=== PATIENT | male | born 1945 | race Caucasian/White ===

== ENCOUNTER → 2017-01-12 | Day surgery (SDC) | payer OTHER ==
[~2017-01-12] VITALS: Ht 182.9 cm; Wt 125.0 kg
[~2017-01-12] MED LIST: ACETAMINOPHEN 325 MG TAB PO PRN; ASPI81CH2 PO; ATOR-24 PO; ATROPINE SULFATE 0.1 MG/ML 5ML SYR IV PRN; B-CO-25 PO; CETI10TA84 PO; FENTANYL CITRATE INJ 50 MCG/1 ML 2 ML VIAL ONE; GLUC1CAP28 PO; LISI1TAB3 PO; MIDAZOLAM HCL 1 MG/ML 2ML VIAL ONE; MISC8TAB PO; OMEG10007 PO; ONDANSETRON INJ 2 MG/ML 2 ML VIAL IV PRN; PATIENT'S ALLERGY INFO NEEDS ENTERED SCH; PRLSR20 PO; SODIUM CHLORIDE 0.9% 1000ML 250 ML IV PRN
[2017-01-12 07:36] VITALS: BP 144/103; PULSE 60; TEMP 36.7; O2SAT 94; Ht 182.9 cm; Wt 125.0 kg
--- NOTE | 2017-01-12 09:50 | Procedure Note ---
Pre-Mod Sedation Assessment General Date of Moderate Sedation: January 12, 2017. Vital Signs: Vital Signs Past 12 Hours Date Time Temp Pulse Resp B/P Pulse Ox O2 Delivery O2 Flow Rate FiO2 01/12/17 07:36 36.7 60 16 144/103 94 Room Air Review Cardiovascular: regular rate, rhythm, no edema, + systolic murmur Abdomen: normal bowel sounds, non tender Pre-Sedation Airway Assessment Oral Cavity: Dentures Short Thick Neck: No Hx of Sleep Apnea: No Mallampati Classification: Class III ASA Classification: Class III Procedure Planning Contraindications-for Mod Sed: None Yes Notes The planned sedation has been discussed with the patient and consent obtained. I have identified the patient, determined the appropriateness of sedation and have assessed the patient immediately prior to the procedure. All medicine(s) and interventions are by my order.
--- NOTE | 2017-01-12 09:50 | History & Physical Bridge Note ---
H&P Re-Evaluation Bridge Note: I have examined the patient, reviewed the History & Physical and in the interval since the performance of the History & Physical I have noted the following changes of clinical significance: No changes noted
--- NOTE | 2017-01-12 11:02 | Cardiac Catheterization ---
Procedure Note Procedure Date January 12, 2017. Pre-Procedure Diagnosis Valvular Disease AUC Score 7 Post-Procedure Diagnosis Mild CAD Procedure(s) Performed Coronary Angiography (Moderate sedation, start time 1009, stop [id number]) [employer] Dr. Renteria Cafeteria Director(s) Jose ROACH, sedation ROCK Jules Estimated Blood Loss 5cc Medication(s) Fentanyl (25mcg), Versed (2mg), Lidocaine 1% Summary of Findings mild nonobstructive CAD Hemodynamics Rest Ao: 97/54/71 Final Ao: 106/60/79 LV: N/A Recommendations valve replacement Specimens None Radiation Exposure (mGy) 1195 Contrast (mls) 80 Procedural Complication(s) None Disposition Motion Picture Narrator Holding/Recovery ACC Data Cardiac Status Clinical evaluation leading to the procedure: Severe aortic stenosis per resting 2D echo. CAD Presntation: Stable angina Anginal Classification: CCS II Heart Failure: No Coronary Anatomy Dominant: Right Left Main (% Stenosis): Ostial (0%), Proximal (0%), Mid (0%), Distal (10%), Normal LAD (% Stenosis): Ostial (0%), Proximal (10%), Mid (10%), Distal (10%) D1 (% Stenosis): Normal Circumflex (% Stenosis): Ostial (0%), Proximal (0%), Mid (10%), Distal (10%) OM1 (% Stenosis): Ostial (0%), Proximal (0%), Mid (10%), Distal (10%) RCA (% Stenosis): Ostial (20% taper), Proximal (diffuse 10-20%), Mid (30%), Distal (10%) R PDA (% Stenosis): Ostial (20% taper), Proximal (0%), Mid (10%), Distal (10%) R PL1 (% Stenosis): Normal R PL2 (% Stenosis): Normal AM (% Stenosis): Ostial (not well visualized), Proximal (10%), Mid (10%), Distal (0%) Diagnostic Status: Elective Closure Device Percutaneous Entry Location: Femoral Closure Device: Mynx Recommendations: valve replacement Intraprocedure Events Significant Dissection: No Perforation: No
--- NOTE | 2017-01-12 11:06 | Discharge Instructions ---
Discharge Instructions Procedure Procedure Date: January 12, 2017. Reason for Visit: Pre-Op Aortic Valve Stenosis Kopinski To Do. Discharge Discharge Date: January 12, 2017. Discharge Diagnosis: Status post cardiac catheterization. Nonobstructive CAD Severe aortic stenosis Last Recorded Wt (Kilograms): 125 Anesthesia Post Anesthesia Instructions: If you have had General Anesthesia or IV Sedation: * Do not drive today. * Resume driving when surgeon permits. * Do not make important decisions or sign legal documents today. * Call surgeon for: 1. Temperature elevations greater than 101 degrees F. 2. Uncontrollable pain. 3. Excessive bleeding. 4. Persistent nausea and vomiting. 5. Medication intolerance (nausea, vomiting or rash). * For nausea and vomiting use only clear liquids such as: tea, soda, bouillon until nausea subsides, then gradually increase diet as tolerated. * If you have any concerns or questions, call your surgeon's office. If physician is unavailable and it is an emergency, call 911 or go to the nearest emergency room. Instructions Activity Recommendations: limitations as noted below Return to School/Work: with the following limitations Recommended Home Diet: resume previous diet Provider Instructions ACTIVITY RECOMMENDATIONS: It is common to feel weak and fatigue for a few days. * Do not drive or operate any motorized equipment for the next three days. * Limit stair usage (2 or 3 trips a day only) for the next three days. * Do not lift anything heavier than 10 pounds for the next three days. * Do not engage in vigorous exercise or any sports for the next five days. * You may shower the day after your procedure, but do not immerse the area for three days. Cleanse the site gently with soap and water. SPECIAL CARE INSTRUCTIONS: * You may replace the pressure dressing or band-aid the morning after the procedure. * After your procedure, it is normal to have a small bruise or small lump at the site. Examine your site daily for any change in the bruise or lump, redness, swelling, drainage or numbness. Notify your doctor if any change. BLEEDING: * If there is a small amount of bleeding at the site, lie down and apply firm pressure with a clean cloth for ten minutes. When the bleeding stops, lie quietly keeping the procedure limb straight for six hours. Notify your doctor as soon as possible. * If the bleeding does not stop after ten minutes or if there is a large amount of bleeding or spurting, call 911 immediately. Continue to lie down and hold firm pressure until help arrives. SKIN IRRITATION: * You may experience some redness and/or swelling in the area where radiation was administered. If any skin irritation occurs, please contact your family physician. FOLLOW UP VISIT: Keep any scheduled doctor appointments. Follow Up Follow-up with: [facility] CT surgeon as scheduled. Jared Valerio Recommendations: Call your doctor if: * Temperature above 101 degrees * Pain not relieved by pain medicine ordered * There is increased drainage or redness from any incision * You have any unanswered questions or concerns. Your Doctors Instructions noted above were prepared by provider Benigno Renteria. Patient Signature Section: Patient Instructions Signature Page Nicholas Contreras Patient (or Guardian) Signature/Date: I have read and understand the instructions given to me by my caregivers. Caregiver/RN/Doctor Signature/Date: The above-named patient and/or guardian has received patient instructions on this date. + Original Patient Signature Page (only) stays with chart. Please make copy for patient.
[2017-01-12 15:30] VITALS: BP 129/61; PULSE 62; O2SAT 95
== END | disposition home or self-care (01) ==
LOC: C.CATH 06:48
PROVIDERS: ATTEND Internal Medicine Cardiovascular Disease
DX: I35.0 Nonrheumatic aortic (valve) stenosis (principal); I25.10 Atherosclerotic heart disease of native coronary artery without angina pectoris; I10 Essential (primary) hypertension; E78.5 Hyperlipidemia, unspecified; Z87.891 Personal history of nicotine dependence

== ENCOUNTER 2021-02-11 13:32 | Inpatient (IN) ==
[2021-02-11] MEDS ORDERED: cefTRIAXone SODIUM 2,000 MG/70 ML BAG IV STA (14:08)
[2021-02-11] MEDS ORDERED: SODIUM CHLORIDE 0.9% 1000ML 2,000 ML IV ONE (14:08)
[2021-02-11] MEDS ORDERED: ACETAMINOPHEN 325 MG TAB PO STA (14:11)
[2021-02-11] MEDS ORDERED: KETOROLAC TROMETHAMINE 15 MG/ML VIAL IV ONE (14:11)
--- NOTE | 2021-02-11 14:11 | Emergency Department Note ---
Impression & Plan Sepsis, Acute knee pain, Cough, Effusion of knee ED Provider Note NAME: CHLOE VICK AGE: 75 SEX: M : 1945 ARRIVES VIA: Ambulance INFORMANT: Patient ED PROVIDER(S): Elio Boateng DO CHIEF COMPLAINT: Knee pain, cough HPI: Patient is a 75-year-old male who presents to the ER for right knee pain which has been present for the past 2 weeks. He has been unable to walk on it for the past week. He has followed up with PCP and had x-rays. He is scheduled to see [facility] orthopedics coming up but has not seen them yet. He notes he has had swelling which has been unchanged. He denies any headache or neck pain. He admits to a cough which is nonproductive and is been present for the past 2 weeks. He denies any shortness of breath. He admits to feeling hot but does not remember any fevers but he has not been checking. Denies any belly pain dysuria urgency or frequency. No other exacerbating or remitting factors. Pain is significant worse with movement and improves with rest. ROS: See above HPI for pertinent positives & negatives. A total of 10 systems reviewed and were otherwise negative. PAST MEDICAL HISTORY:See Below PAST SURGICAL HISTORY:See Below FAMILY HISTORY:See Below SOCIAL HISTORY:See Below HOME MEDICATIONS:See Below ALLERGIES:See Below VITALS:See Below PHYSICAL EXAMINATION: GENERAL: Sitting up in bed, alert, disheveled, slightly ill-appearing EYE EXAM: normal conjunctiva. PERRL and EOM's grossly intact. OROPHARYNX: no exudate, no erythema, lips, buccal mucosa, and tongue normal and mucous membranes are moist NECK: supple, no nuchal rigidity, no adenopathy, non-tender LUNGS: Clear to auscultation. Normal chest wall mechanics HEART: Tachycardic, S1 normal and S2 normal ABDOMEN: abdomen soft, non-tender, normo-active bowel sounds, no masses, no rebound or guarding. BACK: Back is symmetrical on inspection and there is no deformity, no midline tenderness, no CVA tenderness. SKIN: no rashes and no bruising UPPER EXTREMITIES: upper extremities are grossly normal. LOWER EXTREMITIES: Prepatellar swelling of the right knee held in partial flexion significant pain with extension and axial loading of the joint. No tenderness in the ankle or hip. NEURO EXAM: Normal sensorium, cranial nerves II-XII grossly intact, normal speech, no gross weakness of arms, no gross weakness of legs. MEDICAL DECISION MAKING: Patient is a 75-year-old male who presents ER for fevers and found to be hypoxic brought in by EMS. He does have a little bit of a cough. IV was established blood work was obtained. He has been unable to walk on his right knee for the past 5 to 6 days. IV was established blood work is obtained. Labs showed a leukocytosis of 13,000. No significant anemia. D-dimer was elevated and was obtained secondary to the hypoxia. BMP with creatinine 1.7. LFTs troponin was unremarkable. Pro-Adrian was slightly elevated 0.65. UA was contaminated. I did tap the knee at bedside and awaiting results. Patient was given 2 g of Rocephin initially upon presentation and eventually given IV vancomycin. Lyme was negative. X-rays and knee showed a large effusion. CT angio of the chest was negative. He denied any belly pain. He was updated and discussed with hospitalist for further evaluation. Triage Nursing notes reviewed. Limited review of prior medical records performed Vital Signs: reviewed and remarkable for febrile Differential diagnosis: Differential diagnosis includes etiologies such as sepsis, UTI, pneumonia, metabolic, electrolyte abnormalities, cardiac sources, intracerebral event, toxicologic, neurological, as well as others were entertained. ER treatment provided: See below Diagnostics interpreted by me: Cardiac Monitoring: An order was placed for continuous cardiac monitoring. The monitor shows a rate of 72 with sinus rhythm. Laboratory studies: As stated above and show below. Imaging studies: CT angio of the chest was negative X-ray of the right knee shows a large effusion Consultation(s): Discussed with the hospitalist for further evaluation Procedures: Arthrocentesis Indication: Sepsis with a right knee effusion Location: Right lateral knee Verbal consent was obtained after the risks and benefits were explained, including but not limited to vessel injury, bleeding, scarring, infection, pain, and bone/joint/nerve damage. At this time, the risks of the procedure are less than the risks of NOT performing the procedure. A time out was taken and the correct patient and site identified. The patient was placed in the prone position and the skin was prepped in the standard fashion with chlorhexidine and full sterile drapes applied. The proper landmarks were identified, anesthetized with 1% lidocaine without epinephrine, and the needle was inserted through the skin in the standard fashion. The needle was carefully advanced into right knee joint. Yellow straw-colored fluid was removed for a total of 30 cc. The patient tolerated the procedure well and there were no complications. Critical Care: None Past Med/Surg History Social History Smoking Status: Unknown if ever smoked Feels Safe at Home: Yes Allergies Allergies Allergy/AdvReac Type Severity Reaction Status Date / Time No Known Allergies Allergy Unverified 01/12/17 11:47 Home Meds Home Medications Medication Instructions Recorded Confirmed amiodarone 200 mg PO QAM 02/11/21 02/11/21 aspirin [Aspirin Low Dose] 81 mg PO DAILY 02/11/21 02/11/21 atorvastatin 40 mg PO QPM 02/11/21 02/11/21 diclofenac sodium 50 mg PO TID PRN 02/11/21 02/11/21 hydrocodone-acetaminophen 1 tab PO Q6 PRN 02/11/21 02/11/21 losartan 25 mg PO QAM 02/11/21 02/11/21 tamsulosin 0.4 mg PO DAILY 02/11/21 02/11/21 Results & Data (ED) Vital Signs Vital Signs - 24 hr 02/11/21 13:41 02/11/21 13:46 02/11/21 13:53 Temperature 39.2 C H Temperature Source Oral Pulse Rate 90 88 88 Pulse Rate from SpO2 Sensor 90 88 Pulse Rhythm Regular Pulse Strength Normal Respiratory Rate 19 18 18 Respiratory Effort / Characteristics Respiratory Depth Normal Blood Pressure 150/112 H 155/104 H Blood Pressure [Left Arm] Blood Pressure Mean 124 121 Blood Pressure Mean [Left Arm] Blood Pressure Position [Left Arm] Pulse Oximetry 95 95 95 Oxygen Delivery Method Nasal Cannula Oxygen Flow Rate 3 Sepsis Recent Fever Within 48 Hours Yes Sepsis New/Unexplained Change in Mental Status No Sepsis Action Taken by Nursing No Action Required 02/11/21 14:00 02/11/21 14:08 02/11/21 14:30 Temperature Temperature Source Pulse Rate 89 80 90 Pulse Rate from SpO2 Sensor 89 90 Pulse Rhythm Regular Pulse Strength Respiratory Rate 25 H 12 28 H Respiratory Effort / Characteristics Non-Labored Respiratory Depth Blood Pressure 113/84 Blood Pressure [Left Arm] 150/99 H Blood Pressure Mean 93 Blood Pressure Mean [Left Arm] 116 Blood Pressure Position [Left Arm] Standing Pulse Oximetry 94 95 92 Oxygen Delivery Method Nasal Cannula Oxygen Flow Rate Sepsis Recent Fever Within 48 Hours Sepsis New/Unexplained Change in Mental Status Sepsis Action Taken by Nursing 02/11/21 14:31 02/11/21 15:00 02/11/21 15:30 Temperature Temperature Source Pulse Rate 88 84 79 Pulse Rate from SpO2 Sensor 89 Pulse Rhythm Pulse Strength Respiratory Rate 24 20 20 Respiratory Effort / Characteristics Respiratory Depth Blood Pressure 124/80 115/63 Blood Pressure [Left Arm] Blood Pressure Mean 94 80 Blood Pressure Mean [Left Arm] Blood Pressure Position [Left Arm] Pulse Oximetry 93 96 Oxygen Delivery Method Oxygen Flow Rate Sepsis Recent Fever Within 48 Hours Sepsis New/Unexplained Change in Mental Status Sepsis Action Taken by Nursing 02/11/21 16:00 02/11/21 16:30 02/11/21 17:00 Temperature Temperature Source Pulse Rate 77 77 74 Pulse Rate from SpO2 Sensor Pulse Rhythm Pulse Strength Respiratory Rate 19 20 16 Respiratory Effort / Characteristics Respiratory Depth Blood Pressure 106/66 112/64 102/60 Blood Pressure [Left Arm] Blood Pressure Mean 79 80 74 Blood Pressure Mean [Left Arm] Blood Pressure Position [Left Arm] Pulse Oximetry 97 99 99 Oxygen Delivery Method Oxygen Flow Rate Sepsis Recent Fever Within 48 Hours Sepsis New/Unexplained Change in Mental Status Sepsis Action Taken by Nursing Laboratory Data Result diagrams: 02/11/21 15:56 02/11/21 14:40 Lab Results 02/11/21 02/11/21 02/11/21 Range/Units 11:52 11:52 14:40 WBC (4.8-10.8) K/uL RBC (4.7-6.1) M/uL Hgb (14.0-18.0) g/dL Hct (42-52) % MCV (80-100) fL MCH (25-34) pg MCHC (32-36) g/dL RDW Std Deviation (36.4-46.3) fL RDW Coeff of Pilar (11.5-14.5) % Plt Count (130-400) K/uL MPV (7.4-10.4) fL Immature Gran % (Auto) % Neut % (Auto) % Lymph % (Auto) % Catron % (Auto) % Eos % (Auto) % Baso % (Auto) % Neut # (Auto) (1.4-6.5) K/uL Lymph # (Auto) (1.2-3.4) K/uL Catron # (Auto) (0.11-0.59) K/uL Eos # (Auto) (0-0.5) K/uL Baso # (Auto) (0-0.2) K/uL Immature Gran # (Auto) (0.00-0.02) K/uL PT 10.4 (9.0-12.0) Seconds INR 1.0 (0.9-1.1) APTT 37.6 H (21.0-31.0) Seconds PTT Ratio 1.4 D-Dimer 1650 H* (0-500) ug/L FEU Sodium (136-145) mmol/L Potassium (3.5-5.1) mmol/L Chloride (98-107) mmol/L Carbon Dioxide (21-32) mmol/L Anion Gap (3-11) BUN (7-18) mg/dl Creatinine (0.6-1.4) mg/dl Est Cr Clr Drug Dosing ml/min Est GFR ( Amer) ml/min Est GFR (Non-Af Amer) ml/min BUN/Creatinine Ratio (10-20) Glucose (70-99) mg/dl Lactate (0.4-2.0) mmol/L Calcium (8.5-10.1) mg/dl Magnesium (1.8-2.4) mg/dl Total Bilirubin (0.2-1) mg/dl AST (15-37) U/L ALT (12-78) U/L Alkaline Phosphatase (45-117) U/L Troponin I (0-0.045) ng/ml Total Protein (6.4-8.2) gm/dl Albumin (3.4-5.0) gm/dl Globulin (2.5-4.0) gm/dl Albumin/Globulin Ratio (0.9-2) Procalcitonin (0-0.5) ng/ml Urine Color Urine Appearance (Clear) Urine pH (4.5-7.5) Ur Specific Morrill (1.000-1.030) Urine Protein (Negative) Urine Glucose (UA) (Negative) Urine Ketones (Negative) Urine Blood (Negative) Urine Nitrite (Negative) Urine Bilirubin (Negative) Urine Urobilinogen (Negative) Ur Leukocyte Esterase (Negative) Urine WBC (Auto) (0-5) /hpf Urine RBC (Auto) (0-4) /hpf U Hyaline Cast (Auto) (0-5) /lpf U Epithel Cells (Auto) (0-5) /lpf Urine Bacteria (Auto) (Negative) Granular Casts (0) /lpf Fluid Comment Synovial Source Synovial Color Synovial Appearance Synovial WBC (0-200) /ul Synovial RBC /uL Synovial Polynuclear % % Synovial Mononuclear % % Lyme Disease IgG Ab (Negative) Lyme Disease IgM Ab (Negative) COVID-19 Eval Order Covid19 at [facility] SARS-CoV-2 (PCR) NEGATIVE (Negative) 02/11/21 02/11/21 02/11/21 Range/Units 14:40 14:40 14:40 WBC (4.8-10.8) K/uL RBC (4.7-6.1) M/uL Hgb (14.0-18.0) g/dL Hct (42-52) % MCV (80-100) fL MCH (25-34) pg MCHC (32-36) g/dL RDW Std Deviation (36.4-46.3) fL RDW Coeff of Pilar (11.5-14.5) % Plt Count (130-400) K/uL MPV (7.4-10.4) fL Immature Gran % (Auto) % Neut % (Auto) % Lymph % (Auto) % Catron % (Auto) % Eos % (Auto) % Baso % (Auto) % Neut # (Auto) (1.4-6.5) K/uL Lymph # (Auto) (1.2-3.4) K/uL Catron # (Auto) (0.11-0.59) K/uL Eos # (Auto) (0-0.5) K/uL Baso # (Auto) (0-0.2) K/uL Immature Gran # (Auto) (0.00-0.02) K/uL PT (9.0-12.0) Seconds INR (0.9-1.1) APTT (21.0-31.0) Seconds PTT Ratio D-Dimer (0-500) ug/L FEU Sodium 133 L (136-145) mmol/L Potassium 4.5 (3.5-5.1) mmol/L Chloride 102 (98-107) mmol/L Carbon Dioxide 22 (21-32) mmol/L Anion Gap 9.0 (3-11) BUN 26 H (7-18) mg/dl Creatinine 1.70 H (0.6-1.4) mg/dl Est Cr Clr Drug Dosing 50.5 ml/min Est GFR ( Amer) 44.4 ml/min Est GFR (Non-Af Amer) 38.3 ml/min BUN/Creatinine Ratio 15.0 (10-20) Glucose 119 H (70-99) mg/dl Lactate 1.6 (0.4-2.0) mmol/L Calcium 9.3 (8.5-10.1) mg/dl Magnesium 2.5 H (1.8-2.4) mg/dl Total Bilirubin 1.1 H (0.2-1) mg/dl AST 17 (15-37) U/L ALT 27 (12-78) U/L Alkaline Phosphatase 102 (45-117) U/L Troponin I < 0.015 (0-0.045) ng/ml Total Protein 7.9 (6.4-8.2) gm/dl Albumin 2.6 L (3.4-5.0) gm/dl Globulin 5.3 H (2.5-4.0) gm/dl Albumin/Globulin Ratio 0.5 L (0.9-2) Procalcitonin 0.65 H (0-0.5) ng/ml Urine Color Urine Appearance (Clear) Urine pH (4.5-7.5) Ur Specific Morrill (1.000-1.030) Urine Protein (Negative) Urine Glucose (UA) (Negative) Urine Ketones (Negative) Urine Blood (Negative) Urine Nitrite (Negative) Urine Bilirubin (Negative) Urine Urobilinogen (Negative) Ur Leukocyte Esterase (Negative) Urine WBC (Auto) (0-5) /hpf Urine RBC (Auto) (0-4) /hpf U Hyaline Cast (Auto) (0-5) /lpf U Epithel Cells (Auto) (0-5) /lpf Urine Bacteria (Auto) (Negative) Granular Casts (0) /lpf Fluid Comment Synovial Source Synovial Color Synovial Appearance Synovial WBC (0-200) /ul Synovial RBC /uL Synovial Polynuclear % % Synovial Mononuclear % % Lyme Disease IgG Ab (Negative) Lyme Disease IgM Ab (Negative) COVID-19 Eval Order SARS-CoV-2 (PCR) (Negative) 02/11/21 02/11/21 02/11/21 Range/Units 15:56 15:56 18:35 WBC 13.32 H (4.8-10.8) K/uL RBC 4.74 (4.7-6.1) M/uL Hgb 13.7 L (14.0-18.0) g/dL Hct 40.8 L (42-52) % MCV 86.1 (80-100) fL MCH 28.9 (25-34) pg MCHC 33.6 (32-36) g/dL RDW Std Deviation 44.8 (36.4-46.3) fL RDW Coeff of Pilar 14.1 (11.5-14.5) % Plt Count 157 (130-400) K/uL MPV 10.9 H (7.4-10.4) fL Immature Gran % (Auto) 0.2 % Neut % (Auto) 79.7 % Lymph % (Auto) 5.9 % Catron % (Auto) 13.9 % Eos % (Auto) 0.2 % Baso % (Auto) 0.1 % Neut # (Auto) 10.62 H (1.4-6.5) K/uL Lymph # (Auto) 0.79 L (1.2-3.4) K/uL Catron # (Auto) 1.85 H (0.11-0.59) K/uL Eos # (Auto) 0.02 (0-0.5) K/uL Baso # (Auto) 0.01 (0-0.2) K/uL Immature Gran # (Auto) 0.03 H (0.00-0.02) K/uL PT (9.0-12.0) Seconds INR (0.9-1.1) APTT (21.0-31.0) Seconds PTT Ratio D-Dimer (0-500) ug/L FEU Sodium (136-145) mmol/L Potassium (3.5-5.1) mmol/L Chloride (98-107) mmol/L Carbon Dioxide (21-32) mmol/L Anion Gap (3-11) BUN (7-18) mg/dl Creatinine (0.6-1.4) mg/dl Est Cr Clr Drug Dosing ml/min Est GFR ( Amer) ml/min Est GFR (Non-Af Amer) ml/min BUN/Creatinine Ratio (10-20) Glucose (70-99) mg/dl Lactate (0.4-2.0) mmol/L Calcium (8.5-10.1) mg/dl Magnesium (1.8-2.4) mg/dl Total Bilirubin (0.2-1) mg/dl AST (15-37) U/L ALT (12-78) U/L Alkaline Phosphatase (45-117) U/L Troponin I (0-0.045) ng/ml Total Protein (6.4-8.2) gm/dl Albumin (3.4-5.0) gm/dl Globulin (2.5-4.0) gm/dl Albumin/Globulin Ratio (0.9-2) Procalcitonin (0-0.5) ng/ml Urine Color [place] Urine Appearance Clear (Clear) Urine pH 6.0 (4.5-7.5) Ur Specific Morrill 1.032 H (1.000-1.030) Urine Protein 2+ H (Negative) Urine Glucose (UA) Negative (Negative) Urine Ketones Trace H (Negative) Urine Blood 2+ H (Negative) Urine Nitrite Positive A (Negative) Urine Bilirubin Negative (Negative) Urine Urobilinogen Negative (Negative) Ur Leukocyte Esterase Trace H (Negative) Urine WBC (Auto) 1-5 (0-5) /hpf Urine RBC (Auto) >30 H (0-4) /hpf U Hyaline Cast (Auto) 10-30 H (0-5) /lpf U Epithel Cells (Auto) 20-30 H (0-5) /lpf Urine Bacteria (Auto) Negative (Negative) Granular Casts 5-10 H (0) /lpf Fluid Comment Synovial Source Synovial Color Synovial Appearance Synovial WBC (0-200) /ul Synovial RBC /uL Synovial Polynuclear % % Synovial Mononuclear % % Lyme Disease IgG Ab Negative (Negative) Lyme Disease IgM Ab Negative (Negative) COVID-19 Eval Order SARS-CoV-2 (PCR) (Negative) 02/11/21 Range/Units 18:50 WBC (4.8-10.8) K/uL RBC (4.7-6.1) M/uL Hgb (14.0-18.0) g/dL Hct (42-52) % MCV (80-100) fL MCH (25-34) pg MCHC (32-36) g/dL RDW Std Deviation (36.4-46.3) fL RDW Coeff of Pilar (11.5-14.5) % Plt Count (130-400) K/uL MPV (7.4-10.4) fL Immature Gran % (Auto) % Neut % (Auto) % Lymph % (Auto) % Catron % (Auto) % Eos % (Auto) % Baso % (Auto) % Neut # (Auto) (1.4-6.5) K/uL Lymph # (Auto) (1.2-3.4) K/uL Catron # (Auto) (0.11-0.59) K/uL Eos # (Auto) (0-0.5) K/uL Baso # (Auto) (0-0.2) K/uL Immature Gran # (Auto) (0.00-0.02) K/uL PT (9.0-12.0) Seconds INR (0.9-1.1) APTT (21.0-31.0) Seconds PTT Ratio D-Dimer (0-500) ug/L FEU Sodium (136-145) mmol/L Potassium (3.5-5.1) mmol/L Chloride (98-107) mmol/L Carbon Dioxide (21-32) mmol/L Anion Gap (3-11) BUN (7-18) mg/dl Creatinine (0.6-1.4) mg/dl Est Cr Clr Drug Dosing ml/min Est GFR ( Amer) ml/min Est GFR (Non-Af Amer) ml/min BUN/Creatinine Ratio (10-20) Glucose (70-99) mg/dl Lactate (0.4-2.0) mmol/L Calcium (8.5-10.1) mg/dl Magnesium (1.8-2.4) mg/dl Total Bilirubin (0.2-1) mg/dl AST (15-37) U/L ALT (12-78) U/L Alkaline Phosphatase (45-117) U/L Troponin I (0-0.045) ng/ml Total Protein (6.4-8.2) gm/dl Albumin (3.4-5.0) gm/dl Globulin (2.5-4.0) gm/dl Albumin/Globulin Ratio (0.9-2) Procalcitonin (0-0.5) ng/ml Urine Color Urine Appearance (Clear) Urine pH (4.5-7.5) Ur Specific Morrill (1.000-1.030) Urine Protein (Negative) Urine Glucose (UA) (Negative) Urine Ketones (Negative) Urine Blood (Negative) Urine Nitrite (Negative) Urine Bilirubin (Negative) Urine Urobilinogen (Negative) Ur Leukocyte Esterase (Negative) Urine WBC (Auto) (0-5) /hpf Urine RBC (Auto) (0-4) /hpf U Hyaline Cast (Auto) (0-5) /lpf U Epithel Cells (Auto) (0-5) /lpf Urine Bacteria (Auto) (Negative) Granular Casts (0) /lpf Fluid Comment Synovial Source KNEE Synovial Color YELLOW Synovial Appearance CLOUDY Synovial WBC 69324 H (0-200) /ul Synovial RBC 60511 /uL Synovial Polynuclear % 89.1 % Synovial Mononuclear % 10.9 % Lyme Disease IgG Ab (Negative) Lyme Disease IgM Ab (Negative) COVID-19 Eval Order SARS-CoV-2 (PCR) (Negative) Administered Medications Vancomycin HCl 2,750 mg/ (Sodium Chloride) 555 mls @ 200 mls/hr IV NOW ONE Stop: 02/11/21 21:39 Last Admin: 02/11/21 19:51 Dose: 200 mls/hr Documented by: [id number] Discontinued Medications Acetaminophen (Acetaminophen 325 Mg Tab) 650 mg PO NOW STA Stop: 02/11/21 14:12 Last Admin: 02/11/21 14:55 Dose: 650 mg Documented by: [id number] Ceftriaxone Sodium (Rocephin) 2,000 mg in 70 mls @ 140 mls/hr IV NOW STA Stop: 02/11/21 14:37 Last Infusion: 02/11/21 15:21 Dose: 0 mls/hr Documented by: [id number] Admin: 02/11/21 14:55 Dose: 140 mls/hr Documented by: [id number] Sodium Chloride (Nss 1000ml) 2,000 mls @ 999 mls/hr IV .Q2H1M ONE Stop: 02/11/21 16:08 Last Infusion: 06/02/21 16:22 Dose: 0 mls/hr Documented by: [id number] Admin: 02/11/21 14:55 Dose: 999 mls/hr Documented by: [id number] Ioversol (Optiray 320 150ml) 95 ml IV ONCE ONE Stop: 02/11/21 17:22 Last Admin: 02/11/21 17:50 Dose: Not Given Documented by: [id number] Ioversol (Optiray 350 500ml) 95 ml IV ONCE ONE Stop: 02/11/21 17:25 Last Admin: 02/11/21 17:24 Dose: 95 ml Documented by: [id number] Ketorolac Tromethamine (Ketorolac Tromethamine 15 Mg/Ml Vial) 10 mg IV NOW ONE Stop: 02/11/21 14:12 Last Admin: 02/11/21 14:55 Dose: 10 mg Documented by: [id number] Lidocaine HCl (Lidocaine Hcl 2% (Local) Inj 50 Ml Vial) Confirm Administered Dose 50 ml .ROUTE .STK-MED ONE Stop: 02/11/21 18:28 Last Admin: 02/11/21 19:48 Dose: 50 ml Documented by: [id number] Morphine Sulfate (Morphine Sulfate 4 Mg/Ml 1 Ml Carp\Vial) 4 mg IV NOW STA Stop: 02/11/21 18:51 Last Admin: 02/11/21 19:48 Dose: 4 mg Documented by: [id number] Ondansetron HCl (Ondansetron Inj 2 Mg/Ml 2 Ml Vial) 4 mg IV NOW STA Stop: 02/11/21 18:51 Last Admin: 02/11/21 19:48 Dose: 4 mg Documented by: [id number] Imaging Data Radiologist's Impression: Chest X-Ray 02/11/21 14:08 XR chest 1V portable CLINICAL HISTORY: SEPSIS COMPARISON STUDY: No previous studies for comparison. FINDINGS: The heart is enlarged. There are postsurgical changes of a midline sternotomy. There is mild elevation of interstitium, likely secondary to pulmonary vascular congestion. A interstitial infectious/inflammatory process could appear similar. There are no significant pleural effusions. The patient appears hyperinflated.[ IMPRESSION: Cardiomegaly and elevation of the interstitium, a nonspecific finding likely secondary to mild pulmonary vascular congestion/fluid overload. ACT 112: Negative or not required by law. Electronically signed by: Rick Rico M.D. 02/11/2021 2:55 PM Knee X-Ray 02/11/21 14:08 XR knee RT 3V HISTORY: 75 years-old Male r knee pain acute right knee pain without reported trauma COMPARISON: None TECHNIQUE: 3 views of the right knee FINDINGS: Large joint effusion. There is severe tricompartmental osteoarthritis with corticated ossifications projected posteriorly to the knee. No acute fracture, dislocation or suspicious bone lesion. Mild circumferential soft tissue prominence. IMPRESSION: 1. Large joint effusion without acute fracture or dislocation identified. 2. Severe tricompartmental osteoarthritis. ACT 112: Negative or not required by law. The above report was generated using voice recognition software. It may contain grammatical, syntax or spelling errors. Electronically signed by: Guillermo Rivera M.D. 02/11/2021 2:55 PM Chest CTA 02/11/21 16:04 CT ANGIOGRAM OF THE CHEST CLINICAL HISTORY: Sepsis. Dyspnea. COMPARISON STUDY: Chest x-ray dated 02/11/2021. TECHNIQUE: Following the IV administration of 95 cc of Optiray 350, CT angiogram of the chest was performed from the upper abdomen to the thoracic inlet utilizing the pulmonary embolus protocol. Images are reviewed in the axial, sagittal, and coronal planes. 3-D MIPS images are created and assessed. IV contrast was administered without complication. A dose lowering technique was utilized adhering to the principles of ALARA. The Examination is compromised by motion artifact. CT DOSE: 591.10 mGycm FINDINGS: Thyroid: The thyroid is enlarged and heterogeneous. Thoracic aorta: There is atherosclerotic calcification of the thoracic aorta, which is normal in caliber and demonstrates standard 3-vessel arch anatomy. No dissection is seen. Pulmonary vasculature: The pulmonary trunk is dilated, measuring 4.3 cm in diameter. This suggests pulmonary artery hypertension. There are no filling defects identified in main, lobar, or proximal segmental pulmonary branches to suggest pulmonary embolus. Evaluation of the peripheral branches is degraded by motion artifact. Heart: The patient is status post midline sternotomy. The heart is enlarged and without pericardial effusion. The coronary arteries are densely calcified. Lungs and pleural spaces: Evaluation of the lung parenchyma is significantly compromised by motion artifact. Emphysematous change is noted. Intralobular septal thickening suggests congestive failure. No lobar consolidation or pleural effusion is identified. Foci of parenchymal scarring are seen throughout both lungs. Atelectasis is noted at the lung bases. A 5 mm left upper lobe pulmonary nodule is seen on image #[id number]. Mediastinum: Scattered subcentimeter mediastinal lymph nodes are not pathologically enlarged by size criteria. [place]: Clear. Axillae: There is no axillary lymphadenopathy. Upper abdomen: Partially visualized upper abdominal viscera is within normal limits. Skeletal structures: The skeletal structures are osteopenic. Degenerative change is noted in the shoulders and thoracic spine. No lytic or blastic bony lesions are seen. IMPRESSION: 1. Motion compromised examination. 2. There is no evidence of central pulmonary embolus in the main, lobar, or proximal segmental pulmonary arteries. 3. Cardiomegaly and emphysema with evidence of pulmonary artery hypertension. 4. Intralobular septal thickening suggests congestive failure. Clinical correlation will be required. 5. There is no airspace consolidation typical for pneumonia or pleural effusion. 6. A 5 mm left upper lobe pulmonary nodule is pathologically indeterminant. Follow-up is recommended as per the Fleischner criteria. See below. Please refer to below summary of Fleischner criteria recommendations for follow- up of incidental CT nodules (Miguel Eagle, Guidelines for management of small pulmonary nodules detected on CT scans: A statement from the Fleischner Society, Radiology 237: [phone].) SOLID NODULES Solitary nodule size: <6 mm * low risk patients: no follow-up needed * high risk patients: optional CT at 12 months Solitary nodule size: 6-8 mm * low risk patients: follow-up at 6-12 months, then consider further follow-up at 18-24 months * high risk patients: initial follow-up CT at 6-12 months and then at 18-24 months if no change Solitary nodule size: >8 mm * either low or high risk patients - consider follow-up CT at 3 months, and/or CT-PET, and/or biopsy Multiple nodules size: <6 mm * low risk patients: no routine follow-up * high risk patients: optional CT at 12 months Multiple nodules size: 6-8 mm * low risk patients: follow-up at 3-6 months, then consider further follow-up at 18-24 months * high risk patients: follow-up at 3-6 months, then at 18-24 months if no change Multiple nodules size: >8 mm * low risk patients: follow-up at 3-6 months, then consider further follow-up at 18-24 months * high risk patients: follow-up at 3-6 months, then at 18-24 months if no change Note: newly detected indeterminate nodule in persons 35 years of age or older. * low risk patients: minimal or absent history of smoking and/or other known risk factors * high risk patients: history of smoking or of other known risk factors (e.g. first degree relative with lung cancer, or exposure to asbestos, radon, uranium) * if a nodule up to 8 mm is partly solid or is ground glass further follow-up is required after 24 months to exclude possible slow growing adenocarcinoma (CHAIM) SUBSOLID NODULES Solitary pure ground-glass nodule * nodule size <6 mm - no CT follow-up required * nodule size >=6 mm - follow-up CT at 6-12 months, then every 2 years until 5 years Solitary part-solid nodule * nodule size <6 mm - no CT follow-up required * nodule size >=6 mm - follow-up CT at 3-6 months. If unchanged, and solid component remains <6 mm, then annual follow-up for 5 years Multiple subsolid nodules * nodule size <6 mm - follow-up CT at 3-6 months, consider further follow-up at 2 and 4 years if stable * nodule size >=6 mm - follow-up CT at 3-6 months, subsequent management based on the most suspicious nodule(s) ACT 112: Positive. There are findings on this exam that require communication between the performing entity and the patient following Patient Test Result Information Act ([place] Act 112) guidelines. Electronically signed by: Jared Wharton M.D. 02/11/2021 5:55 PM Discharge Plan Visit Data Chief Complaint: Knee Injury/Pain Stated Complaint: R Knee Pain ED Provider: Elio Boateng Discharge Problem: Sepsis, Acute knee pain, Cough, Effusion of knee Forms Stand Alone Forms: [employer] Prescriptions Prescriptions: No Action atorvastatin 40 mg tablet 40 mg PO QPM RF: 0 hydrocodone-acetaminophen 5-325 mg tablet 1 tab PO Q6 PRN (Reason: Pain, Severe) RF: 0 losartan 25 mg tablet 25 mg PO QAM RF: 0 amiodarone 200 mg tablet 200 mg PO QAM RF: 0 aspirin [Aspirin Low Dose] 81 mg Tablet,Delayed Release (Dr/Ec) 81 mg PO DAILY RF: 0 tamsulosin 0.4 mg capsule 0.4 mg PO DAILY RF: 0 diclofenac sodium 50 mg tablet,delayed release (DR/EC) 50 mg PO TID PRN (Reason: osteoarthritis right knee) RF: 0 Discharge Problem: Sepsis Qualifiers: Sepsis type: sepsis due to unspecified organism Sepsis acute organ dysfunction status: unspecified Qualified Code(s): A41.9 - Sepsis, unspecified organism Acute knee pain Qualifiers: Laterality: right Qualified Code(s): M25.561 - Pain in right knee Effusion of knee Qualifiers: Laterality: right Qualified Code(s): M25.461 - Effusion, right knee
--- NOTE | 2021-02-11 14:56 | XRay Report ---
XR knee RT 3V HISTORY: 75 years-old Male r knee pain acute right knee pain without reported trauma COMPARISON: None TECHNIQUE: 3 views of the right knee FINDINGS: Large joint effusion. There is severe tricompartmental osteoarthritis with corticated ossifications p rojected posteriorly to the knee. No acute fracture, dislocation or suspicious bone lesion. Mild circ umferential soft tissue prominence. IMPRESSION: 1. Large joint effusion without acute fracture or dislocation identified. 2. Severe tricompartmental osteoarthritis. ACT 112: Negative or not required by law. The above report was generated using voice recognition software. It may contain grammatical, syntax o r spelling errors. Electronically signed by: Guillermo Rivera M.D. 02/11/2021 2:55 PM
--- NOTE | 2021-02-11 14:56 | XRay Report ---
XR chest 1V portable CLINICAL HISTORY: SEPSIS COMPARISON STUDY: No previous studies for comparison. FINDINGS: The heart is enlarged. There are postsurgical changes of a midline sternotomy. There is mil d elevation of interstitium, likely secondary to pulmonary vascular congestion. A interstitial infect ious/inflammatory process could appear similar. There are no significant pleural effusions. The patie nt appears hyperinflated.[ IMPRESSION: Cardiomegaly and elevation of the interstitium, a nonspecific finding likely secondary to mild pulmonary vascular congestion/fluid overload. ACT 112: Negative or not required by law. Electronically signed by: Rick Rico M.D. 02/11/2021 2:55 PM
[2021-02-11 15:20] LABS: Alanine Aminotransferase 27 U/L (12-78); Albumin Level 2.6 gm/dl (3.4-5.0); Aspartate Aminotransferase 17 U/L (15-37); Blood Urea Nitrogen 26 mg/dl (7-18); Calcium 9.3 mg/dl (8.5-10.1); Carbon Dioxide 22 mmol/L (21-32); Chloride 102 mmol/L (98-107); Creatinine Clr Calc Pharmacy 50.5 ml/min; Est GFR (African American) 44.4 ml/min; Est GFR (Non-African American) 38.3 ml/min; Glucose 119 mg/dl (70-99); Magnesium 2.5 mg/dl (1.8-2.4); Potassium 4.5 mmol/L (3.5-5.1); Sodium 133 mmol/L (136-145)
[2021-02-11 15:24] LABS: Albumin Globulin Ratio 0.5 (0.9-2); Alkaline Phosphatase 102 U/L (45-117); Bilirubin,Total 1.1 mg/dl (0.2-1); Globulin 5.3 gm/dl (2.5-4.0); Total Protein 7.9 gm/dl (6.4-8.2); Troponin I < 0.015 ng/ml (0-0.045)
[2021-02-11 15:25] LABS: Partial Thromboplastin Ratio 1.4; Partial Thromboplastin Time 37.6 Seconds (21.0-31.0); Prothrombin Time 10.4 Seconds (9.0-12.0)
[2021-02-11 15:51] LABS: D Dimer 1650 ug/L FEU (0-500)
[2021-02-11 16:04] LABS: Hematocrit (blood only) 40.8 % (42-52); Hemoglobin 13.7 g/dL (14.0-18.0); Mean Corpuscular Hemoglobin 28.9 pg (25-34); Mean Corpuscular Hgb Conc 33.6 g/dL (32-36); Mean Corpuscular Volume 86.1 fL (80-100); Mean Platelet Volume 10.9 fL (7.4-10.4); Platelet Count 157 K/uL (130-400); RDW Coefficient of Variation 14.1 % (11.5-14.5); RDW Standard Deviation 44.8 fL (36.4-46.3); Red Blood Count 4.74 M/uL (4.7-6.1); White Blood Count 13.32 K/uL (4.8-10.8)
[2021-02-11 16:22] LABS: Basophils # (auto) 0.01 K/uL (0-0.2); Basophils % (auto) 0.1 %; Eosinophils # (auto) 0.02 K/uL (0-0.5); Eosinophils % (auto) 0.2 %; Immature Granulocytes # (auto) 0.03 K/uL (0.00-0.02); Immature Granulocytes % (auto) 0.2 %; Lymphocytes # (auto) 0.79 K/uL (1.2-3.4); Lymphocytes % (auto) 5.9 %; Monocytes # (auto) 1.85 K/uL (0.11-0.59); Monocytes % (auto) 13.9 %; Neutrophils # (auto) 10.62 K/uL (1.4-6.5); Neutrophils % (auto) 79.7 %
[2021-02-11] MEDS ORDERED: OPTIRAY 320 150ml IV ONE (17:21)
[2021-02-11] MEDS ORDERED: OPTIRAY 350 500ml IV ONE (17:24)
--- NOTE | 2021-02-11 17:56 | CT Scan Report ---
CT ANGIOGRAM OF THE CHEST CLINICAL HISTORY: Sepsis. Dyspnea. COMPARISON STUDY: Chest x-ray dated 02/11/2021. TECHNIQUE: Following the IV administration of 95 cc of Optiray 350, CT angiogram of the chest was per formed from the upper abdomen to the thoracic inlet utilizing the pulmonary embolus protocol. Images are reviewed in the axial, sagittal, and coronal planes. 3-D MIPS images are created and assessed. IV contrast was administered without complication. A dose lowering technique was utilized adhering to the principles of ALARA. The Examination is compromised by motion artifact. CT DOSE: 591.10 mGycm FINDINGS: Thyroid: The thyroid is enlarged and heterogeneous. Thoracic aorta: There is atherosclerotic calcification of the thoracic aorta, which is normal in breanne javad and demonstrates standard 3-vessel arch anatomy. No dissection is seen. Pulmonary vasculature: The pulmonary trunk is dilated, measuring 4.3 cm in diameter. This suggests pu lmonary artery hypertension. There are no filling defects identified in main, lobar, or proximal segm ental pulmonary branches to suggest pulmonary embolus. Evaluation of the peripheral branches is degra ded by motion artifact. Heart: The patient is status post midline sternotomy. The heart is enlarged and without pericardial e ffusion. The coronary arteries are densely calcified. Lungs and pleural spaces: Evaluation of the lung parenchyma is significantly compromised by motion ar tifact. Emphysematous change is noted. Intralobular septal thickening suggests congestive failure. No lobar consolidation or pleural effusion is identified. Foci of parenchymal scarring are seen through out both lungs. Atelectasis is noted at the lung bases. A 5 mm left upper lobe pulmonary nodule is se en on image #[id number]. Mediastinum: Scattered subcentimeter mediastinal lymph nodes are not pathologically enlarged by size criteria. [place]: Clear. Axillae: There is no axillary lymphadenopathy. Upper abdomen: Partially visualized upper abdominal viscera is within normal limits. Skeletal structures: The skeletal structures are osteopenic. Degenerative change is noted in the shou lders and thoracic spine. No lytic or blastic bony lesions are seen. IMPRESSION: 1. Motion compromised examination. 2. There is no evidence of central pulmonary embolus in the main, lobar, or proximal segmental pulmon rashid arteries. 3. Cardiomegaly and emphysema with evidence of pulmonary artery hypertension. 4. Intralobular septal thickening suggests congestive failure. Clinical correlation will be required. 5. There is no airspace consolidation typical for pneumonia or pleural effusion. 6. A 5 mm left upper lobe pulmonary nodule is pathologically indeterminant. Follow-up is recommended as per the Fleischner criteria. See below. Please refer to below summary of Fleischner criteria recommendations for follow-up of incidental CT n odules (Miguel Eagle, Guidelines for management of small pulmonary nodules detected on CT scans: A carlos tement from the Fleischner Society, Radiology 237: [phone].) SOLID NODULES Solitary nodule size: <6 mm * low risk patients: no follow-up needed * high risk patients: optional CT at 12 months Solitary nodule size: 6-8 mm * low risk patients: follow-up at 6-12 months, then consider further follow-up at 18-24 months * high risk patients: initial follow-up CT at 6-12 months and then at 18-24 months if no change Solitary nodule size: >8 mm * either low or high risk patients - consider follow-up CT at 3 months, and/or CT-PET, and/or biopsy Multiple nodules size: <6 mm * low risk patients: no routine follow-up * high risk patients: optional CT at 12 months Multiple nodules size: 6-8 mm * low risk patients: follow-up at 3-6 months, then consider further follow-up at 18-24 months * high risk patients: follow-up at 3-6 months, then at 18-24 months if no change Multiple nodules size: >8 mm * low risk patients: follow-up at 3-6 months, then consider further follow-up at 18-24 months * high risk patients: follow-up at 3-6 months, then at 18-24 months if no change Note: newly detected indeterminate nodule in persons 35 years of age or older. * low risk patients: minimal or absent history of smoking and/or other known risk factors * high risk patients: history of smoking or of other known risk factors (e.g. first degree relative with lung cancer, or exposure to asbestos, radon, uranium) * if a nodule up to 8 mm is partly solid or is ground glass further follow-up is required after 24 m onths to exclude possible slow growing adenocarcinoma (CHAIM) SUBSOLID NODULES Solitary pure ground-glass nodule * nodule size <6 mm - no CT follow-up required * nodule size >=6 mm - follow-up CT at 6-12 months, then every 2 years until 5 years Solitary part-solid nodule * nodule size <6 mm - no CT follow-up required * nodule size >=6 mm - follow-up CT at 3-6 months. If unchanged, and solid component remains <6 mm, then annual follow-up for 5 years Multiple subsolid nodules * nodule size <6 mm - follow-up CT at 3-6 months, consider further follow-up at 2 and 4 years if sta ble * nodule size >=6 mm - follow-up CT at 3-6 months, subsequent management based on the most suspiciou s nodule(s) ACT 112: Positive. There are findings on this exam that require communication between the performing entity and the patient following Patient Test Result Information Act ([place] Act 112) guidelines. Electronically signed by: Jared Wharton M.D. 02/11/2021 5:55 PM
[2021-02-11] MEDS ORDERED: LIDOCAINE 2% LOCAL 50 ML VIAL ONE (18:27)
[2021-02-11] MEDS ORDERED: VANCOMYCIN HCL 2,750 MG in SODIUM CHLORIDE 0.9% 500 ML IV ONE (18:50)
[2021-02-11] MEDS ORDERED: VANCOMYCIN CONSULT ACTIVE PRN ×2 (18:50→21:56)
[2021-02-11] MEDS ORDERED: MoRPHine SULFATE 4 MG/ML 1 ML CARP\\VIAL IV STA (18:50)
[2021-02-11] MEDS ORDERED: ONDANSETRON INJ 2 MG/ML 2 ML VIAL IV STA (18:50)
[2021-02-11 18:53] LABS: Lyme Ab IgG w/WB Rflx Negative (Negative); Lyme Ab IgM w/WB Rflx Negative (Negative)
[2021-02-11 19:20] LABS: Appearance Urine Clear (Clear); Bacteria Urine Automated Negative (Negative); Bilirubin Urine Negative (Negative); Blood Urine 2+ (Negative); Color Urine Orange; Epithelial Cell Urine Auto 20-30 /lpf (0-5); Glucose Urine UA Negative (Negative); Ketones Urine Trace (Negative); Leukocyte Esterase Urine Trace (Negative); Nitrite Urine Positive (Negative); Protein Urine 2+ (Negative); RBC Urine Automated >30 /hpf (0-4); Specific Gravity Urine 1.032 (1.000-1.030); Urobilinogen Urine Negative (Negative)
[2021-02-11 20:39] LABS: Appearance Synovial Fluid CLOUDY; Color Synovial Fluid YELLOW; Mononuclear WBC Synovial 10.9 %; Polynuclear WBC Synovial 89.1 %; RBC Synovial Fluid (A) 15000 /uL; Source Synovial Fluid KNEE; WBC Synovial Fluid (A) 32190 /ul (0-200)
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
[2021-02-11] MEDS ORDERED: DICLOFENAC SODIUM 25 MG TABDR PO PRN (21:56)
[2021-02-11] MEDS ORDERED: ONDANSETRON INJ 2 MG/ML 2 ML VIAL IV PRN (21:56)
[2021-02-11] MEDS ORDERED: ALUMINUM/MAGNESIUM SUSP 30 ML UDC PO PRN (21:56)
[2021-02-11] MEDS ORDERED: MoRPHine SULFATE 4 MG/ML 1 ML CARP\\VIAL IV PRN (21:56)
[2021-02-11 22:49] LABS: Partial Thromboplastin Ratio 1.4; Partial Thromboplastin Time 36.9 Seconds (21.0-31.0); Prothrombin Time 10.3 Seconds (9.0-12.0)
[2021-02-11] MEDS: HYDROCODONE/ACETAMOPHEN 5/325MG TAB PO PRN (23:07)
[2021-02-11] MEDS: SODIUM CHLORIDE 0.9% 1000ML 1,000 ML IV SCH (23:08)
[2021-02-11 23:43] LABS: Appearance Urine Cloudy (Clear); Bacteria Urine Automated Negative (Negative); Bilirubin Urine Negative (Negative); Blood Urine 2+ (Negative); Color Urine Dark Yellow; Epithelial Cell Urine Auto 20-30 /lpf (0-5); Glucose Urine UA Negative (Negative); Ketones Urine Trace (Negative); Leukocyte Esterase Urine Negative (Negative); Nitrite Urine Negative (Negative); Protein Urine 1+ (Negative); Specific Gravity Urine 1.044 (1.000-1.030); Urobilinogen Urine Negative (Negative); pH Urine 5.5 (4.5-7.5)
[2021-02-12 00:10] LABS: RBC Urine Automated 0-4 /hpf (0-4)
[2021-02-12] MEDS: HEPARIN SOD 5,000 UNIT/0.5 ML VIAL SQ SCH ×4 (00:53→19:47)
[2021-02-12] MEDS: ATORVASTATIN 40 MG TAB PO SCH ×2 (00:53→19:47)
[2021-02-12] MEDS: ACETAMINOPHEN 325 MG TAB PO PRN ×2 (03:53→14:57)
[2021-02-12] MEDS: HYDROCODONE/ACETAMOPHEN 5/325MG TAB PO PRN (05:44)
[2021-02-12 05:45] LABS: Basophils # (auto) 0.02 K/uL (0-0.2); Basophils % (auto) 0.2 %; Eosinophils # (auto) 0.09 K/uL (0-0.5); Eosinophils % (auto) 0.7 %; Hemoglobin 13.9 g/dL (14.0-18.0); Immature Granulocytes # (auto) 0.05 K/uL (0.00-0.02); Immature Granulocytes % (auto) 0.4 %; Lymphocytes # (auto) 0.71 K/uL (1.2-3.4); Lymphocytes % (auto) 5.8 %; Mean Corpuscular Hemoglobin 29.4 pg (25-34); Mean Corpuscular Hgb Conc 33.9 g/dL (32-36); Mean Corpuscular Volume 86.7 fL (80-100); Monocytes # (auto) 1.74 K/uL (0.11-0.59); Monocytes % (auto) 14.3 %; Neutrophils # (auto) 9.56 K/uL (1.4-6.5); Neutrophils % (auto) 78.6 %; Platelet Count 165 K/uL (130-400); RDW Coefficient of Variation 14.4 % (11.5-14.5); RDW Standard Deviation 46.1 fL (36.4-46.3); Red Blood Count 4.73 M/uL (4.7-6.1); White Blood Count 12.17 K/uL (4.8-10.8)
[2021-02-12] MEDS ORDERED: VANCOMYCIN HCL 1,000 MG in SODIUM CHLORIDE 0.9% 250 ML IV SCH (06:00)
[2021-02-12 06:07] LABS: Albumin Level 2.2 gm/dl (3.4-5.0); BUN Creatinine Ratio 17.1 (10-20); Calcium 8.4 mg/dl (8.5-10.1); Est GFR (African American) 53.4 ml/min; Est GFR (Non-African American) 46.1 ml/min; Potassium 4.7 mmol/L (3.5-5.1)
[2021-02-12 06:10] LABS: Albumin Globulin Ratio 0.5 (0.9-2); Bilirubin,Total 0.9 mg/dl (0.2-1); Globulin 4.7 gm/dl (2.5-4.0); Total Protein 6.9 gm/dl (6.4-8.2)
--- NOTE | 2021-02-12 08:19 | Hospitalist Progress Note ---
Date of Service February 12, 2021 Assessment & Plan (1) Septic arthritis: (2) Acute knee pain: (3) Effusion of knee: (4) HLD (hyperlipidemia): (5) HTN (hypertension): (6) History of atrial fibrillation: (7) BPH (benign prostatic hyperplasia): (8) S/P AVR (aortic valve replacement): Labs checked Septic arthritis c Staph bacteremia-POA (MSSA)-WBCs are trending down Blood cultures are positive, repeat blood cultures today, MRSA screen neg, Switch Abx to Ancef 2 g q8, DVT Prophylaxis, IVFs, Cultures pending, OP meds, monitor daily labs. Ortho on case. Pain control-Toradol, Oxy, Dilaudid ROS-No Headache, No Visual Changes, No Nausea, No Vomiting, No Fever, No Chills, No Neck Pain or Stiffness, No Chest Pain, No Palpitations, No SOB, No MORALES, No Cough, No Sputum, No Wheezing, No Abdominal Pain, No Diarrhea, No Hematemesis, No Hemoptysis, No Unexpected Weight Loss, No Flank pain, No Melena, No Hematochezia, No Frequency, No Urgency, No Burning, No Hematuria, No Rashes, No Diaphoresis. Appetite is Normal, Tender swollen R Knee Physical Exam Gen-AAO x 3, Moderate pain, febrile Head-NCAT, EOMI, PERRLA, Anicteric Sclera, No Posterior Pharyngeal Erythema Neck-Supple, No JVD, No Thyromegaly, No Masses, No LAD, No Bruits Lungs-Clear to Auscultation Bilaterally, No Rales, No Rhonchi, No Wheezing, No Crepitus Chest-No S4, +S1, +S2, No S3, No Murmurs, No Rubs, No Gallops, No Ectopy Abdomen-Soft, Bowel Sounds Present, Non Tender, Non Distended, No Hepatomegaly, No Splenomegaly, No Palpable Masses, No Rebound, No Rigidity, No Guarding Musculoskeletal-Full Range of Motion Bilaterally, No CVAT Extremities-No Cyanosis, No Clubbing, +Tender Edematous R Knee Nuero-Cranial Nerves II-XII grossly intact, Motor WNL, DTRs WNL, Strength WNL, Non Focal Psych-Normal Mood Admission and Anticipated Discharge Date Admission Date: February 11, 2021 Results & Data Results & Data ([place]) Vital Signs (Past 12 Hours) Vital Signs Temp Pulse Pulse Resp BP BP Pulse Ox 02/12/21 08:07 36.9 C 86 20 121/70 90 02/12/21 07:00 86 02/12/21 04:48 37.8 C H 02/12/21 04:00 39.4 C H 95 H 20 122/73 90 02/12/21 00:00 37.9 C H 93 H 20 108/66 91 02/11/21 22:06 38.3 C H 95 H 24 150/78 H 94 02/11/21 21:29 87 17 127/68 97 (1) Acute knee pain Laterality: right Qualified Code(s): M25.561 - Pain in right knee (2) Effusion of knee Laterality: right Qualified Code(s): M25.461 - Effusion, right knee
--- NOTE | 2021-02-12 08:50 | Electrocardiogram Report ---
Test Reason : Blood Pressure : / mmHG Vent. Rate : 096 BPM Atrial Rate : 096 BPM P-R Int : 160 ms QRS Dur : 130 ms QT Int : 356 ms P-R-T Axes : 068 036 068 degrees QTc Int : 449 ms Normal sinus rhythm Non-specific intra-ventricular conduction block Abnormal ECG No previous ECGs available Confirmed by Grey Handy ([id number]) on 02/12/2021 8:49:28 AM Referred By: REFERRED SELF Confirmed By:Grey Handy
[2021-02-12] MEDS: TAMSULOSIN HCL 0.4 MG CAP PO SCH (08:52)
[2021-02-12] MEDS: ASPIRIN 81 MG ECTAB PO SCH (08:52)
[2021-02-12] MEDS: ceFAZolin 2000MG 2,000 MG/15 ML SYR IV SCH ×3 (08:52→23:45)
[2021-02-12] MEDS: LOSARTAN POTASSIUM 25 MG TAB PO SCH (08:52)
[2021-02-12] MEDS: AMIODARONE 200 MG TAB PO SCH (08:53)
[2021-02-12] MEDS: HYDROmorphone INJ 1 MG/ML SYRINGE IV PRN ×3 (08:58→20:36)
[2021-02-12] MEDS: SODIUM CHLORIDE 0.9% 1000ML 1,000 ML IV SCH ×2 (09:03→19:47)
--- NOTE | 2021-02-12 10:24 | Ultrasound Report ---
RIGHT LOWER EXTREMITY VENOUS DOPPLER CLINICAL HISTORY: Calf firmness COMPARISON STUDY: No previous studies for comparison. TECHNIQUE: Sonography of the deep venous system of the right lower extremity was performed. Compress ion and augmentation were evaluated. FINDINGS: The right common femoral, superficial femoral and popliteal veins were compressible. Augme ntation was normal. Flow was shown within the deep calf vessels. Note is made of a 4.5 x 4.2 x 0.8 cm right popliteal cyst. IMPRESSION: 1. No evidence of deep venous thrombus within the right lower extremity. 2. Small right popliteal cyst. ACT 112: Negative or not required by law. Electronically signed by: Deo Pineda M.D. 02/12/2021 10:22 AM
[2021-02-12] MEDS: KETOROLAC 30 MG/ML VIAL IV PRN (18:35)
[2021-02-13] MEDS: KETOROLAC 30 MG/ML VIAL IV PRN (03:07)
[2021-02-13] MEDS: SODIUM CHLORIDE 0.9% 1000ML 1,000 ML IV SCH (05:38)
[2021-02-13] MEDS: HEPARIN SOD 5,000 UNIT/0.5 ML VIAL SQ SCH ×3 (05:38→21:11)
[2021-02-13] MEDS: HYDROmorphone INJ 1 MG/ML SYRINGE IV PRN ×3 (05:51→18:29)
[2021-02-13] MEDS: ceFAZolin 2000MG 2,000 MG/15 ML SYR IV SCH ×3 (07:37→23:22)
[2021-02-13 07:57] LABS: Basophils # (auto) 0.03 K/uL (0-0.2); Basophils % (auto) 0.3 %; Eosinophils # (auto) 0.16 K/uL (0-0.5); Eosinophils % (auto) 1.8 %; Immature Granulocytes # (auto) 0.03 K/uL (0.00-0.02); Immature Granulocytes % (auto) 0.3 %; Lymphocytes # (auto) 0.88 K/uL (1.2-3.4); Lymphocytes % (auto) 9.8 %; Mean Corpuscular Hemoglobin 29.3 pg (25-34); Mean Corpuscular Hgb Conc 33.3 g/dL (32-36); Mean Corpuscular Volume 87.8 fL (80-100); Monocytes # (auto) 0.88 K/uL (0.11-0.59); Monocytes % (auto) 9.8 %; Neutrophils # (auto) 6.99 K/uL (1.4-6.5); Platelet Count 167 K/uL (130-400); RDW Coefficient of Variation 14.7 % (11.5-14.5); RDW Standard Deviation 47.6 fL (36.4-46.3); Red Blood Count 4.44 M/uL (4.7-6.1); White Blood Count 8.97 K/uL (4.8-10.8)
[2021-02-13] MEDS: ASPIRIN 81 MG ECTAB PO SCH (08:18)
[2021-02-13] MEDS: AMIODARONE 200 MG TAB PO SCH (08:18)
[2021-02-13] MEDS: TAMSULOSIN HCL 0.4 MG CAP PO SCH (08:19)
[2021-02-13] MEDS: LOSARTAN POTASSIUM 25 MG TAB PO SCH (08:19)
[2021-02-13 08:24] LABS: Albumin Level 1.9 gm/dl (3.4-5.0); BUN Creatinine Ratio 22.7 (10-20); Calcium 8.7 mg/dl (8.5-10.1); Creatinine Clr Calc Pharmacy 53.2 ml/min; Est GFR (Non-African American) 39.7 ml/min; Potassium 4.8 mmol/L (3.5-5.1)
[2021-02-13 08:27] LABS: Albumin Globulin Ratio 0.4 (0.9-2); Bilirubin,Total 0.6 mg/dl (0.2-1); Globulin 4.8 gm/dl (2.5-4.0); Total Protein 6.7 gm/dl (6.4-8.2)
--- NOTE | 2021-02-13 13:49 | XRay Report ---
SINGLE VIEW CHEST CLINICAL HISTORY: Dyspnea. FINDINGS: An AP, portable, upright chest radiograph is compared to study dated 02/11/2021. The examinat ion is degraded by portable technique and patient rotation. The patient is status post midline sterno mireille. The cardiomediastinal silhouette is unremarkable heart is enlarged noting atherosclerotic calci fication of the thoracic aorta. There is pulmonary vascular congestion. There are bibasilar opacities . No large pleural effusion or pneumothorax is seen. The skeletal structures are osteopenic. The bony thorax is grossly intact. IMPRESSION: 1. Cardiomegaly with evidence of congestive failure. 2. Bibasilar opacities likely represent scarring/atelectasis. Clinical correlation will be required. 3. No large pleural effusion is seen. ACT 112: Negative or not required by law. Electronically signed by: Jared Wharton M.D. 02/13/2021 1:48 PM
[2021-02-13] MEDS ORDERED: FUROSEMIDE 20 MG in SYRINGE 0 ML IV ONE (14:15)
[2021-02-13] MEDS: ACETAMINOPHEN 325 MG TAB PO PRN ×2 (14:33→23:21)
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
--- NOTE | 2021-02-13 19:15 | Hospitalist Progress Note ---
Date of Service February 13, 2021 Assessment & Plan (1) Acute knee pain: (2) Effusion of knee: Present on admission with right knee pain and swelling associated with fever Possible related to acute gout flare vs septic right knee arthritis Right kneed xray showed large joint effusion without acute fracture or dislocation identified. Severe tricompartmental osteoarthritis. Doppler of LE showed no evidence of deep venous thrombus within the right lower extremity. Elevated WBC on admission at 13.3 Aspiration of the right knee showed 32,190 synovial white cells, RBCs 15,000, 89.1% polymorphonuclear leukocytes crystals. Uric acid crystals present on right Right knee aspiration cx grew staph aureus On IV Cefazolin, WBC normalizes Ortho consulted case discussed with ortho recommended to continue conservative management with IV antibiotics Will make n.p.o. after midnight. Ortho plan to reassess in am. if unchanged or worsens, plan to proceed with arthroscopic irrigation and debridement of the right knee. Should symptoms improve and right knee range of motion improved, will continue conservative management Continue IV abx with Cefazolin Sepsis Bacteremia Meet sepsis criteria on admission with fever with temp 39.2, elevated WBC 13.3 Blood cx on 02/11 and 02/12 positive for staph species ECHO noted no evidence of vegetation Continue IV Cefazolin Blood cx repeat today pending WBC normalized Continue monitor Acute respiratory distress Possible related to diastolic heart failure CTA chest showed no evidence of central pulmonary embolus in the main, lobar, or proximal segmental pulmonary arteries. CXR showed cardiomegaly with evidence of congestive failure. IVF discontinued Lasix 20mg IV x1 given Will give an additional 20mg lasix later Continue oxygen supplement Elevated creatinine Creatinine 1.65 today Will need to review outpatient BMP to check baseline creatinine Will hold on NSAIDs Continue monitor BMP Lung nodule CTA chest showed 5 mm left upper lobe pulmonary nodule is pathologically indeterminant Follow-up is recommended as per the Fleischner criteria. Afib Rate controlled with amiodarone Continue aspirin stable HTN On Losartan Continue monitor BP BPH On Flomax S/P AVR (Aortic Valve replacement) Stable DVT px on heparin subq CODE status Full code Admission and Anticipated Discharge Date Admission Date: February 11, 2021 Subjective Pt was seen and examined for follow up of right knee swelling and pain Lying in pain with no acute distress Pt right knee is swollen and tender His breathing is heavy and on 5L NC He has been afebrile for the last 12 hrs Denies any chest pain, palpitation, dizziness and fever Review of Systems Review of Systems: All systems reviewed & are unremarkable except as noted in Subjective Physical Exam Physical Exam: General- No acute distress Head- atraumatic Eyes- PERRL, EOMI, ENT- oropharynx clear Neck- supple, no JVD Lungs- clear to auscultation Heart- regular rhythm; no murmur Abdomen- normal bowel sounds, soft, nontender Extremities- no calf tenderness, +right knee tenderness and swelling Neuro- alert, oriented x 3; PERRL, EOMI; no facial palsy; no dysarthria Skin- warm & dry Results & Data Results & Data ([facility]) Vital Signs (Past 12 Hours) Vital Signs Temp Pulse Pulse Resp BP Pulse Ox 02/13/21 17:16 65 02/13/21 15:56 37.0 C 02/13/21 14:59 39.1 C H 92 H 22 122/71 93 02/13/21 11:46 36.9 C 84 22 123/74 95 02/13/21 08:02 36.8 C 76 22 103/66 93 02/13/21 07:54 72 (1) Effusion of knee Laterality: right Qualified Code(s): M25.461 - Effusion, right knee (2) Acute knee pain Laterality: right Qualified Code(s): M25.561 - Pain in right knee
[2021-02-13] MEDS: ATORVASTATIN 40 MG TAB PO SCH (21:11)
[2021-02-14] MEDS: HYDROmorphone INJ 1 MG/ML SYRINGE IV PRN ×4 (00:32→22:01)
[2021-02-14 05:54] LABS: Hematocrit (blood only) 41.2 % (42-52); Hemoglobin 13.7 g/dL (14.0-18.0); Mean Corpuscular Hemoglobin 28.7 pg (25-34); Mean Corpuscular Hgb Conc 33.3 g/dL (32-36); Mean Corpuscular Volume 86.4 fL (80-100); Mean Platelet Volume 11.2 fL (7.4-10.4); Platelet Count 201 K/uL (130-400); RDW Coefficient of Variation 14.7 % (11.5-14.5); RDW Standard Deviation 46.9 fL (36.4-46.3); Red Blood Count 4.77 M/uL (4.7-6.1); White Blood Count 12.37 K/uL (4.8-10.8)
[2021-02-14 06:31] LABS: BUN Creatinine Ratio 22.2 (10-20); Creatinine Clr Calc Pharmacy 58.1 ml/min; Est GFR (African American) 51.3 ml/min; Est GFR (Non-African American) 44.2 ml/min; Potassium 4.3 mmol/L (3.5-5.1)
[2021-02-14] MEDS: TAMSULOSIN HCL 0.4 MG CAP PO SCH (07:50)
[2021-02-14] MEDS: ceFAZolin 2000MG 2,000 MG/15 ML SYR IV SCH ×3 (07:50→23:38)
[2021-02-14] MEDS: LOSARTAN POTASSIUM 25 MG TAB PO SCH (07:50)
[2021-02-14] MEDS: AMIODARONE 200 MG TAB PO SCH (07:50)
[2021-02-14] MEDS: ASPIRIN 81 MG ECTAB PO SCH (07:50)
[2021-02-14] MEDS: ACETAMINOPHEN 325 MG TAB PO PRN ×2 (07:50→23:38)
--- NOTE | 2021-02-14 08:21 | Orthopedic Progress Note ---
Date of Service February 14, 2021 Assessment & Plan (1) Effusion, right knee: Aspiration results indicate septic arthritis of the right knee We will continue n.p.o. status. We will proceed with right knee arthroscopic I&D today. This was discussed with the patient. Dr. Waggoner will see the patient prior to the procedure. We will continue to follow with the patient postoperatively while inpatient. (2) Osteoarthritis of right knee: (3) Lower extremity edema: Admission and Anticipated Discharge Date Admission Date: February 11, 2021 Supervising Physician Co-Signing Physician Notes Upon reexamination earlier this morning the patient exhibited continued signs and symptoms of severe effusion, right knee gouty arthritis and likely septic arthritis. Patient continued to spike temperatures last evening despite improving white count. We will proceed with arthroscopic irrigation debridement right knee as indicated. N.p.o. Surgical consent on chart. Continue IV antibiotics. Continue nonweightbearing right lower extremity. Supportive care. Subjective Right knee is no better today. Still having quite severe pain within the right lower extremity. Is unable to move the right knee without any pain. Physical Exam Constitutional: well nourished and + acute distress (But is uncomfortable with any examination of the right lower extremity) Musculoskeletal: Knee: + effusion (Right knee moderate to severe), + skin erythema (Mild erythema right lower leg), + limited ROM of knee (Right knee secondary to pain) and + joint line tenderness (Diffuse right knee pain); no ecchymosis Right lower extremity: 3/4 pitting edema to above the knee. Exam limited of the right knee secondary to pain, even with moving the sheet and blanket from his bed. Skin: no rashes, warm and dry Trauma: no evidence of skin trauma Neurologic: normal touch/pain/proprioception Psychiatric: A+Ox3, euthymic affect Speech: normal rate/rhythm/volume of speech Results & Data ([facility]) Vital Signs (Past 12 Hours) Vital Signs Temp Pulse Pulse Resp BP Pulse Ox 02/14/21 07:12 82 02/14/21 07:00 38 C H 86 20 146/88 H 96 02/14/21 04:00 37 C 84 20 119/72 92 02/14/21 00:17 16 98 02/13/21 23:00 39.4 C H 94 H 22 146/83 H 92 02/13/21 22:19 93 H Laboratory Results Laboratory Tests 02/11/21 02/14/21 02/14/21 18:50 05:15 05:15 WBC 12.37 H BUN 34 H Creatinine 1.51 H Synovial Appearance CLOUDY Synovial WBC 08927 H Collected: 02/11/21 Received: 02/11/[address]: Elio Boateng, DO Source: Knee OV Order: Ordered: Aer/Tali Cult/Sm Procedure Result Verified Site Gram Stain Final 02/12/21 Gram Stain Result Many WBCs Seen Many Gram Positive Cocci Aero/Tali Cult Preliminary 02/13/21 Organism 1 Staphylococcus aureus Quantity Moderate Sens Sensitivities to Follow S aureus RX M.I.C. --- --------- Clindamycin S <=0.5 Daptomycin S <=0.5 Erythromycin S <=0.5 Oxacillin S <=0.25 Tetracycline S <=4 Trimeth/Sulfa S <=0.5/9.5 Vancomycin S 1 S = SENSITIVE I = INTERMEDIATE R = RESISTANT
[2021-02-14] MEDS ORDERED: FUROSEMIDE 20 MG in SYRINGE 0 ML IV ONE ×2 (08:50)
[2021-02-14] MEDS ORDERED: FUROSEMIDE 40 MG in SYRINGE 0 ML IV ONE (09:00)
--- NOTE | 2021-02-14 09:12 | Anesthesiology Consultation ---
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 History Surgery Operation Date: 02/14/21 12:00 Proposed Procedures p I&D Right Arthroscopy Knee - Leo Waggoner DO Height/Weight Height: 6 ft Weight: 130.4 kg Allergies Allergy/AdvReac Type Severity Reaction Status Date / Time No Known Allergies Allergy Unverified 01/12/17 11:47 Medications Home Medications Medication Instructions Recorded Confirmed Last Taken amiodarone 200 mg PO QAM 02/11/21 02/11/21 Unknown aspirin [Aspirin Low Dose] 81 mg PO DAILY 02/11/21 02/11/21 Unknown atorvastatin 40 mg PO QPM 02/11/21 02/11/21 Unknown diclofenac sodium 50 mg PO TID PRN 02/11/21 02/11/21 Unknown hydrocodone-acetaminophen 1 tab PO Q6 PRN 02/11/21 02/11/21 Unknown losartan 25 mg PO QAM 02/11/21 02/11/21 Unknown tamsulosin 0.4 mg PO DAILY 02/11/21 02/11/21 Unknown Active Medications Generic Name Dose Route Start Last Admin Trade Name Freq PRN Reason Stop Dose Admin Acetaminophen 650 mg 02/11/21 21:56 02/14/21 07:50 Acetaminophen 325 Mg Tab PO 03/13/21 21:55 650 mg Q4H PRN Administration pain/fever Amiodarone HCl 200 mg 02/12/21 09:00 02/14/21 07:50 Amiodarone 200 Mg Tab PO 03/14/21 08:59 200 mg QAM [place] Administration Aspirin 81 mg 02/12/21 09:00 02/14/21 07:50 Aspirin 81 Mg Ectab PO 03/14/21 08:59 81 mg DAILY [place] Administration Atorvastatin Calcium 40 mg 02/11/21 21:56 02/13/21 21:11 Atorvastatin 40 Mg Tab PO 03/13/21 21:55 40 mg QPM [place] Administration Heparin Sodium (Porcine) 7,500 units 02/11/21 22:00 02/13/21 21:11 Heparin Sod 5,000 Unit/0.5 Ml Vial SQ 03/13/21 21:59 7,500 units Q8 [place] Administration Hydromorphone HCl 1 mg 02/12/21 08:07 02/14/21 07:50 Hydromorphone Inj 1 Mg/Ml Syringe IV 02/26/21 08:06 1 mg Q4H PRN Administration Pain Cefazolin Sodium 2,000 mg in 15 mls @ 3.75 mls/min 02/12/21 07:30 02/14/21 07:50 Ancef 2000mg IV 03/26/21 07:29 3.75 mls/min Q8H [place] Administration Losartan Potassium 25 mg 02/12/21 09:00 02/14/21 07:50 Losartan Potassium 25 Mg Tab PO 03/14/21 08:59 25 mg QAM [place] Administration Tamsulosin HCl 0.4 mg 02/12/21 09:00 02/14/21 07:50 Tamsulosin Hcl 0.4 Mg Cap PO 03/14/21 08:59 0.4 mg DAILY [place] Administration Social History Smoking Status: Former smoker Hx Alcohol Use: No Hx Substance Use: No Physical Exam Vital Signs Last Vital Signs Temp 99.3 F 02/14/21 08:53 Pulse 82 02/14/21 07:12 Resp 20 02/14/21 07:00 BP 146/88 H 02/14/21 07:00 Pulse Ox 96 02/14/21 07:00 Testing Laboratory Results 02/14/21 05:15 02/14/21 05:15 PT 10.3 Seconds (9.0-12.0) 02/11/21 22:25 INR 1.0 (0.9-1.1) 02/11/21 22:25 APTT 36.9 Seconds (21.0-31.0) H 02/11/21 22:25 Urine Color Dark Yellow 02/11/21 23:00 Urine Appearance Cloudy (Clear) A 02/11/21 23:00 Urine pH 5.5 (4.5-7.5) 02/11/21 23:00 Ur Specific [place] 1.044 (1.000-1.030) H 02/11/21 23:00 Urine Protein 1+ (Negative) H 02/11/21 23:00 Urine Glucose (UA) Negative (Negative) 02/11/21 23:00 Urine Ketones Trace (Negative) H 02/11/21 23:00 Urine Nitrite Negative (Negative) 02/11/21 23:00 Ur Leukocyte Esterase Negative (Negative) 02/11/21 23:00 Urine WBC (Auto) 1-5 /hpf (0-5) 02/11/21 23:00 Urine RBC (Auto) 0-4 /hpf (0-4) 02/11/21 23:00 U Hyaline Cast (Auto) 5-10 /lpf (0-5) H 02/11/21 23:00 U Epithel Cells (Auto) 20-30 /lpf (0-5) H 02/11/21 23:00 Urine Bacteria (Auto) Negative (Negative) 02/11/21 23:00 02/11/21 23:00 Urine Culture - Final Urine,Clean Catch More than three types of organisms present, all low counts mixed probable skin ruthy. No further identifications or sensitivities to follow. 02/13/21 07:18 Aerobic Blood Culture - Preliminary Blood No growth in Aerobic bottle after 24 hours. Anaerobic Blood Culture - Preliminary No growth in Anaerobic bottle after 24 hours. 02/13/21 07:49 Aerobic Blood Culture - Preliminary Blood No growth in Aerobic bottle after 24 hours. Anaerobic Blood Culture - Preliminary No growth in Anaerobic bottle after 24 hours. 02/12/21 05:31 Aerobic Blood Culture - Preliminary Blood Staphylococcus aureus Anaerobic Blood Culture - Preliminary No growth in Anaerobic bottle after 48 hours. 02/12/21 05:23 Aerobic Blood Culture - Preliminary Blood Staphylococcus aureus Anaerobic Blood Culture - Preliminary No growth in Anaerobic bottle after 48 hours. 02/11/21 14:40 Aerobic Blood Culture - Final Blood Staphylococcus aureus Anaerobic Blood Culture - Final Staphylococcus aureus 02/11/21 14:40 Aerobic Blood Culture - Final Blood Staphylococcus aureus Anaerobic Blood Culture - Final Staphylococcus aureus 02/11/21 18:50 Acid Fast Bacilli Smear - Final Joint Fluid/Space (Synovial) 02/11/21 18:50 Gram Stain - Final Knee Aerobic and Anaerobic Culture - Preliminary Staphylococcus aureus Electrocardiogram Date: 02/11/21 Normal sinus rhythm, rate 96 bpm Non-specific intra-ventricular conduction block Abnormal ECG No previous ECGs available Confirmed by Grey Handy ([id number]) on 02/12/2021 8:49:28 AM Chest X-Ray Date: 02/13/21 IMPRESSION: 1. Cardiomegaly with evidence of congestive failure. 2. Bibasilar opacities likely represent scarring/atelectasis. Clinical correlation will be required. 3. No large pleural effusion is seen. Echocardiogram Date: 02/12/21 Small, underfilled LV chamber size with moderate concentric LVH Hyperdynamic LV systolic function, EF>70% No segmental LV wall motion abnormalities are noted Grade 2 diastolic dysfunction Poorly visualized valvular structures without stenosis or regurgitation by Doppler There is a bioprosthetic AV Bioprosthetic leaflets are not well visualized The gradient is abnormal for this prosthetic valve and indeterminant for obstruction Doppler evidence of regurgitation is probably normal for this prosthetic AV
[2021-02-14 09:22] LABS: Lyme DNA PCR CSF or Synovial Not detected (Not Detected); Lyme DNA Source Synovial Fluid
[2021-02-14] MEDS ORDERED: fentaNYL citrate 100 MCG/2 ML VIAL ONE ×4 (11:11→14:12)
[2021-02-14] MEDS ORDERED: PROPOFOL IV EMULSION 10 MG/ML 20 ML VIAL IV ONE (11:11)
[2021-02-14] MEDS ORDERED: MIDAZOLAM HCL 1 MG/ML 2ML VIAL ONE (11:11)
[2021-02-14] MEDS ORDERED: ONDANSETRON INJ 2 MG/ML 2 ML VIAL ONE (11:11)
[2021-02-14] MEDS ORDERED: DEXAMETHASONE SOD INJ 4 MG/ML VIAL ONE (11:11)
[2021-02-14] MEDS ORDERED: LIDOCAINE 2% 2 ML VIAL/AMP(20MG/ML) INFIL ONE (11:11)
[2021-02-14] MEDS ORDERED: ATROPINE SULFATE 0.1 MG/ML 10ML SYR IV PRN (11:40)
[2021-02-14] MEDS ORDERED: ONDANSETRON INJ 2 MG/ML 2 ML VIAL IV PRN (11:40)
[2021-02-14] MEDS ORDERED: ePHEDrine sulfate 50 MG/ML AMP IV PRN (11:40)
--- NOTE | 2021-02-14 12:17 | History & Physical Bridge Note ---
Date of Service February 14, 2021 History & Physical Bridge Note I have examined the patient, reviewed the History & Physical and in the interval since the performance of the History & Physical I have noted the following changes of clinical significance: no changes noted
[2021-02-14] MEDS ORDERED: BUPIVACAINE/EPINEPHRINE 0.5% MPF 1:200,000 30 ML VIAL ONE (13:03)
--- NOTE | 2021-02-14 14:01 | Post Operative Brief Note ---
Immediate Post Op Note v1 Date of Surgery February 14, 2021 Pre & Post Diagnosis Operation Date: 02/14/21 12:00 Pre-Op Diagnosis: septic right knee, gouty arthritis, severe degenerative joint disease right knee Post-Op Diagnosis: septic right knee, gouty arthritis, severe degenerative joint disease right knee, ACL tear, medial meniscus tear, lateral meniscus tear, osteochondral defect medial femoral condyle, major synovitis x3 compartments, Loose body x2 (First loose body measuring 9mm x8mm x8mm, Second loose body measuring 10mm x8mm x9mm) I identified the patient and participated in the time-out.: Yes Procedure Operation Date: 02/14/21 12:00 Actual Procedures p Arthroscopic right knee irrigation and Debridement septic arthritis, Chondroplasty Medial Femoral Condyle, Debridement Anterior Cruciate Ligament Tear, Partial Medial meniscectomy, partial lateral Meniscectomy, major synovectomy x3 compartments, removal loose bodies X2 (measuring 9 x 8 x 8 and 10 x 9 x 8 mm respectively) (Right) - Leo Waggoner DO Surgeon Leo Waggoner DO Supervisor [employer] None Estimated Blood Loss 10 Findings Consistent with Post-Op Diagnosis Specimens Aerobic, anaerobic, Gram stain specimens right knee synovial fluid Drains Hemovac Drain (10 Polish x2) and Other Anesthesia Type General Regional Complications none Disposition Accompanied Patient To Recovery: No Disposition: Recovery Room
[2021-02-14] MEDS: fentaNYL citrate 100 MCG/2 ML VIAL IV PRN ×2 (14:12→14:18)
--- NOTE | 2021-02-14 14:53 | Anesthesiology Progress Note ---
Date of Service February 14, 2021 Anesthesia Post Procedure Vital Signs Vital Signs: Temp Pulse Pulse Pulse Resp BP Pulse Ox 02/14/21 14:38 78 18 99/64 L 95 02/14/21 14:28 97.3 F L 74 14 100/67 93 02/14/21 14:18 71 16 112/64 95 02/14/21 14:08 71 18 109/70 95 02/14/21 13:58 96.8 F L 73 18 138/72 93 02/14/21 12:09 98.2 F 72 22 115/71 95 02/14/21 08:53 99.3 F 02/14/21 07:12 82 02/14/21 07:00 100.4 F H 86 20 146/88 H 96 02/14/21 04:00 98.6 F 84 20 119/72 92 02/14/21 00:17 16 98 02/13/21 23:00 102.9 F H 94 H 22 146/83 H 92 02/13/21 22:19 93 H 02/13/21 19:00 98.6 F 85 20 117/72 95 02/13/21 17:16 65 02/13/21 15:56 98.6 F 02/13/21 14:59 102.4 F H 92 H 22 122/71 93 Pain Intensity Right Knee: Pain Intensity: 2 Transfer of Care Handoff Completed per policy Notes Mental Status: alert / awake / arousable and participated in evaluation Patient Amnestic to Procedure: Yes Nausea / Vomiting: adequately controlled Pain: adequately controlled Airway Patency, RR, SpO2: stable & adequate BP & HR: stable & adequate Hydration State: stable & adequate Anesthetic Complications: no major complications apparent and Pt Satisfied with anesthetic care
--- NOTE | 2021-02-14 18:07 | Hospitalist Progress Note ---
Date of Service February 14, 2021 Assessment & Plan (1) Acute knee pain: (2) Effusion of knee: Septic right knee arthritis Present on admission with right knee pain and swelling associated with fever Possible related to acute gout flare vs septic right knee arthritis Right kneed xray showed large joint effusion without acute fracture or dislocation identified. Severe tricompartmental osteoarthritis. Doppler of LE showed no evidence of deep venous thrombus within the right lower extremity. Elevated WBC on admission at 13.3 Aspiration of the right knee showed 32,190 synovial white cells, RBCs 15,000, 89.1% polymorphonuclear leukocytes crystals. Uric acid crystals present on right Right knee aspiration cx grew staph aureus On IV Cefazolin, WBC normalizes Ortho consulted case discussed with ortho recommended to continue conservative management with IV antibiotics. He was made n.p.o. after midnight. Pt continues to spike fever even he continues to be on IV abx S/P day #0 Arthroscopic right knee irrigation and Debridement septic arthritis, Chondroplasty Medial Femoral Condyle, Debridement Anterior Cruciate Ligament Tear, Partial Medial meniscectomy, partial lateral Meniscectomy, major synovectomy x3 compartments, removal loose bodies X2 (measuring 9 x 8 x 8 and 10 x 9 x 8 mm respectively) (Right) - Leo Waggoner, Ortho plan to reassess in am. if unchanged or worsens, plan to proceed with arthroscopic irrigation and debridement of the right knee. Continue nonweightbearing right lower extremity. Will follow fluid culture from the I&D Continue IV abx with Cefazolin Sepsis Bacteremia Meet sepsis criteria on admission with fever with temp 39.2, elevated WBC 13.3 Blood cx on 02/11, 02/12, 02/13 positive for staph ECHO noted no evidence of vegetation Currently on IV Cefazolin (Blood cx grew MSSA) Blood culture remains positive for staph and febrile seems to be because the source is not yet control that is the septic right knee arthritis Elevated WBC today Spoke to pharmacy about changing abx since cx x 3 remains positive for staph Since pt had an I&D done today in the Right knee, will repeat blood cx If repeat cx remains positive, consider to change abx Will consult ID Acute respiratory distress Possible related to diastolic heart failure CTA chest showed no evidence of central pulmonary embolus in the main, lobar, or proximal segmental pulmonary arteries. CXR showed cardiomegaly with evidence of congestive failure. IVF discontinued Will give Lasix 40mg IVx1 today since pt has a positive balance Continue oxygen supplement Continue monitor I/O Clinically improves Elevated creatinine Creatinine 1.5 today Will need to review outpatient BMP to check baseline creatinine Continue to hold on NSAIDs Continue monitor BMP Lung nodule CTA chest showed 5 mm left upper lobe pulmonary nodule is pathologically indeterminant Follow-up is recommended as per the Fleischner criteria. Afib Rate controlled with amiodarone Continue aspirin stable HTN On Losartan Continue monitor BP BPH On Flomax S/P AVR (Aortic Valve replacement) Stable DVT px heparin subq on hold due I&D CODE status Full code Admission and Anticipated Discharge Date Admission Date: February 11, 2021 Subjective Pt was seen and examined for follow up of right knee pain and swelling Lying in bed with no distress He is looking much better today He said that his breathing is much better He continues to have pain in his right knee and spikes fever I offered to call his family to provide with update, but he said no need to call his family Denies any chest pain, palpitation, dizziness Review of Systems Review of Systems: All systems reviewed & are unremarkable except as noted in Subjective Physical Exam Physical Exam: General- No acute distress Head- atraumatic Eyes- PERRL, EOMI, ENT- oropharynx clear Neck- supple, no JVD Lungs- No wheezing and crackles Heart- regular rhythm; no murmur Abdomen- normal bowel sounds, soft, nontender Extremities- no calf tenderness, +right knee tenderness and swelling Neuro- alert, oriented x 3; PERRL, EOMI; no facial palsy; no dysarthria Skin- warm & dry Results & Data Results & Data ([facility]) Vital Signs (Past 12 Hours) Vital Signs Temp Pulse Pulse Pulse Resp BP Pulse Ox 02/14/21 17:00 37.4 C 92 H 20 124/75 90 02/14/21 16:13 81 02/14/21 15:54 37.3 C 90 18 133/82 91 02/14/21 15:22 37.1 C 79 18 119/74 94 02/14/21 14:55 36.7 C 84 20 135/77 93 02/14/21 14:38 78 18 99/64 L 95 02/14/21 14:28 36.3 C L 74 14 100/67 93 02/14/21 14:18 71 16 112/64 95 02/14/21 14:08 71 18 109/70 95 02/14/21 13:58 36.0 C L 73 18 138/72 93 02/14/21 12:09 36.8 C 72 22 115/71 95 02/14/21 08:53 37.4 C 02/14/21 07:12 82 02/14/21 07:00 38 C H 86 20 146/88 H 96 (1) Effusion of knee Laterality: right Qualified Code(s): M25.461 - Effusion, right knee (2) Acute knee pain Laterality: right Qualified Code(s): M25.561 - Pain in right knee
--- NOTE | 2021-02-14 20:28 | Operative Report (OR) ---
DATE OF OPERATION: 02/14/2021 PREOPERATIVE DIAGNOSES: 1. Right knee septic arthritis. 2. Gouty arthritis. 3. Severe degenerative joint disease of the right knee. POSTOPERATIVE DIAGNOSES: 1. Right knee septic arthritis. 2. Gouty arthritis. 3. Severe degenerative joint disease of the right knee, tricompartmental. 4. Anterior cruciate ligament tear. 5. Medial meniscus tear. 6. Lateral meniscus tear. 7. Osteochondral defect with a flap component of the medial femoral condyle. 8. Major synovitis x3 compartments. 9. Loose body x2, first loose body measuring 9 x 8 x 8 mm, second loose body measuring 10 x 8 x 9 mm. PROCEDURES: 1. Arthroscopic right knee irrigation and debridement of septic arthritis. 2. Chondroplasty of medial femoral condyle. 3. Debridement of anterior cruciate ligament tear. 4. Partial medial meniscectomy. 5. Partial lateral meniscectomy. 6. Major synovectomy x3 compartments. 7. Removal of loose bodies x2 separately measuring 9 x 8 x 8 mm and 10 x 9 x 8 mm respectively. SURGEON: Leo Waggoner DO. KILN FIRER: None. ANESTHESIA: General, regional. SPECIMENS: Aerobic, anaerobic, Gram stain, synovial fluid, right knee. DRAINS: Hemovac x2, 10-Norwegian suction. COMPLICATIONS: None. BLOOD LOSS: 10 mL. PERTINENT HISTORY: This is a 75-year-old gentleman who was admitted to [facility] for a septic arthritis of the knee. He was placed on IV antibiotics by the hospitalist service, and when he failed to improve, orthopedics was then consulted. He was evaluated and then scheduled for surgery as indicated for arthroscopic irrigation and debridement of his knee. All potential risks, benefits, complications, alternatives, rehab potential for incomplete relief of symptoms, need for further surgery, DVT, PE, , persistent pain, swelling, scarring, weakness, neurovascular injury, wound complications, loss of function and possible continued sepsis were discussed with the patient. The patient decided to proceed with the procedure as indicated. DESCRIPTION OF PROCEDURE: The patient was taken to the operative suite, placed supine on the operating table. After review of consent and identification of proper operative site, patient was anesthetized, LMA was placed. Tourniquet was placed high on the right thigh over cast padding. Right lower extremity was then sterilely prepped and draped in usual fashion, elevated and tourniquet inflated to 350 mmHg. There is no exsanguination performed due to the nature of the infection. Next, 11 blade scalpel was used to make an incision in the inferolateral aspect of the knee joint followed by placed of blunt trocar and sleeve, camera and inflow. Next, a superomedial portal was established with an 11-blade scalpel incision and placement of a trocar and sleeve with a stopcock. Next, synovial fluid obtained from the right knee was then sent for specimen, aerobic, anaerobic, Gram stain. A murky dark yellow to cloudy fluid was evident. This was sent off as specimen. Next, arthroscope was then introduced into the joint in the suprapatellar pouch noting significant synovitis in the suprapatellar pouch. After this was irrigated, visualization was then improved. Medial gutter was also inspected and noted to have continued thickened fluid, difficult to visualize. It was then lavaged clear. Next, the medial compartment was inspected and noted to have a complex tear of the posterior horn of the medial meniscus. Significant synovitis grade IV [id number] arthropathy with a large osteochondral flap tear produced a mechanical impingement. Therefore, an 18-gauge spinal needle was introduced to establish the medial portal followed by 11-blade scalpel incision followed by placement of a 4.5 mm sucker shaver, which was used to perform a chondroplasty of the medial femoral condyle to remove the mechanical impediment to range of motion. Next, the medial meniscus was visualized and noted to have an unstable flap tear of the posterior horn and body. Therefore, arthroscopic biter was inserted. The damaged portion of the meniscus was then resected and then using a 4.5 mm sucker shaver, these fragments were removed. Next, after chondroplasty and partial medial meniscectomy was performed, synovectomy was also performed in the medial compartment with debridement of all soft tissues. Next, the ACL and PCL were inspected. The ACL was noted to be torn, approximately 75% and there was an unstable flap, which was then debrided using a 4.5 mm sucker shaver. Abundant synovitis was noted in the anterior compartment of the joint. Synovectomy was performed as well as debridement with a 4.5 mm sucker shaver. Next, the lateral compartment was inspected and noted to be a loose body measuring 9 x 8 x 8 mm. This was removed with an arthroscopic grasper. Next, the lateral meniscus was also noted to be torn with also grade III-IV degenerative changes and the lateral compartment with significant synovitis. Next, 4.5 mm sucker shaver was then used to perform a partial lateral meniscectomy and a debridement as well as synovectomy of the lateral compartment. Next, the lateral gutter was inspected and noted to have another loose body measuring 10 x 9 x 8 mm, which was then removed using an arthroscopic grasper. Synovitis was also evident. Synovectomy was then performed with a 4.5 mm sucker shaver and debridement was also performed. Next, the suprapatellar pouch was then addressed once again with complete synovectomy and debridement of the suprapatellar pouch. The patellofemoral articulation noted to have grade II-III degenerative changes. Next, after approximately 12 liters of fluid with Ancef was used to lavage the joint until clear. Next, the 10-Norwegian Hemovac drains were then placed through the portal site and placed through the superior aspect of the knee joint using sharp end trocars. The excess fluid was then expressed from the joint. Instruments were removed and portal sites were closed using interrupted 3-0 nylon sutures. Approximately 30 mL of 0.5% Marcaine with epinephrine was then injected into the right knee followed by application of a sterile compressive dressing consisting of Xeroform gauze, sterile 4 x 4's, ABD pads, cast padding and a 6-inch Raphael wrap. The tourniquet was released. The patient was awakened and taken to recovery in stable condition. I attest to the content of the Intraoperative Record and any orders documented therein. Any exception s are noted below.
[2021-02-14] MEDS: oxyCODONE HCL IR 5 MG TAB (IMMEDIATE RELEASE) PO PRN (20:57)
[2021-02-14] MEDS: ATORVASTATIN 40 MG TAB PO SCH (22:01)
[2021-02-14] MEDS: HEPARIN SOD 5,000 UNIT/0.5 ML VIAL SQ SCH (23:00)
[2021-02-15] MEDS: HYDROmorphone INJ 1 MG/ML SYRINGE IV PRN ×2 (03:29→16:49)
[2021-02-15] MEDS: HEPARIN SOD 5,000 UNIT/0.5 ML VIAL SQ SCH ×3 (06:32→21:46)
[2021-02-15 06:45] LABS: Hematocrit (blood only) 41.4 % (42-52); Mean Corpuscular Hemoglobin 29.4 pg (25-34); Mean Corpuscular Hgb Conc 33.8 g/dL (32-36); Mean Corpuscular Volume 86.8 fL (80-100); Mean Platelet Volume 10.8 fL (7.4-10.4); Platelet Count 186 K/uL (130-400); RDW Coefficient of Variation 14.7 % (11.5-14.5); RDW Standard Deviation 47.3 fL (36.4-46.3); Red Blood Count 4.77 M/uL (4.7-6.1)
[2021-02-15] MEDS: ceFAZolin 2000MG 2,000 MG/15 ML SYR IV SCH ×3 (07:10→23:19)
[2021-02-15 07:17] LABS: BUN Creatinine Ratio 28.6 (10-20); Calcium 9.2 mg/dl (8.5-10.1); Creatinine Clr Calc Pharmacy 62.4 ml/min; Est GFR (African American) 56.7 ml/min; Est GFR (Non-African American) 48.9 ml/min
[2021-02-15] MEDS: AMIODARONE 200 MG TAB PO SCH (08:47)
[2021-02-15] MEDS: ASPIRIN 81 MG ECTAB PO SCH (08:48)
[2021-02-15] MEDS: TAMSULOSIN HCL 0.4 MG CAP PO SCH (08:49)
[2021-02-15] MEDS: LOSARTAN POTASSIUM 25 MG TAB PO SCH (08:49)
[2021-02-15] MEDS ORDERED: FUROSEMIDE 40 MG in SYRINGE 0 ML IV ONE (10:00)
--- NOTE | 2021-02-15 10:00 | Orthopedic Progress Note ---
Date of Service February 15, 2021 Assessment & Plan (1) Effusion, right knee: Postop day #1 status post 1. Arthroscopic right knee irrigation and debridement of septic arthritis. 2. Chondroplasty of medial femoral condyle. 3. Debridement of anterior cruciate ligament tear. 4. Partial medial meniscectomy. 5. Partial lateral meniscectomy. 6. Major synovectomy x3 compartments. 7. Removal of loose bodies x2 separately measuring 9 x 8 x 8 mm and 10 x 9 x 8 mm respectively Hemovac to remain in place. Dressing may be removed tomorrow. Weight-bear as tolerated right lower extremity. Continue IV antibiotics. (2) Osteoarthritis of right knee: (3) Lower extremity edema: (4) Bilateral shoulder pain: Patient states he has bilateral shoulder pain and stiffness. We will start with x-rays of the shoulders to rule out shoulder osteoarthritis. Admission and Anticipated Discharge Date Admission Date: February 11, 2021 Subjective States the right knee is painful but there may be slight improvement from preoperatively yesterday. He has not move the knee much so he has not had an increase in pain. His main complaint this morning was bilateral shoulder pain and stiffness. He denies any injuries to the shoulders. He denies any previous problems. But, today, he feels as though the shoulders are as painful as the right knee is. Physical Exam Constitutional: well nourished and + acute distress (But is uncomfortable with any examination of the right lower extremity) Musculoskeletal: Shoulder: shoulder normal to inspection, no deformity, no skin erythema and no ecchymosis Knee: + surgical incision (Right knee with bulky soft dressing and Raphael bandage intact) and + surgical drain present (130 cc total); no ecchymosis Skin: no rashes, warm and dry Trauma: no evidence of skin trauma Neurologic: normal touch/pain/proprioception Psychiatric: A+Ox3, euthymic affect Speech: normal rate/rhythm/volume of speech Results & Data ([facility]) Vital Signs (Past 12 Hours) Vital Signs Temp Pulse Pulse Resp BP Pulse Ox 02/15/21 07:00 37.3 C 82 20 135/73 91 02/15/21 04:00 18 95 02/15/21 03:32 113/78 02/15/21 03:22 36.4 C L 70 18 100/64 92 02/15/21 00:00 96 02/14/21 23:59 94 H 02/14/21 23:23 38.5 C H 92 H 18 131/75 90
[2021-02-15] MEDS: oxyCODONE HCL IR 5 MG TAB (IMMEDIATE RELEASE) PO PRN ×2 (10:31→21:45)
--- NOTE | 2021-02-15 11:58 | XRay Report ---
XR shoulder LT min 2V routine CLINICAL HISTORY: Left shoulder pain COMPARISON: None FINDINGS: Alignment of the left shoulder is anatomic. No acute fracture. No osseous lesion. There is moderate to severe osteoarthritis of the left acromioclavicular joint. Mild osteoarthritis of the le ft glenohumeral joint. A few small calcifications project of the distal rotator cuff. IMPRESSION: 1. No acute fracture. 2. Moderate to severe osteoarthritis of the left acromioclavicular joint. Mild osteoarthritis of the left glenohumeral joint. 3. A few small calcifications adjacent to the greater tuberosity which favor calcific tendinitis of t he rotator cuff. ACT 112: Negative or not required by law. Electronically signed by: Deo Pineda M.D. 02/15/2021 11:57 AM
--- NOTE | 2021-02-15 12:01 | XRay Report ---
XR shoulder RT min 2V routine CLINICAL HISTORY: Right shoulder pain COMPARISON: None FINDINGS: Alignment of the right shoulder is anatomic. There is severe osteoarthritis of the right a cromioclavicular joint. There is mild to moderate osteoarthritis of the right glenohumeral joint. The re is possible calcific tendinitis of the distal rotator cuff. No acute fracture is evident. There is no osseous lesion. IMPRESSION: 1. No acute fracture or dislocation within the right shoulder. 2. Severe osteoarthritis of the right acromioclavicular joint. Mild to moderate osteoarthritis of the right glenohumeral joint. ACT 112: Negative or not required by law. Electronically signed by: Deo Pineda M.D. 02/15/2021 11:59 AM
[2021-02-15] MEDS: ACETAMINOPHEN 325 MG TAB PO PRN (13:14)
--- NOTE | 2021-02-15 17:49 | Hospitalist Progress Note ---
Date of Service February 15, 2021 Assessment & Plan (1) Acute knee pain: (2) Effusion of knee: Septic right knee arthritis Present on admission with right knee pain and swelling associated with fever Possible related to acute gout flare vs septic right knee arthritis Right kneed xray showed large joint effusion without acute fracture or dislocation identified. Severe tricompartmental osteoarthritis. Doppler of LE showed no evidence of deep venous thrombus within the right lower extremity. Elevated WBC on admission at 13.3 Aspiration of the right knee showed 32,190 synovial white cells, RBCs 15,000, 89.1% polymorphonuclear leukocytes crystals. Uric acid crystals present on right Right knee aspiration cx grew staph aureus On IV Cefazolin, WBC normalizes Ortho consulted case discussed with ortho recommended to continue conservative management with IV antibiotics. He was made n.p.o. after midnight. Pt continues to spike fever even he continues to be on IV abx 6/6 S/P day #1 Arthroscopic right knee irrigation and Debridement septic arthritis, Chondroplasty Medial Femoral Condyle, Debridement Anterior Cruciate Ligament Tear, Partial Medial meniscectomy, partial lateral Meniscectomy, major synovectomy x3 compartments, removal loose bodies X2 (measuring 9 x 8 x 8 and 10 x 9 x 8 mm respectively) (Right) - Leo Waggoner, DO Hemovac to remain in place. Dressing may be removed tomorrow. Weight-bear as tolerated right lower extremity. fluid from aspiration grew staph Continue IV antibiotics. Continue pain control Sepsis Bacteremia Meet sepsis criteria on admission with fever with temp 39.2, elevated WBC 13.3 Blood cx on 02/11, 02/12, 02/13 positive for staph ECHO noted no evidence of vegetation Currently on IV Cefazolin (Blood cx grew MSSA) Blood culture remains positive for staph and febrile seems to be because the source is not yet control that is the septic right knee arthritis Elevated WBC today Spoke to pharmacy about changing abx since cx x 3 remains positive for staph Since pt had an I&D done today in the Right knee, will repeat blood cx If repeat cx remains positive, consider to change abx Will consult ID Acute respiratory distress Possible related to diastolic heart failure CTA chest showed no evidence of central pulmonary embolus in the main, lobar, or proximal segmental pulmonary arteries. CXR showed cardiomegaly with evidence of congestive failure. IVF discontinued Will give Lasix 40mg IVx1 today since pt has a positive balance Continue oxygen supplement Continue monitor I/O Clinically improves B/L shoulder pain Xray L shoulder showed moderate to severe osteoarthritis of the left acromioclavicular joint. Xray R shoulder showed Severe osteoarthritis of the right acromioclavicular join Continue pain control Will apply lidocaine patch Elevated creatinine Creatinine 1.39 today Will need to review outpatient BMP to check baseline creatinine Continue to hold on NSAIDs Continue monitor BMP Lung nodule CTA chest showed 5 mm left upper lobe pulmonary nodule is pathologically indeterminant Follow-up is recommended as per the Fleischner criteria. Afib Rate controlled with amiodarone Continue aspirin stable HTN On Losartan Continue monitor BP BPH On Flomax S/P AVR (Aortic Valve replacement) Stable DVT px heparin subq on hold due I&D CODE status Full code Admission and Anticipated Discharge Date Admission Date: February 11, 2021 Subjective Pt was seen and examined for follow up of right knee pain and swelling Lying in bed with no acute distress Pt said that he continue to have pain in the right knee, but improves He said that his breathing improves He is complaint of B/L shoulder pain Denies any chest pain, palpitation, dizziness and SOB Review of Systems Review of Systems: All systems reviewed & are unremarkable except as noted in Subjective Physical Exam Physical Exam: General- No acute distress Head- atraumatic Eyes- PERRL, EOMI, ENT- oropharynx clear Neck- supple, no JVD Lungs- No wheezing and crackles Heart- regular rhythm; no murmur Abdomen- normal bowel sounds, soft, nontender Extremities- no calf tenderness, +right knee tenderness and swelling Neuro- alert, oriented x 3; PERRL, EOMI; no facial palsy; no dysarthria Skin- warm & dry Results & Data Results & Data ([facility]) Vital Signs (Past 12 Hours) Vital Signs Temp Pulse Resp BP BP Pulse Ox Pulse Ox 02/15/21 16:00 18 94 02/15/21 15:48 36.5 C 69 93/61 L 98 02/15/21 14:00 95 02/15/21 12:00 18 02/15/21 10:57 37.3 C 86 133/76 92 02/15/21 08:00 91 02/15/21 07:00 37.3 C 82 20 135/73 91 (1) Effusion of knee Laterality: right Qualified Code(s): M25.461 - Effusion, right knee (2) Acute knee pain Laterality: right Qualified Code(s): M25.561 - Pain in right knee
[2021-02-15] MEDS: ATORVASTATIN 40 MG TAB PO SCH (21:45)
[2021-02-15] MEDS: LIDOCAINE 5% 1 PATCH TD SCH (21:46)
[2021-02-16] MEDS: oxyCODONE HCL IR 5 MG TAB (IMMEDIATE RELEASE) PO PRN ×3 (06:03→21:17)
[2021-02-16] MEDS: HEPARIN SOD 5,000 UNIT/0.5 ML VIAL SQ SCH ×3 (06:03→21:17)
[2021-02-16 07:01] LABS: Hematocrit (blood only) 40.6 % (42-52); Hemoglobin 13.5 g/dL (14.0-18.0); Mean Corpuscular Hemoglobin 28.8 pg (25-34); Mean Corpuscular Hgb Conc 33.3 g/dL (32-36); Mean Corpuscular Volume 86.6 fL (80-100); Mean Platelet Volume 10.9 fL (7.4-10.4); Platelet Count 273 K/uL (130-400); RDW Coefficient of Variation 14.7 % (11.5-14.5); RDW Standard Deviation 46.6 fL (36.4-46.3); Red Blood Count 4.69 M/uL (4.7-6.1); White Blood Count 8.98 K/uL (4.8-10.8)
[2021-02-16 07:33] LABS: BUN Creatinine Ratio 33.6 (10-20); Calcium 8.8 mg/dl (8.5-10.1); Creatinine Clr Calc Pharmacy 74.9 ml/min; Est GFR (African American) 71.2 ml/min; Est GFR (Non-African American) 61.5 ml/min; Potassium 4.2 mmol/L (3.5-5.1)
[2021-02-16] MEDS: ceFAZolin 2000MG 2,000 MG/15 ML SYR IV SCH ×3 (09:24→23:04)
[2021-02-16] MEDS: AMIODARONE 200 MG TAB PO SCH (09:24)
[2021-02-16] MEDS: TAMSULOSIN HCL 0.4 MG CAP PO SCH (09:25)
[2021-02-16] MEDS: LIDOCAINE 5% 1 PATCH TD SCH (09:25)
[2021-02-16] MEDS: ASPIRIN 81 MG ECTAB PO SCH (09:25)
[2021-02-16] MEDS: LOSARTAN POTASSIUM 25 MG TAB PO SCH (09:25)
[2021-02-16] MEDS ORDERED: FUROSEMIDE 40 MG in SYRINGE 0 ML IV ONE ×2 (12:45→15:15)
--- NOTE | 2021-02-16 13:44 | Orthopedic Progress Note ---
Date of Service February 16, 2021 Assessment & Plan (1) Effusion, right knee: Postop day #2 status post 1. Arthroscopic right knee irrigation and debridement of septic arthritis. 2. Chondroplasty of medial femoral condyle. 3. Debridement of anterior cruciate ligament tear. 4. Partial medial meniscectomy. 5. Partial lateral meniscectomy. 6. Major synovectomy x3 compartments. 7. Removal of loose bodies x2 separately measuring 9 x 8 x 8 mm and 10 x 9 x 8 mm respectively Hemovac to remain in place. Dressing change today ID recs appreciated Weight-bear as tolerated right lower extremity. Continue IV antibiotics. (2) Osteoarthritis of right knee: (3) Lower extremity edema: (4) Bilateral shoulder pain: Patient states he has bilateral shoulder pain and stiffness. We will start with x-rays of the shoulders to rule out shoulder osteoarthritis. Admission and Anticipated Discharge Date Admission Date: February 11, 2021 Subjective Post Operative Progress Note Patient seen sitting up in bed, comfortable,admits to pain in right knee, unchanged, no acute issues. Review of Systems Review of Systems: All systems reviewed & are unremarkable except as noted in HPI & below Constitutional: as per Subjective / HPI Physical Exam Physical Exam: RLE NVSI +EHL/FHL/TA/GS SILT grossly, +2 DP pulse, compartments soft NT, dressing cdi. Results & Data ([facility]) Vital Signs (Past 12 Hours) Vital Signs Temp Pulse Pulse Resp BP Pulse Ox 02/16/21 11:40 37.0 C 67 15 106/69 02/16/21 04:00 37.4 C 78 20 123/78 92 Laboratory Results 02/16/21 02/16/21 Range/Units 06:21 06:21 WBC 8.98 (4.8-10.8) K/uL RBC 4.69 L (4.7-6.1) M/uL Hgb 13.5 L (14.0-18.0) g/dL Hct 40.6 L (42-52) % MCV 86.6 (80-100) fL MCH 28.8 (25-34) pg MCHC 33.3 (32-36) g/dL RDW Std Deviation 46.6 H (36.4-46.3) fL RDW Coeff of Pilar 14.7 H (11.5-14.5) % Plt Count 273 (130-400) K/uL MPV 10.9 H (7.4-10.4) fL Sodium 136 (136-145) mmol/L Potassium 4.2 (3.5-5.1) mmol/L Chloride 102 (98-107) mmol/L Carbon Dioxide 28 (21-32) mmol/L Anion Gap 6.0 (3-11) BUN 39 H (7-18) mg/dl Creatinine 1.15 (0.6-1.4) mg/dl Est Cr Clr Drug Dosing 74.9 ml/min Est GFR ( Amer) 71.2 ml/min Est GFR (Non-Af Amer) 61.5 ml/min BUN/Creatinine Ratio 33.6 H (10-20) Glucose 98 (70-99) mg/dl Calcium 8.8 (8.5-10.1) mg/dl
--- NOTE | 2021-02-16 15:11 | Cardiology Consultation ---
Date of Consultation February 16, 2021 Assessment & Plan (1) Septic arthritis: (2) S/P AVR (aortic valve replacement): As per the infectious disease consultation we are in agreement that a transesophageal echocardiogram is indicated. I have explained the risk, benefit and intent of the procedure to the patient and he is willing to proceed. I think the study is best completed with the help of anesthesia for sedation. History of Present Illness Attending Physician: Prachi Lagos MD History of Present Illness This is a 75-year-old male patient with a cardiac history as outlined below. The patient was admitted with a septic right knee. Cultures from the knee as well as blood cultures have grown out methicillin sensitive staph aureus. Echocardiogram obtained this admission was not able to visualize the cardiac valves adequately. We have been asked to see the patient and perform a transesophageal echocardiogram. Past medical history: 1.Severe aortic stenosis status post aortic valve replacement with a [address] [facility] Epic valve via minimally invasive approach February 2017. 2.Postoperative atrial fibrillation status post cardioversion on chronic amiodarone. 3.Hypertension. 4.Near normal coronary arteries by pre-op cardiac catheterization in 2016. Allergies Allergy/AdvReac Type Severity Reaction Status Date / Time No Known Allergies Allergy Unverified 01/12/17 11:47 Home Medications Medication Instructions Recorded Confirmed Type amiodarone 200 mg PO QAM 02/11/21 02/11/21 History aspirin [Aspirin Low Dose] 81 mg PO DAILY 02/11/21 02/11/21 History atorvastatin 40 mg PO QPM 02/11/21 02/11/21 History diclofenac sodium 50 mg PO TID PRN 02/11/21 02/11/21 History hydrocodone-acetaminophen 1 tab PO Q6 PRN 02/11/21 02/11/21 History losartan 25 mg PO QAM 02/11/21 02/11/21 History tamsulosin 0.4 mg PO DAILY 02/11/21 02/11/21 History Patient History Social History Smoking Status: Former smoker Hx Alcohol Use: No Hx Substance Use: No Preferred Language: Divehi Communication Ability: Effective Beliefs That Will Affect Care: None Current Living Situation: Spouse Feels Safe at Home: Yes Safety Concerns: Feels Safe At This Time Assistive Devices: Oxygen - Continuous Review of Systems Review of Systems: All systems reviewed & are unremarkable except as noted in HPI & below No additional information. Physical Exam Physical Exam: General: no acute distress and stated age Head: normocephalic, no masses, lesions, tenderness or abnormalities Eyes: conjunctiva are pink and non-injected, sclera clear Neck: supple, no adenopathy, no bruits, normal jugular venous pulse, no hepatojugular reflux Chest: normal shape and normal respiratory effort Lungs: Crackles bilateral lungs. Cardiac Exam: - regular rate & rhythm, no murmurs gallops or rubs - normal S1, normal S2 Pulses: 2(+) throughout Abdomen: abdomen soft, non-tender, no abnormal masses and no hepatosplenomegaly Musculoskeletal: no gait disturbance, no joint inflammation, no deforming arthritis Extremities: no edema and no cyanosis Neuro: grossly normal exam Results & Data ([facility]) Vital Signs (Past 12 Hours) Vital Signs Temp Pulse Pulse Resp BP BP Pulse Ox 02/16/21 15:03 36.9 C 64 20 111/71 93 02/16/21 11:40 37.0 C 67 15 106/69 02/16/21 04:00 37.4 C 78 20 123/78 92 Laboratory Results Laboratory Results - last 24 hr 02/16/21 02/16/21 06:21 06:21 WBC 8.98 RBC 4.69 L Hgb 13.5 L Hct 40.6 L MCV 86.6 MCH 28.8 MCHC 33.3 RDW Std Deviation 46.6 H RDW Coeff of Pilar 14.7 H Plt Count 273 MPV 10.9 H Sodium 136 Potassium 4.2 Chloride 102 Carbon Dioxide 28 Anion Gap 6.0 BUN 39 H Creatinine 1.15 Est Cr Clr Drug Dosing 74.9 Est GFR ( Amer) 71.2 Est GFR (Non-Af Amer) 61.5 BUN/Creatinine Ratio 33.6 H Glucose 98 Calcium 8.8 Medications Administered Current Inpatient Medications Acetaminophen (Acetaminophen 325 Mg Tab) 650 mg PO Q4H PRN PRN Reason: pain/fever Stop: 03/13/21 21:55 Last Admin: 02/15/21 13:14 Dose: 650 mg Documented by: Al Hydrox/Mg Hydrox/Simethicone (Aluminum/Magnesium Susp 30 Ml Udc) 30 ml PO Q6H PRN PRN Reason: Dyspepsia Stop: 03/13/21 21:55 Amiodarone HCl (Amiodarone 200 Mg Tab) [facility] [place] Stop: 03/14/21 08:59 Last Admin: 02/16/21 09:24 Dose: 200 mg Documented by: Aspirin (Aspirin 81 Mg Ectab) 81 mg PO DAILY [facility] Stop: 03/14/21 08:59 Last Admin: 02/16/21 09:25 Dose: 81 mg Documented by: Atorvastatin Calcium (Atorvastatin 40 Mg Tab) 40 mg PO QPM [facility] Stop: 03/13/21 21:55 Last Admin: 02/15/21 21:45 Dose: 40 mg Documented by: Heparin Sodium (Porcine) (Heparin Sod 5,000 Unit/0.5 Ml Vial) 7,500 units SQ Q8 [facility] Stop: 03/13/21 21:59 Last Admin: 02/16/21 13:21 Dose: 7,500 units Documented by: Hydromorphone HCl (Hydromorphone Inj 1 Mg/Ml Syringe) 1 mg IV Q4H PRN PRN Reason: Pain Stop: 02/26/21 08:06 Last Admin: 02/15/21 16:49 Dose: 1 mg Documented by: Cefazolin Sodium (Ancef 2000mg) 2,000 mg in 15 mls @ 3.75 mls/min IV Q8H [facility] Stop: 03/26/21 07:29 Last Admin: 02/16/21 09:24 Dose: 3.75 mls/min Documented by: Furosemide 40 mg/ Syringe 4 mls @ 4 mls/min IV ONE ONE Stop: 02/16/21 15:16 Lidocaine (Lidocaine 5% 1 Patch) 2 patch TD [facility] Stop: 03/17/21 18:14 Last Admin: 02/16/21 09:25 Dose: 2 patch Documented by: Losartan Potassium (Losartan Potassium 25 Mg Tab) 25 mg PO QAM [facility] Stop: 03/14/21 08:59 Last Admin: 02/16/21 09:25 Dose: 25 mg Documented by: Miscellaneous (Remove Lidoderm Patch) 1 ea N/A DAILY@2100 [facility] Stop: 03/17/21 20:59 Last Admin: 02/15/21 22:56 Dose: Not Given Documented by: Ondansetron HCl (Ondansetron Inj 2 Mg/Ml 2 Ml Vial) 4 mg IV Q6H PRN PRN Reason: Nausea Stop: 03/13/21 21:55 Oxycodone HCl (Oxycodone Hcl Ir 5 Mg Tab (Immediate Release)) 5 - 10 mg PO Q4H PRN PRN Reason: Pain Stop: 02/26/21 08:09 Last Admin: 02/16/21 11:41 Dose: 10 mg Documented by: Tamsulosin HCl (Tamsulosin Hcl 0.4 Mg Cap) 0.4 mg PO DAILY [place] Stop: 03/14/21 08:59 Last Admin: 02/16/21 09:25 Dose: 0.4 mg Documented by: Tramadol HCl (Tramadol Hcl 50 Mg Tablet) 50 mg PO Q6H PRN PRN Reason: Pain Stop: 03/17/21 18:05
[2021-02-16] MEDS: ACETAMINOPHEN 325 MG TAB PO PRN (15:34)
--- NOTE | 2021-02-16 18:10 | Hospitalist Progress Note ---
Date of Service February 16, 2021 Assessment & Plan (1) Acute knee pain: (2) Effusion of knee: Septic right knee arthritis Present on admission with right knee pain and swelling associated with fever Possible related to acute gout flare vs septic right knee arthritis Right kneed xray showed large joint effusion without acute fracture or dislocation identified. Severe tricompartmental osteoarthritis. Doppler of LE showed no evidence of deep venous thrombus within the right lower extremity. Elevated WBC on admission at 13.3 Aspiration of the right knee showed 32,190 synovial white cells, RBCs 15,000, 89.1% polymorphonuclear leukocytes crystals. Uric acid crystals present on right Right knee aspiration cx grew staph aureus On IV Cefazolin, WBC normalizes Ortho consulted case discussed with ortho recommended to continue conservative management with IV antibiotics. He was made n.p.o. after midnight. Pt continues to spike fever even he continues to be on IV abx 02/16/ S/P day #2 Arthroscopic right knee irrigation and Debridement septic arthritis, Chondroplasty Medial Femoral Condyle, Debridement Anterior Cruciate Ligament Tear, Partial Medial meniscectomy, partial lateral Meniscectomy, major synovectomy x3 compartments, removal loose bodies X2 (measuring 9 x 8 x 8 and 10 x 9 x 8 mm respectively) (Right) - Leo Waggoner, DO Hemovac to remain in place. Dressing may be removed tomorrow. Weight-bear as tolerated right lower extremity. fluid from aspiration grew staph ID consulted recommended to continue IV cefazolin 2g IV q8h for 6 weeks and recommended to get an CARMEN since pt has a bioprosthetic aortic valve Cardiology consulted to eval for CARMEN Continue pain control Sepsis Bacteremia Meet sepsis criteria on admission with fever with temp 39.2, elevated WBC 13.3 Blood cx on 02/11, 02/12, 02/13 positive for staph ECHO noted no evidence of vegetation Currently on IV Cefazolin (Blood cx grew MSSA) Blood culture remains positive for staph and febrile seems to be because the source is not yet control that is the septic right knee arthritis WBC wnl [facility] ID consulted recommended to continue IV cefazolin 2g q8h for 6 weeks Repeat blood cx on 02/14 no growth so far Will put a PICC line once final blood cx negative Acute respiratory distress Possible related to Acute diastolic heart failure CTA chest showed no evidence of central pulmonary embolus in the main, lobar, or proximal segmental pulmonary arteries. CXR showed cardiomegaly with evidence of congestive failure. IVF discontinued Lasix 40mg IVx1 today since pt has a positive balance Continue oxygen supplement Continue monitor I/O Clinically improves B/L shoulder pain Xray L shoulder showed moderate to severe osteoarthritis of the left acromioclavicular joint. Xray R shoulder showed Severe osteoarthritis of the right acromioclavicular join Continue pain control Continue lidocaine patch Acute kidney failure Creatinine 1.15 today Continue to hold on NSAIDs Continue monitor BMP Lung nodule CTA chest showed 5 mm left upper lobe pulmonary nodule is pathologically indet erminant Follow-up is recommended as per the Fleischner criteria. Afib Rate controlled with amiodarone Continue aspirin stable HTN On Losartan Continue monitor BP BPH On Flomax S/P AVR (Aortic Valve replacement) Stable DVT px heparin subq on hold due I&D CODE status Full code Admission and Anticipated Discharge Date Admission Date: February 11, 2021 Subjective Pt was seen and examined for follow up of right knee pain and swelling Lying in bed with no acute distress Pt said that he continues to have pain in the right knee He said that his breathing improves Denies any chest pain, palpitation, dizziness and SOB Review of Systems Review of Systems: All systems reviewed & are unremarkable except as noted in Subjective Physical Exam Physical Exam: General- No acute distress Head- atraumatic Eyes- PERRL, EOMI, ENT- oropharynx clear Neck- supple, no JVD Lungs- No wheezing and crackles Heart- regular rhythm; no murmur Abdomen- normal bowel sounds, soft, nontender Extremities- no calf tenderness, +right knee tenderness and swelling Neuro- alert, oriented x 3; PERRL, EOMI; no facial palsy; no dysarthria Skin- warm & dry Results & Data Results & Data ([facility]) Vital Signs (Past 12 Hours) Vital Signs Temp Pulse Resp BP BP Pulse Ox Pulse Ox 02/16/21 15:03 36.9 C 64 20 111/71 93 02/16/21 14:00 95 02/16/21 11:40 37.0 C 67 15 106/69 (1) Effusion of knee Laterality: right Qualified Code(s): M25.461 - Effusion, right knee (2) Acute knee pain Laterality: right Qualified Code(s): M25.561 - Pain in right knee
[2021-02-16] MEDS ORDERED: POLYETHYLENE (MIRALAX) 17 GM PACK PO PRN (19:21)
[2021-02-16] MEDS: DOCUSATE SODIUM/SENNA 50/8.6MG TAB PO SCH (21:17)
[2021-02-16] MEDS: ATORVASTATIN 40 MG TAB PO SCH (21:17)
[2021-02-17] MEDS: oxyCODONE HCL IR 5 MG TAB (IMMEDIATE RELEASE) PO PRN ×3 (02:38→19:54)
[2021-02-17] MEDS: HEPARIN SOD 5,000 UNIT/0.5 ML VIAL SQ SCH ×3 (05:36→19:55)
[2021-02-17] MEDS ORDERED: fentaNYL citrate 100 MCG/2 ML VIAL ONE (07:40)
[2021-02-17] MEDS ORDERED: MIDAZOLAM HCL 5 MG/ML 1 ML VIAL ONE (07:41)
--- NOTE | 2021-02-17 08:28 | Echocardiogram Report ---
Date of Service February 17, 2021 Echcardiogram Report Echocardiogram Report After informed consent was obtained the patient had local anesthetic to the throat and then sedation was given by anesthesia. The transesophageal probe then was inserted into the esophagus through this to the fundus of the stomach. Imaging was then performed in a retrograde manner. Patient tolerated the procedure and was returned to his room in stable condition. A full transesophageal echocardiogram report will be provided after review.
[2021-02-17] MEDS: ceFAZolin 2000MG 2,000 MG/15 ML SYR IV SCH ×3 (09:21→22:49)
[2021-02-17] MEDS: ASPIRIN 81 MG ECTAB PO SCH (09:22)
[2021-02-17] MEDS: DOCUSATE SODIUM/SENNA 50/8.6MG TAB PO SCH (09:22)
[2021-02-17] MEDS: TAMSULOSIN HCL 0.4 MG CAP PO SCH (09:22)
[2021-02-17] MEDS: LIDOCAINE 5% 1 PATCH TD SCH (09:22)
[2021-02-17] MEDS: LOSARTAN POTASSIUM 25 MG TAB PO SCH (09:22)
[2021-02-17] MEDS: AMIODARONE 200 MG TAB PO SCH (09:27)
[2021-02-17] MEDS: ACETAMINOPHEN 325 MG TAB PO PRN (11:26)
[2021-02-17 11:35] LABS: BUN Creatinine Ratio 31.1 (10-20); Creatinine Clr Calc Pharmacy 68.2 ml/min; Est GFR (African American) 63.2 ml/min; Est GFR (Non-African American) 54.5 ml/min; Potassium 3.8 mmol/L (3.5-5.1)
--- NOTE | 2021-02-17 13:50 | CT Scan Report ---
HEAD CT NONCONTRAST CT DOSE: 823.94 mGycm HISTORY: Left arm weakness. TECHNIQUE: Multiaxial CT images of the head were performed without the use of intravenous contrast. A utomated exposure control was utilized for this study. A dose lowering technique was utilized adheri ng to the principles of ALARA. Comparison: None. Findings: The paranasal sinuses and mastoid air cells are clear. The calvarium and skull base are int act. The ventricles and sulci are within normal limits. There is no mass, hematoma, midline shift, or acute infarct. Impression: No acute intracranial abnormality. ACT 112: Negative or not required by law. Electronically signed by: Shaan Granados M.D. 02/17/2021 1:49 PM
[2021-02-17] MEDS: HYDROmorphone INJ 1 MG/ML SYRINGE IV PRN (14:25)
--- NOTE | 2021-02-17 17:10 | Orthopedic Progress Note ---
Date of Service February 17, 2021 Assessment & Plan (1) Effusion, right knee: Postop day #3 status post 1. Arthroscopic right knee irrigation and debridement of septic arthritis. 2. Chondroplasty of medial femoral condyle. 3. Debridement of anterior cruciate ligament tear. 4. Partial medial meniscectomy. 5. Partial lateral meniscectomy. 6. Major synovectomy x3 compartments. 7. Removal of loose bodies x2 separately measuring 9 x 8 x 8 mm and 10 x 9 x 8 mm respectively Hemovac discontinued Dressing change today ID recs appreciated Weight-bear as tolerated right lower extremity. Continue IV antibiotics. Discussed pain management with Dr. Lagos. We will add Toradol IV low-dose for 24 hours to see if this helps with his pain control. (2) Osteoarthritis of right knee: (3) Lower extremity edema: (4) Bilateral shoulder pain: Patient states he has bilateral shoulder pain and stiffness. We will start with x-rays of the shoulders to rule out shoulder osteoarthritis. Admission and Anticipated Discharge Date Admission Date: February 11, 2021 Subjective Postop day 3 Patient awake and alert. Stating he is continuing to have some pain in the right knee. Patient was up today with physical therapy but was not ambulating much secondary to pain. No other complaints at this time. Physical Exam Physical Exam: Dressings removed. Arthroscopy portal sites are benign. There is no overt erythema. Swelling noted consistent with surgery. Calves are soft and nontender. Gentle range of motion of the right knee causes him moderate pain. Hemovac drain had minimal drainage and was removed. New dressing applied with 4 x 4's, Kerlix, Raphael bandage. Results & Data ([facility]) Vital Signs (Past 12 Hours) Vital Signs Temp Pulse Pulse Pulse Resp BP BP 02/17/21 17:07 69 02/17/21 15:20 37.2 C 71 18 101/66 02/17/21 12:31 38.1 C H 61 75 20 127/68 124/80 02/17/21 11:47 38.1 C H 61 20 124/80 02/17/21 10:37 72 02/17/21 08:45 75 16 127/68 02/17/21 08:30 70 16 121/68 02/17/21 07:47 78 18 123/72 Pulse Ox 02/17/21 17:07 02/17/21 15:20 90 02/17/21 12:31 95 02/17/21 11:47 95 02/17/21 10:37 02/17/21 08:45 90 02/17/21 08:30 93 02/17/21 07:47 94
[2021-02-17] MEDS: KETOROLAC TROMETHAMINE 15 MG/ML VIAL IV SCH ×2 (17:32→22:49)
--- NOTE | 2021-02-17 18:30 | Hospitalist Progress Note ---
Date of Service February 17, 2021 Assessment & Plan (1) Acute knee pain: (2) Effusion of knee: Septic right knee arthritis Present on admission with right knee pain and swelling associated with fever Possible related to acute gout flare vs septic right knee arthritis Right kneed xray showed large joint effusion without acute fracture or dislocation identified. Severe tricompartmental osteoarthritis. Doppler of LE showed no evidence of deep venous thrombus within the right lower extremity. Elevated WBC on admission at 13.3 Aspiration of the right knee showed 32,190 synovial white cells, RBCs 15,000, 89.1% polymorphonuclear leukocytes crystals. Uric acid crystals present on right Right knee aspiration cx grew staph aureus On IV Cefazolin, WBC normalizes Ortho consulted case discussed with ortho recommended to continue conservative management with IV antibiotics. He was made n.p.o. after midnight. Pt continues to spike fever even he continues to be on IV abx 02/17/ S/P day #3 Arthroscopic right knee irrigation and Debridement septic arthritis, Chondroplasty Medial Femoral Condyle, Debridement Anterior Cruciate Ligament Tear, Partial Medial meniscectomy, partial lateral Meniscectomy, major synovectomy x3 compartments, removal loose bodies X2 (measuring 9 x 8 x 8 and 10 x 9 x 8 mm respectively) (Right) - Leo Waggoner, Hemovac discontinued and dressing changed today Dressing removed today by Ortho fluid from aspiration grew staph Weight-bear as tolerated right lower extremity. Continue pain control Continue PT/OT ID consulted recommended to continue IV cefazolin 2g IV q8h for 6 weeks and recommended to get an CARMEN since pt has a bioprosthetic aortic valve Cardiology consulted to eval for CARMEN CARMEN done today showed no evidence of Vegetation Sepsis Bacteremia Meet sepsis criteria on admission with fever with temp 39.2, elevated WBC 13.3 Blood cx on 02/11, 02/12, 02/13, 02/14 positive for staph ECHO noted no evidence of vegetation Currently on IV Cefazolin (Blood cx grew MSSA) Blood culture remains positive for staph and febrile seems to be because the source is not yet control that is the septic right knee arthritis WBC wnl [facility] ID consulted recommended to continue IV cefazolin 2g q8h for 6 weeks Follow up Repeat blood 02/17 Will put a PICC line once final blood cx negative CARMEN done today showed no evidence for vegetation Acute respiratory distress Possible related to Acute diastolic heart failure CTA chest showed no evidence of central pulmonary embolus in the main, lobar, or proximal segmental pulmonary arteries. CXR showed cardiomegaly with evidence of congestive failure. IVF discontinued Received Lasix 40mg IV couple days since pt had a positive balance, now negative balance No lasix was planing to give today since creatinine 1.2 today, but later his hand looks swelling Continue oxygen supplement prn Continue monitor I/O Clinically improves B/L shoulder pain Xray L shoulder showed moderate to severe osteoarthritis of the left acromioclavicular joint. Xray R shoulder showed Severe osteoarthritis of the right acromioclavicular join Continue pain control Continue lidocaine patch Left arm weakness CT head showed no acute intracranial finding Acute kidney failure Creatinine 1.2 today Continue monitor BMP whike on IV lasix resolved Lung nodule CTA chest showed 5 mm left upper lobe pulmonary nodule is pathologically indeterminant Follow-up is recommended as per the Fleischner criteria. Afib Rate controlled with amiodarone Continue aspirin stable HTN On Losartan Continue monitor BP BPH On Flomax S/P AVR (Aortic Valve replacement) Stable DVT px heparin subq on hold due recent I&D and hemovac Plan to resume heparin subq tomorrow CODE status Full code Admission and Anticipated Discharge Date Admission Date: February 11, 2021 Subjective Pt was seen and examined for follow up of right knee pain and swelling Lying in bed with no distress Pt said that right knee pain improves Pt said that his left arm feels funny but cannot explain the feeling He said that he is not having anymore shoulder pain Pt has been drinking a lot of water Spoke to daughter today at bedside and provided with update and answered all her questions Denies any chest pain, palpitation, dizziness and SOB Review of Systems Review of Systems: All systems reviewed & are unremarkable except as noted in Subjective Physical Exam Physical Exam: General- No acute distress Head- atraumatic Eyes- PERRL, EOMI, ENT- oropharynx clear Neck- supple, no JVD Lungs- No wheezing and crackles Heart- regular rhythm; no murmur Abdomen- normal bowel sounds, soft, nontender Extremities- no calf tenderness, +right knee tenderness and swelling, + left arm with mild decrease strength and sensation intact Neuro- alert, oriented x 3; PERRL, EOMI; no facial palsy; no dysarthria Skin- warm & dry Results & Data Results & Data ([facility]) Vital Signs (Past 12 Hours) Vital Signs Temp Pulse Pulse Pulse Resp BP BP 02/17/21 17:07 69 02/17/21 15:20 37.2 C 71 18 101/66 02/17/21 12:31 38.1 C H 61 75 20 127/68 124/80 02/17/21 11:47 38.1 C H 61 20 124/80 02/17/21 10:37 72 02/17/21 08:45 75 16 127/68 02/17/21 08:30 70 16 121/68 02/17/21 07:47 78 18 123/72 Pulse Ox 02/17/21 17:07 02/17/21 15:20 90 02/17/21 12:31 95 02/17/21 11:47 95 02/17/21 10:37 02/17/21 08:45 90 02/17/21 08:30 93 02/17/21 07:47 94 (1) Effusion of knee Laterality: right Qualified Code(s): M25.461 - Effusion, right knee (2) Acute knee pain Laterality: right Qualified Code(s): M25.561 - Pain in right knee
[2021-02-17] MEDS ORDERED: FUROSEMIDE 20 MG in SYRINGE 0 ML IV SCH (19:30)
[2021-02-17] MEDS: ATORVASTATIN 40 MG TAB PO SCH (19:55)
[2021-02-18] MEDS: HEPARIN SOD 5,000 UNIT/0.5 ML VIAL SQ SCH ×3 (05:00→21:47)
[2021-02-18] MEDS: KETOROLAC TROMETHAMINE 15 MG/ML VIAL IV SCH ×2 (05:00→12:19)
[2021-02-18] MEDS: ceFAZolin 2000MG 2,000 MG/15 ML SYR IV SCH ×2 (08:00→15:36)
[2021-02-18] MEDS: AMIODARONE 200 MG TAB PO SCH (08:00)
[2021-02-18] MEDS: ASPIRIN 81 MG ECTAB PO SCH (08:01)
[2021-02-18] MEDS: LOSARTAN POTASSIUM 25 MG TAB PO SCH (08:01)
[2021-02-18] MEDS: TAMSULOSIN HCL 0.4 MG CAP PO SCH (08:01)
[2021-02-18] MEDS: DOCUSATE SODIUM/SENNA 50/8.6MG TAB PO SCH (08:01)
--- NOTE | 2021-02-18 08:01 | Hospitalist Progress Note ---
Date of Service February 18, 2021 Assessment & Plan (1) Acute knee pain: (2) Effusion of knee: Septic right knee arthritis Present on admission with right knee pain and swelling associated with fever Possible related to acute gout flare vs septic right knee arthritis Right knee xray showed large joint effusion without acute fracture or dislocation identified. Severe tricompartmental osteoarthritis. Doppler of LE showed no evidence of deep venous thrombus within the right lower extremity. Elevated WBC on admission at 13.3 Aspiration of the right knee showed 32,190 synovial white cells, RBCs 15,000, 89.1% polymorphonuclear leukocytes crystals. Uric acid crystals present on right Right knee aspiration cx grew staph aureus (MSSA) On IV Cefazolin, WBC normalizes Ortho consulted S/P day #4 Arthroscopic right knee irrigation and Debridement septic arthritis, Chondroplasty Medial Femoral Condyle, Debridement Anterior Cruciate Ligament Tear, Partial Medial meniscectomy, partial lateral Meniscectomy, major synovectomy x3 compartments, removal loose bodies X2 (measuring 9 x 8 x 8 and 10 x 9 x 8 mm respectively) (Right) - Leo Waggoner, Hemovac discontinued and dressing changed Dressing removed by Ortho fluid from aspiration grew staph Weight-bear as tolerated right lower extremity. Continue pain control Continue PT/OT ID consulted recommended to continue IV cefazolin 2g IV q8h for 6 weeks and recommended to get an CARMEN since pt has a bioprosthetic aortic valve Cardiology consulted to eval for CARMEN CARMEN done and showed no evidence of Vegetation Sepsis Bacteremia Meet sepsis criteria on admission with fever with temp 39.2, elevated WBC 13.3 Blood cx on 02/11, 02/12, 02/13, 02/14 positive for staph ECHO noted no evidence of vegetation Currently on IV Cefazolin (Blood cx grew MSSA) Blood culture remains positive for staph and febrile seems to be because the source is not yet control that is the septic right knee arthritis WBC wnl [facility] ID consulted recommended to continue IV cefazolin 2g q8h for 6 weeks Follow up Repeat blood 02/17 Will put a PICC line once final blood cx negative CARMEN showed no evidence for vegetation Acute respiratory distress Possible related to Acute diastolic heart failure CTA chest showed no evidence of central pulmonary embolus in the main, lobar, or proximal segmental pulmonary arteries. CXR showed cardiomegaly with evidence of congestive failure. IVF discontinued Received Lasix 40mg IV couple days since pt had a positive balance, now negative balance No lasix was planing to give today since creatinine 1.2 today, but later his hand looks swelling Continue oxygen supplement prn Continue monitor I/O Clinically improved, currently on RA B/L shoulder pain Xray L shoulder showed moderate to severe osteoarthritis of the left acromioclavicular joint. Xray R shoulder showed Severe osteoarthritis of the right acromioclavicular join Continue pain control Continue lidocaine patch Left arm weakness CT head showed no acute intracranial finding Acute kidney failure Creatinine 1.2 -1.3 Continue monitor BMP whike on IV lasix resolved Lung nodule CTA chest showed 5 mm left upper lobe pulmonary nodule is pathologically indeterminant Follow-up is recommended as per the Fleischner criteria. Afib Rate controlled with amiodarone Continue aspirin stable HTN On Losartan Continue monitor BP BPH On Flomax S/P AVR (Aortic Valve replacement) Stable DVT px heparin subq on hold due recent I&D and hemovac Plan to resume heparin subq tomorrow CODE status Full code Admission and Anticipated Discharge Date Admission Date: February 11, 2021 Subjective Pt was seen and examined for follow up of right knee pain and swelling, bacteremia Lying in bed with no distress Pt said that right knee pain improved Pt said that his left shoulder feels stiff Denies any chest pain, palpitation, dizziness and SOB Review of Systems Review of Systems: All systems reviewed & are unremarkable except as noted in HPI & below Constitutional: no fever and no chills Respiratory: no cough and no dyspnea Cardiovascular: no chest pain and no palpitations Gastrointestinal: no abdominal pain, no nausea and no vomiting Physical Exam Physical Exam: General- WD/WN, in No acute distress Head- atraumatic Eyes- PERRL, EOMI, ENT- oropharynx clear Neck- supple, no JVD Lungs- No wheezing and crackles Heart- regular rhythm; no murmur Abdomen- normal bowel sounds, soft, nontender Extremities- no calf tenderness, +right knee tenderness and swelling, + left shoulder with decreased movement, sensation intact Neuro- alert, oriented x 3; PERRL, EOMI; no facial palsy; no dysarthria Skin- warm & dry Results & Data Results & Data ([facility]) Vital Signs (Past 12 Hours) Vital Signs Temp Pulse Pulse Pulse Resp BP Pulse Ox 02/18/21 07:37 37.3 C 67 18 117/70 92 02/18/21 04:00 37.7 C H 73 16 107/67 92 02/18/21 01:05 61 02/17/21 23:58 37.8 C H 66 16 110/69 93 Laboratory Results 02/18/21 02/18/21 Range/Units 07:57 07:57 WBC 8.98 (4.8-10.8) K/uL RBC 4.33 L (4.7-6.1) M/uL Hgb 12.4 L (14.0-18.0) g/dL Hct 36.8 L (42-52) % MCV 85.0 (80-100) fL MCH 28.6 (25-34) pg MCHC 33.7 (32-36) g/dL RDW Std Deviation 44.4 (36.4-46.3) fL RDW Coeff of Pilar 14.2 (11.5-14.5) % Plt Count 337 (130-400) K/uL MPV 10.6 H (7.4-10.4) fL Sodium 134 L (136-145) mmol/L Potassium 3.7 (3.5-5.1) mmol/L Chloride 99 (98-107) mmol/L Carbon Dioxide 25 (21-32) mmol/L Anion Gap 9.0 (3-11) BUN 48 H (7-18) mg/dl Creatinine 1.32 (0.6-1.4) mg/dl Est Cr Clr Drug Dosing 64.9 ml/min Est GFR ( Amer) 60.3 ml/min Est GFR (Non-Af Amer) 52.0 ml/min BUN/Creatinine Ratio 36.2 H (10-20) Glucose 108 H (70-99) mg/dl Calcium 8.9 (8.5-10.1) mg/dl Medications Administered Current Inpatient Medications Acetaminophen (Acetaminophen 325 Mg Tab) 650 mg PO Q4H PRN PRN Reason: pain/fever Stop: 03/13/21 21:55 Last Admin: 02/17/21 11:26 Dose: 650 mg Documented by: Al Hydrox/Mg Hydrox/Simethicone (Aluminum/Magnesium Susp 30 Ml Udc) 30 ml PO Q6H PRN PRN Reason: Dyspepsia Stop: 03/13/21 21:55 Amiodarone HCl (Amiodarone 200 Mg Tab) 200 mg PO [facility] Stop: 03/20/21 08:59 Last Admin: 02/18/21 08:00 Dose: 200 mg Documented by: Aspirin (Aspirin 81 Mg Ectab) 81 mg PO DAILY [facility] Stop: 03/14/21 08:59 Last Admin: 02/18/21 08:01 Dose: 81 mg Documented by: Atorvastatin Calcium (Atorvastatin 40 Mg Tab) 40 mg PO QPM [facility] Stop: 03/13/21 21:55 Last Admin: 02/17/21 19:55 Dose: 40 mg Documented by: Heparin Sodium (Porcine) (Heparin Sod 5,000 Unit/0.5 Ml Vial) 7,500 units SQ Q8 [facility] Stop: 03/13/21 21:59 Last Admin: 02/18/21 14:27 Dose: 7,500 units Documented by: Hydromorphone HCl (Hydromorphone Inj 1 Mg/Ml Syringe) 1 mg IV Q4H PRN PRN Reason: Pain Stop: 02/26/21 08:06 Last Admin: 02/17/21 14:25 Dose: 1 mg Documented by: Cefazolin Sodium (Ancef 2000mg) 2,000 mg in 15 mls @ 3.75 mls/min IV Q8H [facility] Stop: 03/26/21 07:29 Last Admin: 02/18/21 15:36 Dose: 3.75 mls/min Documented by: Lidocaine (Lidocaine 5% 1 Patch) 2 patch TD [facility] Stop: 03/17/21 18:14 Last Admin: 02/18/21 08:02 Dose: Not Given Documented by: Losartan Potassium (Losartan Potassium 25 Mg Tab) [facility] [place]: 03/14/21 08:59 Last Admin: 02/18/21 08:01 Dose: 25 mg Documented by: Miscellaneous (Remove Lidoderm Patch) 1 ea N/A DAILY@2100 [facility] Stop: 03/17/21 20:59 Last Admin: 02/17/21 19:55 Dose: 1 ea Documented by: Ondansetron HCl (Ondansetron Inj 2 Mg/Ml 2 Ml Vial) 4 mg IV Q6H PRN PRN Reason: Nausea Stop: 03/13/21 21:55 Oxycodone HCl (Oxycodone Hcl Ir 5 Mg Tab (Immediate Release)) 5 - 10 mg PO Q4H PRN PRN Reason: Pain Stop: 02/26/21 08:09 Last Admin: 02/17/21 19:54 Dose: 10 mg Documented by: Polyethylene Glycol (Polyethylene (Miralax) 17 Gm Pack) 17 gm PO DAILY PRN PRN Reason: Constipation Stop: 03/18/21 19:20 Senna/Docusate Sodium (Docusate Sodium/Senna 50/8.6mg Tab) 1 tab PO QAM [place] Stop: 03/18/21 19:29 Last Admin: 02/18/21 08:01 Dose: 1 tab Documented by: Tamsulosin HCl (Tamsulosin Hcl 0.4 Mg Cap) 0.4 mg PO DAILY [place] Stop: 03/14/21 08:59 Last Admin: 02/18/21 08:01 Dose: 0.4 mg Documented by: Tramadol HCl (Tramadol Hcl 50 Mg Tablet) 50 mg PO Q6H PRN PRN Reason: Pain Stop: 03/17/21 18:05 (1) Acute knee pain Laterality: right Qualified Code(s): M25.561 - Pain in right knee (2) Effusion of knee Laterality: right Qualified Code(s): M25.461 - Effusion, right knee
[2021-02-18] MEDS: LIDOCAINE 5% 1 PATCH TD SCH (08:02)
[2021-02-18 08:36] LABS: Hematocrit (blood only) 36.8 % (42-52); Hemoglobin 12.4 g/dL (14.0-18.0); Mean Corpuscular Hemoglobin 28.6 pg (25-34); Mean Corpuscular Hgb Conc 33.7 g/dL (32-36); Mean Platelet Volume 10.6 fL (7.4-10.4); Platelet Count 337 K/uL (130-400); RDW Coefficient of Variation 14.2 % (11.5-14.5); RDW Standard Deviation 44.4 fL (36.4-46.3); Red Blood Count 4.33 M/uL (4.7-6.1); White Blood Count 8.98 K/uL (4.8-10.8)
[2021-02-18 09:09] LABS: BUN Creatinine Ratio 36.2 (10-20); Calcium 8.9 mg/dl (8.5-10.1); Creatinine Clr Calc Pharmacy 64.9 ml/min; Est GFR (African American) 60.3 ml/min; Potassium 3.7 mmol/L (3.5-5.1)
--- NOTE | 2021-02-18 11:09 | Orthopedic Progress Note ---
Date of Service February 18, 2021 Assessment & Plan (1) Effusion, right knee: Postop day #3 status post 1. Arthroscopic right knee irrigation and debridement of septic arthritis. 2. Chondroplasty of medial femoral condyle. 3. Debridement of anterior cruciate ligament tear. 4. Partial medial meniscectomy. 5. Partial lateral meniscectomy. 6. Major synovectomy x3 compartments. 7. Removal of loose bodies x2 separately measuring 9 x 8 x 8 mm and 10 x 9 x 8 mm respectively Hemovac discontinued ID recs appreciated Weight-bear as tolerated right lower extremity. Continue IV antibiotics. Discussed pain management with Dr. Lagos. We will add Toradol IV low-dose for 24 hours to see if this helps with his pain control. Continue if okay with med service and only if his BUN and creatinine remain stable. (2) Osteoarthritis of right knee: (3) Lower extremity edema: (4) Bilateral shoulder pain: Patient states he has bilateral shoulder pain and stiffness. We will start with x-rays of the shoulders to rule out shoulder osteoarthritis. Admission and Anticipated Discharge Date Admission Date: February 11, 2021 Subjective Postop day 4 Patient sitting up in bed awake and alert. States that his pain control was a bit better with the Toradol that he received. He states that they had just had them out of bed and he was having some increased pain at this time. No other complaints. Physical Exam Physical Exam: Dressings are clean, dry, and intact. He looks like he has a little bit less swelling of the knee today. Calves are soft and nontender. Neurovascular intact. Toes are mobile. Results & Data ([facility]) Vital Signs (Past 12 Hours) Vital Signs Temp Pulse Pulse Pulse Resp BP Pulse Ox 02/18/21 07:37 37.3 C 67 18 117/70 92 02/18/21 07:00 71 02/18/21 04:00 37.7 C H 73 16 107/67 92 02/18/21 01:05 61 02/17/21 23:58 37.8 C H 66 16 110/69 93
[2021-02-18] MEDS: ATORVASTATIN 40 MG TAB PO SCH (21:46)
[2021-02-18] MEDS: oxyCODONE HCL IR 5 MG TAB (IMMEDIATE RELEASE) PO PRN (21:55)
[2021-02-19] MEDS: ceFAZolin 2000MG 2,000 MG/15 ML SYR IV SCH ×4 (00:41→23:18)
[2021-02-19] MEDS: oxyCODONE HCL IR 5 MG TAB (IMMEDIATE RELEASE) PO PRN ×2 (03:45→17:34)
[2021-02-19] MEDS: HEPARIN SOD 5,000 UNIT/0.5 ML VIAL SQ SCH ×3 (05:13→21:04)
[2021-02-19] MEDS: traMADol HCL 50 MG TABLET PO PRN (05:36)
[2021-02-19 05:44] LABS: Hematocrit (blood only) 38.3 % (42-52); Hemoglobin 12.9 g/dL (14.0-18.0); Mean Corpuscular Hemoglobin 28.4 pg (25-34); Mean Corpuscular Hgb Conc 33.7 g/dL (32-36); Mean Corpuscular Volume 84.2 fL (80-100); Mean Platelet Volume 10.6 fL (7.4-10.4); Platelet Count 384 K/uL (130-400); RDW Standard Deviation 43.2 fL (36.4-46.3); Red Blood Count 4.55 M/uL (4.7-6.1)
[2021-02-19 06:04] LABS: BUN Creatinine Ratio 30.1 (10-20); Calcium 8.3 mg/dl (8.5-10.1); Est GFR (African American) 62.6 ml/min; Magnesium 2.5 mg/dl (1.8-2.4); Phosphorus 2.3 mg/dl (2.5-4.9); Potassium 3.8 mmol/L (3.5-5.1)
[2021-02-19] MEDS: HYDROmorphone INJ 1 MG/ML SYRINGE IV PRN (07:52)
[2021-02-19] MEDS: ASPIRIN 81 MG ECTAB PO SCH (07:57)
[2021-02-19] MEDS: DOCUSATE SODIUM/SENNA 50/8.6MG TAB PO SCH (07:58)
[2021-02-19] MEDS: TAMSULOSIN HCL 0.4 MG CAP PO SCH (07:58)
[2021-02-19] MEDS: LOSARTAN POTASSIUM 25 MG TAB PO SCH (07:59)
[2021-02-19] MEDS: AMIODARONE 200 MG TAB PO SCH (07:59)
[2021-02-19] MEDS: LIDOCAINE 5% 1 PATCH TD SCH (08:00)
--- NOTE | 2021-02-19 08:17 | Hospitalist Progress Note ---
Date of Service February 19, 2021 Assessment & Plan (1) Acute knee pain: (2) Effusion of knee: Septic right knee arthritis Present on admission with right knee pain and swelling associated with fever Possible related to acute gout flare vs septic right knee arthritis Right knee xray showed large joint effusion without acute fracture or dislocation identified. Severe tricompartmental osteoarthritis. Doppler of LE showed no evidence of deep venous thrombus within the right lower extremity. Elevated WBC on admission at 13.3 Aspiration of the right knee showed 32,190 synovial white cells, RBCs 15,000, 89.1% polymorphonuclear leukocytes crystals. Uric acid crystals present on right Right knee aspiration cx grew staph aureus (MSSA) On IV Cefazolin, WBC normalizes Ortho consulted S/P Arthroscopic right knee irrigation and Debridement septic arthritis, Chondroplasty Medial Femoral Condyle, Debridement Anterior Cruciate Ligament Tear, Partial Medial meniscectomy, partial lateral Meniscectomy, major synovectomy x3 compartments, removal loose bodies X2 (measuring 9 x 8 x 8 and 10 x 9 x 8 mm respectively) (Right) - Leo Waggoner, Hemovac discontinued and dressing changed Dressing removed by Ortho fluid from aspiration grew staph Weight-bear as tolerated right lower extremity. Continue pain control Continue PT/OT ID consulted recommended to continue IV cefazolin 2g IV q8h for 6 weeks and recommended to get an CARMEN since pt has a bioprosthetic aortic valve Cardiology consulted to eval for CARMEN CARMEN done and showed no evidence of Vegetation Sepsis Bacteremia Meet sepsis criteria on admission with fever with temp 39.2, elevated WBC 13.3 Blood cx on 02/11, 02/12, 02/13, 02/14 positive for staph ECHO noted no evidence of vegetation Currently on IV Cefazolin (Blood cx grew MSSA) Blood culture remains positive for staph and febrile seems to be because the source is not yet control that is the septic right knee arthritis WBC wnl [facility] ID consulted recommended to continue IV cefazolin 2g q8h for 6 weeks Follow up Repeat blood 02/17 Will put a PICC line once final blood cx negative CARMEN showed no evidence for vegetation Acute respiratory distress Possible related to Acute diastolic heart failure CTA chest showed no evidence of central pulmonary embolus in the main, lobar, or proximal segmental pulmonary arteries. CXR showed cardiomegaly with evidence of congestive failure. IVF discontinued Received Lasix 40mg IV couple days since pt had a positive balance Continue oxygen supplement prn Continue monitor I/O Clinically improved, currently on RA vs 1L of suppl.O2 B/L shoulder pain Xray L shoulder showed moderate to severe osteoarthritis of the left acromioclavicular joint. Xray R shoulder showed Severe osteoarthritis of the right acromioclavicular join Continue pain control Continue lidocaine patch Left arm weakness CT head showed no acute intracranial finding Acute kidney failure Creatinine 1.2 -1.3 Continue monitor BMP while on IV lasix resolved Lung nodule CTA chest showed 5 mm left upper lobe pulmonary nodule is pathologically indeterminant Follow-up is recommended as per the Fleischner criteria. Afib Rate controlled with amiodarone Continue aspirin stable HTN On Losartan Continue monitor BP BPH On Flomax S/P AVR (Aortic Valve replacement) Stable DVT px heparin subq on hold due recent I&D and hemovac heparin subq CODE status Full code Admission and Anticipated Discharge Date Admission Date: February 11, 2021 Subjective Pt was seen and examined for follow up of right knee pain and swelling, bacteremia Lying in bed with no distress Pt said that right knee pain improved Denies any chest pain, palpitation, dizziness and SOB Review of Systems Review of Systems: All systems reviewed & are unremarkable except as noted in HPI & below Constitutional: no fever and no chills Respiratory: no cough and no dyspnea Cardiovascular: no chest pain and no palpitations Gastrointestinal: no abdominal pain, no nausea and no vomiting Physical Exam Physical Exam: General- WD/WN, in No acute distress Head- atraumatic Eyes- PERRL, EOMI, ENT- oropharynx clear Neck- supple, no JVD Lungs- No wheezing and crackles Heart- regular rhythm; no murmur Abdomen- normal bowel sounds, soft, nontender Extremities- no calf tenderness, +right knee tenderness and swelling (improved) Neuro- alert, oriented x 3; PERRL, EOMI; no facial palsy; no dysarthria Skin- warm & dry Results & Data Results & Data ([facility]) Vital Signs (Past 12 Hours) Vital Signs Temp Pulse Pulse Pulse Resp BP Pulse Ox 02/19/21 07:47 37.0 C 71 17 130/90 93 02/19/21 01:00 74 18 94 02/18/21 23:02 36.9 C 78 18 128/79 94 Laboratory Results 02/19/21 02/19/21 02/18/21 Range/Units 05:20 05:20 07:57 WBC 10.00 (4.8-10.8) K/uL RBC 4.55 L (4.7-6.1) M/uL Hgb 12.9 L (14.0-18.0) g/dL Hct 38.3 L (42-52) % MCV 84.2 (80-100) fL MCH 28.4 (25-34) pg MCHC 33.7 (32-36) g/dL RDW Std Deviation 43.2 (36.4-46.3) fL RDW Coeff of Pilar 14.0 (11.5-14.5) % Plt Count 384 (130-400) K/uL MPV 10.6 H (7.4-10.4) fL Sodium 133 L 134 L (136-145) mmol/L Potassium 3.8 3.7 (3.5-5.1) mmol/L Chloride 99 99 (98-107) mmol/L Carbon Dioxide 26 25 (21-32) mmol/L Anion Gap 7.0 9.0 (3-11) BUN 39 H 48 H (7-18) mg/dl Creatinine 1.28 1.32 (0.6-1.4) mg/dl Est Cr Clr Drug Dosing 67.0 64.9 ml/min Est GFR ( Amer) 62.6 60.3 ml/min Est GFR (Non-Af Amer) 54.0 52.0 ml/min BUN/Creatinine Ratio 30.1 H 36.2 H (10-20) Glucose 107 H 108 H (70-99) mg/dl Calcium 8.3 L 8.9 (8.5-10.1) mg/dl Phosphorus 2.3 L (2.5-4.9) mg/dl Magnesium 2.5 H (1.8-2.4) mg/dl 02/18/21 Range/Units 07:57 WBC 8.98 (4.8-10.8) K/uL RBC 4.33 L (4.7-6.1) M/uL Hgb 12.4 L (14.0-18.0) g/dL Hct 36.8 L (42-52) % MCV 85.0 (80-100) fL MCH 28.6 (25-34) pg MCHC 33.7 (32-36) g/dL RDW Std Deviation 44.4 (36.4-46.3) fL RDW Coeff of Pilar 14.2 (11.5-14.5) % Plt Count 337 (130-400) K/uL MPV 10.6 H (7.4-10.4) fL Sodium (136-145) mmol/L Potassium (3.5-5.1) mmol/L Chloride (98-107) mmol/L Carbon Dioxide (21-32) mmol/L Anion Gap (3-11) BUN (7-18) mg/dl Creatinine (0.6-1.4) mg/dl Est Cr Clr Drug Dosing ml/min Est GFR ( Amer) ml/min Est GFR (Non-Af Amer) ml/min BUN/Creatinine Ratio (10-20) Glucose (70-99) mg/dl Calcium (8.5-10.1) mg/dl Phosphorus (2.5-4.9) mg/dl Magnesium (1.8-2.4) mg/dl Medications Administered Current Inpatient Medications Acetaminophen (Acetaminophen 325 Mg Tab) 650 mg PO Q4H PRN PRN Reason: pain/fever Stop: 03/13/21 21:55 Last Admin: 02/17/21 11:26 Dose: 650 mg Documented by: Al Hydrox/Mg Hydrox/Simethicone (Aluminum/Magnesium Susp 30 Ml Udc) 30 ml PO Q6H PRN PRN Reason: Dyspepsia Stop: 03/13/21 21:55 Amiodarone HCl (Amiodarone 200 Mg Tab) 200 mg PO QAM [facility] Stop: 03/20/21 08:59 Last Admin: 02/19/21 07:59 Dose: 200 mg Documented by: Aspirin (Aspirin 81 Mg Ectab) 81 mg PO DAILY [facility] Stop: 03/14/21 08:59 Last Admin: 02/19/21 07:57 Dose: 81 mg Documented by: Atorvastatin Calcium (Atorvastatin 40 Mg Tab) 40 mg PO QPM [facility] Stop: 03/13/21 21:55 Last Admin: 02/18/21 21:46 Dose: 40 mg Documented by: Heparin Sodium (Porcine) (Heparin Sod 5,000 Unit/0.5 Ml Vial) 7,500 units SQ Q8 [facility] Stop: 03/13/21 21:59 Last Admin: 02/19/21 05:13 Dose: Not Given Documented by: Hydromorphone HCl (Hydromorphone Inj 1 Mg/Ml Syringe) 1 mg IV Q4H PRN PRN Reason: Pain Stop: 02/26/21 08:06 Last Admin: 02/19/21 07:52 Dose: 1 mg Documented by: Cefazolin Sodium (Ancef 2000mg) 2,000 mg in 15 mls @ 3.75 mls/min IV Q8H [facility] Stop: 03/26/21 07:29 Last Admin: 02/19/21 07:53 Dose: 3.75 mls/min Documented by: Lidocaine (L[facility]ocaine 5% 1 Patch) [facility] Stop: 03/17/21 18:14 Last Admin: 02/19/21 08:00 Dose: 2 patch Documented by: Losartan Potassium (Losartan Potassium 25 Mg Tab) [facility] [place] Stop: 03/14/21 08:59 Last Admin: 02/19/21 07:59 Dose: 25 mg Documented by: Miscellaneous (Remove Lidoderm Patch) 1 ea N/A DAILY@2100 [facility] Stop: 03/17/21 20:59 Last Admin: 02/18/21 21:48 Dose: 1 ea Documented by: Ondansetron HCl (Ondansetron Inj 2 Mg/Ml 2 Ml Vial) 4 mg IV Q6H PRN PRN Reason: Nausea Stop: 03/13/21 21:55 Oxycodone HCl (Oxycodone Hcl Ir 5 Mg Tab (Immediate Release)) 5 - 10 mg PO Q4H PRN PRN Reason: Pain Stop: 02/26/21 08:09 Last Admin: 02/19/21 03:45 Dose: 5 mg Documented by: Polyethylene Glycol (Polyethylene (Miralax) 17 Gm Pack) 17 gm PO DAILY PRN PRN Reason: Constipation Stop: 03/18/21 19:20 Senna/Docusate Sodium (Docusate Sodium/Senna 50/8.6mg Tab) 1 [facility] [place] Stop: 03/18/21 19:29 Last Admin: 02/19/21 07:58 Dose: 1 tab Documented by: Tamsulosin HCl (Tamsulosin Hcl 0.4 Mg Cap) 0.4 mg PO DAILY [facility] Stop: 03/14/21 08:59 Last Admin: 02/19/21 07:58 Dose: 0.4 mg Documented by: Tramadol HCl (Tramadol Hcl 50 Mg Tablet) 50 mg PO Q6H PRN PRN Reason: Pain Stop: 03/17/21 18:05 Last Admin: 02/19/21 05:36 Dose: 50 mg Documented by: (1) Effusion of knee Laterality: right Qualified Code(s): M25.461 - Effusion, right knee (2) Acute knee pain Laterality: right Qualified Code(s): M25.561 - Pain in right knee
[2021-02-19] MEDS: ATORVASTATIN 40 MG TAB PO SCH (21:04)
[2021-02-20] MEDS: traMADol HCL 50 MG TABLET PO PRN (04:54)
[2021-02-20] MEDS: ceFAZolin 2000MG 2,000 MG/15 ML SYR IV SCH (06:35)
[2021-02-20] MEDS: HEPARIN SOD 5,000 UNIT/0.5 ML VIAL SQ SCH ×3 (06:35→21:21)
[2021-02-20] MEDS: oxyCODONE HCL IR 5 MG TAB (IMMEDIATE RELEASE) PO PRN ×2 (06:44→17:02)
[2021-02-20 09:02] LABS: Hematocrit (blood only) 37.4 % (42-52); Hemoglobin 12.3 g/dL (14.0-18.0); Mean Corpuscular Hemoglobin 28.1 pg (25-34); Mean Corpuscular Hgb Conc 32.9 g/dL (32-36); Mean Corpuscular Volume 85.4 fL (80-100); Mean Platelet Volume 10.5 fL (7.4-10.4); Platelet Count 454 K/uL (130-400); RDW Coefficient of Variation 14.1 % (11.5-14.5); RDW Standard Deviation 43.9 fL (36.4-46.3); Red Blood Count 4.38 M/uL (4.7-6.1); White Blood Count 9.61 K/uL (4.8-10.8)
[2021-02-20] MEDS: DOCUSATE SODIUM/SENNA 50/8.6MG TAB PO SCH (09:11)
[2021-02-20] MEDS: AMIODARONE 200 MG TAB PO SCH (09:11)
[2021-02-20] MEDS: LOSARTAN POTASSIUM 25 MG TAB PO SCH (09:11)
[2021-02-20] MEDS: LIDOCAINE 5% 1 PATCH TD SCH (09:12)
[2021-02-20] MEDS: TAMSULOSIN HCL 0.4 MG CAP PO SCH (09:12)
[2021-02-20] MEDS: ASPIRIN 81 MG ECTAB PO SCH (09:12)
--- NOTE | 2021-02-20 09:17 | Hospitalist Progress Note ---
Date of Service February 20, 2021 Assessment & Plan (1) Acute knee pain: (2) Effusion of knee: Septic right knee arthritis Present on admission with right knee pain and swelling associated with fever Possible related to acute gout flare vs septic right knee arthritis Right knee xray showed large joint effusion without acute fracture or dislocation identified. Severe tricompartmental osteoarthritis. Doppler of LE showed no evidence of deep venous thrombus within the right lower extremity. Elevated WBC on admission at 13.3 Aspiration of the right knee showed 32,190 synovial white cells, RBCs 15,000, 89.1% polymorphonuclear leukocytes crystals. Uric acid crystals present on right Right knee aspiration cx grew staph aureus (MSSA) On IV Cefazolin, WBC normalizes Ortho consulted S/P Arthroscopic right knee irrigation and Debridement septic arthritis, Chondroplasty Medial Femoral Condyle, Debridement Anterior Cruciate Ligament Tear, Partial Medial meniscectomy, partial lateral Meniscectomy, major synovectomy x3 compartments, removal loose bodies X2 (measuring 9 x 8 x 8 and 10 x 9 x 8 mm respectively) (Right) - Leo Waggoner, Hemovac discontinued and dressing changed Dressing removed by Ortho fluid from aspiration grew staph Weight-bear as tolerated right lower extremity. Continue pain control Continue PT/OT ID consulted recommended to continue IV cefazolin 2g IV q8h for 6 weeks and recommended to get an CARMEN since pt has a bioprosthetic aortic valve Cardiology consulted to eval for CARMEN CARMEN done and showed no evidence of Vegetation Rash - drug reaction 02/20 -patient developed light macular rash over right lower extremity, and some also on left lower extremity. There is no rash noted on chest, back or arms. Discussed with ID physician, Dr. Negron and also orthopedics. Not consistent with cellulitis, however concern for drug reaction. Switched IV cefazolin to IV daptomycin. Continue to closely monitor Sepsis Bacteremia Meet sepsis criteria on admission with fever with temp 39.2, elevated WBC 13.3 Blood cx on 02/11, 02/12, 02/13, 02/14 positive for staph ECHO noted no evidence of vegetation Currently on IV Cefazolin (Blood cx grew MSSA) Blood culture remains positive for staph and febrile seems to be because the source is not yet control that is the septic right knee arthritis WBC wnl [facility] ID consulted recommended to continue IV cefazolin 2g q8h for 6 weeks Follow up Repeat blood 02/17 Will put a PICC line once final blood cx negative CARMEN showed no evidence for vegetation Acute respiratory distress Possible related to Acute diastolic heart failure CTA chest showed no evidence of central pulmonary embolus in the main, lobar, or proximal segmental pulmonary arteries. CXR showed cardiomegaly with evidence of congestive failure. IVF discontinued Received Lasix 40mg IV couple days since pt had a positive balance Continue oxygen supplement prn Continue monitor I/O Clinically improved, currently on RA vs 1L of suppl.O2 B/L shoulder pain Xray L shoulder showed moderate to severe osteoarthritis of the left acromioclavicular joint. Xray R shoulder showed Severe osteoarthritis of the right acromioclavicular join Continue pain control Continue lidocaine patch Left arm weakness CT head showed no acute intracranial finding Acute kidney failure Creatinine 1.2 -1.3 Continue monitor BMP while on IV lasix resolved Lung nodule CTA chest showed 5 mm left upper lobe pulmonary nodule is pathologically indeterminant Follow-up is recommended as per the Fleischner criteria. Afib Rate controlled with amiodarone Continue aspirin stable HTN On Losartan Continue monitor BP BPH On Flomax S/P AVR (Aortic Valve replacement) Stable DVT px heparin subq on hold due recent I&D and hemovac heparin subq CODE status Full code Admission and Anticipated Discharge Date Admission Date: February 11, 2021 Subjective Pt was seen and examined for follow up of right knee pain and swelling, bacteremia Lying in bed with no distress Pt said that right knee pain improved Denies any chest pain, palpitation, dizziness and SOB Developed light rash on right lower extremity, & also on left lower extremity, no rash on the chest back or arms Review of Systems Review of Systems: All systems reviewed & are unremarkable except as noted in HPI & below Constitutional: no fever and no chills Respiratory: no cough and no dyspnea Cardiovascular: no chest pain and no palpitations Gastrointestinal: no abdominal pain, no nausea and no vomiting Physical Exam Physical Exam: General- WD/WN, in No acute distress Head- atraumatic Eyes- PERRL, EOMI, ENT- oropharynx clear Neck- supple, no JVD Lungs- No wheezing and crackles Heart- regular rhythm; no murmur Abdomen- normal bowel sounds, soft, nontender Extremities- no calf tenderness, +right knee tenderness and swelling (improved) Skin -light macular rash over right lower extremity, and some also on left lower extremity, no rash noted on chest, back or arms Neuro- alert, oriented x 3; PERRL, EOMI; no facial palsy; no dysarthria Skin- warm & dry Results & Data Results & Data ([facility]) Vital Signs (Past 12 Hours) Vital Signs Temp Pulse Pulse Pulse Resp BP BP 02/20/21 07:51 68 02/20/21 07:38 37.2 C 67 16 131/77 02/20/21 05:00 18 02/20/21 04:38 37.0 C 75 18 147/92 H 02/19/21 23:50 37.0 C 71 18 143/74 H 02/19/21 22:20 63 Pulse Ox 02/20/21 07:51 02/20/21 07:38 94 02/20/21 05:00 90 02/20/21 04:38 91 02/19/21 23:50 94 02/19/21 22:20 Laboratory Results 02/20/21 02/20/21 02/20/21 Range/Units 15:27 08:45 08:45 WBC 10.68 9.61 (4.8-10.8) K/uL RBC 4.34 L 4.38 L (4.7-6.1) M/uL Hgb 12.4 L 12.3 L (14.0-18.0) g/dL Hct 37.1 L 37.4 L (42-52) % MCV 85.5 85.4 (80-100) fL MCH 28.6 28.1 (25-34) pg MCHC 33.4 32.9 (32-36) g/dL RDW Std Deviation 44.3 43.9 (36.4-46.3) fL RDW Coeff of Pilar 14.1 14.1 (11.5-14.5) % Plt Count 457 H 454 H (130-400) K/uL MPV 10.4 10.5 H (7.4-10.4) fL Immature Gran % (Auto) 0.8 % Neut % (Auto) 80.7 % Lymph % (Auto) 8.2 % [place] % (Auto) 8.4 % Eos % (Auto) 1.6 % Baso % (Auto) 0.3 % Neut # (Auto) 8.61 H (1.4-6.5) K/uL Lymph # (Auto) 0.88 L (1.2-3.4) K/uL [place] # (Auto) 0.90 H (0.11-0.59) K/uL Eos # (Auto) 0.17 (0-0.5) K/uL Baso # (Auto) 0.03 (0-0.2) K/uL Immature Gran # (Auto) 0.09 H (0.00-0.02) K/uL Sodium 132 L (136-145) mmol/L Potassium 3.8 (3.5-5.1) mmol/L Chloride 99 (98-107) mmol/L Carbon Dioxide 25 (21-32) mmol/L Anion Gap 8.0 (3-11) BUN 39 H (7-18) mg/dl Creatinine 1.26 (0.6-1.4) mg/dl Est Cr Clr Drug Dosing 67.8 ml/min Est GFR ( Amer) 63.8 ml/min Est GFR (Non-Af Amer) 55.0 ml/min BUN/Creatinine Ratio 30.6 H (10-20) Glucose 126 H (70-99) mg/dl Calcium 8.5 (8.5-10.1) mg/dl Phosphorus 2.7 (2.5-4.9) mg/dl Magnesium 2.6 H (1.8-2.4) mg/dl Medications Administered Current Inpatient Medications Acetaminophen (Acetaminophen 325 Mg Tab) 650 mg PO Q4H PRN PRN Reason: pain/fever Stop: 03/13/21 21:55 Last Admin: 02/17/21 11:26 Dose: 650 mg Documented by: Al Hydrox/Mg Hydrox/Simethicone (Aluminum/Magnesium Susp 30 Ml Udc) 30 ml PO Q6H PRN PRN Reason: Dyspepsia Stop: 03/13/21 21:55 Amiodarone HCl (Amiodarone 200 Mg Tab) 200 mg PO QAM [facility] Stop: 03/20/21 08:59 Last Admin: 02/20/21 09:11 Dose: 200 mg Documented by: Aspirin (Aspirin 81 Mg Ectab) 81 mg PO DAILY [facility] Stop: 03/14/21 08:59 Last Admin: 02/20/21 09:12 Dose: 81 mg Documented by: Atorvastatin Calcium (Atorvastatin 40 Mg Tab) 40 mg PO QPM [facility] Stop: 03/13/21 21:55 Last Admin: 02/19/21 21:04 Dose: 40 mg Documented by: Heparin Sodium (Porcine) (Heparin Sod 5,000 Unit/0.5 Ml Vial) 7,500 units SQ Q8 [facility] Stop: 03/13/21 21:59 Last Admin: 02/20/21 12:52 Dose: 7,500 units Documented by: Hydromorphone HCl (Hydromorphone Inj 1 Mg/Ml Syringe) 1 mg IV Q4H PRN PRN Reason: Pain Stop: 02/26/21 08:06 Last Admin: 02/19/21 07:52 Dose: 1 mg Documented by: Daptomycin 575 mg/ Syringe 11.5 mls @ 0 mls/min IV DAILY@1600 [place]; Protocol Stop: 03/06/21 15:59 Last Admin: 02/20/21 16:53 Dose: 1 mls/min Documented by: Lidocaine (Lidocaine 5% 1 Patch) [facility] Stop: 03/17/21 18:14 Last Admin: 02/20/21 09:12 Dose: 2 patch Documented by: Losartan Potassium (Losartan Potassium 25 Mg Tab) 25 mg PO QAM [facility] Stop: 03/14/21 08:59 Last Admin: 02/20/21 09:11 Dose: 25 mg Documented by: Miscellaneous (Remove Lidoderm Patch) 1 ea N/A DAILY@2100 [facility] Stop: 03/17/21 20:59 Last Admin: 02/19/21 21:05 Dose: 1 ea Documented by: Miscellaneous Information (Daptomycin Consult Active) 1 ea N/A UD PRN PRN Reason: Consult Stop: 06/14/21 15:33 Ondansetron HCl (Ondansetron Inj 2 Mg/Ml 2 Ml Vial) 4 mg IV Q6H PRN PRN Reason: Nausea Stop: 03/13/21 21:55 Oxycodone HCl (Oxycodone Hcl Ir 5 Mg Tab (Immediate Release)) 5 - 10 mg PO Q4H PRN PRN Reason: Pain Stop: 02/26/21 08:09 Last Admin: 02/20/21 17:02 Dose: 10 mg Documented by: Polyethylene Glycol (Polyethylene (Miralax) 17 Gm Pack) 17 gm PO DAILY PRN PRN Reason: Constipation Stop: 03/18/21 19:20 Last Admin: 02/20/21 09:11 Dose: 17 gm Documented by: Senna/Docusate Sodium (Docusate Sodium/Senna 50/8.6mg Tab) 1 tab PO QAM [facility] Stop: 03/18/21 19:29 Last Admin: 02/20/21 09:11 Dose: 1 tab Documented by: Tamsulosin HCl (Tamsulosin Hcl 0.4 Mg Cap) 0.4 mg PO DAILY [facility] Stop: 03/14/21 08:59 Last Admin: 02/20/21 09:12 Dose: 0.4 mg Documented by: Tramadol HCl (Tramadol Hcl 50 Mg Tablet) 50 mg PO Q6H PRN PRN Reason: Pain Stop: 03/17/21 18:05 Last Admin: 02/20/21 04:54 Dose: 50 mg Documented by: (1) Effusion of knee Laterality: right Qualified Code(s): M25.461 - Effusion, right knee (2) Acute knee pain Laterality: right Qualified Code(s): M25.561 - Pain in right knee
[2021-02-20 09:34] LABS: BUN Creatinine Ratio 30.6 (10-20); Calcium 8.5 mg/dl (8.5-10.1); Creatinine Clr Calc Pharmacy 67.8 ml/min; Est GFR (African American) 63.8 ml/min; Magnesium 2.6 mg/dl (1.8-2.4); Phosphorus 2.7 mg/dl (2.5-4.9); Potassium 3.8 mmol/L (3.5-5.1)
[2021-02-20] MEDS ORDERED: FUROSEMIDE 10 MG in SYRINGE 0 ML IV ONE (15:00)
[2021-02-20] MEDS ORDERED: CONSULT PHARMACY STA (15:20)
[2021-02-20 15:41] LABS: Basophils # (auto) 0.03 K/uL (0-0.2); Basophils % (auto) 0.3 %; Eosinophils # (auto) 0.17 K/uL (0-0.5); Eosinophils % (auto) 1.6 %; Hematocrit (blood only) 37.1 % (42-52); Hemoglobin 12.4 g/dL (14.0-18.0); Immature Granulocytes # (auto) 0.09 K/uL (0.00-0.02); Immature Granulocytes % (auto) 0.8 %; Lymphocytes # (auto) 0.88 K/uL (1.2-3.4); Lymphocytes % (auto) 8.2 %; Mean Corpuscular Hemoglobin 28.6 pg (25-34); Mean Corpuscular Hgb Conc 33.4 g/dL (32-36); Mean Corpuscular Volume 85.5 fL (80-100); Mean Platelet Volume 10.4 fL (7.4-10.4); Monocytes % (auto) 8.4 %; Neutrophils # (auto) 8.61 K/uL (1.4-6.5); Neutrophils % (auto) 80.7 %; Platelet Count 457 K/uL (130-400); RDW Coefficient of Variation 14.1 % (11.5-14.5); RDW Standard Deviation 44.3 fL (36.4-46.3); Red Blood Count 4.34 M/uL (4.7-6.1); White Blood Count 10.68 K/uL (4.8-10.8)
[2021-02-20] MEDS: DAPTOmycin 575 MG in SYRINGE 0 ML IV SCH (16:53)
--- NOTE | 2021-02-20 17:22 | Orthopedic Progress Note ---
Date of Service February 20, 2021 Assessment & Plan (1) Effusion, right knee: Postop day #3 status post 1. Arthroscopic right knee irrigation and debridement of septic arthritis. 2. Chondroplasty of medial femoral condyle. 3. Debridement of anterior cruciate ligament tear. 4. Partial medial meniscectomy. 5. Partial lateral meniscectomy. 6. Major synovectomy x3 compartments. 7. Removal of loose bodies x2 separately measuring 9 x 8 x 8 mm and 10 x 9 x 8 mm respectively In speaking with Dr. Kerr, his antibiotics have been changed. His rash does look suspicious for a drug rash. This does not look like a cellulitis. Weight-bear as tolerated right lower extremity. Continue IV antibiotics. Continue PT/OT. Patient may require rehab stay prior to going home. Orthopedics will sign off at this time. Please call with any questions. Instructions have been placed in the discharge instructions section. (2) Osteoarthritis of right knee: (3) Lower extremity edema: (4) Bilateral shoulder pain: Patient states he has bilateral shoulder pain and stiffness. We will start with x-rays of the shoulders to rule out shoulder osteoarthritis. Admission and Anticipated Discharge Date Admission Date: February 11, 2021 Subjective Asked to see patient today regarding thigh redness. Patient currently sitting up in bed awake and alert. He is eating his dinner. No new complaints. Continues to have pain in the knee but slowly getting better. Physical Exam Physical Exam: Dressing in the right knee was removed. Arthroscopy portals are well approximated and healing well. The knee has no erythema. The swelling has come down. He has an area over the patella that had some erythema and bruising and this also looks better. His swelling of his right lower extremity has improved. He does have this macular looking rash on both of his lower extremities. He denies any itching at this time. This does not appear to be cellulitis. He is nontender on palpation and calves are soft nontender. Neurovascular intact. Results & Data ([facility]) Vital Signs (Past 12 Hours) Vital Signs Temp Pulse Pulse Resp BP Pulse Ox 02/20/21 16:34 36.8 C 76 18 95/60 L 91 02/20/21 11:56 37.6 C H 84 16 104/66 91 02/20/21 07:51 68 02/20/21 07:38 37.2 C 67 16 131/77 94
[2021-02-21 05:54] LABS: Basophils # (auto) 0.02 K/uL (0-0.2); Basophils % (auto) 0.2 %; Eosinophils # (auto) 0.45 K/uL (0-0.5); Eosinophils % (auto) 5.3 %; Hematocrit (blood only) 36.7 % (42-52); Hemoglobin 12.2 g/dL (14.0-18.0); Immature Granulocytes # (auto) 0.08 K/uL (0.00-0.02); Immature Granulocytes % (auto) 0.9 %; Lymphocytes # (auto) 1.23 K/uL (1.2-3.4); Lymphocytes % (auto) 14.6 %; Mean Corpuscular Hemoglobin 28.5 pg (25-34); Mean Corpuscular Hgb Conc 33.2 g/dL (32-36); Mean Corpuscular Volume 85.7 fL (80-100); Mean Platelet Volume 10.3 fL (7.4-10.4); Monocytes # (auto) 0.67 K/uL (0.11-0.59); Monocytes % (auto) 7.9 %; Neutrophils # (auto) 5.99 K/uL (1.4-6.5); Neutrophils % (auto) 71.1 %; Platelet Count 471 K/uL (130-400); RDW Coefficient of Variation 14.1 % (11.5-14.5); RDW Standard Deviation 43.9 fL (36.4-46.3); Red Blood Count 4.28 M/uL (4.7-6.1); White Blood Count 8.44 K/uL (4.8-10.8)
[2021-02-21] MEDS: HEPARIN SOD 5,000 UNIT/0.5 ML VIAL SQ SCH ×3 (06:08→21:59)
[2021-02-21 06:12] LABS: BUN Creatinine Ratio 29.4 (10-20); Calcium 8.3 mg/dl (8.5-10.1); Creatinine Clr Calc Pharmacy 64.3 ml/min; Est GFR (African American) 59.8 ml/min; Est GFR (Non-African American) 51.6 ml/min; Magnesium 2.6 mg/dl (1.8-2.4)
[2021-02-21] MEDS: oxyCODONE HCL IR 5 MG TAB (IMMEDIATE RELEASE) PO PRN (06:43)
[2021-02-21] MEDS: AMIODARONE 200 MG TAB PO SCH (08:10)
[2021-02-21] MEDS: DOCUSATE SODIUM/SENNA 50/8.6MG TAB PO SCH (08:10)
[2021-02-21] MEDS: ASPIRIN 81 MG ECTAB PO SCH (08:11)
[2021-02-21] MEDS: TAMSULOSIN HCL 0.4 MG CAP PO SCH (08:11)
[2021-02-21] MEDS: LIDOCAINE 5% 1 PATCH TD SCH (08:11)
[2021-02-21] MEDS: LOSARTAN POTASSIUM 25 MG TAB PO SCH (08:11)
[2021-02-21] MEDS: HYDROmorphone INJ 1 MG/ML SYRINGE IV PRN (09:06)
[2021-02-21] MEDS: DAPTOmycin 575 MG in SYRINGE 0 ML IV SCH (16:34)
--- NOTE | 2021-02-21 18:42 | Hospitalist Progress Note ---
Date of Service February 21, 2021 Assessment & Plan (1) Acute knee pain: (2) Effusion of knee: Septic right knee arthritis Present on admission with right knee pain and swelling associated with fever Possible related to acute gout flare vs septic right knee arthritis Right knee xray showed large joint effusion without acute fracture or dislocation identified. Severe tricompartmental osteoarthritis. Doppler of LE showed no evidence of deep venous thrombus within the right lower extremity. Elevated WBC on admission at 13.3 Aspiration of the right knee showed 32,190 synovial white cells, RBCs 15,000, 89.1% polymorphonuclear leukocytes crystals. Uric acid crystals present on right Right knee aspiration cx grew staph aureus (MSSA) On IV Cefazolin, WBC normalizes Ortho consulted S/P Arthroscopic right knee irrigation and Debridement septic arthritis, Chondroplasty Medial Femoral Condyle, Debridement Anterior Cruciate Ligament Tear, Partial Medial meniscectomy, partial lateral Meniscectomy, major synovectomy x3 compartments, removal loose bodies X2 (measuring 9 x 8 x 8 and 10 x 9 x 8 mm respectively) (Right) - Leo Waggoner, Hemovac discontinued and dressing changed Dressing removed by Ortho fluid from aspiration grew staph Weight-bear as tolerated right lower extremity. Continue pain control Continue PT/OT ID consulted recommended to continue IV cefazolin 2g IV q8h for 6 weeks and recommended to get an CARMEN since pt has a bioprosthetic aortic valve Cardiology consulted to eval for CARMEN CARMEN done and showed no evidence of Vegetation Rash - drug reaction 02/20 -patient developed light macular rash over right lower extremity, and some also on left lower extremity. There is no rash noted on chest, back or arms. Discussed with ID physician, Dr. Negron and also orthopedics. Not consistent with cellulitis, however concern for drug reaction. Switched IV cefazolin to IV daptomycin. Continue to closely monitor rash seems selena improved Ambulatory dysfunction 02/21 patient was sitting in the chair yesterday for some time however today he was not able to do that, remains in bed, will contact PT again Sepsis Bacteremia Meet sepsis criteria on admission with fever with temp 39.2, elevated WBC 13.3 Blood cx on 02/11, 02/12, 02/13, 02/14 positive for staph ECHO noted no evidence of vegetation Currently on IV Cefazolin (Blood cx grew MSSA) Blood culture remains positive for staph and febrile seems to be because the source is not yet control that is the septic right knee arthritis WBC wnl [facility] ID consulted recommended to continue IV cefazolin 2g q8h for 6 weeks Follow up Repeat blood 02/17 Will put a PICC line once final blood cx negative CARMEN showed no evidence for vegetation Acute respiratory distress Possible related to Acute diastolic heart failure CTA chest showed no evidence of central pulmonary embolus in the main, lobar, or proximal segmental pulmonary arteries. CXR showed cardiomegaly with evidence of congestive failure. IVF discontinued Received Lasix 40mg IV couple days since pt had a positive balance Continue oxygen supplement prn Continue monitor I/O Clinically improved, currently on RA vs 1L of suppl.O2 B/L shoulder pain Xray L shoulder showed moderate to severe osteoarthritis of the left acromioclavicular joint. Xray R shoulder showed Severe osteoarthritis of the right acromioclavicular join Continue pain control Continue lidocaine patch Left arm weakness CT head showed no acute intracranial finding Acute kidney failure Creatinine 1.2 -1.3 Continue monitor BMP while on IV lasix resolved Lung nodule CTA chest showed 5 mm left upper lobe pulmonary nodule is pathologically indeterminant Follow-up is recommended as per the Fleischner criteria. Afib Rate controlled with amiodarone Continue aspirin stable HTN On Losartan Continue monitor BP BPH On Flomax S/P AVR (Aortic Valve replacement) Stable DVT px heparin subq on hold due recent I&D and hemovac heparin subq CODE status Full code Admission and Anticipated Discharge Date Admission Date: February 11, 2021 Subjective Pt was seen and examined for follow up of right knee pain and swelling, bacteremia Lying in bed with no distress Pt said that right knee pain improved Denies any chest pain, palpitation, dizziness and SOB Developed light rash on right lower extremity, & also on left lower extremity, no rash on the chest back or arms, now improved after Abx changed Yesterday reportedly he was sitting in the chair for some time, however today he was not able to do that, will contact PT again Review of Systems Review of Systems: All systems reviewed & are unremarkable except as noted in HPI & below Constitutional: no fever and no chills Respiratory: no cough and no dyspnea Cardiovascular: no chest pain and no palpitations Gastrointestinal: no abdominal pain, no nausea and no vomiting Physical Exam Physical Exam: General- WD/WN, in No acute distress Head- atraumatic Eyes- PERRL, EOMI, ENT- oropharynx clear Neck- supple, no JVD Lungs- No wheezing and crackles Heart- regular rhythm; no murmur Abdomen- normal bowel sounds, soft, nontender Extremities- no calf tenderness, +right knee tenderness and swelling (improved) Skin -light macular rash over right lower extremity, and some also on left lower extremity (improved), no rash noted on chest, back or arms Neuro- alert, oriented x 3; PERRL, EOMI; no facial palsy; no dysarthria Skin- warm & dry Results & Data Results & Data ([facility]) Vital Signs (Past 12 Hours) Vital Signs Temp Pulse Pulse Resp BP BP Pulse Ox 02/21/21 17:06 18 92 02/21/21 15:28 37.2 C 87 109/69 98 02/21/21 11:26 36.9 C 69 20 110/67 91 02/21/21 08:00 71 02/21/21 07:10 37.2 C 65 20 109/70 90 Laboratory Results 02/21/21 02/21/21 Range/Units 05:39 05:39 WBC 8.44 (4.8-10.8) K/uL RBC 4.28 L (4.7-6.1) M/uL Hgb 12.2 L (14.0-18.0) g/dL Hct 36.7 L (42-52) % MCV 85.7 (80-100) fL MCH 28.5 (25-34) pg MCHC 33.2 (32-36) g/dL RDW Std Deviation 43.9 (36.4-46.3) fL RDW Coeff of Pilar 14.1 (11.5-14.5) % Plt Count 471 H (130-400) K/uL MPV 10.3 (7.4-10.4) fL Immature Gran % (Auto) 0.9 % Neut % (Auto) 71.1 % Lymph % (Auto) 14.6 % [place] % (Auto) 7.9 % Eos % (Auto) 5.3 % Baso % (Auto) 0.2 % Neut # (Auto) 5.99 (1.4-6.5) K/uL Lymph # (Auto) 1.23 (1.2-3.4) K/uL [place] # (Auto) 0.67 H (0.11-0.59) K/uL Eos # (Auto) 0.45 (0-0.5) K/uL Baso # (Auto) 0.02 (0-0.2) K/uL Immature Gran # (Auto) 0.08 H (0.00-0.02) K/uL Sodium 132 L (136-145) mmol/L Potassium 4.0 (3.5-5.1) mmol/L Chloride 99 (98-107) mmol/L Carbon Dioxide 26 (21-32) mmol/L Anion Gap 7.0 (3-11) BUN 39 H (7-18) mg/dl Creatinine 1.33 (0.6-1.4) mg/dl Est Cr Clr Drug Dosing 64.3 ml/min Est GFR ( Amer) 59.8 ml/min Est GFR (Non-Af Amer) 51.6 ml/min BUN/Creatinine Ratio 29.4 H (10-20) Glucose 89 (70-99) mg/dl Calcium 8.3 L (8.5-10.1) mg/dl Phosphorus 3.0 (2.5-4.9) mg/dl Magnesium 2.6 H (1.8-2.4) mg/dl (1) Effusion of knee Laterality: right Qualified Code(s): M25.461 - Effusion, right knee (2) Acute knee pain Laterality: right Qualified Code(s): M25.561 - Pain in right knee
[2021-02-22] MEDS: oxyCODONE HCL IR 5 MG TAB (IMMEDIATE RELEASE) PO PRN ×3 (02:30→14:37)
[2021-02-22] MEDS: HEPARIN SOD 5,000 UNIT/0.5 ML VIAL SQ SCH ×3 (06:17→22:41)
[2021-02-22 06:53] LABS: Basophils # (auto) 0.02 K/uL (0-0.2); Basophils % (auto) 0.2 %; Eosinophils # (auto) 0.35 K/uL (0-0.5); Eosinophils % (auto) 3.9 %; Hematocrit (blood only) 34.6 % (42-52); Hemoglobin 11.6 g/dL (14.0-18.0); Immature Granulocytes # (auto) 0.06 K/uL (0.00-0.02); Immature Granulocytes % (auto) 0.7 %; Lymphocytes # (auto) 1.57 K/uL (1.2-3.4); Lymphocytes % (auto) 17.5 %; Mean Corpuscular Hemoglobin 28.7 pg (25-34); Mean Corpuscular Hgb Conc 33.5 g/dL (32-36); Mean Corpuscular Volume 85.6 fL (80-100); Mean Platelet Volume 10.1 fL (7.4-10.4); Monocytes # (auto) 0.95 K/uL (0.11-0.59); Monocytes % (auto) 10.6 %; Neutrophils % (auto) 67.1 %; Platelet Count 478 K/uL (130-400); RDW Coefficient of Variation 13.9 % (11.5-14.5); RDW Standard Deviation 43.8 fL (36.4-46.3); Red Blood Count 4.04 M/uL (4.7-6.1); White Blood Count 8.95 K/uL (4.8-10.8)
[2021-02-22 07:09] LABS: BUN Creatinine Ratio 33.7 (10-20); Calcium 8.6 mg/dl (8.5-10.1); Est GFR (African American) 67.7 ml/min; Est GFR (Non-African American) 58.4 ml/min; Potassium 4.1 mmol/L (3.5-5.1)
--- NOTE | 2021-02-22 08:04 | Hospitalist Progress Note ---
Date of Service February 22, 2021 Assessment & Plan (1) Acute knee pain: (2) Effusion of knee: Septic right knee arthritis Present on admission with right knee pain and swelling associated with fever Possible related to acute gout flare vs septic right knee arthritis Right knee xray showed large joint effusion without acute fracture or dislocation identified. Severe tricompartmental osteoarthritis. Doppler of LE showed no evidence of deep venous thrombus within the right lower extremity. Elevated WBC on admission at 13.3 Aspiration of the right knee showed 32,190 synovial white cells, RBCs 15,000, 89.1% polymorphonuclear leukocytes crystals. Uric acid crystals present on right Right knee aspiration cx grew staph aureus (MSSA) On IV Cefazolin, WBC normalizes Ortho consulted S/P Arthroscopic right knee irrigation and Debridement septic arthritis, Chondroplasty Medial Femoral Condyle, Debridement Anterior Cruciate Ligament Tear, Partial Medial meniscectomy, partial lateral Meniscectomy, major synovectomy x3 compartments, removal loose bodies X2 (measuring 9 x 8 x 8 and 10 x 9 x 8 mm respectively) (Right) - Leo Waggoner, Hemovac discontinued and dressing changed Dressing removed by Ortho fluid from aspiration grew staph Weight-bear as tolerated right lower extremity. Continue pain control Continue PT/OT ID consulted recommended to continue IV cefazolin 2g IV q8h for 6 weeks and recommended to get an CARMEN since pt has a bioprosthetic aortic valve Cardiology consulted to eval for CARMEN CARMEN done and showed no evidence of Vegetation Rash - drug reaction 02/20 -patient developed light macular rash over right lower extremity, and some also on left lower extremity. There is no rash noted on chest, back or arms. Discussed with ID physician, Dr. Negron and also orthopedics. Not consistent with cellulitis, however concern for drug reaction. Switched IV cefazolin to IV daptomycin.- Discussed with Dr. Negron, ID, recommends 1000 mg IV daily (given endocarditis rec 8-10 mg /kg) Continue to closely monitor rash seems to be improved Ambulatory dysfunction 02/21 patient was sitting in the chair yesterday for some time however today he was not able to do that, remains in bed, will contact PT again Sepsis Bacteremia Meet sepsis criteria on admission with fever with temp 39.2, elevated WBC 13.3 Blood cx on 02/11, 02/12, 02/13, 02/14 positive for staph ECHO noted no evidence of vegetation Currently on IV Cefazolin (Blood cx grew MSSA) Blood culture remains positive for staph and febrile seems to be because the source is not yet control that is the septic right knee arthritis WBC wnl [facility] ID consulted recommended to continue IV cefazolin 2g q8h for 6 weeks Follow up Repeat blood 02/17 Will put a PICC line once final blood cx negative CARMEN showed no evidence for vegetation Acute respiratory distress Possible related to Acute diastolic heart failure CTA chest showed no evidence of central pulmonary embolus in the main, lobar, or proximal segmental pulmonary arteries. CXR showed cardiomegaly with evidence of congestive failure. IVF discontinued Received Lasix 40mg IV couple days since pt had a positive balance Continue oxygen supplement prn Continue monitor I/O Clinically improved, currently on RA vs 1L of suppl.O2 B/L shoulder pain Xray L shoulder showed moderate to severe osteoarthritis of the left acromioclavicular joint. Xray R shoulder showed Severe osteoarthritis of the right acromioclavicular join Continue pain control Continue lidocaine patch Left arm weakness CT head showed no acute intracranial finding Acute kidney failure Creatinine 1.2 -1.3 Continue monitor BMP while on IV lasix resolved Lung nodule CTA chest showed 5 mm left upper lobe pulmonary nodule is pathologically indeterminant Follow-up is recommended as per the Fleischner criteria. Afib Rate controlled with amiodarone Continue aspirin stable HTN On Losartan Continue monitor BP BPH On Flomax S/P AVR (Aortic Valve replacement) Stable DVT px heparin subq on hold due recent I&D and hemovac heparin subq CODE status Full code Admission and Anticipated Discharge Date Admission Date: February 11, 2021 Subjective Pt was seen and examined for follow up of right knee pain and swelling, bacteremia Lying in bed with no distress Pt said that right knee pain improved , is about 5 out of 10, dull pain at baseline now, however it gets worse when he is trying to work with PT Denies any chest pain, palpitation, dizziness and SOB Developed light rash on right lower extremity, & also on left lower extremity, no rash on the chest back or arms, now improved after Abx changed Review of Systems Review of Systems: All systems reviewed & are unremarkable except as noted in HPI & below Constitutional: no fever and no chills Respiratory: no cough and no dyspnea Cardiovascular: no chest pain and no palpitations Gastrointestinal: no abdominal pain, no nausea and no vomiting Physical Exam Physical Exam: General- WD/WN, in No acute distress Head- atraumatic Eyes- PERRL, EOMI, ENT- oropharynx clear Neck- supple, no JVD Lungs- No wheezing and crackles Heart- regular rhythm; no murmur Abdomen- normal bowel sounds, soft, nontender Extremities- no calf tenderness, +right knee tenderness and swelling (improved) Skin -light macular rash over right lower extremity, and some also on left lower extremity (improved), no rash noted on chest, back or arms Neuro- alert, oriented x 3; PERRL, EOMI; no facial palsy; no dysarthria Skin- warm & dry Results & Data Results & Data ([facility]) Vital Signs (Past 12 Hours) Vital Signs Temp Pulse Resp BP Pulse Ox 02/22/21 07:17 36.7 C 62 18 142/65 H 91 02/22/21 03:40 36.8 C 72 18 145/76 H 91 02/21/21 23:33 37.2 C 70 18 136/84 90 Laboratory Results 02/22/21 02/22/21 Range/Units 06:44 06:44 WBC 8.95 (4.8-10.8) K/uL RBC 4.04 L (4.7-6.1) M/uL Hgb 11.6 L (14.0-18.0) g/dL Hct 34.6 L (42-52) % MCV 85.6 (80-100) fL MCH 28.7 (25-34) pg MCHC 33.5 (32-36) g/dL RDW Std Deviation 43.8 (36.4-46.3) fL RDW Coeff of Pilar 13.9 (11.5-14.5) % Plt Count 478 H (130-400) K/uL MPV 10.1 (7.4-10.4) fL Immature Gran % (Auto) 0.7 % Neut % (Auto) 67.1 % Lymph % (Auto) 17.5 % Carver % (Auto) 10.6 % Eos % (Auto) 3.9 % Baso % (Auto) 0.2 % Neut # (Auto) 6.00 (1.4-6.5) K/uL Lymph # (Auto) 1.57 (1.2-3.4) K/uL Carver # (Auto) 0.95 H (0.11-0.59) K/uL Eos # (Auto) 0.35 (0-0.5) K/uL Baso # (Auto) 0.02 (0-0.2) K/uL Immature Gran # (Auto) 0.06 H (0.00-0.02) K/uL Sodium 134 L (136-145) mmol/L Potassium 4.1 (3.5-5.1) mmol/L Chloride 102 (98-107) mmol/L Carbon Dioxide 24 (21-32) mmol/L Anion Gap 8.0 (3-11) BUN 40 H (7-18) mg/dl Creatinine 1.20 (0.6-1.4) mg/dl Est Cr Clr Drug Dosing 71.0 ml/min Est GFR ( Amer) 67.7 ml/min Est GFR (Non-Af Amer) 58.4 ml/min BUN/Creatinine Ratio 33.7 H (10-20) Glucose 101 H (70-99) mg/dl Calcium 8.6 (8.5-10.1) mg/dl Medications Administered Current Inpatient Medications Acetaminophen (Acetaminophen 325 Mg Tab) 650 mg PO Q4H PRN PRN Reason: pain/fever Stop: 03/13/21 21:55 Last Admin: 02/17/21 11:26 Dose: 650 mg Documented by: Al Hydrox/Mg Hydrox/Simethicone (Aluminum/Magnesium Susp 30 Ml Udc) 30 ml PO Q6H PRN PRN Reason: Dyspepsia Stop: 03/13/21 21:55 Amiodarone HCl (Amiodarone 200 Mg Tab) 200 mg PO QAM [facility] Stop: 03/20/21 08:59 Last Admin: 02/21/21 08:10 Dose: 200 mg Documented by: Aspirin (Aspirin 81 Mg Ectab) 81 mg PO DAILY [facility] Stop: 03/14/21 08:59 Last Admin: 02/21/21 08:11 Dose: 81 mg Documented by: Atorvastatin Calcium (Atorvastatin 40 Mg Tab) 40 mg PO QPM [facility] Stop: 03/13/21 21:55 Last Admin: 02/19/21 21:04 Dose: 40 mg Documented by: Heparin Sodium (Porcine) (Heparin Sod 5,000 Unit/0.5 Ml Vial) 7,500 units SQ Q8 [facility] Stop: 03/13/21 21:59 Last Admin: 02/22/21 06:17 Dose: 7,500 units Documented by: Hydromorphone HCl (Hydromorphone Inj 1 Mg/Ml Syringe) 1 mg IV Q4H PRN PRN Reason: Pain Stop: 02/26/21 08:06 Last Admin: 02/21/21 09:06 Dose: 1 mg Documented by: Daptomycin 575 mg/ Syringe 11.5 mls @ 0 mls/min IV DAILY@1600 [facility]; Protocol Stop: 03/06/21 15:59 Last Admin: 02/21/21 16:34 Dose: 5.75 mls/min Documented by: Lidocaine (Lidocaine 5% 1 Patch) 2 patch TD [facility] Stop: 03/17/21 18:14 Last Admin: 02/21/21 08:11 Dose: 2 patch Documented by: Losartan Potassium (Losartan Potassium 25 Mg Tab) 25 mg PO [facility] Stop: 03/14/21 08:59 Last Admin: 02/21/21 08:11 Dose: 25 mg Documented by: Miscellaneous (Remove Lidoderm Patch) 1 ea N/A DAILY@2100 [facility] Stop: 03/17/21 20:59 Last Admin: 02/21/21 21:58 Dose: 1 ea Documented by: Miscellaneous Information (Daptomycin Consult Active) 1 ea N/A UD PRN PRN Reason: Consult Stop: 06/14/21 15:33 Ondansetron HCl (Ondansetron Inj 2 Mg/Ml 2 Ml Vial) 4 mg IV Q6H PRN PRN Reason: Nausea Stop: 03/13/21 21:55 Oxycodone HCl (Oxycodone Hcl Ir 5 Mg Tab (Immediate Release)) 5 - 10 mg PO Q4H PRN PRN Reason: Pain Stop: 02/26/21 08:09 Last Admin: 02/22/21 02:30 Dose: 10 mg Documented by: Polyethylene Glycol (Polyethylene (Miralax) 17 Gm Pack) 17 gm PO DAILY PRN PRN Reason: Constipation Stop: 03/18/21 19:20 Last Admin: 02/20/21 09:11 Dose: 17 gm Documented by: Senna/Docusate Sodium (Docusate Sodium/Senna 50/8.6mg Tab) 1 tab PO [facility] Stop: 03/18/21 19:29 Last Admin: 02/21/21 08:10 Dose: 1 tab Documented by: Tamsulosin HCl (Tamsulosin Hcl 0.4 Mg Cap) 0.4 mg PO DAILY [facility] Stop: 03/14/21 08:59 Last Admin: 02/21/21 08:11 Dose: 0.4 mg Documented by: Tramadol HCl (Tramadol Hcl 50 Mg Tablet) 50 mg PO Q6H PRN PRN Reason: Pain Stop: 03/17/21 18:05 Last Admin: 02/20/21 04:54 Dose: 50 mg Documented by: (1) Acute knee pain Laterality: right Qualified Code(s): M25.561 - Pain in right knee (2) Effusion of knee Laterality: right Qualified Code(s): M25.461 - Effusion, right knee
[2021-02-22] MEDS: LOSARTAN POTASSIUM 25 MG TAB PO SCH (08:10)
[2021-02-22] MEDS: ASPIRIN 81 MG ECTAB PO SCH (08:11)
[2021-02-22] MEDS: DOCUSATE SODIUM/SENNA 50/8.6MG TAB PO SCH (08:11)
[2021-02-22] MEDS: TAMSULOSIN HCL 0.4 MG CAP PO SCH (08:11)
[2021-02-22] MEDS: AMIODARONE 200 MG TAB PO SCH (08:11)
[2021-02-22] MEDS: LIDOCAINE 5% 1 PATCH TD SCH (08:11)
[2021-02-22] MEDS: DAPTOmycin 1,000 MG in SYRINGE 0 ML IV SCH (09:50)
[2021-02-23] MEDS: HEPARIN SOD 5,000 UNIT/0.5 ML VIAL SQ SCH ×3 (05:25→21:11)
[2021-02-23] MEDS: DICLOFENAC SOD 1% GEL 100 GM TUBE EXT PRN ×2 (05:26→08:21)
[2021-02-23] MEDS: oxyCODONE HCL IR 5 MG TAB (IMMEDIATE RELEASE) PO PRN ×3 (05:46→21:10)
[2021-02-23 05:48] LABS: Hematocrit (blood only) 36.1 % (42-52); Hemoglobin 12.2 g/dL (14.0-18.0); Mean Corpuscular Hemoglobin 28.6 pg (25-34); Mean Corpuscular Hgb Conc 33.8 g/dL (32-36); Mean Corpuscular Volume 84.7 fL (80-100); Platelet Count 505 K/uL (130-400); RDW Standard Deviation 43.1 fL (36.4-46.3); Red Blood Count 4.26 M/uL (4.7-6.1); White Blood Count 7.85 K/uL (4.8-10.8)
[2021-02-23 06:29] LABS: BUN Creatinine Ratio 27.6 (10-20); Creatinine Clr Calc Pharmacy 78.9 ml/min; Est GFR (African American) 76.9 ml/min; Est GFR (Non-African American) 66.3 ml/min; Magnesium 2.5 mg/dl (1.8-2.4); Phosphorus 2.8 mg/dl (2.5-4.9); Potassium 4.4 mmol/L (3.5-5.1)
--- NOTE | 2021-02-23 08:10 | Hospitalist Progress Note ---
Date of Service February 23, 2021 Assessment & Plan (1) Acute knee pain: (2) Effusion of knee: Hx of bioprosthetic valve, bacteremia - presumed endocarditis Septic right knee arthritis Present on admission with right knee pain and swelling associated with fever Possible related to acute gout flare vs septic right knee arthritis Right knee xray showed large joint effusion without acute fracture or dislocation identified. Severe tricompartmental osteoarthritis. Doppler of LE showed no evidence of deep venous thrombus within the right lower extremity. Elevated WBC on admission at 13.3 Aspiration of the right knee showed 32,190 synovial white cells, RBCs 15,000, 89.1% polymorphonuclear leukocytes crystals. Uric acid crystals present on right Right knee aspiration cx grew staph aureus (MSSA) On IV Cefazolin, WBC normalizes Ortho consulted S/P Arthroscopic right knee irrigation and Debridement septic arthritis, Chondroplasty Medial Femoral Condyle, Debridement Anterior Cruciate Ligament Tear, Partial Medial meniscectomy, partial lateral Meniscectomy, major synovectomy x3 compartments, removal loose bodies X2 (measuring 9 x 8 x 8 and 10 x 9 x 8 mm respectively) (Right) - Leo Waggoner, Hemovac discontinued and dressing changed Dressing removed by Ortho fluid from aspiration grew staph Weight-bear as tolerated right lower extremity. Continue pain control Continue PT/OT ID consulted recommended to continue IV cefazolin 2g IV q8h for 6 weeks and recommended to get an CARMEN since pt has a bioprosthetic aortic valve Cardiology consulted to eval for CARMEN CARMEN done and showed no evidence of Vegetation Rash - drug reaction 02/20 -patient developed light macular rash over right lower extremity, and some also on left lower extremity. There is no rash noted on chest, back or arms. Discussed with ID physician, Dr. Negron and also orthopedics. Not consistent with cellulitis, however concern for drug reaction. Switched IV cefazolin to IV daptomycin.- Discussed with Dr. Negron, ID, recommends 1000 mg IV daily (given endocarditis rec 8-10 mg /kg) Continue to closely monitor rash seems to be improved Ambulatory dysfunction 02/21 patient was sitting in the chair yesterday for some time however today he was not able to do that, remains in bed, will contact PT again Sepsis Bacteremia Meet sepsis criteria on admission with fever with temp 39.2, elevated WBC 13.3 Blood cx on 02/11, 02/12, 02/13, 02/14 positive for staph ECHO noted no evidence of vegetation Currently on IV Cefazolin (Blood cx grew MSSA) Blood culture remains positive for staph and febrile seems to be because the source is not yet control that is the septic right knee arthritis WBC wnl [facility] ID consulted recommended to continue IV cefazolin 2g q8h for 6 weeks Follow up Repeat blood 02/17 - negative Plan to place PICC line (02/23) CARMEN showed no evidence for vegetation Acute respiratory distress Possible related to Acute diastolic heart failure CTA chest showed no evidence of central pulmonary embolus in the main, lobar, or proximal segmental pulmonary arteries. CXR showed cardiomegaly with evidence of congestive failure. IVF discontinued Received Lasix 40mg IV couple days since pt had a positive balance Continue oxygen supplement prn Continue monitor I/O Clinically improved, currently on RA vs 1L of suppl.O2 B/L shoulder pain Xray L shoulder showed moderate to severe osteoarthritis of the left acromioclavicular joint. Xray R shoulder showed Severe osteoarthritis of the right acromioclavicular join Continue pain control Continue lidocaine patch Left arm weakness CT head showed no acute intracranial finding Acute kidney failure Creatinine 1.2 -1.3 Continue monitor BMP while on IV lasix resolved Lung nodule CTA chest showed 5 mm left upper lobe pulmonary nodule is pathologically indeterminant Follow-up is recommended as per the Fleischner criteria. Afib Rate controlled with amiodarone Continue aspirin stable HTN On Losartan Continue monitor BP BPH On Flomax S/P AVR (Aortic Valve replacement) Stable DVT px heparin subq on hold due recent I&D and hemovac heparin subq CODE status Full code Admission and Anticipated Discharge Date Admission Date: February 11, 2021 Subjective Pt was seen and examined for follow up of right knee pain and swelling, bacteremia Lying in bed with no distress Pt said that right knee pain improved since admission, is about 5 at baseline out of 10, dull, however it gets worse when he is trying to work with PT Says it is hurting more now, he was washed up, but says it usually does not bother him this much Denies any chest pain, palpitation, dizziness and SOB Blood cultx - negative - plan for PICC line placement Review of Systems Review of Systems: All systems reviewed & are unremarkable except as noted in HPI & below Constitutional: no fever and no chills Respiratory: no cough and no dyspnea Cardiovascular: no chest pain and no palpitations Gastrointestinal: no abdominal pain, no nausea and no vomiting Physical Exam Physical Exam: General- WD/WN, in No acute distress Head- atraumatic Eyes- PERRL, EOMI, ENT- oropharynx clear Neck- supple, no JVD Lungs- No wheezing and crackles Heart- regular rhythm; no murmur Abdomen- normal bowel sounds, soft, nontender Extremities- no calf tenderness, +right knee tenderness and swelling (improved) Skin -light macular rash over right lower extremity, and some also on left lower extremity (improved), no rash noted on chest, back or arms Neuro- alert, oriented x 3; PERRL, EOMI; no facial palsy; no dysarthria Skin- warm & dry Results & Data Results & Data ([facility]) Vital Signs (Past 12 Hours) Vital Signs Temp Pulse Pulse Pulse Resp BP BP 02/23/21 07:30 37.2 C 67 18 111/66 02/23/21 04:14 152/89 H 02/23/21 02:56 37.6 C H 75 18 170/92 H 02/22/21 22:35 37.4 C 74 18 149/80 H 02/22/21 22:19 69 Pulse Ox 02/23/21 07:30 92 02/23/21 04:14 02/23/21 02:56 93 02/22/21 22:35 93 02/22/21 22:19 Laboratory Results 02/23/21 02/23/21 Range/Units 05:22 05:22 WBC 7.85 (4.8-10.8) K/uL RBC 4.26 L (4.7-6.1) M/uL Hgb 12.2 L (14.0-18.0) g/dL Hct 36.1 L (42-52) % MCV 84.7 (80-100) fL MCH 28.6 (25-34) pg MCHC 33.8 (32-36) g/dL RDW Std Deviation 43.1 (36.4-46.3) fL RDW Coeff of Pilar 14.0 (11.5-14.5) % Plt Count 505 H (130-400) K/uL MPV 10.0 (7.4-10.4) fL Sodium 136 (136-145) mmol/L Potassium 4.4 (3.5-5.1) mmol/L Chloride 105 (98-107) mmol/L Carbon Dioxide 25 (21-32) mmol/L Anion Gap 6.0 (3-11) BUN 30 H (7-18) mg/dl Creatinine 1.08 (0.6-1.4) mg/dl Est Cr Clr Drug Dosing 78.9 ml/min Est GFR ( Amer) 76.9 ml/min Est GFR (Non-Af Amer) 66.3 ml/min BUN/Creatinine Ratio 27.6 H (10-20) Glucose 97 (70-99) mg/dl Calcium 8.0 L (8.5-10.1) mg/dl Phosphorus 2.8 (2.5-4.9) mg/dl Magnesium 2.5 H (1.8-2.4) mg/dl Medications Administered Current Inpatient Medications Acetaminophen (Acetaminophen 325 Mg Tab) 650 mg PO Q4H PRN PRN Reason: pain/fever Stop: 03/13/21 21:55 Last Admin: 02/17/21 11:26 Dose: 650 mg Documented by: Al Hydrox/Mg Hydrox/Simethicone (Aluminum/Magnesium Susp 30 Ml Udc) 30 ml PO Q6H PRN PRN Reason: Dyspepsia Stop: 03/13/21 21:55 Amiodarone HCl (Amiodarone 200 Mg Tab) 200 mg PO QAM [facility] Stop: 03/20/21 08:59 Last Admin: 02/22/21 08:11 Dose: 200 mg Documented by: Aspirin (Aspirin 81 Mg Ectab) 81 mg PO DAILY [facility] Stop: 03/14/21 08:59 Last Admin: 02/22/21 08:11 Dose: 81 mg Documented by: Atorvastatin Calcium (Atorvastatin 40 Mg Tab) 40 mg PO QPM [facility] Stop: 03/13/21 21:55 Last Admin: 02/19/21 21:04 Dose: 40 mg Documented by: Diclofenac Sodium (Diclofenac Sod 1% Gel 100 Gm Tube) 2 gm EXT BID PRN PRN Reason: Pain Stop: 03/24/21 23:14 Last Admin: 02/23/21 05:26 Dose: 2 gm Documented by: Heparin Sodium (Porcine) (Heparin Sod 5,000 Unit/0.5 Ml Vial) 7,500 units SQ Q8 [facility] Stop: 03/13/21 21:59 Last Admin: 02/23/21 05:25 Dose: 7,500 units Documented by: Hydromorphone HCl (Hydromorphone Inj 1 Mg/Ml Syringe) 1 mg IV Q4H PRN PRN Reason: Pain Stop: 02/26/21 08:06 Last Admin: 02/21/21 09:06 Dose: 1 mg Documented by: Daptomycin 1,000 mg/ Syringe 20 mls @ 10 mls/min IV DAILY@1000 [facility]; Protocol Stop: 03/08/21 09:59 Last Admin: 02/22/21 09:50 Dose: 10 mls/min Documented by: Lidocaine (Lidocaine 5% 1 Patch) 2 patch TD [facility] Stop: 03/17/21 18:14 Last Admin: 02/22/21 08:11 Dose: Not Given Documented by: Losartan Potassium (Losartan Potassium 25 Mg Tab) 25 mg PO [facility] Stop: 03/14/21 08:59 Last Admin: 02/22/21 08:10 Dose: 25 mg Documented by: Miscellaneous (Remove Lidoderm Patch) 1 ea N/A DAILY@2100 [facility] Stop: 03/17/21 20:59 Last Admin: 02/22/21 21:30 Dose: 1 ea Documented by: Miscellaneous Information (Daptomycin Consult Active) 1 ea N/A UD PRN PRN Reason: Consult Stop: 06/14/21 15:33 Ondansetron HCl (Ondansetron Inj 2 Mg/Ml 2 Ml Vial) 4 mg IV Q6H PRN PRN Reason: Nausea Stop: 03/13/21 21:55 Oxycodone HCl (Oxycodone Hcl Ir 5 Mg Tab (Immediate Release)) 5 - 10 mg PO Q4H PRN PRN Reason: Pain Stop: 02/26/21 08:09 Last Admin: 02/23/21 05:46 Dose: 10 mg Documented by: Polyethylene Glycol (Polyethylene (Miralax) 17 Gm Pack) 17 gm PO DAILY PRN PRN Reason: Constipation Stop: 03/18/21 19:20 Last Admin: 02/20/21 09:11 Dose: 17 gm Documented by: Senna/Docusate Sodium (Docusate Sodium/Senna 50/8.6mg Tab) [facility] Stop: 03/18/21 19:29 Last Admin: 02/22/21 08:11 Dose: 1 tab Documented by: Tamsulosin HCl (Tamsulosin Hcl 0.4 Mg Cap) 0.4 mg PO DAILY [facility] Stop: 03/14/21 08:59 Last Admin: 02/22/21 08:11 Dose: 0.4 mg Documented by: Tramadol HCl (Tramadol Hcl 50 Mg Tablet) 50 mg PO Q6H PRN PRN Reason: Pain Stop: 03/17/21 18:05 Last Admin: 02/20/21 04:54 Dose: 50 mg Documented by: (1) Effusion of knee Laterality: right Qualified Code(s): M25.461 - Effusion, right knee (2) Acute knee pain Laterality: right Qualified Code(s): M25.561 - Pain in right knee
[2021-02-23] MEDS: LOSARTAN POTASSIUM 25 MG TAB PO SCH (08:20)
[2021-02-23] MEDS: AMIODARONE 200 MG TAB PO SCH (08:21)
[2021-02-23] MEDS: ASPIRIN 81 MG ECTAB PO SCH (08:21)
[2021-02-23] MEDS: DOCUSATE SODIUM/SENNA 50/8.6MG TAB PO SCH (08:21)
[2021-02-23] MEDS: TAMSULOSIN HCL 0.4 MG CAP PO SCH (08:21)
[2021-02-23] MEDS: LIDOCAINE 5% 1 PATCH TD SCH (08:22)
[2021-02-23] MEDS: traMADol HCL 50 MG TABLET PO PRN (08:24)
[2021-02-23] MEDS: DAPTOmycin 1,000 MG in SYRINGE 0 ML IV SCH (10:29)
[2021-02-24] MEDS: HEPARIN SOD 5,000 UNIT/0.5 ML VIAL SQ SCH ×3 (05:36→20:15)
[2021-02-24 06:12] LABS: Hematocrit (blood only) 35.7 % (42-52); Hemoglobin 11.6 g/dL (14.0-18.0); Mean Corpuscular Hemoglobin 28.3 pg (25-34); Mean Corpuscular Hgb Conc 32.5 g/dL (32-36); Mean Corpuscular Volume 87.1 fL (80-100); Mean Platelet Volume 10.1 fL (7.4-10.4); Platelet Count 555 K/uL (130-400); RDW Standard Deviation 44.6 fL (36.4-46.3); White Blood Count 8.31 K/uL (4.8-10.8)
[2021-02-24] MEDS: oxyCODONE HCL IR 5 MG TAB (IMMEDIATE RELEASE) PO PRN ×2 (06:41→11:09)
[2021-02-24 06:54] LABS: BUN Creatinine Ratio 25.6 (10-20); Calcium 8.7 mg/dl (8.5-10.1); Est GFR (African American) 78.6 ml/min; Est GFR (Non-African American) 67.8 ml/min; Magnesium 2.3 mg/dl (1.8-2.4); Phosphorus 2.8 mg/dl (2.5-4.9); Potassium 4.6 mmol/L (3.5-5.1)
--- NOTE | 2021-02-24 07:19 | Hospitalist Progress Note ---
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 Severe tricompartmental osteoarthritis. Doppler of LE showed no evidence of deep venous thrombus within the right lower extremity. Elevated WBC on admission at 13.3 Aspiration of the right knee showed 32,190 synovial white cells, RBCs 15,000, 89.1% polymorphonuclear leukocytes crystals. Uric acid crystals present on right Right knee aspiration cx grew staph aureus (MSSA) On IV Cefazolin, WBC normalizes Ortho consulted S/P Arthroscopic right knee irrigation and Debridement septic arthritis, Chondroplasty Medial Femoral Condyle, Debridement Anterior Cruciate Ligament Tear, Partial Medial meniscectomy, partial lateral Meniscectomy, major synovectomy x3 compartments, removal loose bodies X2 (measuring 9 x 8 x 8 and 10 x 9 x 8 mm respectively) (Right) - Leo [place], Hemovac discontinued and dressing changed Dressing removed by Ortho fluid from aspiration grew staph Weight-bear as tolerated right lower extremity. Continue pain control Continue PT/OT ID consulted recommended to continue IV cefazolin 2g IV q8h for 6 weeks and recommended to get an CARMEN since pt has a bioprosthetic aortic valve Cardiology consulted to eval for CARMEN CARMEN done and showed no evidence of Vegetation Rash - drug reaction 02/20 -patient developed light macular rash over right lower extremity, and some also on left lower extremity. There is no rash noted on chest, back or arms. Discussed with ID physician, Dr. Negron and also orthopedics. Not consistent with cellulitis, however concern for drug reaction. Switched IV cefazolin to IV daptomycin.- Discussed with Dr. Negron, ID, recommends 1000 mg IV daily (given endocarditis rec 8-10 mg /kg) Continue to closely monitor rash seems to be improved Ambulatory dysfunction 02/21 patient was sitting in the chair yesterday for some time however today he was not able to do that, remains in bed, will contact PT again Gout arthritis Continues to complain about right knee pain, and especially with movement therefore patient is hardly moving at all. ESR CRP elevated, discussed with orthopedics. Concern for gout as there were gout crystals noted. Possible aspiration later today (02/24/21) We will start patient on colchicine Sepsis Bacteremia Meet sepsis criteria on admission with fever with temp 39.2, elevated WBC 13.3 Blood cx on 02/11, 02/12, 02/13, 02/14 positive for staph ECHO noted no evidence of vegetation Currently on IV Cefazolin (Blood cx grew MSSA) Blood culture remains positive for staph and febrile seems to be because the source is not yet control that is the septic right knee arthritis WBC wnl [facility] ID consulted recommended to continue IV cefazolin 2g q8h for 6 weeks -> d/t rash switched to daptomycin, as above Follow up Repeat blood 02/17 - negative s/p PICC line placement (02/23) CARMEN showed no evidence for vegetation Per CM - SNF may be difficult to find to cover for daptomycin, in that case we can switch to vancomycin Acute respiratory distress Possible related to Acute diastolic heart failure CTA chest showed no evidence of central pulmonary embolus in the main, lobar, or proximal segmental pulmonary arteries. CXR showed cardiomegaly with evidence of congestive failure. IVF discontinued Received Lasix 40mg IV couple days since pt had a positive balance Continue oxygen supplement prn Continue monitor I/O Clinically improved, currently on RA vs 1L of suppl.O2 B/L shoulder pain Xray L shoulder showed moderate to severe osteoarthritis of the left acromioclavicular joint. Xray R shoulder showed Severe osteoarthritis of the right acromioclavicular join Continue pain control Continue lidocaine patch Left arm weakness CT head showed no acute intracranial finding Acute kidney failure Creatinine 1.2 -1.3 Continue monitor BMP while on IV lasix resolved Lung nodule CTA chest showed 5 mm left upper lobe pulmonary nodule is pathologically indeterminant Follow-up is recommended as per the Fleischner criteria. Afib Rate controlled with amiodarone Continue aspirin stable HTN On Losartan Continue monitor BP BPH On Flomax S/P AVR (Aortic Valve replacement) Stable DVT heparin subq CODE status Full code Admission and Anticipated Discharge Date Admission Date: February 11, 2021 Subjective Pt was seen and examined for follow up of right knee pain and swelling, bacteremia Lying in bed with no distress Pt said that right knee pain improved since admission, is about 5 at baseline out of 10, dull, however it gets worse when he is trying to work with PT Says it is hurting more now after any movement Denies any chest pain, palpitation, dizziness and SOB s/p PICC line placement ESR, CRP elevated, orthopedics contacted Per Ortho, concern for gout secondary to gout crystals noted. Possible aspiration later today. Review of Systems Review of Systems: All systems reviewed & are unremarkable except as noted in HPI & below Constitutional: no fever and no chills Respiratory: no cough and no dyspnea Cardiovascular: no chest pain and no palpitations Gastrointestinal: no abdominal pain, no nausea and no vomiting Physical Exam Physical Exam: General- WD/WN, in No acute distress Head- atraumatic Eyes- PERRL, EOMI, ENT- oropharynx clear Neck- supple, no JVD Lungs- No wheezing and crackles Heart- regular rhythm; no murmur Abdomen- normal bowel sounds, soft, nontender Extremities- no calf tenderness, +right knee tenderness and swelling (improved) Skin -light macular rash over right lower extremity, and some also on left lower extremity (improved), no rash noted on chest, back or arms Neuro- alert, oriented x 3; PERRL, EOMI; no facial palsy; no dysarthria Skin- warm & dry Results & Data Results & Data ([facility]) Vital Signs (Past 12 Hours) Vital Signs Temp Pulse Pulse Resp BP Pulse Ox 02/24/21 07:13 37.1 C 74 18 134/79 92 02/24/21 07:05 78 02/24/21 04:27 37.2 C 75 18 149/81 H 92 02/23/21 23:43 36.9 C 65 18 148/67 H 93 02/23/21 22:20 61 02/23/21 19:30 36.9 C 65 18 116/72 93 Laboratory Results 02/24/21 02/24/21 02/23/21 Range/Units 05:38 05:38 05:22 WBC 8.31 (4.8-10.8) K/uL RBC 4.10 L (4.7-6.1) M/uL Hgb 11.6 L (14.0-18.0) g/dL Hct 35.7 L (42-52) % MCV 87.1 (80-100) fL MCH 28.3 (25-34) pg MCHC 32.5 (32-36) g/dL RDW Std Deviation 44.6 (36.4-46.3) fL RDW Coeff of Pilar 14.0 (11.5-14.5) % Plt Count 555 H (130-400) K/uL MPV 10.1 (7.4-10.4) fL ESR (0-20) mm/hr Sodium 135 L (136-145) mmol/L Potassium 4.6 (3.5-5.1) mmol/L Chloride 105 (98-107) mmol/L Carbon Dioxide 23 (21-32) mmol/L Anion Gap 7.0 (3-11) BUN 27 H (7-18) mg/dl Creatinine 1.06 (0.6-1.4) mg/dl Est Cr Clr Drug Dosing 80.0 ml/min Est GFR ( Amer) 78.6 ml/min Est GFR (Non-Af Amer) 67.8 ml/min BUN/Creatinine Ratio 25.6 H (10-20) Glucose 84 (70-99) mg/dl Calcium 8.7 (8.5-10.1) mg/dl Phosphorus 2.8 (2.5-4.9) mg/dl Magnesium 2.3 (1.8-2.4) mg/dl C-Reactive Protein 9.91 H (0-0.29) mg/dl 02/23/21 Range/Units 05:22 WBC (4.8-10.8) K/uL RBC (4.7-6.1) M/uL Hgb (14.0-18.0) g/dL Hct (42-52) % MCV (80-100) fL MCH (25-34) pg MCHC (32-36) g/dL RDW Std Deviation (36.4-46.3) fL RDW Coeff of Pilar (11.5-14.5) % Plt Count (130-400) K/uL MPV (7.4-10.4) fL ESR 108 H (0-20) mm/hr Sodium (136-145) mmol/L Potassium (3.5-5.1) mmol/L Chloride (98-107) mmol/L Carbon Dioxide (21-32) mmol/L Anion Gap (3-11) BUN (7-18) mg/dl Creatinine (0.6-1.4) mg/dl Est Cr Clr Drug Dosing ml/min Est GFR ( Amer) ml/min Est GFR (Non-Af Amer) ml/min BUN/Creatinine Ratio (10-20) Glucose (70-99) mg/dl Calcium (8.5-10.1) mg/dl Phosphorus (2.5-4.9) mg/dl Magnesium (1.8-2.4) mg/dl C-Reactive Protein (0-0.29) mg/dl Medications Administered Current Inpatient Medications Acetaminophen (Acetaminophen 325 Mg Tab) 650 mg PO Q4H PRN PRN Reason: pain/fever Stop: 03/13/21 21:55 Last Admin: 02/17/21 11:26 Dose: 650 mg Documented by: Al Hydrox/Mg Hydrox/Simethicone (Aluminum/Magnesium Susp 30 Ml Udc) 30 ml PO Q6H PRN PRN Reason: Dyspepsia Stop: 03/13/21 21:55 Amiodarone HCl (Amiodarone 200 Mg Tab) 200 mg PO QAM [place] Stop: 03/20/21 08:59 Last Admin: 02/23/21 08:21 Dose: 200 mg Documented by: Aspirin (Aspirin 81 Mg Ectab) 81 mg PO DAILY [place] Stop: 03/14/21 08:59 Last Admin: 02/23/21 08:21 Dose: 81 mg Documented by: Atorvastatin Calcium (Atorvastatin 40 Mg Tab) 40 mg PO QPM [place] Stop: 03/13/21 21:55 Last Admin: 02/19/21 21:04 Dose: 40 mg Documented by: Diclofenac Sodium (Diclofenac Sod 1% Gel 100 Gm Tube) 2 gm EXT BID PRN PRN Reason: Pain Stop: 03/24/21 23:14 Last Admin: 02/23/21 08:21 Dose: 2 gm Documented by: Heparin Sodium (Beef Lung) (Heparin 10 Unit/Ml 5 Ml Flush) 5 ml FLUSH PRN PRN PRN Reason: Flush Stop: 03/26/21 00:22 Heparin Sodium (Porcine) (Heparin Sod 5,000 Unit/0.5 Ml Vial) 7,500 units SQ Q8 [place] Stop: 03/13/21 21:59 Last Admin: 02/24/21 05:36 Dose: 7,500 units Documented by: Hydromorphone HCl (Hydromorphone Inj 1 Mg/Ml Syringe) 1 mg IV Q4H PRN PRN Reason: Pain Stop: 02/26/21 08:06 Last Admin: 02/21/21 09:06 Dose: 1 mg Documented by: Daptomycin 1,000 mg/ Syringe 20 mls @ 10 mls/min IV DAILY@1000 [place]; Protocol Stop: 03/08/21 09:59 Last Admin: 02/23/21 10:29 Dose: 10 mls/min Documented by: Lidocaine (Lidocaine 5% 1 Patch) 2 patch TD [facility] Stop: 03/17/21 18:14 Last Admin: 02/23/21 08:22 Dose: Not Given Documented by: Losartan Potassium (Losartan Potassium 25 Mg Tab) [facility] [place] [place] Stop: 03/14/21 08:59 Last Admin: 02/23/21 08:20 Dose: 25 mg Documented by: Miscellaneous (Remove Lidoderm Patch) 1 ea N/A DAILY@2100 [facility] Stop: 03/17/21 20:59 Last Admin: 02/23/21 22:05 Dose: 1 ea Documented by: Miscellaneous Information (Daptomycin Consult Active) 1 ea N/A UD PRN PRN Reason: Consult Stop: 06/14/21 15:33 Ondansetron HCl (Ondansetron Inj 2 Mg/Ml 2 Ml Vial) 4 mg IV Q6H PRN PRN Reason: Nausea Stop: 03/13/21 21:55 Oxycodone HCl (Oxycodone Hcl Ir 5 Mg Tab (Immediate Release)) 5 - 10 mg PO Q4H PRN PRN Reason: Pain Stop: 02/26/21 08:09 Last Admin: 02/24/21 06:41 Dose: 10 mg Documented by: Polyethylene Glycol (Polyethylene (Miralax) 17 Gm Pack) 17 gm PO DAILY PRN PRN Reason: Constipation Stop: 03/18/21 19:20 Last Admin: 02/20/21 09:11 Dose: 17 gm Documented by: Senna/Docusate Sodium (Docusate Sodium/Senna 50/8.6mg Tab) 1 tab PO [facility] Stop: 03/18/21 19:29 Last Admin: 02/23/21 08:21 Dose: 1 tab Documented by: Tamsulosin HCl (Tamsulosin Hcl 0.4 Mg Cap) 0.4 mg PO DAILY [facility] Stop: 03/14/21 08:59 Last Admin: 02/23/21 08:21 Dose: 0.4 mg Documented by: Tramadol HCl (Tramadol Hcl 50 Mg Tablet) 50 mg PO Q6H PRN PRN Reason: Pain Stop: 03/17/21 18:05 Last Admin: 02/23/21 08:24 Dose: 50 mg Documented by: (1) Effusion of knee Laterality: right Qualified Code(s): M25.461 - Effusion, right knee (2) Acute knee pain Laterality: right Qualified Code(s): M25.561 - Pain in right knee
--- NOTE | 2021-02-24 08:08 | Orthopedic Progress Note ---
Date of Service February 24, 2021 Assessment & Plan (1) Effusion, right knee: Postop day #10 status post 1. Arthroscopic right knee irrigation and debridement of septic arthritis. 2. Chondroplasty of medial femoral condyle. 3. Debridement of anterior cruciate ligament tear. 4. Partial medial meniscectomy. 5. Partial lateral meniscectomy. 6. Major synovectomy x3 compartments. 7. Removal of loose bodies x2 separately measuring 9 x 8 x 8 mm and 10 x 9 x 8 mm respectively At this point, his exam is not overtly worse than when I last saw him. He might have a little bit more of an effusion. ESR is 108 and CRP is 9.9. No previous inflammatory markers were drawn at the time of his admission so unsure if these are lower than what they were prior. I discussed the case with Dr. Kerr. Patient had noted gout in the knee at the time of the infection. Consider starting colchicine to see if the patient responds. We will also consider reaspiration of the knee. I will discuss with Dr. Arteaga who is here today and plan for reaspiration if warranted. (2) Osteoarthritis of right knee: (3) Lower extremity edema: (4) Bilateral shoulder pain: Patient states he has bilateral shoulder pain and stiffness. We will start with x-rays of the shoulders to rule out shoulder osteoarthritis. Admission and Anticipated Discharge Date Admission Date: February 11, 2021 Subjective Postop day 10 Asked to see patient to recheck his right knee. Patient was having increased pain in the right knee yesterday. This morning he is lying in bed awake and alert. He states that the knee was feeling fine this morning and then as he was moving around in bed and getting dressed and taking care of morning duties, he had some increased pain in the right knee. Patient currently looks comfortable. No other complaints at this time. Physical Exam Physical Exam: On examination of the right knee, effusion is noted. The effusion is not tense. Some pain on palpation over the anterior knee. The knee is not erythematous. It does not feel overly hot compared to the left knee. Incisions from the arthroscopy are healing well. No drainage or erythema. Axial loading does not cause pain. Gentle ROM of the knee causes some pain but does not appear to be severe. Posterior knee essentially benign. Calves soft, NT. NV intact. Results & Data ([facility]) Vital Signs (Past 12 Hours) Vital Signs Temp Pulse Pulse Resp BP Pulse Ox 02/24/21 07:13 37.1 C 74 18 134/79 92 02/24/21 07:05 78 02/24/21 04:27 37.2 C 75 18 149/81 H 92 02/23/21 23:43 36.9 C 65 18 148/67 H 93 02/23/21 22:20 61
[2021-02-24] MEDS: LOSARTAN POTASSIUM 25 MG TAB PO SCH (08:12)
[2021-02-24] MEDS: AMIODARONE 200 MG TAB PO SCH (08:12)
[2021-02-24] MEDS: ASPIRIN 81 MG ECTAB PO SCH (08:12)
[2021-02-24] MEDS: TAMSULOSIN HCL 0.4 MG CAP PO SCH (08:13)
[2021-02-24] MEDS: DOCUSATE SODIUM/SENNA 50/8.6MG TAB PO SCH (08:13)
[2021-02-24] MEDS: DICLOFENAC SOD 1% GEL 100 GM TUBE EXT PRN (08:14)
[2021-02-24] MEDS: LIDOCAINE 5% 1 PATCH TD SCH (09:55)
[2021-02-24] MEDS: DAPTOmycin 1,000 MG in SYRINGE 0 ML IV SCH (09:58)
[2021-02-24] MEDS ORDERED: COLCHICINE 0.6 MG TAB PO ONE (10:30)
[2021-02-24] MEDS: INDOMETHACIN 25 MG CAP PO SCH ×3 (11:09→20:16)
[2021-02-24] MEDS: ADVANCED PROBIOTIC 1250 MG CAPSULE PO SCH (17:35)
[2021-02-25] MEDS: HEPARIN SOD 5,000 UNIT/0.5 ML VIAL SQ SCH ×3 (05:30→20:32)
[2021-02-25 06:34] LABS: Hematocrit (blood only) 36.2 % (42-52); Hemoglobin 12.1 g/dL (14.0-18.0); Mean Corpuscular Hemoglobin 28.5 pg (25-34); Mean Corpuscular Hgb Conc 33.4 g/dL (32-36); Mean Corpuscular Volume 85.4 fL (80-100); Mean Platelet Volume 9.9 fL (7.4-10.4); Platelet Count 493 K/uL (130-400); RDW Coefficient of Variation 13.9 % (11.5-14.5); RDW Standard Deviation 43.1 fL (36.4-46.3); Red Blood Count 4.24 M/uL (4.7-6.1); White Blood Count 6.93 K/uL (4.8-10.8)
[2021-02-25 07:08] LABS: C Reactive Protein 11.2 mg/dl (0-0.29); Est GFR (African American) 75.2 ml/min; Est GFR (Non-African American) 64.9 ml/min; Potassium 4.9 mmol/L (3.5-5.1)
[2021-02-25] MEDS: oxyCODONE HCL IR 5 MG TAB (IMMEDIATE RELEASE) PO PRN ×2 (09:13→16:02)
[2021-02-25] MEDS: AMIODARONE 200 MG TAB PO SCH (09:15)
[2021-02-25] MEDS: ASPIRIN 81 MG ECTAB PO SCH (09:16)
[2021-02-25] MEDS: DOCUSATE SODIUM/SENNA 50/8.6MG TAB PO SCH (09:16)
[2021-02-25] MEDS: INDOMETHACIN 25 MG CAP PO SCH ×3 (09:17→20:31)
[2021-02-25] MEDS: ADVANCED PROBIOTIC 1250 MG CAPSULE PO SCH (09:17)
[2021-02-25] MEDS: LIDOCAINE 5% 1 PATCH TD SCH (09:18)
[2021-02-25] MEDS: LOSARTAN POTASSIUM 25 MG TAB PO SCH (09:18)
[2021-02-25] MEDS: TAMSULOSIN HCL 0.4 MG CAP PO SCH (09:18)
[2021-02-25] MEDS: DAPTOmycin 1,000 MG in SYRINGE 0 ML IV SCH (09:28)
--- NOTE | 2021-02-25 12:20 | Orthopedic Progress Note ---
Date of Service February 25, 2021 Assessment & Plan (1) Effusion, right knee: Postop day #11 1. Arthroscopic right knee irrigation and debridement of septic arthritis. 2. Chondroplasty of medial femoral condyle. 3. Debridement of anterior cruciate ligament tear. 4. Partial medial meniscectomy. 5. Partial lateral meniscectomy. 6. Major synovectomy x3 compartments. 7. Removal of loose bodies x2 separately measuring 9 x 8 x 8 mm and 10 x 9 x 8 mm respectively will continue to monitor, overall he states it feels about the same as yesterday. will see how he responds to his gout medications, do not feel that it needs aspirated at this time but certainly will if his knee would worsen. per ID, Switched IV cefazolin to IV daptomycin. (2) Osteoarthritis of right knee: (3) Lower extremity edema: (4) Bilateral shoulder pain: Patient states he has bilateral shoulder pain and stiffness. We will start with x-rays of the shoulders to rule out shoulder osteoarthritis. Admission and Anticipated Discharge Date Admission Date: February 11, 2021 Review of Systems Constitutional: no fever and no chills Cardiovascular: no chest pain, no dyspnea and no orthopnea Gastrointestinal: no nausea and no vomiting Physical Exam Musculoskeletal: Right knee: +2 effusion noted, there is tenderness noted over the anterior aspect of his knee and suprapatellar pouch. no erythema noted, no drainage noted from the portals or drain site. Incisions from the arthroscopy are healing well. PROM 0/5/80 then has pain with any further passive motion. Calves soft, NT. NV intact. Results & Data ([facility]) Vital Signs (Past 12 Hours) Vital Signs Temp Pulse Pulse Resp BP Pulse Ox 02/25/21 11:02 36.9 C 63 18 150/81 H 92 02/25/21 07:00 36.8 C 60 20 152/74 H 92 02/25/21 03:17 68 02/25/21 03:00 36.4 C L 59 L 20 141/79 H 93 Laboratory Results Laboratory Results WBC 6.93 K/uL (4.8-10.8) 02/25/21 06:00 RBC 4.24 M/uL (4.7-6.1) L 02/25/21 06:00 Hgb 12.1 g/dL (14.0-18.0) L 02/25/21 06:00 Hct 36.2 % (42-52) L 02/25/21 06:00 MCV 85.4 fL (80-100) 02/25/21 06:00 MCH 28.5 pg (25-34) 02/25/21 06:00 MCHC 33.4 g/dL (32-36) 02/25/21 06:00 RDW Std Deviation 43.1 fL (36.4-46.3) 02/25/21 06:00 RDW Coeff of [place] 13.9 % (11.5-14.5) 02/25/21 06:00 Plt Count 493 K/uL (130-400) H 02/25/21 06:00 MPV 9.9 fL (7.4-10.4) 02/25/21 06:00 Immature Gran % (Auto) 0.7 % 02/22/21 06:44 Neut % (Auto) 67.1 % 02/22/21 06:44 Lymph % (Auto) 17.5 % 02/22/21 06:44 [place] % (Auto) 10.6 % 02/22/21 06:44 Eos % (Auto) 3.9 % 02/22/21 06:44 Baso % (Auto) 0.2 % 02/22/21 06:44 Neut # (Auto) 6.00 K/uL (1.4-6.5) 02/22/21 06:44 Lymph # (Auto) 1.57 K/uL (1.2-3.4) 02/22/21 06:44 [place] # (Auto) 0.95 K/uL (0.11-0.59) H 02/22/21 06:44 Eos # (Auto) 0.35 K/uL (0-0.5) 02/22/21 06:44 Baso # (Auto) 0.02 K/uL (0-0.2) 02/22/21 06:44 Immature Gran # (Auto) 0.06 K/uL (0.00-0.02) H 02/22/21 06:44 ESR 114 mm/hr (0-20) H 02/25/21 06:00 PT 10.3 Seconds (9.0-12.0) 02/11/21 22:25 INR 1.0 (0.9-1.1) 02/11/21 22:25 APTT 36.9 Seconds (21.0-31.0) H 02/11/21 22:25 PTT Ratio 1.4 02/11/21 22:25 D-Dimer 1650 ug/L FEU (0-500) H* 02/11/21 14:40 Sodium 134 mmol/L (136-145) L 02/25/21 06:00 Potassium 4.9 mmol/L (3.5-5.1) 02/25/21 06:00 Chloride 106 mmol/L (98-107) 02/25/21 06:00 Carbon Dioxide 22 mmol/L (21-32) 02/25/21 06:00 Anion Gap 6.0 (3-11) 02/25/21 06:00 BUN 30 mg/dl (7-18) H 02/25/21 06:00 Creatinine 1.10 mg/dl (0.6-1.4) 02/25/21 06:00 Est Cr Clr Drug Dosing 77.0 ml/min 02/25/21 06:00 Est GFR ( Amer) 75.2 ml/min 02/25/21 06:00 Est GFR (Non-Af Amer) 64.9 ml/min 02/25/21 06:00 BUN/Creatinine Ratio 27.0 (10-20) H 02/25/21 06:00 Glucose 89 mg/dl (70-99) 02/25/21 06:00 Lactate 1.5 mmol/L (0.4-2.0) 02/11/21 22:25 Uric Acid 5.0 mg/dl (2.6-7.2) 02/25/21 06:00 Calcium 9.0 mg/dl (8.5-10.1) 02/25/21 06:00 Phosphorus 2.8 mg/dl (2.5-4.9) 02/24/21 05:38 Magnesium 2.3 mg/dl (1.8-2.4) 02/24/21 05:38 Total Bilirubin 0.6 mg/dl (0.2-1) 02/13/21 07:18 AST 42 U/L (15-37) H 02/13/21 07:18 ALT 18 U/L (12-78) 02/13/21 07:18 Alkaline Phosphatase 73 U/L (45-117) 02/13/21 07:18 Troponin I < 0.015 ng/ml (0-0.045) 02/11/21 14:40 C-Reactive Protein 11.20 mg/dl (0-0.29) H 02/25/21 06:00 Total Protein 6.7 gm/dl (6.4-8.2) 02/13/21 07:18 Albumin 1.9 gm/dl (3.4-5.0) L 02/13/21 07:18 Globulin 4.8 gm/dl (2.5-4.0) H 02/13/21 07:18 Albumin/Globulin Ratio 0.4 (0.9-2) L 02/13/21 07:18 Procalcitonin 0.65 ng/ml (0-0.5) H 02/11/21 14:40 Urine Color Dark Yellow 02/11/21 23:00 Urine Appearance Cloudy (Clear) A 02/11/21 23:00 Urine pH 5.5 (4.5-7.5) 02/11/21 23:00 Ur Specific [place] 1.044 (1.000-1.030) H 02/11/21 23:00 Urine Protein 1+ (Negative) H 02/11/21 23:00 Urine Glucose (UA) Negative (Negative) 02/11/21 23:00 Urine Ketones Trace (Negative) H 02/11/21 23:00 Urine Blood 2+ (Negative) H 02/11/21 23:00 Urine Nitrite Negative (Negative) 02/11/21 23:00 Urine Bilirubin Negative (Negative) 02/11/21 23:00 Urine Urobilinogen Negative (Negative) 02/11/21 23:00 Ur Leukocyte Esterase Negative (Negative) 02/11/21 23:00 Urine WBC (Auto) 1-5 /hpf (0-5) 02/11/21 23:00 Urine RBC (Auto) 0-4 /hpf (0-4) 02/11/21 23:00 U Hyaline Cast (Auto) 5-10 /lpf (0-5) H 02/11/21 23:00 U Epithel Cells (Auto) 20-30 /lpf (0-5) H 02/11/21 23:00 Urine Bacteria (Auto) Negative (Negative) 02/11/21 23:00 Granular Casts 1-5 /lpf (0) H 02/11/21 23:00 Urine Yeast Not Reportable 02/11/21 23:00 Fld Lyme DNA (PCR) Not detected (Not Detected) 02/11/21 18:50 Fluid Comment 02/11/21 18:50 Synovial Source KNEE 02/11/21 18:50 Synovial Color YELLOW 02/11/21 18:50 Synovial Appearance CLOUDY 02/11/21 18:50 Synovial WBC 26713 /ul (0-200) H 02/11/21 18:50 Synovial RBC 22007 /uL 02/11/21 18:50 Synovial Polynuclear % 89.1 % 02/11/21 18:50 Synovial Mononuclear % 10.9 % 02/11/21 18:50 Synovial Crystals 02/11/21 18:50 Lyme Specimen Source Synovial Fluid 02/11/21 18:50 Lyme Disease IgG Ab Negative (Negative) 02/11/21 15:56 Lyme Disease IgM Ab Negative (Negative) 02/11/21 15:56 COVID-19 Eval Order Covid19 at [facility] 02/11/21 11:52 SARS-CoV-2 (PCR) NEGATIVE (Negative) 02/11/21 11:52 Bld Cult Staph aureus PCR Positive (Negative) A 02/11/21 14:40 Blood Culture MRSA PCR Negative (Negative) 02/11/21 14:40 Impressions Knee X-Ray 02/11/21 14:08 XR knee RT 3V HISTORY: 75 years-old Male r knee pain acute right knee pain without reported trauma COMPARISON: None TECHNIQUE: 3 views of the right knee FINDINGS: Large joint effusion. There is severe tricompartmental osteoarthritis with corticated ossifications projected posteriorly to the knee. No acute fracture, dislocation or suspicious bone lesion. Mild circumferential soft tissue prominence. IMPRESSION: 1. Large joint effusion without acute fracture or dislocation identified. 2. Severe tricompartmental osteoarthritis. ACT 112: Negative or not required by law. The above report was generated using voice recognition software. It may contain grammatical, syntax or spelling errors. Electronically signed by: Guillermo Rivera M.D. 02/11/2021 2:55 PM Chest CTA 02/11/21 16:04 CT ANGIOGRAM OF THE CHEST CLINICAL HISTORY: Sepsis. Dyspnea. COMPARISON STUDY: Chest x-ray dated 02/11/2021. TECHNIQUE: Following the IV administration of 95 cc of Optiray 350, CT angiogram of the chest was performed from the upper abdomen to the thoracic inlet u tilizing the pulmonary embolus protocol. Images are reviewed in the axial, sagittal, and coronal planes. 3-D MIPS images are created and assessed. IV contrast was administered without complication. A dose lowering technique was utilized adhering to the principles of ALARA. The Examination is compromised by motion artifact. CT DOSE: 591.10 mGycm FINDINGS: Thyroid: The thyroid is enlarged and heterogeneous. Thoracic aorta: There is atherosclerotic calcification of the thoracic aorta, which is normal in caliber and demonstrates standard 3-vessel arch anatomy. No dissection is seen. Pulmonary vasculature: The pulmonary trunk is dilated, measuring 4.3 cm in diameter. This suggests pulmonary artery hypertension. There are no filling defects identified in main, lobar, or proximal segmental pulmonary branches to suggest pulmonary embolus. Evaluation of the peripheral branches is degraded by motion artifact. Heart: The patient is status post midline sternotomy. The heart is enlarged and without pericardial effusion. The coronary arteries are densely calcified. Lungs and pleural spaces: Evaluation of the lung parenchyma is significantly compromised by motion artifact. Emphysematous change is noted. Intralobular septal thickening suggests congestive failure. No lobar consolidation or pleural effusion is identified. Foci of parenchymal scarring are seen throughout both lungs. Atelectasis is noted at the lung bases. A 5 mm left upper lobe pulmonary nodule is seen on image #192. Mediastinum: Scattered subcentimeter mediastinal lymph nodes are not pathologically enlarged by size criteria. [place]: Clear. Axillae: There is no axillary lymphadenopathy. Upper abdomen: Partially visualized upper abdominal viscera is within normal limits. Skeletal structures: The skeletal structures are osteopenic. Degenerative change is noted in the shoulders and thoracic spine. No lytic or blastic bony lesions are seen. IMPRESSION: 1. Motion compromised examination. 2. There is no evidence of central pulmonary embolus in the main, lobar, or proximal segmental pulmonary arteries. 3. Cardiomegaly and emphysema with evidence of pulmonary artery hypertension. 4. Intralobular septal thickening suggests congestive failure. Clinical correlation will be required. 5. There is no airspace consolidation typical for pneumonia or pleural effusion. 6. A 5 mm left upper lobe pulmonary nodule is pathologically indeterminant. Follow-up is recommended as per the Fleischner criteria. See below. Please refer to below summary of Fleischner criteria recommendations for follow- up of incidental CT nodules (Miguel Eagle, Guidelines for management of small pulmonary nodules detected on CT scans: A statement from the Fleischner Society, Radiology 237: [id number].) SOLID NODULES Solitary nodule size: <6 mm * low risk patients: no follow-up needed * high risk patients: optional CT at 12 months Solitary nodule size: 6-8 mm * low risk patients: follow-up at 6-12 months, then consider further follow-up at 18-24 months * high risk patients: initial follow-up CT at 6-12 months and then at 18-24 months if no change Solitary nodule size: >8 mm * either low or high risk patients - consider follow-up CT at 3 months, and/or CT-PET, and/or biopsy Multiple nodules size: <6 mm * low risk patients: no routine follow-up * high risk patients: optional CT at 12 months Multiple nodules size: 6-8 mm * low risk patients: follow-up at 3-6 months, then consider further follow-up at 18-24 months * high risk patients: follow-up at 3-6 months, then at 18-24 months if no change Multiple nodules size: >8 mm * low risk patients: follow-up at 3-6 months, then consider further follow-up at 18-24 months * high risk patients: follow-up at 3-6 months, then at 18-24 months if no change Note: newly detected indeterminate nodule in persons 35 years of age or older. * low risk patients: minimal or absent history of smoking and/or other known risk factors * high risk patients: history of smoking or of other known risk factors (e.g. first degree relative with lung cancer, or exposure to asbestos, radon, uranium) * if a nodule up to 8 mm is partly solid or is ground glass further follow-up is required after 24 months to exclude possible slow growing adenocarcinoma (CHAIM) SUBSOLID NODULES Solitary pure ground-glass nodule * nodule size <6 mm - no CT follow-up required * nodule size >=6 mm - follow-up CT at 6-12 months, then every 2 years until 5 years Solitary part-solid nodule * nodule size <6 mm - no CT follow-up required * nodule size >=6 mm - follow-up CT at 3-6 months. If unchanged, and solid component remains <6 mm, then annual follow-up for 5 years Multiple subsolid nodules * nodule size <6 mm - follow-up CT at 3-6 months, consider further follow-up at 2 and 4 years if stable * nodule size >=6 mm - follow-up CT at 3-6 months, subsequent management based on the most suspicious nodule(s) ACT 112: Positive. There are findings on this exam that require communication between the performing entity and the patient following Patient Test Result Information Act ([place] Act 112) guidelines. Electronically signed by: Jared Wharton M.D. 02/11/2021 5:55 PM Venous Doppler Study 02/12/21 10:00 RIGHT LOWER EXTREMITY VENOUS DOPPLER CLINICAL HISTORY: Calf firmness COMPARISON STUDY: No previous studies for comparison. TECHNIQUE: Sonography of the deep venous system of the right lower extremity was performed. Compression and augmentation were evaluated. FINDINGS: The right common femoral, superficial femoral and popliteal veins were compressible. Augmentation was normal. Flow was shown within the deep calf vessels. Note is made of a 4.5 x 4.2 x 0.8 cm right popliteal cyst. IMPRESSION: 1. No evidence of deep venous thrombus within the right lower extremity. 2. Small right popliteal cyst. ACT 112: Negative or not required by law. Electronically signed by: Deo Pineda M.D. 02/12/2021 10:22 AM Chest X-Ray 02/13/21 13:29 SINGLE VIEW CHEST CLINICAL HISTORY: Dyspnea. FINDINGS: An AP, portable, upright chest radiograph is compared to study dated 02/11/2021. The examination is degraded by portable technique and patient rotation. The patient is status post midline sternotomy. The cardiomediastinal silhouette is unremarkable heart is enlarged noting atherosclerotic calcification of the thoracic aorta. There is pulmonary vascular congestion. There are bibasilar opacities. No large pleural effusion or pneumothorax is seen. The skeletal structures are osteopenic. The bony thorax is grossly intact. IMPRESSION: 1. Cardiomegaly with evidence of congestive failure. 2. Bibasilar opacities likely represent scarring/atelectasis. Clinical correlation will be required. 3. No large pleural effusion is seen. ACT 112: Negative or not required by law. Electronically signed by: Jared Wharton M.D. 02/13/2021 1:48 PM Shoulder X-Ray 02/15/21 10:00 XR shoulder RT min 2V routine CLINICAL HISTORY: Right shoulder pain COMPARISON: None FINDINGS: Alignment of the right shoulder is anatomic. There is severe osteoarthritis of the right acromioclavicular joint. There is mild to moderate osteoarthritis of the right glenohumeral joint. There is possible calcific tendinitis of the distal rotator cuff. No acute fracture is evident. There is no osseous lesion. IMPRESSION: 1. No acute fracture or dislocation within the right shoulder. 2. Severe osteoarthritis of the right acromioclavicular joint. Mild to moderate osteoarthritis of the right glenohumeral joint. ACT 112: Negative or not required by law. Electronically signed by: Deo Pineda M.D. 02/15/2021 11:[address] 02/17/21 12:[address] DOSE: 823.94 mGycm HISTORY: Left arm weakness. TECHNIQUE: Multiaxial CT images of the head were performed without the use of intravenous contrast. Automated exposure control was utilized for this study. A dose lowering technique was utilized adhering to the principles of ALARA. Comparison: None. Findings: The paranasal sinuses and mastoid air cells are clear. The calvarium and skull base are intact. The ventricles and sulci are within normal limits. There is no mass, hematoma, midline shift, or acute infarct. Impression: No acute intracranial abnormality. ACT 112: Negative or not required by law. Electronically signed by: Shaan Granados M.D. 02/17/2021 1:49 PM
--- NOTE | 2021-02-25 17:56 | Hospitalist Progress Note ---
Date of Service February 25, 2021 Assessment & Plan (1) Acute knee pain: (2) Effusion of knee: Right knee septic arthritis Acute gout Bacteremia, Presumed endocarditis Sepsis H/O bioprosthetic valve --S/P right knee irrigation and debridement of septic arthritis, chondroplasty of medial femoral condyle, debridement of anterior cruciate ligament tear, partial medial meniscectomy, partial lateral meniscectomy, major synovectomy., Removal of loose bodies. by on 02/14/21 -Transesophageal ECHO: No evidence of mass or vegetation. -Blood Cx Growing: MSSA -Repeat Blood Cx: 02/17/21: Negative to date -Continue indomethacin -IV cefazolin transition to IV daptomycin given allergic reaction to Cefazolin ID, recommends Daptomycin 1000 mg IV daily (given endocarditis rec 8-10 mg /kg) -Appreciate Orthopedics, ID Input PT/OT: Right partial-WBAT Needs 6 weeks of IV antibiotics from Negative culture PICC line Placed Ambulatory dysfunction Secondary to above Continue PT OT Fall precautions Gout arthritis ESR CRP elevated S/P Aspiration Could not give colchicine secondary to home medication amiodarone Continue indomethacin Need to be started on allopurinol as able Acute respiratory distress Possible related to Acute diastolic heart failure CTA chest showed no evidence of central pulmonary embolus in the main, lobar, or proximal segmental pulmonary arteries. CXR showed cardiomegaly with evidence of congestive failure. Received Lasix 40mg IV Continue supplemental oxygen PRN Continue monitor I/O B/L shoulder pain Xray L shoulder showed moderate to severe osteoarthritis of the left acromioclavicular joint. Xray R shoulder showed Severe osteoarthritis of the right acromioclavicular join Continue pain control Continue lidocaine patch Left arm weakness CT head showed no acute intracranial finding Acute kidney failure Baseline Cr 1.2 -1.3 Monitor renal function Lung nodule CTA chest showed 5 mm left upper lobe pulmonary nodule is pathologically indeterminant Follow-up is recommended as per the Fleischner criteria. Afib Rate controlled Continue amiodarone Also on aspirin stable HTN On Losartan Monitor BP BPH On Flomax Dyslipidemia Hold statin while on daptomycin S/P AVR (Aortic Valve replacement) Stable DVT Px Heparin SQ CODE status Full code Admission and Anticipated Discharge Date Admission Date: February 11, 2021 Subjective Patient is seen and examined at bedside States having right knee pain Also states having ambulatory dysfunction secondary to pain Denies chest pain, shortness of breath, dizziness, nausea, abdominal pain Offers no other complaints Review of Systems Review of Systems: All systems reviewed & are unremarkable except as noted in HPI & below Physical Exam Physical Exam: Physical Exam: Vitals signs as noted above General Appearance:Obese, no apparent distress Head: normocephalic, Atraumatic Eyes: normal inspection, EOMI Neck: supple, Trachea midline Respiratory/Chest: Normal breath sounds, + Basal Crackles Cardiovascular: S1, S2, + murmur Abdomen/GI:Soft, Non tender, Bowel sounds present Extremities/Musculoskeletal:normal inspection, 1+ B/L LE edema, Right Knee swelling, +tender Neurologic/Psych:AAOX3, grossly no focal neurological deficits Skin: normal color, warm Results & Data Results & Data ([facility]) Vital Signs (Past 12 Hours) Vital Signs Temp Pulse Pulse Resp BP Pulse Ox 02/25/21 16:00 59 L 18 92 02/25/21 15:01 36.7 C 59 L 18 121/72 91 02/25/21 12:00 18 93 02/25/21 11:02 36.9 C 63 18 150/81 H 92 02/25/21 08:00 67 18 92 02/25/21 07:00 36.8 C 60 20 152/74 H 92 Laboratory Results Short CBC 02/25/21 Range/Units 06:00 WBC 6.93 (4.8-10.8) K/uL Hgb 12.1 L (14.0-18.0) g/dL Hct 36.2 L (42-52) % Plt Count 493 H (130-400) K/uL BMP 02/25/21 06:00 Sodium 134 L Potassium 4.9 Chloride 106 Carbon Dioxide 22 BUN 30 H Creatinine 1.10 Glucose 89 Calcium 9.0 (1) Acute knee pain Laterality: right Qualified Code(s): M25.561 - Pain in right knee (2) Effusion of knee Laterality: right Qualified Code(s): M25.461 - Effusion, right knee
[2021-02-25] MEDS: traMADol HCL 50 MG TABLET PO PRN (21:24)
[2021-02-26] MEDS: HEPARIN SOD 5,000 UNIT/0.5 ML VIAL SQ SCH ×3 (05:53→21:08)
[2021-02-26 07:10] LABS: BUN Creatinine Ratio 25.5 (10-20); Est GFR (African American) 75.2 ml/min; Est GFR (Non-African American) 64.9 ml/min; Magnesium 2.2 mg/dl (1.8-2.4); Potassium 4.7 mmol/L (3.5-5.1)
[2021-02-26] MEDS: LOSARTAN POTASSIUM 25 MG TAB PO SCH (07:44)
[2021-02-26] MEDS: INDOMETHACIN 25 MG CAP PO SCH ×3 (07:44→21:07)
[2021-02-26] MEDS: TAMSULOSIN HCL 0.4 MG CAP PO SCH (07:44)
[2021-02-26] MEDS: ADVANCED PROBIOTIC 1250 MG CAPSULE PO SCH (07:44)
[2021-02-26] MEDS: AMIODARONE 200 MG TAB PO SCH (07:45)
[2021-02-26] MEDS: ASPIRIN 81 MG ECTAB PO SCH (07:45)
[2021-02-26] MEDS: traMADol HCL 50 MG TABLET PO PRN ×2 (07:46→21:16)
[2021-02-26] MEDS: DOCUSATE SODIUM/SENNA 50/8.6MG TAB PO SCH (07:46)
[2021-02-26] MEDS: DAPTOmycin 1,000 MG in SYRINGE 0 ML IV SCH (09:56)
[2021-02-26] MEDS: ACETAMINOPHEN 325 MG TAB PO PRN (11:17)
[2021-02-26] MEDS: LIDOCAINE 5% 1 PATCH TD SCH (13:59)
--- NOTE | 2021-02-26 18:02 | Hospitalist Progress Note ---
Date of Service February 26, 2021 Assessment & Plan (1) Acute knee pain: (2) Effusion of knee: Right knee septic arthritis Acute gout Bacteremia, Presumed endocarditis Sepsis H/O bioprosthetic valve --S/P right knee irrigation and debridement of septic arthritis, chondroplasty of medial femoral condyle, debridement of anterior cruciate ligament tear, partial medial meniscectomy, partial lateral meniscectomy, major synovectomy., Removal of loose bodies. by on 02/14/21 -Transesophageal ECHO: No evidence of mass or vegetation. -Blood Cx Growing: MSSA -Repeat Blood Cx: 02/17/21: Negative to date -Continue indomethacin -IV cefazolin transition to IV daptomycin given allergic reaction to Cefazolin ID, recommends Daptomycin 1000 mg IV daily (given endocarditis rec 8-10 mg /kg) -Appreciate Orthopedics, ID Input PT/OT: Right partial-WBAT Needs 6 weeks of IV antibiotics from Negative culture PICC line Placed Continue current management Consider to transition to IV vancomycin from IV Daptomycin if patient has placement issues Ambulatory dysfunction Secondary to above Continue PT OT Fall precautions Gout arthritis ESR CRP elevated S/P Aspiration Could not give colchicine secondary to home medication amiodarone Continue indomethacin Need to be started on allopurinol as able Acute respiratory distress Possible related to Acute diastolic heart failure CTA chest showed no evidence of central pulmonary embolus in the main, lobar, or proximal segmental pulmonary arteries. CXR showed cardiomegaly with evidence of congestive failure. Received Lasix 40mg IV Continue supplemental oxygen PRN Continue monitor I/O B/L shoulder pain Xray L shoulder showed moderate to severe osteoarthritis of the left acromioclavicular joint. Xray R shoulder showed Severe osteoarthritis of the right acromioclavicular join Continue pain control Continue lidocaine patch Left arm weakness CT head showed no acute intracranial finding Acute kidney failure Baseline Cr 1.2 -1.3 Monitor renal function Lung nodule CTA chest showed 5 mm left upper lobe pulmonary nodule is pathologically indeterminant Follow-up is recommended as per the Fleischner criteria. Afib Rate controlled Continue amiodarone Also on aspirin stable HTN On Losartan Monitor BP BPH On Flomax Dyslipidemia Hold statin while on daptomycin S/P AVR (Aortic Valve replacement) Stable DVT Px Heparin SQ CODE status Full code Admission and Anticipated Discharge Date Admission Date: February 11, 2021 Subjective Patient is seen and examined at bedside Right knee pain slightly better today Still has significant knee pain with ambulation, weightbearing Updated patient's family over the phone Denies chest pain, shortness of breath, dizziness, nausea, abdominal pain Offers no other complaints Review of Systems Review of Systems: All systems reviewed & are unremarkable except as noted in HPI & below Physical Exam Physical Exam: Physical Exam: Vitals signs as noted above General Appearance:Obese, no apparent distress Head: normocephalic, Atraumatic Eyes: normal inspection, EOMI Neck: supple, Trachea midline Respiratory/Chest: Normal breath sounds, + Basal Crackles Cardiovascular: S1, S2, + murmur Abdomen/GI:Soft, Non tender, Bowel sounds present Extremities/Musculoskeletal:normal inspection, 1+ B/L LE edema, Right Knee swelling, +tender Neurologic/Psych:AAOX3, grossly no focal neurological deficits Skin: normal color, warm Results & Data Results & Data ([facility]) Vital Signs (Past 12 Hours) Vital Signs Temp Pulse Pulse Resp BP BP Pulse Ox 02/26/21 16:00 18 93 02/26/21 15:40 60 02/26/21 15:24 36.5 C 64 18 126/70 93 02/26/21 11:28 36.4 C L 81 18 139/76 90 02/26/21 08:00 18 92 02/26/21 07:25 64 02/26/21 06:59 36.8 C 65 20 154/79 H 92 Laboratory Results [facility] 02/26/21 06:05 Sodium 136 Potassium 4.7 Chloride 107 Carbon Dioxide 21 BUN 28 H Creatinine 1.10 Glucose 92 Calcium 9.0 (1) Acute knee pain Laterality: right Qualified Code(s): M25.561 - Pain in right knee (2) Effusion of knee Laterality: right Qualified Code(s): M25.461 - Effusion, right knee
[2021-02-27] MEDS: traMADol HCL 50 MG TABLET PO PRN (04:56)
[2021-02-27] MEDS: HEPARIN SOD 5,000 UNIT/0.5 ML VIAL SQ SCH ×3 (05:47→20:25)
[2021-02-27 06:26] LABS: Hematocrit (blood only) 35.7 % (42-52); Hemoglobin 11.9 g/dL (14.0-18.0); Mean Corpuscular Hemoglobin 28.8 pg (25-34); Mean Corpuscular Hgb Conc 33.3 g/dL (32-36); Mean Corpuscular Volume 86.4 fL (80-100); Mean Platelet Volume 9.9 fL (7.4-10.4); Platelet Count 535 K/uL (130-400); RDW Coefficient of Variation 13.9 % (11.5-14.5); RDW Standard Deviation 43.9 fL (36.4-46.3); Red Blood Count 4.13 M/uL (4.7-6.1); White Blood Count 7.12 K/uL (4.8-10.8)
[2021-02-27 06:56] LABS: BUN Creatinine Ratio 23.2 (10-20); Calcium 9.5 mg/dl (8.5-10.1); Creatinine Clr Calc Pharmacy 74.4 ml/min; Est GFR (African American) 72.8 ml/min; Est GFR (Non-African American) 62.8 ml/min; Potassium 4.5 mmol/L (3.5-5.1)
[2021-02-27] MEDS: TAMSULOSIN HCL 0.4 MG CAP PO SCH (08:45)
[2021-02-27] MEDS: AMIODARONE 200 MG TAB PO SCH (08:45)
[2021-02-27] MEDS: LOSARTAN POTASSIUM 25 MG TAB PO SCH (08:46)
[2021-02-27] MEDS: ADVANCED PROBIOTIC 1250 MG CAPSULE PO SCH (08:46)
[2021-02-27] MEDS: DOCUSATE SODIUM/SENNA 50/8.6MG TAB PO SCH (08:46)
[2021-02-27] MEDS: INDOMETHACIN 25 MG CAP PO SCH ×3 (08:46→20:26)
[2021-02-27] MEDS: ACETAMINOPHEN 325 MG TAB PO PRN (08:46)
[2021-02-27] MEDS: ASPIRIN 81 MG ECTAB PO SCH (08:46)
[2021-02-27] MEDS: LIDOCAINE 5% 1 PATCH TD SCH ×2 (08:47→08:50)
[2021-02-27] MEDS: DAPTOmycin 1,000 MG in SYRINGE 0 ML IV SCH (09:59)
--- NOTE | 2021-02-27 15:38 | Hospitalist Progress Note ---
Date of Service February 27, 2021 Assessment & Plan (1) Acute knee pain: (2) Effusion of knee: Right knee septic arthritis Acute gout Bacteremia, Presumed endocarditis Sepsis H/O bioprosthetic valve --S/P right knee irrigation and debridement of septic arthritis, chondroplasty of medial femoral condyle, debridement of anterior cruciate ligament tear, partial medial meniscectomy, partial lateral meniscectomy, major synovectomy., Removal of loose bodies. by on 02/14/21 -Transesophageal ECHO: No evidence of mass or vegetation. -Blood Cx Growing: MSSA -Repeat Blood Cx: 02/17/21: Negative to date -Continue indomethacin -IV cefazolin transition to IV daptomycin given allergic reaction to Cefazolin ID, recommends Daptomycin 1000 mg IV daily (given endocarditis rec 8-10 mg /kg) -Appreciate Orthopedics, ID Input PT/OT: Right partial-WBAT Needs 6 weeks of IV antibiotics from Negative culture PICC line Placed Change IV Daptomycin to IV vancomycin given elevation of CK levels Ambulatory dysfunction Secondary to above Continue PT OT Fall precautions Fall precautions Gout arthritis ESR CRP elevated S/P Aspiration Could not give colchicine secondary to interaction with Amiodarone Continue indomethacin Need to be started on allopurinol as able Acute respiratory distress Possible related to Acute diastolic heart failure CTA chest showed no evidence of central pulmonary embolus in the main, lobar, or proximal segmental pulmonary arteries. CXR showed cardiomegaly with evidence of congestive failure. Received Lasix 40mg IV Continue supplemental oxygen PRN Continue monitor I/O Resolved B/L shoulder pain Xray L shoulder showed moderate to severe osteoarthritis of the left acromioclavicular joint. Xray R shoulder showed Severe osteoarthritis of the right acromioclavicular join Continue pain control Continue lidocaine patch Left arm weakness CT head showed no acute intracranial finding Acute kidney failure Baseline Cr 1.2 -1.3 Monitor renal function Lung nodule CTA chest showed 5 mm left upper lobe pulmonary nodule is pathologically indeterminant Follow-up is recommended as per the Fleischner criteria. Afib Rate controlled Continue amiodarone Also on aspirin stable HTN On Losartan Monitor BP BPH On Flomax Dyslipidemia Hold statin while on daptomycin S/P AVR (Aortic Valve replacement) Stable DVT Px Heparin SQ CODE status Full code Admission and Anticipated Discharge Date Admission Date: February 11, 2021 Subjective Patient is seen and examined at bedside Persistent Right knee pain No new complaints Denies chest pain, shortness of breath, dizziness, nausea, abdominal pain Review of Systems Review of Systems: All systems reviewed & are unremarkable except as noted in HPI & below Physical Exam Physical Exam: Physical Exam: Vitals signs as noted above General Appearance:Obese, no apparent distress Head: normocephalic, Atraumatic Eyes: normal inspection, EOMI Neck: supple, Trachea midline Respiratory/Chest: Normal breath sounds, + Basal Crackles Cardiovascular: S1, S2, + murmur Abdomen/GI:Soft, Non tender, Bowel sounds present Extremities/Musculoskeletal:normal inspection, 1+ B/L LE edema, Right Knee swelling, +tender Neurologic/Psych:AAOX3, grossly no focal neurological deficits Skin: normal color, warm Results & Data Results & Data ([facility]) Vital Signs (Past 12 Hours) Vital Signs Temp Pulse Pulse Resp BP Pulse Ox 02/27/21 12:00 36.6 C 63 18 161/70 H 91 02/27/21 07:47 36.8 C 66 20 153/77 H 92 02/27/21 07:44 63 Laboratory Results Short CBC 02/27/21 Range/Units 05:59 WBC 7.12 (4.8-10.8) K/uL Hgb 11.9 L (14.0-18.0) g/dL Hct 35.7 L (42-52) % Plt Count 535 H (130-400) K/uL BMP 02/27/21 05:59 Sodium 136 Potassium 4.5 Chloride 108 H Carbon Dioxide 22 BUN 26 H Creatinine 1.13 Glucose 91 Calcium 9.5 Cardiac Enzymes 02/27/21 Range/Units 09:00 Total Creatine Kinase 493 H (39-308) U/L (1) Acute knee pain Laterality: right Qualified Code(s): M25.561 - Pain in right knee (2) Effusion of knee Laterality: right Qualified Code(s): M25.461 - Effusion, right knee
[2021-02-27] MEDS ORDERED: VANCOMYCIN CONSULT ACTIVE PRN (16:06)
[2021-02-27] MEDS ORDERED: VANCOMYCIN HCL 2,750 MG in SODIUM CHLORIDE 0.9% 500 ML IV ONE ×2 (16:15→21:00)
[2021-02-27] MEDS: SIMETHICONE 80 MG CHEW PO PRN (20:36)
[2021-02-28] MEDS: traMADol HCL 50 MG TABLET PO PRN (04:49)
[2021-02-28] MEDS: HEPARIN SOD 5,000 UNIT/0.5 ML VIAL SQ SCH ×3 (06:03→20:03)
[2021-02-28] MEDS: LOSARTAN POTASSIUM 50 MG TAB PO SCH (08:19)
[2021-02-28] MEDS: VANCOMYCIN HCL 1,250 MG in SODIUM CHLORIDE 0.9% 250 ML IV SCH ×2 (08:19→20:03)
[2021-02-28] MEDS: TAMSULOSIN HCL 0.4 MG CAP PO SCH (08:20)
[2021-02-28] MEDS: ADVANCED PROBIOTIC 1250 MG CAPSULE PO SCH (08:20)
[2021-02-28] MEDS: INDOMETHACIN 25 MG CAP PO SCH ×2 (08:20→20:03)
[2021-02-28] MEDS: ASPIRIN 81 MG ECTAB PO SCH (08:20)
[2021-02-28] MEDS: AMIODARONE 200 MG TAB PO SCH (08:20)
[2021-02-28] MEDS: DOCUSATE SODIUM/SENNA 50/8.6MG TAB PO SCH (08:20)
[2021-02-28] MEDS: LIDOCAINE 5% 1 PATCH TD SCH (08:21)
[2021-02-28 10:59] LABS: Creatinine Clr Calc Pharmacy 64.7 ml/min; Est GFR (Non-African American) 53.5 ml/min
[2021-02-28] MEDS ORDERED: FUROSEMIDE 20 MG TAB PO SCH (12:00)
--- NOTE | 2021-02-28 14:50 | Hospitalist Progress Note ---
Date of Service February 28, 2021 Assessment & Plan (1) Acute knee pain: (2) Effusion of knee: Right knee septic arthritis Acute gout Bacteremia, Presumed endocarditis Sepsis H/O bioprosthetic valve --S/P right knee irrigation and debridement of septic arthritis, chondroplasty of medial femoral condyle, debridement of anterior cruciate ligament tear, partial medial meniscectomy, partial lateral meniscectomy, major synovectomy., Removal of loose bodies. by on 02/14/21 -Transesophageal ECHO: No evidence of mass or vegetation. -Blood Cx Growing: MSSA -Repeat Blood Cx: 02/17/21: Negative to date -IV cefazolin transition to IV daptomycin given allergic reaction to Cefazolin ID, recommends Daptomycin 1000 mg IV daily (given endocarditis rec 8-10 mg /kg) -Appreciate Orthopedics, ID Input PT/OT: Right partial-WBAT Needs 6 weeks of IV antibiotics from Negative culture PICC line Placed Change IV Daptomycin to IV vancomycin given elevation of CK levels Titrate off of Indomethacin as able Ambulatory dysfunction Secondary to above Continue PT OT Fall precautions Gout arthritis ESR CRP elevated S/P Aspiration Could not give colchicine secondary to interaction with Amiodarone Continue indomethacin as above Need to be started on allopurinol as able Acute respiratory distress Possible related to Acute diastolic heart failure CTA chest showed no evidence of central pulmonary embolus in the main, lobar, or proximal segmental pulmonary arteries. CXR showed cardiomegaly with evidence of congestive failure. Received Lasix 40mg IV Continue supplemental oxygen PRN Continue monitor I/O Started on Lasix 20 mg daily Repeat chest x-ray tomorrow B/L shoulder pain Xray L shoulder showed moderate to severe osteoarthritis of the left acromioclavicular joint. Xray R shoulder showed Severe osteoarthritis of the right acromioclavicular join Continue pain control Continue lidocaine patch Left arm weakness CT head showed no acute intracranial finding Acute kidney failure Baseline Cr 1.2 -1.3 Monitor renal function Lung nodule CTA chest showed 5 mm left upper lobe pulmonary nodule is pathologically indeterminant Follow-up is recommended as per the Fleischner criteria. Afib Rate controlled Continue amiodarone Also on aspirin stable HTN On Losartan Monitor BP BPH On Flomax Dyslipidemia Resume statin as able S/P AVR (Aortic Valve replacement) Stable DVT Px Heparin SQ CODE status Full code Admission and Anticipated Discharge Date Admission Date: February 11, 2021 Subjective Patient is seen and examined at bedside Right knee pain slightly better Saturating low 90s on 2 L of supplemental oxygen Denies chest pain, shortness of breath, dizziness, nausea, abdominal pain Review of Systems Review of Systems: All systems reviewed & are unremarkable except as noted in HPI & below Physical Exam Physical Exam: Physical Exam: Vitals signs as noted above General Appearance:Obese, no apparent distress Head: normocephalic, Atraumatic Eyes: normal inspection, EOMI Neck: supple, Trachea midline Respiratory/Chest: Decreased breath sounds, CTA Cardiovascular: S1, S2, + murmur Abdomen/GI:Soft, Non tender, Bowel sounds present Extremities/Musculoskeletal:normal inspection, 1+ B/L LE edema, Right Knee swelling improving Neurologic/Psych:AAOX3, grossly no focal neurological deficits Skin: normal color, warm Results & Data Results & Data ([facility]) Vital Signs (Past 12 Hours) Vital Signs Temp Pulse Pulse Resp BP Pulse Ox 02/28/21 10:52 36.5 C 70 18 150/87 H 91 02/28/21 07:54 68 02/28/21 07:41 36.7 C 76 18 170/89 H 90 Laboratory Results BMP 02/28/21 10:30 Creatinine 1.29 (1) Acute knee pain Laterality: right Qualified Code(s): M25.561 - Pain in right knee (2) Effusion of knee Laterality: right Qualified Code(s): M25.461 - Effusion, right knee
[2021-03-01 05:06] LABS: Basophils # (auto) 0.02 K/uL (0-0.2); Basophils % (auto) 0.3 %; Eosinophils # (auto) 0.17 K/uL (0-0.5); Eosinophils % (auto) 2.6 %; Hematocrit (blood only) 37.5 % (42-52); Hemoglobin 12.6 g/dL (14.0-18.0); Immature Granulocytes # (auto) 0.02 K/uL (0.00-0.02); Immature Granulocytes % (auto) 0.3 %; Lymphocytes # (auto) 1.15 K/uL (1.2-3.4); Lymphocytes % (auto) 17.4 %; Mean Corpuscular Hemoglobin 28.2 pg (25-34); Mean Corpuscular Hgb Conc 33.6 g/dL (32-36); Mean Corpuscular Volume 83.9 fL (80-100); Mean Platelet Volume 9.6 fL (7.4-10.4); Monocytes # (auto) 0.67 K/uL (0.11-0.59); Monocytes % (auto) 10.2 %; Neutrophils # (auto) 4.57 K/uL (1.4-6.5); Neutrophils % (auto) 69.2 %; Platelet Count 469 K/uL (130-400); RDW Coefficient of Variation 13.8 % (11.5-14.5); RDW Standard Deviation 42.2 fL (36.4-46.3); Red Blood Count 4.47 M/uL (4.7-6.1)
[2021-03-01 05:36] LABS: BUN Creatinine Ratio 18.3 (10-20); C Reactive Protein 12.4 mg/dl (0-0.29); Calcium 9.1 mg/dl (8.5-10.1); Creatinine Clr Calc Pharmacy 64.7 ml/min; Est GFR (Non-African American) 53.5 ml/min; Potassium 5.2 mmol/L (3.5-5.1)
[2021-03-01] MEDS: TAMSULOSIN HCL 0.4 MG CAP PO SCH (05:55)
[2021-03-01] MEDS: HEPARIN SOD 5,000 UNIT/0.5 ML VIAL SQ SCH ×3 (05:55→21:36)
[2021-03-01] MEDS ORDERED: SODIUM CHLORIDE 0.9% 500 ML IV ONE (06:28)
[2021-03-01] MEDS ORDERED: DEXTROSE 50% 50 ML SYRINGE IV ONE (06:29)
--- NOTE | 2021-03-01 06:29 | Communication Note ---
Date of Service: March 01, 2021 Notified by RN of elevated BP. SBP 170 to 190s overnight. Patient asleep and without complaints as per RN. Serum sodium 135 Serum potassium K Serum crea 1.29 from 1.13 (02/27) AP Hypertensive urgency Hyponatremia, increasing serum creatinine Hyperkalemia Initiate amlodipine IVF Hold diclofenac, losartan, Lasix for now until creatinine back to baseline IV insulin for hyperkalemia Recheck serum potassium at 10 AM. Will relay to AM provider.
[2021-03-01] MEDS ORDERED: INSULIN HUMAN REGULAR PER UNIT 5 UNITS in SYRINGE 4.95 ML IV STA (06:43)
[2021-03-01] MEDS: ADVANCED PROBIOTIC 1250 MG CAPSULE PO SCH (08:02)
[2021-03-01] MEDS: amLODIPine BESYLATE 5 MG TAB PO SCH (08:02)
[2021-03-01] MEDS: AMIODARONE 200 MG TAB PO SCH (08:02)
[2021-03-01] MEDS: VANCOMYCIN HCL 1,250 MG in SODIUM CHLORIDE 0.9% 250 ML IV SCH (08:02)
[2021-03-01] MEDS: DOCUSATE SODIUM/SENNA 50/8.6MG TAB PO SCH (08:03)
[2021-03-01] MEDS: ASPIRIN 81 MG ECTAB PO SCH (08:03)
[2021-03-01] MEDS ORDERED: amLODIPine BESYLATE 5 MG TAB PO SCH (09:00)
[2021-03-01] MEDS: LIDOCAINE 5% 1 PATCH TD SCH (09:46)
--- NOTE | 2021-03-01 09:51 | XRay Report ---
XR chest 1V portable HISTORY: Hypoxia COMPARISON: 02/13/2021. FINDINGS: A right PICC terminates in the SVC. There are poststernotomy changes. No pneumothorax. The heart remains enlarged. There is diffuse interstitial thickening most pronounced within the periphery . This is consistent with chronic interstitial changes. No new focal lung consolidations identified. No evidence for pulmonary edema. No pleural effusions. A few bibasilar linear densities favor scarrin g/atelectasis. This is also unchanged. IMPRESSION: No change in the cardiomegaly and chronic interstitial change. No new focal lung consolidations ident ified. ACT 112: Negative or not required by law. Electronically signed by: Shaan Granados M.D. 03/01/2021 9:50 AM
[2021-03-01] MEDS: traMADol HCL 50 MG TABLET PO PRN (10:58)
[2021-03-01] MEDS: hydrALAZINE 10 MG TAB PO PRN (10:59)
[2021-03-01] MEDS: FUROSEMIDE 40 MG TAB PO SCH (13:04)
--- NOTE | 2021-03-01 16:23 | Hospitalist Progress Note ---
Date of Service March 01, 2021 Assessment & Plan (1) Acute knee pain: (2) Effusion of knee: Right knee septic arthritis Acute gout Bacteremia, Presumed endocarditis Sepsis H/O bioprosthetic valve --S/P right knee irrigation and debridement of septic arthritis, chondroplasty of medial femoral condyle, debridement of anterior cruciate ligament tear, partial medial meniscectomy, partial lateral meniscectomy, major synovectomy., Removal of loose bodies. by on 02/14/21 -Transesophageal ECHO: No evidence of mass or vegetation. -Blood Cx Growing: MSSA -Repeat Blood Cx: 02/17/21: Negative to date -IV cefazolin transition to IV daptomycin given allergic reaction to Cefazolin ID, recommends Daptomycin 1000 mg IV daily (given endocarditis rec 8-10 mg /kg) -Appreciate Orthopedics, ID Input PT/OT: Right partial-WBAT Needs 6 weeks of IV antibiotics from Negative culture PICC line Placed Change IV Daptomycin to IV vancomycin given elevation of CK levels Titrate off of Indomethacin as able No improvement while on Vancomycin>>will change to Nafcillin Will Orthopedics to re-evaluate tomorrow Ambulatory dysfunction Secondary to above Continue PT OT Fall precautions Hyperkalemia Resolved Monitor Gout arthritis ESR CRP elevated S/P Aspiration Could not give colchicine secondary to interaction with Amiodarone On Indomethacin Need to be started on allopurinol as able Acute respiratory distress Possible related to Acute diastolic heart failure CTA chest showed no evidence of central pulmonary embolus in the main, lobar, or proximal segmental pulmonary arteries. CXR showed cardiomegaly with evidence of congestive failure. Received Lasix 40mg IV Continue supplemental oxygen PRN Continue monitor I/O Continue Lasix Monitor renal function B/L shoulder pain Xray L shoulder showed moderate to severe osteoarthritis of the left acromioclavicular joint. Xray R shoulder showed Severe osteoarthritis of the right acromioclavicular join Continue pain control Continue lidocaine patch Left arm weakness CT head showed no acute intracranial finding Acute kidney failure Baseline Cr 1.2 -1.3 Monitor renal function Lung nodule CTA chest showed 5 mm left upper lobe pulmonary nodule is pathologically indeterminant Follow-up is recommended as per the Fleischner criteria. Afib Rate controlled Continue amiodarone Also on aspirin stable HTN On Losartan Added Amlodipine Monitor BP BPH On Flomax Dyslipidemia Resume statin as able S/P AVR (Aortic Valve replacement) Stable DVT Px Heparin SQ CODE status Full code Admission and Anticipated Discharge Date Admission Date: February 11, 2021 Subjective Patient is seen and examined at bedside Persistent right knee pain No new complaints Denies chest pain, shortness of breath, dizziness, nausea, abdominal pain Review of Systems Review of Systems: All systems reviewed & are unremarkable except as noted in HPI & below Physical Exam Physical Exam: Physical Exam: Vitals signs as noted above General Appearance:Obese, no apparent distress Head: normocephalic, Atraumatic Eyes: normal inspection, EOMI Neck: supple, Trachea midline Respiratory/Chest: Decreased breath sounds, +crackles Cardiovascular: S1, S2, + murmur Abdomen/GI:Soft, Non tender, Bowel sounds present Extremities/Musculoskeletal:normal inspection, 1+ B/L LE edema, Right Knee swelling improving Neurologic/Psych:AAOX3, grossly no focal neurological deficits Skin: normal color, warm Results & Data Results & Data ([facility]) Vital Signs (Past 12 Hours) Vital Signs Temp Pulse Pulse Pulse Resp BP BP 03/01/21 15:31 36.8 C 81 20 155/97 H 03/01/21 15:00 70 03/01/21 12:00 20 03/01/21 11:13 36.9 C 78 20 183/92 H 03/01/21 09:44 71 149/82 H 03/01/21 07:50 36.8 C 75 18 177/96 H 03/01/21 07:00 71 03/01/21 05:56 188/101 H Pulse Ox 03/01/21 15:31 91 03/01/21 15:00 03/01/21 12:00 03/01/21 11:13 90 03/01/21 09:44 03/01/21 07:50 92 03/01/21 07:00 03/01/21 05:56 Laboratory Results Short CBC 03/01/21 Range/Units 04:55 WBC 6.60 (4.8-10.8) K/uL Hgb 12.6 L (14.0-18.0) g/dL Hct 37.5 L (42-52) % Plt Count 469 H (130-400) K/uL BMP 03/01/21 03/01/21 04:55 10:07 Sodium 135 L Potassium 5.2 H D 4.3 D Chloride 107 Carbon Dioxide 22 BUN 24 H Creatinine 1.29 Glucose 99 Calcium 9.1 (1) Acute knee pain Laterality: right Qualified Code(s): M25.561 - Pain in right knee (2) Effusion of knee Laterality: right Qualified Code(s): M25.461 - Effusion, right knee
[2021-03-01] MEDS ORDERED: INDOMETHACIN 25 MG CAP PO ONE (16:40)
[2021-03-01] MEDS: NAFCILLIN SODIUM 2,000 MG in DEXTROSE 5% 100 ML IV SCH ×2 (17:44→20:24)
[2021-03-01] MEDS ORDERED: VANCOMYCIN TROUGH ONE (19:30)
[2021-03-02] MEDS: NAFCILLIN SODIUM 2,000 MG in DEXTROSE 5% 100 ML IV SCH ×6 (00:20→20:06)
[2021-03-02] MEDS: HEPARIN SOD 5,000 UNIT/0.5 ML VIAL SQ SCH ×3 (06:05→21:29)
[2021-03-02 08:35] LABS: BUN Creatinine Ratio 16.1 (10-20); Calcium 10.3 mg/dl (8.5-10.1); Creatinine Clr Calc Pharmacy 46.7 ml/min; Est GFR (African American) 42.6 ml/min; Est GFR (Non-African American) 36.7 ml/min
[2021-03-02] MEDS: amLODIPine BESYLATE 5 MG TAB PO SCH (08:50)
[2021-03-02] MEDS: AMIODARONE 200 MG TAB PO SCH (08:50)
[2021-03-02] MEDS: FUROSEMIDE 40 MG TAB PO SCH (08:50)
[2021-03-02] MEDS: ASPIRIN 81 MG ECTAB PO SCH (08:51)
[2021-03-02] MEDS: ADVANCED PROBIOTIC 1250 MG CAPSULE PO SCH (08:51)
[2021-03-02] MEDS: DOCUSATE SODIUM/SENNA 50/8.6MG TAB PO SCH ×2 (08:51→09:29)
[2021-03-02] MEDS: hydrALAZINE 10 MG TAB PO PRN (08:51)
[2021-03-02] MEDS: TAMSULOSIN HCL 0.4 MG CAP PO SCH (08:51)
[2021-03-02] MEDS: LIDOCAINE 5% 1 PATCH TD SCH (08:53)
--- NOTE | 2021-03-02 10:40 | Orthopedic Progress Note ---
Date of Service March 02, 2021 Assessment & Plan (1) Effusion, right knee: 1. Arthroscopic right knee irrigation and debridement of septic arthritis. 2. Chondroplasty of medial femoral condyle. 3. Debridement of anterior cruciate ligament tear. 4. Partial medial meniscectomy. 5. Partial lateral meniscectomy. 6. Major synovectomy x3 compartments. 7. Removal of loose bodies x2 separately measuring 9 x 8 x 8 mm and 10 x 9 x 8 mm respectively I have spoken with this morning. Patient's creatinine has taken a noticeable rise and his indomethacin has been discontinued. We discussed the need for IV antibiotics. Patient has been switched to nafcillin. He will likely need to have 6 weeks of IV antibiotics total for the right knee infection. Currently with his knee actually looking better to me since last week, I am hesitant to go ahead with another aspiration. I will have who is here today, evaluate the patient later this afternoon to consider aspiration versus conservative therapy. I have placed an order for discontinuation of the patient's sutures in the right knee. Recheck ESR. CRP noted. (2) Osteoarthritis of right knee: (3) Lower extremity edema: (4) Bilateral shoulder pain: Patient states he has bilateral shoulder pain and stiffness. We will start with x-rays of the shoulders to rule out shoulder osteoarthritis. Admission and Anticipated Discharge Date Admission Date: February 11, 2021 Subjective I was asked by Dr. Lockett to reassess Mr. Contreras's right knee. His knee pain apparently has not gotten much better. Upon entering the room, patient is awake and alert. He is conversant and pleasant. He states he is tired of being in the hospital. He understands that he has difficulty getting out of bed because of his knee pain but also has lightheadedness and dizziness because he feels he is been in bed too long. He states that overall, he feels that the knee is better but that the greatest pain is whenever he is trying to get out of bed and go through range of motion. Physical Exam Physical Exam: On examination of his right knee, since last seeing it last week, it has improved. He has mild swelling around the patellar region. The area of bruising and necrosis over the patella also is getting better. His port sites from his arthroscopy are healing well. His right knee almost appears to be coming down with the swelling to the point where it is almost looking like his left knee. He continues to have some swelling or puffiness above the suprapatellar pouch. I can actively palpate the knee fairly hard without causing him discomfort. He states that is deafly nontender on palpation. Axial loading does not cause him discomfort at this time. Gently lifting the right lower extremity off of the bed passively he does have pain with range of motion. I can get him to approximately 30 degrees of range of motion before he has any stop. Active range of motion is approximately the same. There is no erythema noted around the knee itself. Results & Data ([facility]) Vital Signs (Past 12 Hours) Vital Signs Temp Pulse Pulse Resp BP Pulse Ox 03/02/21 08:49 86 119/71 03/02/21 06:53 36.7 C 71 18 146/87 H 91 03/02/21 02:58 36.8 C 75 20 145/92 H 92 03/02/21 00:00 65 03/01/21 22:53 36.7 C 71 20 126/79 92
--- NOTE | 2021-03-02 16:06 | Hospitalist Progress Note ---
Date of Service March 02, 2021 Assessment & Plan (1) Acute knee pain: (2) Effusion of knee: Right knee septic arthritis Acute gout Bacteremia, Presumed endocarditis Sepsis H/O bioprosthetic valve --S/P right knee irrigation and debridement of septic arthritis, chondroplasty of medial femoral condyle, debridement of anterior cruciate ligament tear, partial medial meniscectomy, partial lateral meniscectomy, major synovectomy., Removal of loose bodies. by on 02/14/21 -Transesophageal ECHO: No evidence of mass or vegetation. -Blood Cx Growing: MSSA -Repeat Blood Cx: 02/17/21: Negative to date -IV cefazolin transition to IV daptomycin given allergic reaction to Cefazolin ID, recommends Daptomycin 1000 mg IV daily (given endocarditis rec 8-10 mg /kg) -Appreciate Orthopedics, ID Input PT/OT: Right partial-WBAT Needs 6 weeks of IV antibiotics from Negative culture PICC line Placed Change IV Daptomycin to IV vancomycin given elevation of CK levels Titrate off of Indomethacin as able No improvement while on Vancomycin>>will change to Nafcillin Appreciate Orthopedics Input Needs Rehab placement Acute kidney failure Baseline Cr 1.2 -1.3 Cr:1.76 Monitor renal function Gentle IV fluids Avoid Nephrotoxic agents as able Gout arthritis ESR CRP elevated S/P Aspiration Could not give colchicine secondary to interaction with Amiodarone Completed Indomethacin course Need to be started on allopurinol when appropriate Acute respiratory distress Possible related to Acute diastolic heart failure CTA chest showed no evidence of central pulmonary embolus in the main, lobar, or proximal segmental pulmonary arteries. CXR showed cardiomegaly with evidence of congestive failure. Received Lasix 40mg IV Continue supplemental oxygen PRN Continue monitor I/O Continue Lasix PRN Monitor renal function Ambulatory dysfunction Secondary to above Continue PT OT Fall precautions Hyperkalemia Resolved Monitor B/L shoulder pain Xray L shoulder showed moderate to severe osteoarthritis of the left acromioclavicular joint. Xray R shoulder showed Severe osteoarthritis of the right acromioclavicular join Continue pain control Continue lidocaine patch Left arm weakness CT head showed no acute intracranial finding Lung nodule CTA chest showed 5 mm left upper lobe pulmonary nodule is pathologically indeterminant Follow-up is recommended as per the Fleischner criteria. Afib Rate controlled Continue amiodarone Also on aspirin stable HTN Losartan held due to CIRA Continue Amlodipine Monitor BP BPH On Flomax Dyslipidemia Resume statin as able S/P AVR (Aortic Valve replacement) Stable DVT Px Heparin SQ CODE status Full code Admission and Anticipated Discharge Date Admission Date: February 11, 2021 Subjective Patient is seen and examined at bedside Discussed with Orthopedics today Right knee pain at rest is tolerable, but significant with movement, ambulation No new complaints Denies chest pain, shortness of breath, dizziness, nausea, abdominal pain Review of Systems Review of Systems: All systems reviewed & are unremarkable except as noted in HPI & below Physical Exam Physical Exam: Physical Exam: Vitals signs as noted above General Appearance:Obese, no apparent distress Head: normocephalic, Atraumatic Eyes: normal inspection, EOMI Neck: supple, Trachea midline Respiratory/Chest: Decreased breath sounds, CTA Cardiovascular: S1, S2, + murmur Abdomen/GI:Soft, Non tender, Bowel sounds present Extremities/Musculoskeletal:normal inspection, 1+ B/L LE edema, Right Knee swelling improving Neurologic/Psych:AAOX3, grossly no focal neurological deficits Skin: normal color, warm Results & Data Results & Data ([facility]) Vital Signs (Past 12 Hours) Vital Signs Temp Pulse Pulse Resp BP Pulse Ox 03/02/21 15:19 36.6 C 74 18 121/77 90 03/02/21 15:00 74 03/02/21 11:02 36.9 C 81 20 102/66 91 03/02/21 08:49 86 119/71 03/02/21 07:00 76 03/02/21 06:53 36.7 C 71 18 146/87 H 91 Laboratory Results [facility] 03/02/21 07:38 Sodium 135 L Potassium 4.0 Chloride 104 Carbon Dioxide 24 BUN 28 H Creatinine 1.76 H D Glucose 109 H Calcium 10.3 H (1) Acute knee pain Laterality: right Qualified Code(s): M25.561 - Pain in right knee (2) Effusion of knee Laterality: right Qualified Code(s): M25.461 - Effusion, right knee
[2021-03-02] MEDS: traMADol HCL 50 MG TABLET PO PRN (18:40)
[2021-03-02 22:03] LABS: Appearance Synovial Fluid Bloody; Color Synovial Fluid Red; RBC Synovial Fluid (A) 222500 /uL; WBC Synovial Fluid (A) 25000 /ul (0-200)
[2021-03-02 22:40] LABS: Source Synovial Fluid KNEE
[2021-03-03] MEDS: NAFCILLIN SODIUM 2,000 MG in DEXTROSE 5% 100 ML IV SCH ×6 (00:25→21:10)
--- NOTE | 2021-03-03 08:13 | Hospitalist Progress Note ---
Date of Service March 03, 2021 Assessment & Plan (1) Acute knee pain: (2) Effusion of knee: Right knee septic arthritis Acute gout Bacteremia, Presumed endocarditis Sepsis H/O bioprosthetic valve --S/P right knee irrigation and debridement of septic arthritis, chondroplasty of medial femoral condyle, debridement of anterior cruciate ligament tear, partial medial meniscectomy, partial lateral meniscectomy, major synovectomy., Removal of loose bodies. by on 02/14/21 -Transesophageal ECHO: No evidence of mass or vegetation. -Blood Cx Growing: MSSA -Repeat Blood Cx: 02/17/21: Negative to date -IV cefazolin transition to IV daptomycin given allergic reaction to Cefazolin ID, recommends Daptomycin 1000 mg IV daily (given endocarditis rec 8-10 mg /kg) -Appreciate Orthopedics, ID Input PT/OT: Right partial-WBAT Needs 6 weeks of IV antibiotics from Negative culture PICC line Placed Changed IV Daptomycin to IV vancomycin given elevation of CK levels Completed Indomethacin course No improvement while on Vancomycin>>Changed to Nafcillin Appreciate Orthopedics Input Needs Rehab placement S/P right knee aspiration on 03/02/21--cultures pending Planned for I7D today Acute kidney failure Baseline Cr 1.2 -1.3 Cr:1.76 Monitor renal function Received IV fluids Avoid Nephrotoxic agents as able BMP pending today Gout arthritis ESR CRP elevated S/P Aspiration Could not give colchicine secondary to interaction with Amiodarone Completed Indomethacin course Need to be started on allopurinol when appropriate Acute respiratory distress Possible related to Acute diastolic heart failure CTA chest showed no evidence of central pulmonary embolus in the main, lobar, or proximal segmental pulmonary arteries. CXR showed cardiomegaly with evidence of congestive failure. Received Lasix 40mg IV Continue supplemental oxygen PRN Continue monitor I/O Continue Lasix PRN Monitor renal function Ambulatory dysfunction Secondary to above Continue PT OT Fall precautions Hyperkalemia Resolved Monitor B/L shoulder pain Xray L shoulder showed moderate to severe osteoarthritis of the left acromioclavicular joint. Xray R shoulder showed Severe osteoarthritis of the right acromioclavicular join Continue pain control Continue lidocaine patch Left arm weakness CT head showed no acute intracranial finding Lung nodule CTA chest showed 5 mm left upper lobe pulmonary nodule is pathologically indeterminant Follow-up is recommended as per the Fleischner criteria. Afib Rate controlled Continue amiodarone Also on aspirin stable HTN Losartan held due to CIRA Continue Amlodipine Monitor BP BPH On Flomax Dyslipidemia Resume statin as able S/P AVR (Aortic Valve replacement) Stable DVT Px Heparin SQ CODE status Full code Admission and Anticipated Discharge Date Admission Date: February 11, 2021 Subjective Patient is seen and examined at bedside No new complaints Reports right knee pain with movement Had Knee aspiration yesterday Planned for Right Knee I&D today Denies chest pain, shortness of breath, dizziness, nausea, abdominal pain Discussed with Orthopedics today Review of Systems Review of Systems: All systems reviewed & are unremarkable except as noted in HPI & below Physical Exam Physical Exam: Physical Exam: Vitals signs as noted above General Appearance:Obese, no apparent distress Head: normocephalic, Atraumatic Eyes: normal inspection, EOMI Neck: supple, Trachea midline Respiratory/Chest: Decreased breath sounds, B/L Basal crackles Cardiovascular: S1, S2, + murmur Abdomen/GI:Soft, Non tender, Bowel sounds present Extremities/Musculoskeletal:normal inspection, 1+ B/L LE edema, Right Knee swelling improving Neurologic/Psych:AAOX3, grossly no focal neurological deficits Skin: normal color, warm Results & Data Results & Data ([facility]) Vital Signs (Past 12 Hours) Vital Signs Temp Pulse Pulse Resp BP BP Pulse Ox 03/03/21 07:54 36.8 C 64 20 153/84 H 03/03/21 04:13 36.8 C 64 18 150/87 H 93 03/03/21 00:00 2 L 03/02/21 23:35 60 03/02/21 23:25 36.6 C 94 H 20 137/[address] [facility] 03/02/21 07:38 Sodium 135 L Potassium 4.0 Chloride 104 Carbon Dioxide 24 BUN 28 H Creatinine 1.76 H D Glucose 109 H Calcium 10.3 H (1) Acute knee pain Laterality: right Qualified Code(s): M25.561 - Pain in right knee (2) Effusion of knee Laterality: right Qualified Code(s): M25.461 - Effusion, right knee
[2021-03-03] MEDS: amLODIPine BESYLATE 5 MG TAB PO SCH (08:43)
[2021-03-03] MEDS: TAMSULOSIN HCL 0.4 MG CAP PO SCH (08:44)
[2021-03-03] MEDS: SIMETHICONE 80 MG CHEW PO PRN (08:45)
[2021-03-03] MEDS: AMIODARONE 200 MG TAB PO SCH (08:45)
[2021-03-03] MEDS: DOCUSATE SODIUM/SENNA 50/8.6MG TAB PO SCH (08:46)
[2021-03-03] MEDS: ADVANCED PROBIOTIC 1250 MG CAPSULE PO SCH (08:46)
[2021-03-03] MEDS: LIDOCAINE 5% 1 PATCH TD SCH ×2 (08:47→08:51)
[2021-03-03] MEDS: ASPIRIN 81 MG ECTAB PO SCH (08:47)
[2021-03-03 08:48] LABS: Hematocrit (blood only) 40.2 % (42-52); Hemoglobin 13.1 g/dL (14.0-18.0); Mean Corpuscular Hemoglobin 28.2 pg (25-34); Mean Corpuscular Hgb Conc 32.6 g/dL (32-36); Mean Corpuscular Volume 86.5 fL (80-100); Mean Platelet Volume 9.7 fL (7.4-10.4); Platelet Count 484 K/uL (130-400); RDW Coefficient of Variation 14.2 % (11.5-14.5); Red Blood Count 4.65 M/uL (4.7-6.1); White Blood Count 5.93 K/uL (4.8-10.8)
[2021-03-03 09:16] LABS: BUN Creatinine Ratio 17.8 (10-20); Calcium 10.4 mg/dl (8.5-10.1); Creatinine Clr Calc Pharmacy 5.6 ml/min; Est GFR (African American) 32.9 ml/min; Est GFR (Non-African American) 28.4 ml/min; Potassium 3.7 mmol/L (3.5-5.1)
[2021-03-03 10:07] LABS: Bacteria Urine Automated Negative (Negative); Epithelial Cell Urine Auto >30 /lpf (0-5); RBC Urine Automated >30 /hpf (0-4)
[2021-03-03 10:16] LABS: Mucus Urine Present (None Prsent)
--- NOTE | 2021-03-03 11:40 | Nephrology Consultation ---
Date of Consultation March 03, 2021 Assessment & Plan (1) Acute on chronic renal failure: Stage 1 nonoliguric CIRA; baseline creatinine 1.3-1.4 and no albuminuria. he was admitted 02/11 w/ MSSA bacteremia and septic R knee. likely ischemic ATN from vasoconstriction by nsaids, lasix then ARB added to mix plus from infections and abtx used to treat them. at least slightly dehydrated and will g noe some IVF; chemistries ok for now; no indication for dialysis. -agree w/ holding nsaids, ARB, lasix, vanco -cautious trial of IV fluids, zandra since he is NPO > will give 1L LR, turn off if 02 needs increasing -cont low dose CCB; prn hydralazine > BP acceptable for now -f/u pending cxs -added UA to micro study earlier today Present on Admission?: Yes (2) Septic arthritis: antibiotics per inf dzs/ primary service s/p I & D yesterday > fluid studies still w/ marked inflammation; cx pending; fluid crystalsnot c/w gout and not pseudogout Present on Admission?: Yes (3) Bacteremia due to methicillin susceptible Staphylococcus aureus (MSSA): with 6-8 wks IV abtx planned in setting of bioprosthetic valve; on nafcillin currently after cephalosporin, dapto, vanco Present on Admission?: Yes History of Present Illness Reason for Consultation: CIRA Requesting Physician: Dr Lockett Attending Physician: Pavel Lockett MD History of Present Illness 75-year-old male whom I am asked to evaluate for acute kidney injury was admitted here for septic gouty arthritis of his right knee on February 11, status post February 14 operating room I&D with surgical management of ACL and menisci tears; admission cultures grew MSSA in the blood with presumptive endocarditis of bioprosthetic aortic valve. Past medical history includes aortic stenosis status post bioprosthetic aortic replacement, atrial fibrillation, hypertension, hyperlipidemia C-spine stenosis status post neck surgery, atrial fibrillation, obesity. Clinical course complicated as well by rash, possibly drug rash, d/t which on February 20 cefazolin changed to daptomycin with plan for 6-week course. Subsequently, daptomycin was changed to vancomycin due to CK elevation, then w/ worsening renal function, vancomycin changed to nafcillin as of evening 03/01. Repeat blood cultures from February 17 have been negative to date. He did undergo CARMEN but seizure was unable to visualize aortic valve adequately. Losartan was reintroduced on 02/28 but at double his OP dose; then held 03/01 as kidney #s changed. He had 2-3 doses of indomethacin for mgt of acute gout in the past 72 hrs, since colchicine is contraindicated with amiodarone. He was also on lasix 40 mg po daily which he had both yesterday and today. also w/ several doses of IV lasix earlier in the admission. His baseline creatinine is reported as 1.2-1.3. He was 1.7 on presentation and trended down to 1.4 by February 15. However, on March 02, creatinine up trended to 1.8 and today is 2.2. When I evaluated him at 1130 this AM, he was NPO for an I&D repeat of R knee. Allergies Allergy/AdvReac Type Severity Reaction Status Date / Time cefazolin Allergy Rash Verified 02/22/21 08:56 Home Medications Medication Instructions Recorded Confirmed Type amiodarone 200 mg PO QAM 02/11/21 02/11/21 History aspirin [Aspirin Low Dose] 81 mg PO DAILY 02/11/21 02/11/21 History atorvastatin 40 mg PO QPM 02/11/21 02/11/21 History diclofenac sodium 50 mg PO TID PRN 02/11/21 02/11/21 History hydrocodone-acetaminophen 1 tab PO Q6 PRN 02/11/21 02/11/21 History losartan 25 mg PO QAM 02/11/21 02/11/21 History tamsulosin 0.4 mg PO DAILY 02/11/21 02/11/21 History Patient History Medical History CKD (chronic kidney disease) stage 3, GFR 30-59 ml/min 3A from [id number] History of atrial fibrillation HTN (hypertension) Surgical History S/P AVR (aortic valve replacement) Family History Brother Heart disease Father Heart disease Mother Heart disease Social History Smoking Status: Former smoker Hx Alcohol Use: No Hx Substance Use: No Preferred Language: Spanish Communication Ability: Effective Beliefs That Will Affect Care: None Current Living Situation: Spouse Feels Safe at Home: Yes Safety Concerns: Feels Safe At This Time Assistive Devices: None Review of Systems Review of Systems: All systems reviewed & are unremarkable except as noted in HPI & below Musculoskeletal: + joint pain (R knee w/ position changes) Physical Exam Constitutional: well developed, well nourished, + obese and cooperative; no acute distress Eyes: EOM intact bilaterally ENMT: Ears: no external ear abnormality Nose: no external nose abnormality Mouth: + dry oral mucous membranes Neck: no nuchal rigidity Respiratory: normal respiratory effort and able to speak in complete sentences Auscultation: + diminished lung sounds and + crackles (R base) on 2L NC Cardiovascular: RRR, no murmur, no edema Gastrointestinal (Abdomen): Inspection/Auscultation: normal bowel sounds; abdomen not distended Percussion/Palpation: abdomen soft; abdomen nontender and no guarding Musculoskeletal: Extremities: strength 5/5 throughout Skin: no rashes, warm and dry + wound (surgical R knee) Neurologic: rider, fluent speech, no tremor Psychiatric: Orientation: alert and oriented x 3 Genitourinary: russell w/ scant light urine Results & Data ([facility]) Vital Signs (Past 12 Hours) Vital Signs Temp Pulse Pulse Resp BP BP Pulse Ox 03/03/21 08:00 63 03/03/21 07:54 36.8 C 64 20 153/84 H 03/03/21 04:13 36.8 C 64 18 150/87 H 93 03/03/21 00:00 2 L 03/02/21 23:35 60 Laboratory Results 03/03/21 08:21 03/03/21 08:21 synovial fluid retap yesterday > 25K WBC in blood red fluid; no diff Diagnostic Findings renal u/ stoday 1. The kidneys are atrophic and without hydronephrosis. 2. The bladder was decompressed and a Russell catheter and could not be assessed. 3. Question an indeterminant 1.5 cm hypoechoic nodule in the interpolar left kidney. Follow-up with a nonemergent contrast enhanced renal protocol abdominal CT is recommended for further assessment. CXR 03/01 FINDINGS: A right PICC terminates in the SVC. There are poststernotomy changes. No pneumothorax. The heart remains enlarged. There is diffuse interstitial thickening most pronounced within the periphery. This is consistent with chronic interstitial changes. No new focal lung consolidations identified. No evidence for pulmonary edema. No pleural effusions. A few bibasilar linear densities favor scarring/atelectasis. This is also unchanged. IMPRESSION: No change in the cardiomegaly and chronic interstitial change. No new focal lung consolidations identified. (1) Acute on chronic renal failure Acute renal failure type: unspecified Chronic kidney disease stage: stage 3 (moderate) Chronic kidney disease stage 3 subtype: stage 3a (GFR 45-59) Qualified Code(s): N17.9 - Acute kidney failure, unspecified; N18.31 - Chronic kidney disease, stage 3a (2) Septic arthritis Septic arthritis location: knee Septic arthritis organism: staphylococcal Laterality: right Qualified Code(s): M00.061 - Staphylococcal arthritis, right knee
--- NOTE | 2021-03-03 14:32 | Ultrasound Report ---
ULTRASOUND KIDNEYS AND BLADDER CLINICAL HISTORY: Acute renal insufficiency. COMPARISON STUDY: No priors. TECHNIQUE: Real-time, grayscale, and color flow sonography of the kidneys and bladder is performed. I mages are reviewed in the transverse and longitudinal planes. FINDINGS: Kidneys: The kidneys are atrophic. Echotexture is normal. The right kidney measures 10.8 cm in length and the left kidney measures 10.9 cm in length. There is no hydronephrosis. No shadowing renal calcu li are identified. Bilateral simple cysts measure up to 2.4 cm. An indeterminant 1.5 cm hypoechoic no dule is suggested in the interpolar left kidney. No perinephric fluid is identified. Bladder: The bladder is decompressed around a Campbell catheter and cannot be assessed. IMPRESSION: 1. The kidneys are atrophic and without hydronephrosis. 2. The bladder was decompressed and a Campbell catheter and could not be assessed. 3. Question an indeterminant 1.5 cm hypoechoic nodule in the interpolar left kidney. Follow-up with a nonemergent contrast enhanced renal protocol abdominal CT is recommended for further assessment. ACT 112: Negative or not required by law. Electronically signed by: Jared Wharton M.D. 03/03/2021 2:31 PM
--- NOTE | 2021-03-03 15:24 | Anesthesiology Consultation ---
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 Surgery Operation Date: 02/14/21 12:00 Proposed Procedures p I&D Right Arthroscopy Knee - Leo Waggoner, DO Operation Date: 02/17/21 07:15 Proposed Procedures p Transesophageal Echo w/Anesthesia - Salvador Bishop DO Operation Date: 03/03/21 09:30 Proposed Procedures p Right Knee Arthroscopy Incision and Drainage - Virgilio Oh DO Height/Weight Height: 6 ft Weight: 13.8 kg Allergies Allergy/AdvReac Type Severity Reaction Status Date / Time cefazolin Allergy Rash Verified 02/22/21 08:56 Medications Home Medications Medication Instructions Recorded Confirmed Last Taken amiodarone 200 mg PO QAM 02/11/21 02/11/21 Unknown aspirin [Aspirin Low Dose] 81 mg PO DAILY 02/11/21 02/11/21 Unknown atorvastatin 40 mg PO QPM 02/11/21 02/11/21 Unknown diclofenac sodium 50 mg PO TID PRN 02/11/21 02/11/21 Unknown hydrocodone-acetaminophen 1 tab PO Q6 PRN 02/11/21 02/11/21 Unknown losartan 25 mg PO QAM 02/11/21 02/11/21 Unknown tamsulosin 0.4 mg PO DAILY 02/11/21 02/11/21 Unknown Active Medications Generic Name Dose Route Start Last Admin Trade Name Freq PRN Reason Stop Dose Admin Acetaminophen 650 mg 02/11/21 21:56 02/27/21 08:46 Acetaminophen 325 Mg Tab PO 03/13/21 21:55 650 mg Q4H PRN Administration pain/fever Amiodarone HCl 200 mg 02/18/21 09:00 03/03/21 08:45 Amiodarone 200 Mg Tab PO 03/20/21 08:59 200 mg QAM [place] Administration Amlodipine Besylate 2.5 mg 03/01/21 07:30 03/03/21 08:43 Amlodipine Besylate 5 Mg Tab PO 03/31/21 07:29 2.5 mg QAM [place] Administration Aspirin 81 mg 02/12/21 09:00 03/03/21 08:47 Aspirin 81 Mg Ectab PO 03/14/21 08:59 81 mg DAILY [place] Administration Atorvastatin Calcium 40 mg 02/11/21 21:56 06/10/21 21:04 Atorvastatin 40 Mg Tab PO 03/13/21 21:55 40 mg QPM [place] Administration Diclofenac Sodium 2 gm 02/22/21 23:02 02/24/21 08:14 Diclofenac Sod 1% Gel 100 Gm Tube EXT 03/24/21 23:14 2 gm BID PRN Administration Pain Heparin Sodium (Beef Lung) 5 ml 02/24/21 00:23 03/03/21 08:26 Heparin 10 Unit/Ml 5 Ml Flush FLUSH 03/26/21 00:22 5 ml PRN PRN Administration Flush Heparin Sodium (Porcine) 7,500 units 02/11/21 22:00 03/02/21 21:29 Heparin Sod 5,000 Unit/0.5 Ml Vial SQ 03/13/21 21:59 7,500 units Q8 [place] Administration Hydralazine HCl 10 mg 03/01/21 08:47 03/02/21 08:51 Hydralazine 10 Mg Tab PO 03/31/21 08:59 10 mg Q6H PRN Administration Hypertension Nafcillin Sodium 2,000 mg/ 108 mls @ 100 mls/hr 03/01/21 16:30 03/03/21 13:56 Dextrose IV 04/12/21 16:29 Infused Q4H [place] Infusion Lactobacillus Acidoph/Casei/Rhamnos 2 cap 02/24/21 15:30 03/03/21 08:46 Advanced Probiotic 1250 Mg Capsule PO 03/26/21 15:29 2 cap DAILY [place] Administration Lidocaine 2 patch 02/15/21 18:15 03/03/21 08:51 Lidocaine 5% 1 Patch TD 03/17/21 18:14 Not Given QAM [place] Losartan Potassium 50 mg 02/28/21 09:00 02/28/21 08:19 Losartan Potassium 50 Mg Tab PO 03/30/21 08:59 50 mg QAM [place] Administration Miscellaneous 1 ea 02/15/21 21:00 03/02/21 20:06 Remove Lidoderm Patch N/A 03/17/21 20:59 Not Given DAILY@2100 [place] Polyethylene Glycol 17 gm 02/16/21 19:21 02/20/21 09:11 Polyethylene (Miralax) 17 Gm Pack PO 03/18/21 19:20 17 gm DAILY PRN Administration Constipation Senna/Docusate Sodium 1 tab 02/16/21 19:30 03/03/21 08:46 Docusate Sodium/Senna 50/8.6mg Tab PO 03/18/21 19:29 1 tab QAM [place] Administration Simethicone 80 mg 02/27/21 15:09 03/03/21 08:45 Simethicone 80 Mg Chew PO 03/29/21 15:08 80 mg Q6H PRN Administration Flatulence Tamsulosin HCl 0.4 mg 03/01/21 04:40 03/03/21 08:44 Tamsulosin Hcl 0.4 Mg Cap PO 03/31/21 04:39 0.4 mg DAILY [place] Administration Tramadol HCl 50 mg 02/15/21 18:06 03/02/21 18:40 Tramadol Hcl 50 Mg Tablet PO 03/17/21 18:05 50 mg Q6H PRN Administration Pain NPO Date Last Intake of Fluids: 02/17/21 Time Last Intake of Fluids: 05:00 Date Last Intake of Solids: 02/16/21 Time Last Intake of Solids: 18:00 Past Medical History Medical History CKD (chronic kidney disease) stage 3, GFR 30-59 ml/min 3A from [id number] History of atrial fibrillation HTN (hypertension) Past Family History Family History Brother Heart disease Father Heart disease Mother Heart disease Past Surgical History Surgical History S/P AVR (aortic valve replacement) Social History Smoking Status: Former smoker Hx Alcohol Use: No Hx Substance Use: No substance use type: does not use Physical Exam Vital Signs Last Vital Signs Temp 98.1 F 03/03/21 11:58 Pulse 70 03/03/21 11:58 Resp 20 03/03/21 11:58 BP 143/78 H 03/03/21 11:58 Pulse Ox 94 03/03/21 11:58 Testing Laboratory Results 03/03/21 08:21 03/03/21 08:21 PT 10.3 Seconds (9.0-12.0) 02/11/21 22:25 INR 1.0 (0.9-1.1) 02/11/21 22:25 APTT 36.9 Seconds (21.0-31.0) H 02/11/21 22:25 Urine Color Dark Yellow 02/11/21 23:00 Urine Appearance Cloudy (Clear) A 02/11/21 23:00 Urine pH 5.5 (4.5-7.5) 02/11/21 23:00 Ur Specific [place] 1.044 (1.000-1.030) H 02/11/21 23:00 Urine Protein 1+ (Negative) H 02/11/21 23:00 Urine Glucose (UA) Negative (Negative) 02/11/21 23:00 Urine Ketones Trace (Negative) H 02/11/21 23:00 Urine Nitrite Negative (Negative) 02/11/21 23:00 Ur Leukocyte Esterase Negative (Negative) 02/11/21 23:00 Urine WBC (Auto) 10-30 /hpf (0-5) H 03/03/21 09:55 Urine RBC (Auto) >30 /hpf (0-4) H 03/03/21 09:55 U Hyaline Cast (Auto) 10-30 /lpf (0-5) H 03/03/21 09:55 U Epithel Cells (Auto) >30 /lpf (0-5) H 03/03/21 09:55 Urine Bacteria (Auto) Negative (Negative) 03/03/21 09:55 03/02/21 18:17 Gram Stain - Final Knee,Right Aerobic and Anaerobic Culture - Preliminary No growth to date. 02/11/21 18:50 Acid Fast Bacilli Smear - Final Joint Fluid/Space (Synovial) Acid Fast Bacilli Culture - Preliminary No Acid-Fast Bacilli Isolated - Report 3, Additional Report to Follow. 02/17/21 10:44 Aerobic Blood Culture - Final Blood No growth in Aerobic bottle after 5 days. Anaerobic Blood Culture - Final No growth in Anaerobic bottle after 5 days. 02/17/21 10:27 Aerobic Blood Culture - Final Blood No growth in Aerobic bottle after 5 days. Anaerobic Blood Culture - Final No growth in Anaerobic bottle after 5 days. 02/14/21 19:35 Aerobic Blood Culture - Final Blood Staphylococcus aureus Anaerobic Blood Culture - Final No growth in Anaerobic bottle after 5 days. 02/14/21 19:47 Aerobic Blood Culture - Final Blood No growth in Aerobic bottle after 5 days. Anaerobic Blood Culture - Final No growth in Anaerobic bottle after 5 days. 02/14/21 13:25 Gram Stain - Final Knee Aerobic and Anaerobic Culture - Final Staphylococcus aureus 02/13/21 07:49 Aerobic Blood Culture - Final Blood Coag neg staph not lugdunensis Anaerobic Blood Culture - Final No growth in Anaerobic bottle after 5 days. 02/13/21 07:18 Aerobic Blood Culture - Final Blood Staphylococcus aureus Anaerobic Blood Culture - Final No growth in Anaerobic bottle after 5 days. 02/12/21 05:31 Aerobic Blood Culture - Final Blood Staphylococcus aureus Anaerobic Blood Culture - Final No growth in Anaerobic bottle after 5 days. 02/12/21 05:23 Aerobic Blood Culture - Final Blood Staphylococcus aureus Anaerobic Blood Culture - Final No growth in Anaerobic bottle after 5 days. 02/11/21 18:50 Gram Stain - Final Knee Aerobic and Anaerobic Culture - Final Staphylococcus aureus 02/11/21 23:00 Urine Culture - Final Urine,Clean Catch More than three types of organisms present, all low counts mixed probable skin ruthy. No further identifications or sensitivities to follow. 02/11/21 14:40 Aerobic Blood Culture - Final Blood Staphylococcus aureus Anaerobic Blood Culture - Final Staphylococcus aureus 02/11/21 14:40 Aerobic Blood Culture - Final Blood Staphylococcus aureus Anaerobic Blood Culture - Final Staphylococcus aureus Electrocardiogram Date: 02/11/21 Normal sinus rhythm, rate 96 bpm Non-specific intra-ventricular conduction block Abnormal ECG No previous ECGs available Confirmed by Grey Handy ([id number]) on 02/12/2021 8:49:28 AM Chest X-Ray Date: 03/01/21 FINDINGS: A right PICC terminates in the SVC. There are poststernotomy changes. No pneumothorax. The heart remains enlarged. There is diffuse interstitial thickening most pronounced within the periphery. This is consistent with chronic interstitial changes. No new focal lung consolidations identified. No evidence for pulmonary edema. No pleural effusions. A few bibasilar linear densities favor scarring/atelectasis. This is also unchanged. IMPRESSION: No change in the cardiomegaly and chronic interstitial change. No new focal lung consolidations identified. Echocardiogram Date: 02/17/21 LV systolic function is normal RV systolic function is normal LA size is normal. RA size is normal The prosthetic AV is well seated. There is a bioprosthetic AV. The prosthetic AV appears to open well. There is no aortic valvular vegetation. The mitral valve anatomy is normal The tricuspid valve anatomy is normal The pulmonic valve is not well seen, but is grossly normal
[2021-03-03] MEDS: LACTATED RINGER'S 1,000 ML IV SCH ×2 (15:31→18:30)
[2021-03-03 15:38] LABS: Appearance Urine Clear (Clear); Bilirubin Urine Negative (Negative); Blood Urine 2+ (Negative); Color Urine Yellow; Glucose Urine UA Negative (Negative); Ketones Urine Negative (Negative); Leukocyte Esterase Urine Negative (Negative); Nitrite Urine Negative (Negative); Protein Urine Negative (Negative); Urobilinogen Urine Negative (Negative); pH Urine 5.5 (4.5-7.5)
[2021-03-03] MEDS ORDERED: ATROPINE SULFATE 0.1 MG/ML 10ML SYR IV PRN (15:44)
[2021-03-03] MEDS ORDERED: ePHEDrine sulfate 50 MG/ML AMP IV PRN (15:44)
[2021-03-03] MEDS ORDERED: ONDANSETRON INJ 2 MG/ML 2 ML VIAL IV PRN ×2 (15:44→18:16)
[2021-03-03] MEDS ORDERED: fentaNYL citrate 100 MCG/2 ML VIAL IV PRN (15:44)
--- NOTE | 2021-03-03 16:31 | History & Physical Bridge Note ---
Date of Service March 03, 2021 History & Physical Bridge Note I have examined the patient, reviewed the History & Physical and in the interval since the performance of the History & Physical I have noted the following changes of clinical significance: no changes noted
[2021-03-03 16:32] LABS: Bacteria Urine 1+ (Negative); Epithelial Cell Urine >30 /lpf (0-5); RBC Urine 0-4 /hpf (0-4)
--- NOTE | 2021-03-03 16:34 | Orthopedic Progress Note ---
Date of Service March 03, 2021 Assessment & Plan (1) Effusion, right knee: Persistent right knee septic arthritis. I have indicated the patient for repeat arthroscopic irrigation debridement. The risk, benefits, complications and alternatives to the procedure were explained to the patient in detail which include however not limited to infection, blood clots, acute blood loss, injury to surrounding nerves, bone, vessels, soft tissue, arthrofibrosis, chronic pain, persistent infection, need for additional surgery, loss of limb and loss of life. Alternatives to surgery include no surgery which could lead to worsening symptoms and clinical picture. Patient wished proceed with surgical intervention in form consent was obtained at this time. (2) Osteoarthritis of right knee: (3) Lower extremity edema: (4) Bilateral shoulder pain: Admission and Anticipated Discharge Date Admission Date: February 11, 2021 Subjective Patient seen in preoperative holding, medically optimized for surgery, aspiration performed on 03/02/2021 showing gram-positive cocci on Gram stain. CRP trending upwards and 25,000 synovial white count. Review of Systems Review of Systems: All systems reviewed & are unremarkable except as noted in HPI & below Constitutional: as per Subjective / HPI Physical Exam Physical Exam: Right lower extremity is neurovascular sensory intact, limited painful range of motion of the knee, is large effusion, diffuse tenderness to palpation. Constitutional: WD/WN, vitals as above Results & Data ([facility]) Vital Signs (Past 12 Hours) Vital Signs Temp Pulse Pulse Pulse Resp BP BP 03/03/21 16:16 37.1 C 76 18 128/81 03/03/21 15:09 36.8 C 67 20 105/64 03/03/21 11:58 36.7 C 70 20 143/78 H 03/03/21 08:00 63 03/03/21 07:54 36.8 C 64 20 153/84 H Pulse Ox 03/03/21 16:16 92 03/03/21 15:09 94 03/03/21 11:58 94 03/03/21 08:00 03/03/21 07:54
[2021-03-03] MEDS ORDERED: fentaNYL citrate 100 MCG/2 ML VIAL ONE (16:39)
[2021-03-03] MEDS ORDERED: PROPOFOL IV EMULSION 10 MG/ML 20 ML VIAL IV ONE (16:40)
[2021-03-03] MEDS ORDERED: LIDOCAINE 2% 2 ML VIAL/AMP(20MG/ML) INFIL ONE (16:40)
[2021-03-03] MEDS ORDERED: PHENYLEPHRINE HCL 10 MG/ML VIAL ONE (17:19)
[2021-03-03] MEDS ORDERED: PHENYLEPHRINE 100MCG/ML 5ML SYR ONE (17:19)
[2021-03-03] MEDS ORDERED: ePHEDrine sulfate 50 MG/ML SYR ONE (17:19)
--- NOTE | 2021-03-03 17:30 | Post Operative Brief Note ---
Immediate Post Op Note v1 Date of Surgery March 03, 2021 Pre & Post Diagnosis Operation Date: 02/14/21 12:00 Pre-Op Diagnosis: septic right knee Post-Op Diagnosis: septic right knee Loose body x2 First measuring 9mm x8mm x8mm Second measuring 1mm x8mm x9mm Operation Date: 02/17/21 07:15 <No data on this case meets the specified criteria> Operation Date: 03/03/21 09:30 Pre-Op Diagnosis: Septic arthritis right knee Post-Op Diagnosis: Septic arthritis right knee I identified the patient and participated in the time-out.: Yes Procedure Operation Date: 02/14/21 12:00 Actual Procedures p Arthroscopy Right Knee, Irrigation and Debridement, Chondroplasty Medial Femoral Condyle, Debridement Anterior Cruciate Ligament Tear, Partial Medial and Lateral Meniscectomy(Right) - Leo Waggoner DO Operation Date: 02/17/21 07:15 Actual Procedures s Echo Color Flow - Salvador Bishop DO s Doppler Echo Limited/Follow Up - Salvador Bishop DO p Echo Transesophageal - Salvador Bishop DO Operation Date: 03/03/21 09:30 Actual Procedures p Right Knee Arthroscopy Incision and Debridement(Right) - Virgilio Oh DO Surgeon Virgilio Oh DO Environmental Coordinator None Estimated Blood Loss 25 Findings Consistent with Post-Op Diagnosis Fluids See anesthesia report Drains Campbell Catheter (from inpatient floor, clear yellow urine noted. Anesthesia to monitor urine output) Anesthesia Type General Regional Complications none Disposition Disposition: Recovery Room Overlapping Procedure I was present for: the critical portions of procedure. I was immediately available: during the entire case. Back up surgeon: was not required during procedure.
--- NOTE | 2021-03-03 17:31 | Operative Report ---
Post Operative Report Pre & Post Diagnosis Operation Date: 02/14/21 12:00 Pre-Op Diagnosis: septic right knee Post-Op Diagnosis: septic right knee Loose body x2 First measuring 9mm x8mm x8mm Second measuring 1mm x8mm x9mm Operation Date: 02/17/21 07:15 <No data on this case meets the specified criteria> Operation Date: 03/03/21 09:30 Pre-Op Diagnosis: Septic arthritis right knee Post-Op Diagnosis: Septic arthritis right knee I identified the patient and participated in the time-out.: Yes Procedure Operation Date: 02/14/21 12:00 Actual Procedures p Arthroscopy Right Knee, Irrigation and Debridement, Chondroplasty Medial Femoral Condyle, Debridement Anterior Cruciate Ligament Tear, Partial Medial and Lateral Meniscectomy(Right) - Leo Waggoner DO Operation Date: 02/17/21 07:15 Actual Procedures s Echo Color Flow - Salvador Bishop DO s Doppler Echo Limited/Follow Up - Salvador Bishop DO p Echo Transesophageal - Salvador Bishop DO Operation Date: 03/03/21 09:30 Actual Procedures p Right Knee Arthroscopy Incision and Debridement(Right) - Virgilio Oh DO Surgeon Virgilio Oh DO Patient Experience Coordinator None Estimated Blood Loss 25 Findings Consistent with Post-Op Diagnosis Fluids See anesthesia report Specimens None Anesthesia Type General Complications none Disposition Disposition: Recovery Room Description of Procedure The patient was brought to the operating room and placed in supine position and induced into general endotracheal anesthesia per the anesthesia staff. A well- padded tourniquet was placed on the thigh and the right leg was prepped and draped in the usual standard manner with ChloraPrep. A time out was performed, IV antibiotics confirmed and given and site shalini confirmed. I made a standard anterolateral viewing portal made through a stab incision in line with previous incisions and bluntly entered the suprapatellar pouch. Then under spinal needle localization I established an anteromedial portal. A extensive synovectomy of hypertrophic synovium was performed anterior medial and lateral as well as supra-patellar utilizing oscillating shaver. The knee was irrigated with 9 liters of sterile saline solution in total. All of the instrumentation was removed from the knee. The portal sites were closed with 3-0 nylon. A sterile dressing was applied and the tourniquet was released at 16 minutes. All needle and sponge counts were correct at the end of the procedure. The patient was transferred to the PACU in stable condition without apparent complication. I attest to the content of the Intraoperative Record and any orders documented therein. Any exceptions are noted below.
--- NOTE | 2021-03-03 17:58 | Anesthesiology Progress Note ---
Date of Service March 03, 2021 Anesthesia Post Procedure Vital Signs Vital Signs: Temp Pulse Pulse Pulse Resp BP BP 03/03/21 17:56 97.5 F L 70 16 94/57 L 03/03/21 17:45 79 15 97/55 L 03/03/21 17:35 99.1 F 68 12 96/60 L 03/03/21 16:16 98.8 F 76 18 128/81 03/03/21 15:09 98.2 F 67 20 105/64 03/03/21 11:58 98.1 F 70 20 143/78 H 03/03/21 08:00 63 03/03/21 07:54 98.2 F 64 20 153/84 H 03/03/21 04:13 98.2 F 64 18 150/87 H 03/03/21 00:00 03/02/21 23:35 60 03/02/21 23:25 97.9 F 94 H 20 137/85 03/02/21 20:00 03/02/21 18:44 97.9 F 69 18 108/71 Pulse Ox 03/03/21 17:56 93 03/03/21 17:45 93 03/03/21 17:35 95 03/03/21 16:16 92 03/03/21 15:09 94 03/03/21 11:58 94 03/03/21 08:00 03/03/21 07:54 03/03/21 04:13 93 03/03/21 00:00 2 L 03/02/21 23:35 03/02/21 23:25 95 03/02/21 20:00 2 L 03/02/21 18:44 92 Pain Intensity Right Knee: Pain Intensity: 6 Transfer of Care Handoff Completed per policy Notes Mental Status: alert / awake / arousable and participated in evaluation Patient Amnestic to Procedure: Yes Nausea / Vomiting: adequately controlled Pain: adequately controlled Airway Patency, RR, SpO2: stable & adequate BP & HR: stable & adequate Hydration State: stable & adequate Anesthetic Complications: no major complications apparent and Pt Satisfied with anesthetic care
[2021-03-03] MEDS ORDERED: bisacodyL 10 MG SUPP PR PRN (18:16)
[2021-03-03] MEDS ORDERED: NALOXONE HCL 0.4 MG/1 ML VIAL/CARP IV PRN (18:16)
[2021-03-03] MEDS ORDERED: MAGNESIUM HYDROXIDE SUSP 30 ML UDC PO PRN (18:16)
[2021-03-03] MEDS ORDERED: SODIUM CHLORIDE 0.9% 1000ML 1,000 ML IV SCH (18:16)
[2021-03-03] MEDS ORDERED: METOCLOPRAMIDE HCL INJ 5 MG/ML 2 ML VIAL IV PRN (18:16)
[2021-03-03] MEDS: traMADol HCL 50 MG TABLET PO PRN (18:19)
[2021-03-03] MEDS ORDERED: MoRPHine SULFATE 2 MG/ML CARP IV PRN (18:40)
[2021-03-03] MEDS: HYDROmorphone INJ 0.5 MG/0.5 ML SYR IV PRN (21:10)
[2021-03-03] MEDS: SENNA 8.6 MG TAB PO SCH (21:24)
[2021-03-03] MEDS: DOCUSATE SODIUM 100 MG CAP PO SCH (21:24)
[2021-03-03] MEDS: ACETAMINOPHEN 500 MG TAB PO SCH (21:27)
--- NOTE | 2021-03-03 21:59 | Orthopedic Progress Note ---
Date of Service March 03, 2021 Assessment & Plan (1) Effusion, right knee: s/p arthroscopic I+D right knee -IV abx Nafcillin -DVT ppx: SCDs, TEDs, Heparin -WBAT RLE -PT/OT -am labs (2) Osteoarthritis of right knee: (3) Lower extremity edema: (4) Bilateral shoulder pain: Patient states he has bilateral shoulder pain and stiffness. We will start with x-rays of the shoulders to rule out shoulder osteoarthritis. Admission and Anticipated Discharge Date Admission Date: February 11, 2021 Subjective Post Operative Progress Note Patient seen in PACU, comfortable, denies complaints, pain well controlled, no acute issues. Review of Systems Review of Systems: All systems reviewed & are unremarkable except as noted in HPI & below Constitutional: as per Subjective / HPI Physical Exam Physical Exam: RLE NVSI +EHL/FHL/TA/GS SILT grossly, +2 DP pulse, compartments soft NT, dressing cdi. Constitutional: WD/WN, vitals as above Results & Data ([facility]) Vital Signs (Past 12 Hours) Vital Signs Temp Pulse Pulse Resp BP BP Pulse Ox 03/03/21 19:25 36.8 C 77 18 127/75 97 03/03/21 18:42 36.8 C 64 16 108/64 92 03/03/21 18:15 36.4 C L 72 16 108/64 92 03/03/21 17:56 36.4 C L 70 16 94/57 L 93 03/03/21 17:45 79 15 97/55 L 93 03/03/21 17:35 37.3 C 68 12 96/60 L 95 03/03/21 16:16 37.1 C 76 18 128/81 92 03/03/21 15:09 36.8 C 67 20 105/64 94 03/03/21 11:58 36.7 C 70 20 143/78 H 94
[2021-03-03] MEDS: ATORVASTATIN 40 MG TAB PO SCH (22:18)
[2021-03-03] MEDS: HEPARIN SOD 5,000 UNIT/0.5 ML VIAL SQ SCH (22:19)
[2021-03-04] MEDS: NAFCILLIN SODIUM 2,000 MG in DEXTROSE 5% 100 ML IV SCH ×6 (00:37→20:11)
[2021-03-04] MEDS: HYDROmorphone INJ 0.5 MG/0.5 ML SYR IV PRN ×2 (04:58→14:22)
[2021-03-04] MEDS: HEPARIN SOD 5,000 UNIT/0.5 ML VIAL SQ SCH ×3 (06:20→21:50)
[2021-03-04] MEDS: ACETAMINOPHEN 500 MG TAB PO SCH ×3 (06:21→21:50)
[2021-03-04 07:38] LABS: Basophils # (auto) 0.04 K/uL (0-0.2); Basophils % (auto) 0.7 %; Eosinophils # (auto) 0.19 K/uL (0-0.5); Eosinophils % (auto) 3.1 %; Hematocrit (blood only) 35.7 % (42-52); Hemoglobin 11.6 g/dL (14.0-18.0); Immature Granulocytes # (auto) 0.03 K/uL (0.00-0.02); Immature Granulocytes % (auto) 0.5 %; Lymphocytes # (auto) 1.43 K/uL (1.2-3.4); Lymphocytes % (auto) 23.6 %; Mean Corpuscular Hgb Conc 32.5 g/dL (32-36); Mean Corpuscular Volume 86.2 fL (80-100); Mean Platelet Volume 9.7 fL (7.4-10.4); Monocytes % (auto) 14.8 %; Neutrophils # (auto) 3.48 K/uL (1.4-6.5); Neutrophils % (auto) 57.3 %; Platelet Count 380 K/uL (130-400); RDW Coefficient of Variation 14.1 % (11.5-14.5); RDW Standard Deviation 44.6 fL (36.4-46.3); Red Blood Count 4.14 M/uL (4.7-6.1); White Blood Count 6.07 K/uL (4.8-10.8)
--- NOTE | 2021-03-04 07:44 | Orthopedic Progress Note ---
Date of Service March 04, 2021 Assessment & Plan (1) Effusion, right knee: s/p arthroscopic I+D right knee POD#1 -IV abx Nafcillin -DVT ppx: SCDs, TEDs, Heparin -WBAT RLE -PT/OT -am labs - hgb 13.1 (2) Osteoarthritis of right knee: (3) Lower extremity edema: (4) Bilateral shoulder pain: Patient states he has bilateral shoulder pain and stiffness. We will start with x-rays of the shoulders to rule out shoulder osteoarthritis. Admission and Anticipated Discharge Date Admission Date: February 11, 2021 Subjective Post Operative Progress Note Patient seen sitting up in bed, comfortable, denies complaints, pain well controlled, no acute issues. Denies F/C/N/V/SOB/CP. Review of Systems Review of Systems: All systems reviewed & are unremarkable except as noted in HPI & below Constitutional: as per Subjective / HPI Physical Exam Physical Exam: RLE NVSI +EHL/FHL/TA/GS SILT grossly, +2 DP pulse, compartments soft NT, dressing cdi. Constitutional: WD/WN, vitals as above Results & Data ([place]) Vital Signs (Past 12 Hours) Vital Signs Temp Pulse Pulse Pulse Resp BP BP 03/04/21 07:28 36.5 C 59 L 18 125/71 03/04/21 03:08 36.4 C L 55 L 18 106/68 03/04/21 01:46 63 03/04/21 00:46 36.5 C 59 L 20 117/72 03/04/21 00:00 20 03/03/21 23:10 36.4 C L 65 18 107/61 Pulse Ox 03/04/21 07:28 92 03/04/21 03:08 95 03/04/21 01:46 03/04/21 00:46 94 03/04/21 00:00 03/03/21 23:10 92 Laboratory Results 03/04/21 03/04/21 03/03/21 Range/Units 07:16 07:16 15:25 WBC 6.07 (4.8-10.8) K/uL RBC 4.14 L (4.7-6.1) M/uL Hgb 11.6 L (14.0-18.0) g/dL Hct 35.7 L (42-52) % MCV 86.2 (80-100) fL MCH 28.0 (25-34) pg MCHC 32.5 (32-36) g/dL RDW Std Deviation 44.6 (36.4-46.3) fL RDW Coeff of Pilar 14.1 (11.5-14.5) % Plt Count 380 (130-400) K/uL MPV 9.7 (7.4-10.4) fL Immature Gran % (Auto) 0.5 % Neut % (Auto) 57.3 % Lymph % (Auto) 23.6 % [place] % (Auto) 14.8 % Eos % (Auto) 3.1 % Baso % (Auto) 0.7 % Neut # (Auto) 3.48 (1.4-6.5) K/uL Lymph # (Auto) 1.43 (1.2-3.4) K/uL [place] # (Auto) 0.90 H (0.11-0.59) K/uL Eos # (Auto) 0.19 (0-0.5) K/uL Baso # (Auto) 0.04 (0-0.2) K/uL Immature Gran # (Auto) 0.03 H (0.00-0.02) K/uL Sodium Pending (136-145) mmol/L Potassium Pending (3.5-5.1) mmol/L Chloride Pending (98-107) mmol/L Carbon Dioxide Pending (21-32) mmol/L Anion Gap Pending (3-11) BUN Pending (7-18) mg/dl Creatinine Pending (0.6-1.4) mg/dl Est Cr Clr Drug Dosing Pending ml/min Est GFR ( Amer) Pending ml/min Est GFR (Non-Af Amer) Pending ml/min BUN/Creatinine Ratio Pending (10-20) Glucose Pending (70-99) mg/dl Calcium Pending (8.5-10.1) mg/dl Urine Color Yellow Urine Appearance Clear (Clear) Urine pH 5.5 (4.5-7.5) Ur Specific [place] 1.020 (1.000-1.030) Urine Protein Negative (Negative) Urine Glucose (UA) Negative (Negative) Urine Ketones Negative (Negative) Urine Blood 2+ H (Negative) Urine Nitrite Negative (Negative) Urine Bilirubin Negative (Negative) Urine Urobilinogen Negative (Negative) Ur Leukocyte Esterase Negative (Negative) Urine WBC (Auto) (0-5) /hpf Urine RBC (Auto) (0-4) /hpf U Hyaline Cast (Auto) (0-5) /lpf U Epithel Cells (Auto) (0-5) /lpf Urine Bacteria (Auto) (Negative) Urine RBC 0-4 (0-4) /hpf Urine WBC 10-30 H (0-5) /hpf Ur Epithelial Cells >30 H (0-5) /lpf Urine Bacteria 1+ H (Negative) WBC Casts (0) /lpf Urine Mucus (None Prsent) Synovial Crystals 03/03/21 03/03/21 03/03/21 Range/Units 09:55 08:21 08:21 WBC 5.93 (4.8-10.8) K/uL RBC 4.65 L (4.7-6.1) M/uL Hgb 13.1 L (14.0-18.0) g/dL Hct 40.2 L (42-52) % MCV 86.5 (80-100) fL MCH 28.2 (25-34) pg MCHC 32.6 (32-36) g/dL RDW Std Deviation 45.0 (36.4-46.3) fL RDW Coeff of [place] 14.2 (11.5-14.5) % Plt Count 484 H (130-400) K/uL MPV 9.7 (7.4-10.4) fL Immature Gran % (Auto) % Neut % (Auto) % Lymph % (Auto) % [place] % (Auto) % Eos % (Auto) % Baso % (Auto) % Neut # (Auto) (1.4-6.5) K/uL Lymph # (Auto) (1.2-3.4) K/uL [place] # (Auto) (0.11-0.59) K/uL Eos # (Auto) (0-0.5) K/uL Baso # (Auto) (0-0.2) K/uL Immature Gran # (Auto) (0.00-0.02) K/uL Sodium 136 (136-145) mmol/L Potassium 3.7 (3.5-5.1) mmol/L Chloride 103 (98-107) mmol/L Carbon Dioxide 26 (21-32) mmol/L Anion Gap 7.0 (3-11) BUN 39 H (7-18) mg/dl Creatinine 2.18 H D (0.6-1.4) mg/dl Est Cr Clr Drug Dosing 5.6 ml/min Est GFR ( Amer) 32.9 ml/min Est GFR (Non-Af Amer) 28.4 ml/min BUN/Creatinine Ratio 17.8 (10-20) Glucose 84 (70-99) mg/dl Calcium 10.4 H (8.5-10.1) mg/dl Urine Color Urine Appearance (Clear) Urine pH (4.5-7.5) Ur Specific [place] (1.000-1.030) Urine Protein (Negative) Urine Glucose (UA) (Negative) Urine Ketones (Negative) Urine Blood (Negative) Urine Nitrite (Negative) Urine Bilirubin (Negative) Urine Urobilinogen (Negative) Ur Leukocyte Esterase (Negative) Urine WBC (Auto) 10-30 H (0-5) /hpf Urine RBC (Auto) >30 H (0-4) /hpf U Hyaline Cast (Auto) 10-30 H (0-5) /lpf U Epithel Cells (Auto) >30 H (0-5) /lpf Urine Bacteria (Auto) Negative (Negative) Urine RBC (0-4) /hpf Urine WBC (0-5) /hpf Ur Epithelial Cells (0-5) /lpf Urine Bacteria (Negative) WBC Casts 1-5 H (0) /lpf Urine Mucus Present A (None Prsent) Synovial Crystals 03/02/21 Range/Units 18:17 WBC (4.8-10.8) K/uL RBC (4.7-6.1) M/uL Hgb (14.0-18.0) g/dL Hct (42-52) % MCV (80-100) fL MCH (25-34) pg MCHC (32-36) g/dL RDW Std Deviation (36.4-46.3) fL RDW Coeff of Pilar (11.5-14.5) % Plt Count (130-400) K/uL MPV (7.4-10.4) fL Immature Gran % (Auto) % Neut % (Auto) % Lymph % (Auto) % [place] % (Auto) % Eos % (Auto) % Baso % (Auto) % Neut # (Auto) (1.4-6.5) K/uL Lymph # (Auto) (1.2-3.4) K/uL [place] # (Auto) (0.11-0.59) K/uL Eos # (Auto) (0-0.5) K/uL Baso # (Auto) (0-0.2) K/uL Immature Gran # (Auto) (0.00-0.02) K/uL Sodium (136-145) mmol/L Potassium (3.5-5.1) mmol/L Chloride (98-107) mmol/L Carbon Dioxide (21-32) mmol/L Anion Gap (3-11) BUN (7-18) mg/dl Creatinine (0.6-1.4) mg/dl Est Cr Clr Drug Dosing ml/min Est GFR ( Amer) ml/min Est GFR (Non-Af Amer) ml/min BUN/Creatinine Ratio (10-20) Glucose (70-99) mg/dl Calcium (8.5-10.1) mg/dl Urine Color Urine Appearance (Clear) Urine pH (4.5-7.5) Ur Specific [place] (1.000-1.030) Urine Protein (Negative) Urine Glucose (UA) (Negative) Urine Ketones (Negative) Urine Blood (Negative) Urine Nitrite (Negative) Urine Bilirubin (Negative) Urine Urobilinogen (Negative) Ur Leukocyte Esterase (Negative) Urine WBC (Auto) (0-5) /hpf Urine RBC (Auto) (0-4) /hpf U Hyaline Cast (Auto) (0-5) /lpf U Epithel Cells (Auto) (0-5) /lpf Urine Bacteria (Auto) (Negative) Urine RBC (0-4) /hpf Urine WBC (0-5) /hpf Ur Epithelial Cells (0-5) /lpf Urine Bacteria (Negative) WBC Casts (0) /lpf Urine Mucus (None Prsent) Synovial Crystals
[2021-03-04 08:11] LABS: BUN Creatinine Ratio 17.5 (10-20); Calcium 9.4 mg/dl (8.5-10.1); Creatinine Clr Calc Pharmacy 32.8 ml/min; Est GFR (African American) 27.3 ml/min; Est GFR (Non-African American) 23.6 ml/min; Potassium 3.8 mmol/L (3.5-5.1)
[2021-03-04] MEDS: ADVANCED PROBIOTIC 1250 MG CAPSULE PO SCH (08:32)
[2021-03-04] MEDS: DOCUSATE SODIUM 100 MG CAP PO SCH ×2 (08:32→20:13)
[2021-03-04] MEDS: ASPIRIN 81 MG ECTAB PO SCH (08:32)
[2021-03-04] MEDS: DOCUSATE SODIUM/SENNA 50/8.6MG TAB PO SCH (08:32)
[2021-03-04] MEDS: TAMSULOSIN HCL 0.4 MG CAP PO SCH (08:32)
[2021-03-04] MEDS: amLODIPine BESYLATE 5 MG TAB PO SCH (08:32)
[2021-03-04] MEDS: AMIODARONE 200 MG TAB PO SCH (08:32)
[2021-03-04] MEDS: MULTIVITAMIN TAB PO SCH (08:32)
[2021-03-04] MEDS: LIDOCAINE 5% 1 PATCH TD SCH (08:36)
--- NOTE | 2021-03-04 09:36 | Nephrology Progress Note ---
Date of Service March 04, 2021 Assessment & Plan (1) Acute on chronic renal failure: Stage 1 nonoliguric CIRA; baseline creatinine 1.3-1.4 and no albuminuria. he was admitted 6/2 w/ MSSA bacteremia and septic R knee. likely ischemic ATN from vasoconstriction by nsaids, lasix then ARB added to mix plus from infections and abtx used to treat them. at least slightly dehydrated and will give some IVF; chemistries ok for now; no indication for dialysis. -agree w/ holding nsaids, ARB, lasix, vanco -cautious trial of IV fluids to continue >> cont LR at 80; higher 02 needs after procedure yesterday but not floridly OL -cont low dose CCB; prn hydralazine > BP acceptable for now -f/u pending cxs -daily bmp -added UA to micro study earlier today- possible uti Care coordinated w/ Dr Boyce (2) Septic arthritis: antibiotics per inf dzs/ primary service s/p I & D yesterday > fluid studies still w/ marked inflammation; cx pending; fluid crystals not c/w gout and not pseudogout (3) Bacteremia due to methicillin susceptible Staphylococcus aureus (MSSA): with 6-8 wks IV abtx planned in setting of bioprosthetic valve; on nafcillin currently after cephalosporin, dapto, vanco Admission and Anticipated Discharge Date Admission Date: February 11, 2021 Subjective c/o R knee pain; no other musculoskeletal pain, no sob, no n/v had I&D repeat yesterday R knee, cx pending; UA c/w likely infection Review of Systems Review of Systems: All systems reviewed & are unremarkable except as noted in Subjective Physical Exam Constitutional: well developed, well nourished, + obese and cooperative; no acute distress Eyes: EOM intact bilaterally ENMT: Ears: no external ear abnormality Nose: no external nose abnormality Mouth: + dry oral mucous membranes Neck: no nuchal rigidity Respiratory: normal respiratory effort and able to speak in complete sentences Auscultation: + diminished lung sounds and + crackles (bibasilar) Cardiovascular: RRR, no murmur, no edema Gastrointestinal (Abdomen): Inspection/Auscultation: normal bowel sounds; abdomen not distended Percussion/Palpation: abdomen soft; abdomen nontender and no guarding Musculoskeletal: Extremities: strength 5/5 throughout Skin: no rashes, warm and dry + wound (surgical R knee) Neurologic: rider, fluent speech, notremor Psychiatric: Orientation: alert and oriented x 3 Results & Data ([facility]) Vital Signs (Past 12 Hours) Vital Signs Temp Pulse Pulse Pulse Resp BP BP 03/04/21 08:48 54 L 03/04/21 07:28 36.5 C 59 L 18 125/71 03/04/21 03:08 36.4 C L 55 L 18 106/68 03/04/21 01:46 63 03/04/21 00:46 36.5 C 59 L 20 117/72 03/04/21 00:00 20 03/03/21 23:10 36.4 C L 65 18 107/61 Pulse Ox 03/04/21 08:48 03/04/21 07:28 92 03/04/21 03:08 95 03/04/21 01:46 03/04/21 00:46 94 03/04/21 00:00 03/03/21 23:10 92 Laboratory Results 03/04/21 07:16 03/04/21 07:16 (1) Septic arthritis Laterality: right Septic arthritis location: knee Septic arthritis organism: staphylococcal Qualified Code(s): M00.061 - Staphylococcal arthritis, right knee (2) Acute on chronic renal failure Acute renal failure type: unspecified Chronic kidney disease stage: stage 3 (moderate) Chronic kidney disease stage 3 subtype: stage 3a (GFR 45-59) Qualified Code(s): N17.9 - Acute kidney failure, unspecified; N18.31 - Chronic kidney disease, stage 3a
[2021-03-04] MEDS: LOSARTAN POTASSIUM 50 MG TAB PO SCH (09:38)
--- NOTE | 2021-03-04 09:44 | Hospitalist Progress Note ---
Date of Service March 04, 2021 Assessment & Plan (1) Acute knee pain: (2) Effusion of knee: Sepsis due to Right knee septic arthritis Acute gout Bacteremia, Presumed endocarditis H/O bioprosthetic valve --S/P right knee irrigation and debridement of septic arthritis, chondroplasty of medial femoral condyle, debridement of anterior cruciate ligament tear, partial medial meniscectomy, partial lateral meniscectomy, major synovectomy., Removal of loose bodies. by on 02/14/21 r -Transesophageal ECHO: No evidence of mass or vegetation. -Blood Cx Growing: MSSA -Repeat Blood Cx: 02/17/21: Negative to date -IV cefazolin transition to IV daptomycin given allergic reaction to Cefazolin ID, recommends Daptomycin 1000 mg IV daily (given endocarditis rec 8-10 mg /kg) -Appreciate Orthopedics, ID Input PT/OT: Right partial-WBAT Needs 6 weeks of IV antibiotics from Negative culture PICC line Placed on IV Nafcillin Appreciate Orthopedics Input Needs Rehab placement Acute kidney failure Baseline Cr 1.2 -1.3 Cr:2.7 multifactorial: received indomethacin for acute gout , IV vancomycin , was on ARB appreciate input from Nephrology ordered IV fluid Monitor renal function Avoid Nephrotoxic agents as able Gout arthritis ESR CRP elevated S/P Aspiration Could not give colchicine secondary to interaction with Amiodarone Completed Indomethacin course Need to be started on allopurinol when appropriate Acute respiratory distress resolved Possible related to Acute diastolic heart failure CTA chest showed no evidence of central pulmonary embolus in the main, lobar, or proximal segmental pulmonary arteries. CXR showed cardiomegaly with evidence of congestive failure. Received Lasix 40mg IV Continue supplemental oxygen PRN Continue monitor I/O Continue Lasix PRN Monitor renal function Ambulatory dysfunction Secondary to above Continue PT OT Fall precautions Hyperkalemia Resolved Monitor B/L shoulder pain Xray L shoulder showed moderate to severe osteoarthritis of the left acromi oclavicular joint. Xray R shoulder showed Severe osteoarthritis of the right acromioclavicular join Continue pain control Continue lidocaine patch Left arm weakness CT head showed no acute intracranial finding Lung nodule CTA chest showed 5 mm left upper lobe pulmonary nodule is pathologically indeterminant Follow-up is recommended as per the Fleischner criteria. Afib Rate controlled Continue amiodarone Also on aspirin stable HTN Losartan held due to CIRA Continue Amlodipine Monitor BP BPH On Flomax Dyslipidemia Resume statin as able S/P AVR (Aortic Valve replacement) Stable DVT Px Heparin SQ CODE status Full code Disposition : will need rehab Admission and Anticipated Discharge Date Admission Date: February 11, 2021 Subjective says right knee pain better no fever or chills no SOB Review of Systems Review of Systems: All systems reviewed & are unremarkable except as noted in Subjective Physical Exam Constitutional: well developed, well nourished, + obese and cooperative; no acute distress Eyes: EOM intact bilaterally ENMT: Ears: no external ear abnormality Nose: no external nose abnormality Mouth: + dry oral mucous membranes Neck: no nuchal rigidity Respiratory: normal respiratory effort and able to speak in complete sentences Auscultation: + diminished lung sounds and + crackles (bibasilar) Cardiovascular: RRR, no murmur, no edema Gastrointestinal (Abdomen): Inspection/Auscultation: normal bowel sounds; abdomen not distended Percussion/Palpation: abdomen soft; abdomen nontender and no guarding Musculoskeletal: Extremities: strength 5/5 throughout Skin: no rashes, warm and dry + wound (surgical R knee) Neurologic: rider, fluent speech, notremor Psychiatric: Orientation: alert and oriented x 3 Results & Data Results & Data ([facility]) Vital Signs (Past 12 Hours) Vital Signs Temp Pulse Pulse Pulse Resp BP BP 03/04/21 08:48 54 L 03/04/21 07:28 36.5 C 59 L 18 125/71 03/04/21 03:08 36.4 C L 55 L 18 106/68 03/04/21 01:46 63 03/04/21 00:46 36.5 C 59 L 20 117/72 03/04/21 00:00 20 03/03/21 23:10 36.4 C L 65 18 107/61 Pulse Ox 03/04/21 08:48 03/04/21 07:28 92 03/04/21 03:08 95 03/04/21 01:46 03/04/21 00:46 94 03/04/21 00:00 03/03/21 23:10 92 (1) Effusion of knee Laterality: right Qualified Code(s): M25.461 - Effusion, right knee (2) Acute knee pain Laterality: right Qualified Code(s): M25.561 - Pain in right knee
[2021-03-04] MEDS: traMADol HCL 50 MG TABLET PO PRN (12:07)
[2021-03-04] MEDS: LACTATED RINGER'S 1,000 ML IV SCH (15:22)
[2021-03-04] MEDS: SENNA 8.6 MG TAB PO SCH (20:13)
[2021-03-04] MEDS: ATORVASTATIN 40 MG TAB PO SCH (20:14)
[2021-03-05] MEDS: NAFCILLIN SODIUM 2,000 MG in DEXTROSE 5% 100 ML IV SCH ×6 (01:49→20:53)
[2021-03-05] MEDS: ACETAMINOPHEN 500 MG TAB PO SCH ×3 (04:58→20:59)
[2021-03-05] MEDS: HEPARIN SOD 5,000 UNIT/0.5 ML VIAL SQ SCH ×3 (04:58→21:02)
[2021-03-05 05:55] LABS: Hematocrit (blood only) 36.3 % (42-52); Hemoglobin 11.8 g/dL (14.0-18.0); Mean Corpuscular Hgb Conc 32.5 g/dL (32-36); Mean Platelet Volume 9.7 fL (7.4-10.4); Platelet Count 335 K/uL (130-400); RDW Coefficient of Variation 14.2 % (11.5-14.5); RDW Standard Deviation 44.5 fL (36.4-46.3); Red Blood Count 4.22 M/uL (4.7-6.1)
[2021-03-05 06:26] LABS: BUN Creatinine Ratio 18.4 (10-20); Calcium 9.4 mg/dl (8.5-10.1); Est GFR (African American) 32.7 ml/min; Est GFR (Non-African American) 28.2 ml/min; Potassium 3.6 mmol/L (3.5-5.1)
[2021-03-05] MEDS: LACTATED RINGER'S 1,000 ML IV SCH ×2 (08:46→17:28)
[2021-03-05] MEDS: LIDOCAINE 5% 1 PATCH TD SCH (09:10)
[2021-03-05] MEDS: TAMSULOSIN HCL 0.4 MG CAP PO SCH (09:10)
[2021-03-05] MEDS: MULTIVITAMIN TAB PO SCH (09:10)
[2021-03-05] MEDS: ADVANCED PROBIOTIC 1250 MG CAPSULE PO SCH (09:10)
[2021-03-05] MEDS: DOCUSATE SODIUM 100 MG CAP PO SCH ×2 (09:11→20:54)
[2021-03-05] MEDS: amLODIPine BESYLATE 5 MG TAB PO SCH (09:11)
[2021-03-05] MEDS: DOCUSATE SODIUM/SENNA 50/8.6MG TAB PO SCH (09:11)
[2021-03-05] MEDS: AMIODARONE 200 MG TAB PO SCH (09:12)
[2021-03-05] MEDS: traMADol HCL 50 MG TABLET PO PRN (10:33)
[2021-03-05] MEDS: ASPIRIN 81 MG ECTAB PO SCH (10:33)
--- NOTE | 2021-03-05 12:17 | Orthopedic Progress Note ---
Date of Service March 05, 2021 Assessment & Plan (1) Effusion, right knee: s/p arthroscopic I+D right knee x 2 POD#2 -IV abx Nafcillin -DVT ppx: SCDs, TEDs, Heparin -WBAT RLE -PT/OT -increase mobility as able. (2) Osteoarthritis of right knee: (3) Lower extremity edema: (4) Bilateral shoulder pain: Patient states he has bilateral shoulder pain and stiffness. We will start with x-rays of the shoulders to rule out shoulder osteoarthritis. Admission and Anticipated Discharge Date Admission Date: February 11, 2021 Supervising Physician Co-Signing Physician Notes Patient seen and examined. Agree with JACQUELINE Haines's note as above. He reports that his right knee is slowly improving daily, but still relatively painful with movement and weightbearing. Subjective Postop day 2 Patient is sitting up in his chair at the bedside eating his lunch. He states that overall, his knee is feeling better. Pain control is good at this time. Dates he feels that he was able to get up a little bit better today. No other complaints today. Physical Exam Physical Exam: Dressings are clean, dry, and intact. Calves are soft nontender. Neurovascular intact. Toes are mobile. Results & Data ([facility]) Vital Signs (Past 12 Hours) Vital Signs Temp Pulse Pulse Pulse Resp BP BP 03/05/21 11:17 36.7 C 72 18 112/73 03/05/21 09:00 57 L 03/05/21 08:00 18 03/05/21 07:32 36.8 C 62 18 135/71 03/05/21 04:00 16 03/05/21 03:10 36.6 C 67 18 125/76 Pulse Ox 03/05/21 11:17 91 03/05/21 09:00 03/05/21 08:00 96 03/05/21 07:32 95 03/05/21 04:00 94 03/05/21 03:10 91
--- NOTE | 2021-03-05 15:13 | Hospitalist Progress Note ---
Date of Service March 05, 2021 Assessment & Plan (1) Acute knee pain: (2) Effusion of knee: Sepsis due to Right knee septic arthritis Acute gout --S/P right knee irrigation and debridement of septic arthritis, chondroplasty of medial femoral condyle, debridement of anterior cruciate ligament tear, partial medial meniscectomy, partial lateral meniscectomy, major synovectomy., Removal of loose bodies. 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 -Blood Cx Growing: MSSA -Repeat Blood Cx: 02/17/21: Negative to date - ID Input -on IV Nafcillin Needs 6 weeks of IV antibiotics from Negative culture PICC line Placed Acute kidney failure Baseline Cr 1.2 -1.3 multifactorial: received indomethacin for acute gout , IV vancomycin , was on ARB appreciate input from Nephrology ordered IV fluid cr gradually improving : 2.1 today Monitor renal function Avoid Nephrotoxic agents as able Gout arthritis ESR CRP elevated S/P Aspiration Could not give colchicine secondary to interaction with Amiodarone Completed Indomethacin course Need to be started on allopurinol when appropriate Acute respiratory distress resolved Possible related to Acute diastolic heart failure CTA chest showed no evidence of central pulmonary embolus in the main, lobar, or proximal segmental pulmonary arteries. CXR showed cardiomegaly with evidence of congestive failure. Received Lasix 40mg IV hold diuretics due to acute renal failure respiratory distress has resolved stable volume status Ambulatory dysfunction Secondary to above Continue PT OT Fall precautions will need rehab Hyperkalemia Resolved Monitor B/L shoulder pain Xray L shoulder showed moderate to severe osteoarthritis of the left acromioclavicular joint. Xray R shoulder showed Severe osteoarthritis of the right acromioclavicular join Continue pain control Continue lidocaine patch Lung nodule CTA chest showed 5 mm left upper lobe pulmonary nodule is pathologically indeterminant Follow-up is recommended as per the Fleischner criteria. Afib Rate controlled Continue amiodarone Also on aspirin stable HTN Losartan held due to CIRA Continue Amlodipine Monitor BP BPH On Flomax Dyslipidemia on statin S/P AVR (Aortic Valve replacement) Stable DVT Px Heparin SQ CODE status Full code Disposition : will need rehab Admission and Anticipated Discharge Date Admission Date: February 11, 2021 Subjective Patient is sitting up in his chair at the bedside He states that overall, his knee is feeling better. no fever or chills no SOB Review of Systems Review of Systems: All systems reviewed & are unremarkable except as noted in Subjective Physical Exam Constitutional: well developed, well nourished, + obese and cooperative Eyes: EOM intact bilaterally ENMT: Ears: no external ear abnormality Nose: no external nose abnormality Neck: no nuchal rigidity Respiratory: normal respiratory effort and able to speak in complete sentences Auscultation: + diminished lung sounds and + crackles (bibasilar) Cardiovascular: RRR, no murmur, no edema Gastrointestinal (Abdomen): Inspection/Auscultation: normal bowel sounds; abdomen not distended Percussion/Palpation: abdomen soft; abdomen nontender and no guarding Musculoskeletal: Extremities: strength 5/5 throughout Skin: no rashes, warm and dry + wound (surgical R knee) Psychiatric: Orientation: alert and oriented x 3 Results & Data Results & Data ([facility]) Vital Signs (Past 12 Hours) Vital Signs Temp Pulse Pulse Resp BP BP Pulse Ox 03/05/21 12:06 95 03/05/21 12:00 18 96 03/05/21 11:17 36.7 C 72 18 112/73 91 03/05/21 09:00 57 L 03/05/21 08:00 18 96 03/05/21 07:32 36.8 C 62 18 135/71 95 03/05/21 04:00 16 94 (1) Effusion of knee Laterality: right Qualified Code(s): M25.461 - Effusion, right knee (2) Acute knee pain Laterality: right Qualified Code(s): M25.561 - Pain in right knee
--- NOTE | 2021-03-05 17:03 | Nephrology Progress Note ---
Date of Service March 05, 2021 Assessment & Plan (1) Acute on chronic renal failure: Stage 1 nonoliguric CIRA; baseline creatinine 1.3-1.4 and no albuminuria. he was admitted 02/11 w/ MSSA bacteremia and septic R knee. >> ischemic ATN from vasoconstriction by nsaids, lasix then ARB added to mix plus from infections and abtx used to treat them. at least slightly dehydrated and will give some IVF; chemistries ok for now; no indication for dialysis. UA inflamed but no infection -agree w/ holding nsaids, ARB, lasix, vanco -cautious trial of IV fluids to continue >> cont LR at 80; higher 02 needs after procedure yesterday but not floridly OL; would continue -cont low dose CCB; prn hydralazine > BP acceptable for now -f/u pending cxs -daily bmp (2) Septic arthritis: antibiotics per inf dzs/ primary service s/p I & D 03/03 > fluid studies still w/ marked inflammation; cx pending; fluid crystals not c/w gout and not pseudogout (3) Bacteremia due to methicillin susceptible Staphylococcus aureus (MSSA): with 6 wks IV abtx after first negative cx planned in setting of bioprosthetic valve; on nafcillin currently after issues w/ cephalosporin, dapto, vanco Admission and Anticipated Discharge Date Admission Date: February 11, 2021 Subjective seen on rounds at 1040 today; no c/o sob or pain apart from knee; no interval events Review of Systems Review of Systems: All systems reviewed & are unremarkable except as noted in Subjective Physical Exam Constitutional: well developed, well nourished, + obese and cooperative; no acute distress up in chair on RA Eyes: EOM intact bilaterally ENMT: Ears: no external ear abnormality Nose: no external nose abnormality Mouth: + dry oral mucous membranes and + edentulous Neck: no nuchal rigidity Respiratory: normal respiratory effort and able to speak in complete sentences Auscultation: lungs clear to auscultation bilaterally and + diminished lung sounds Cardiovascular: RRR, no murmur, no edema Gastrointestinal (Abdomen): Inspection/Auscultation: normal bowel sounds; abdomen not distended Percussion/Palpation: abdomen soft; abdomen nontender and no guarding Musculoskeletal: Extremities: strength 5/5 throughout Skin: no rashes, warm and dry + wound (surgical R knee) Psychiatric: Orientation: alert and oriented x 3 Results & Data ([facility]) Vital Signs (Past 12 Hours) Vital Signs Temp Pulse Pulse Resp BP BP Pulse Ox 03/05/21 16:00 18 96 03/05/21 15:42 36.7 C 68 18 131/70 94 03/05/21 15:15 95 03/05/21 12:06 95 03/05/21 12:00 18 96 03/05/21 11:17 36.7 C 72 18 112/73 91 03/05/21 09:00 57 L 03/05/21 08:00 18 96 03/05/21 07:32 36.8 C 62 18 135/71 95 Laboratory Results 03/05/21 05:24 03/05/21 05:24 (1) Acute on chronic renal failure Acute renal failure type: unspecified Chronic kidney disease stage: stage 3 (moderate) Chronic kidney disease stage 3 subtype: stage 3a (GFR 45-59) Qualified Code(s): N17.9 - Acute kidney failure, unspecified; N18.31 - Chronic kidney disease, stage 3a (2) Septic arthritis Septic arthritis location: knee Septic arthritis organism: staphylococcal Laterality: right Qualified Code(s): M00.061 - Staphylococcal arthritis, right knee
[2021-03-05] MEDS: ATORVASTATIN 40 MG TAB PO SCH (20:53)
[2021-03-05] MEDS: SENNA 8.6 MG TAB PO SCH (20:55)
[2021-03-06] MEDS: NAFCILLIN SODIUM 2,000 MG in DEXTROSE 5% 100 ML IV SCH ×6 (00:51→20:17)
[2021-03-06] MEDS: ACETAMINOPHEN 500 MG TAB PO SCH ×3 (05:11→21:23)
[2021-03-06] MEDS: HEPARIN SOD 5,000 UNIT/0.5 ML VIAL SQ SCH ×3 (05:12→21:26)
[2021-03-06 06:19] LABS: BUN Creatinine Ratio 16.4 (10-20); Calcium 9.3 mg/dl (8.5-10.1); Est GFR (African American) 42.3 ml/min; Est GFR (Non-African American) 36.5 ml/min; Potassium 3.1 mmol/L (3.5-5.1)
[2021-03-06] MEDS: LACTATED RINGER'S 1,000 ML IV SCH (07:18)
[2021-03-06] MEDS: DOCUSATE SODIUM 100 MG CAP PO SCH (08:31)
[2021-03-06] MEDS: DOCUSATE SODIUM/SENNA 50/8.6MG TAB PO SCH (08:31)
[2021-03-06] MEDS: AMIODARONE 200 MG TAB PO SCH (08:34)
[2021-03-06] MEDS: TAMSULOSIN HCL 0.4 MG CAP PO SCH (08:34)
[2021-03-06] MEDS: amLODIPine BESYLATE 5 MG TAB PO SCH (08:35)
[2021-03-06] MEDS: ASPIRIN 81 MG ECTAB PO SCH (08:35)
[2021-03-06] MEDS: LIDOCAINE 5% 1 PATCH TD SCH (08:36)
[2021-03-06] MEDS: ADVANCED PROBIOTIC 1250 MG CAPSULE PO SCH (08:37)
[2021-03-06] MEDS: MULTIVITAMIN TAB PO SCH (08:39)
--- NOTE | 2021-03-06 12:07 | Hospitalist Progress Note ---
Date of Service March 06, 2021 Assessment & Plan (1) Acute knee pain: (2) Effusion of knee: Sepsis due to Right knee septic arthritis Acute gout --S/P right knee irrigation and debridement of septic arthritis, chondroplasty of medial femoral condyle, debridement of anterior cruciate ligament tear, partial medial meniscectomy, partial lateral meniscectomy, major synovectomy., Removal of loose bodies. 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 -Blood Cx Growing: MSSA -Repeat Blood Cx: 02/17/21: Negative to date - ID Input -on IV Nafcillin Needs 6 weeks of IV antibiotics from Negative culture PICC line Placed patient will need to be discharged to acute rehab Acute kidney failure Baseline Cr 1.2 -1.3 multifactorial: received indomethacin for acute gout , IV vancomycin , was on ARB appreciate input from Nephrology ordered IV fluid cr continues to improve to 1.8 today Continue to hold losartan, avoid diuretics, avoid NSAIDs Monitor renal function Avoid Nephrotoxic agents as able Gout arthritis ESR CRP elevated S/P Aspiration Could not give colchicine secondary to interaction with Amiodarone Completed Indomethacin course -possibly contributed to acute renal failure Need to be started on allopurinol when appropriate Acute respiratory distress resolved Possible related to Acute diastolic heart failure CTA chest showed no evidence of central pulmonary embolus in the main, lobar, or proximal segmental pulmonary arteries. CXR showed cardiomegaly with evidence of congestive failure. Received Lasix 40mg IV hold diuretics due to acute renal failure respiratory distress has resolved stable volume status Ambulatory dysfunction Secondary to above Continue PT OT Fall precautions will need rehab Hyperkalemia Resolved Monitor B/L shoulder pain Xray L shoulder showed moderate to severe osteoarthritis of the left acromioclavicular joint. Xray R shoulder showed Severe osteoarthritis of the right acromioclavicular join Continue pain control Continue lidocaine patch Lung nodule CTA chest showed 5 mm left upper lobe pulmonary nodule is pathologically indeterminant Follow-up is recommended as per the Fleischner criteria. Afib Rate controlled Continue amiodarone Also on aspirin stable HTN Losartan held due to CIRA Continue Amlodipine Monitor BP BPH On Flomax Dyslipidemia on statin S/P AVR (Aortic Valve replacement) Stable DVT Px Heparin SQ CODE status Full code Disposition : will need rehab, possible discharge to rehab early next week on IV nafcillin. Admission and Anticipated Discharge Date Admission Date: February 11, 2021 Subjective Patient reports feeling much better, states he is feeling better No fever or chills Sitting up on bedside recliner, Has minimum pain on right knee Denies of any chest pain or shortness of breath, on 3 L oxygen via nasal cannula, patient was not on home O2 Review of Systems Review of Systems: All systems reviewed & are unremarkable except as noted in Subjective Physical Exam Constitutional: well developed, well nourished, + obese and cooperative Eyes: EOM intact bilaterally ENMT: Ears: no external ear abnormality Nose: no external nose abnormality Neck: no nuchal rigidity Respiratory: normal respiratory effort and able to speak in complete sentences Auscultation: + diminished lung sounds Cardiovascular: RRR, no murmur, no edema Gastrointestinal (Abdomen): Inspection/Auscultation: normal bowel sounds; abdomen not distended Percussion/Palpation: abdomen soft; abdomen nontender and no guarding Musculoskeletal: Extremities: strength 5/5 throughout Skin: no rashes, warm and dry + wound (surgical R knee) Psychiatric: Orientation: alert and oriented x 3 Results & Data Results & Data ([facility]) Vital Signs (Past 12 Hours) Vital Signs Temp Pulse Pulse Resp BP BP Pulse Ox 03/06/21 11:35 36.8 C 74 16 112/74 95 03/06/21 08:13 37.0 C 85 16 172/80 H 99 03/06/21 08:00 18 95 03/06/21 04:00 37.0 C 65 18 146/79 H 95 03/06/21 02:34 58 L (1) Effusion of knee Laterality: right Qualified Code(s): M25.461 - Effusion, right knee (2) Acute knee pain Laterality: right Qualified Code(s): M25.561 - Pain in right knee
[2021-03-06] MEDS ORDERED: POTASSIUM CHLORIDE CRTAB 20 MEQ TABCR PO STA (13:12)
[2021-03-06] MEDS ORDERED: DOCUSATE SODIUM/SENNA 50/8.6MG TAB PO PRN (13:39)
[2021-03-06] MEDS ORDERED: DOCUSATE SODIUM 100 MG CAP PO PRN (13:39)
[2021-03-06] MEDS ORDERED: LOPERAMIDE HCL 2 MG CAP PO PRN (13:43)
[2021-03-06] MEDS ORDERED: POTASSIUM CHLORIDE 10 MEQ in LACTATED RINGER'S 1,000 ML IV SCH (14:00)
--- NOTE | 2021-03-06 18:05 | Nephrology Progress Note ---
Date of Service March 06, 2021 Assessment & Plan (1) Acute on chronic renal failure: Stage 1 nonoliguric CIRA; baseline creatinine 1.3-1.4 and no albuminuria. he was admitted 02/11 w/ MSSA bacteremia and septic R knee. >> ischemic ATN from vasoconstriction by nsaids, lasix then ARB added to mix plus from infections and abtx used to treat them. at least slightly dehydrated and will give some IVF; chemistries ok for now; no indication for dialysis. UA inflamed but no infection -agree w/ holding nsaids, ARB, lasix, vanco -cautious trial of IV fluids to stop this evening -cont low dose CCB; prn hydralazine > BP acceptable for now -f/u pending cxs -daily bmp (2) Septic arthritis: antibiotics per inf dzs/ primary service s/p I & D 03/03 > fluid studies still w/ marked inflammation; cx pending; fluid crystals not c/w gout and not pseudogout (3) Bacteremia due to methicillin susceptible Staphylococcus aureus (MSSA): with 6 wks IV abtx after first negative cx planned in setting of bioprosthetic valve; on nafcillin currently after issues w/ cephalosporin, dapto, vanco Admission and Anticipated Discharge Date Admission Date: February 11, 2021 Subjective pt seen on rounds at 1020 approx; no interval clinical events; up in chair; marked R eugenio bose continues. c/o diarrhea he states from abtx but hospitalist saw he was on standing bowel regimen and adjusted this Review of Systems Review of Systems: All systems reviewed & are unremarkable except as noted in Subjective Physical Exam Constitutional: well developed, well nourished, + obese and cooperative; no acute distress Eyes: EOM intact bilaterally ENMT: Ears: no external ear abnormality Nose: no external nose abnormality Mouth: + dry oral mucous membranes and + edentulous Neck: no nuchal rigidity Respiratory: normal respiratory effort and able to speak in complete sentences Auscultation: lungs clear to auscultation bilaterally and + diminished lung sounds Cardiovascular: RRR, no murmur, no edema Gastrointestinal (Abdomen): Inspection/Auscultation: normal bowel sounds; abdomen not distended Percussion/Palpation: abdomen soft; abdomen nontender and no guarding Musculoskeletal: Extremities: strength 5/5 throughout Skin: no rashes, warm and dry + wound (surgical R knee) Neurologic: rider, fluent speech Psychiatric: Orientation: alert and oriented x 3 Results & Data ([facility]) Vital Signs (Past 12 Hours) Vital Signs Temp Pulse Resp BP Pulse Ox Pulse Ox 03/06/21 17:00 96 03/06/21 15:57 37.3 C 76 16 165/86 H 91 03/06/21 11:35 36.8 C 74 16 112/74 95 03/06/21 08:13 37.0 C 85 16 172/80 H 99 03/06/21 08:00 18 95 Laboratory Results 03/05/21 05:24 03/06/21 05:37 (1) Acute on chronic renal failure Acute renal failure type: unspecified Chronic kidney disease stage: stage 3 (moderate) Chronic kidney disease stage 3 subtype: stage 3a (GFR 45-59) Qualified Code(s): N17.9 - Acute kidney failure, unspecified; N18.31 - Chronic kidney disease, stage 3a (2) Septic arthritis Septic arthritis location: knee Septic arthritis organism: staphylococcal Laterality: right Qualified Code(s): M00.061 - Staphylococcal arthritis, right knee
[2021-03-06] MEDS: ATORVASTATIN 40 MG TAB PO SCH (20:22)
[2021-03-06] MEDS: MICONAZOLE NITRATE POWDER 43 GM EXT SCH (20:25)
[2021-03-07] MEDS: NAFCILLIN SODIUM 2,000 MG in DEXTROSE 5% 100 ML IV SCH ×6 (00:18→21:31)
[2021-03-07] MEDS: ACETAMINOPHEN 500 MG TAB PO SCH ×3 (05:53→21:32)
[2021-03-07] MEDS: HEPARIN SOD 5,000 UNIT/0.5 ML VIAL SQ SCH ×3 (05:55→21:34)
[2021-03-07 06:02] LABS: Calcium 9.2 mg/dl (8.5-10.1); Creatinine Clr Calc Pharmacy 52.9 ml/min; Est GFR (African American) 48.9 ml/min; Est GFR (Non-African American) 42.2 ml/min; Potassium 2.7 mmol/L (3.5-5.1)
[2021-03-07] MEDS: AMIODARONE 200 MG TAB PO SCH (08:28)
[2021-03-07] MEDS: ASPIRIN 81 MG ECTAB PO SCH (08:28)
[2021-03-07] MEDS: TAMSULOSIN HCL 0.4 MG CAP PO SCH (08:28)
[2021-03-07] MEDS: ADVANCED PROBIOTIC 1250 MG CAPSULE PO SCH (08:28)
[2021-03-07] MEDS: MULTIVITAMIN TAB PO SCH (08:29)
[2021-03-07] MEDS: amLODIPine BESYLATE 5 MG TAB PO SCH (08:29)
[2021-03-07] MEDS: LIDOCAINE 5% 1 PATCH TD SCH (08:31)
[2021-03-07] MEDS: MICONAZOLE NITRATE POWDER 43 GM EXT SCH ×2 (08:31→21:33)
--- NOTE | 2021-03-07 09:09 | Orthopedic Progress Note ---
Date of Service March 07, 2021 Assessment & Plan (1) Bacteremia due to methicillin susceptible Staphylococcus aureus (MSSA): Admission and Anticipated Discharge Date Admission Date: February 11, 2021 75 yo male stable POD #4 s/p 2nd I&D right knee, MSSA bacteremia 1. Med management 2. DVT prophylaxis- Heparin, SCDs 3. PT/OT 4. D/C planning- pt to require extended IV abx, SNF. Ortho to sign off at this time Call if question/concerns Subjective Pt resting in bed, denies complaints, states knee pain controlled at rest but significant with movement, weightbearing Physical Exam Physical Exam: right knee with anterior abrasion, minimal effusion, no erythema, lidocaine patches in place, toes mobile, NVI, calf soft, NT Results & Data ([facility]) Vital Signs (Past 12 Hours) Vital Signs Temp Pulse Pulse Resp BP Pulse Ox 03/07/21 08:14 36.9 C 101 H 16 159/80 H 95 03/06/21 22:19 37.0 C 71 18 149/82 H 93 Laboratory Results 03/07/21 03/06/21 03/06/21 Range/Units 05:13 08:50 07:49 Sodium 138 (136-145) mmol/L Potassium 2.7 L (3.5-5.1) mmol/L Chloride 105 (98-107) mmol/L Carbon Dioxide 30 (21-32) mmol/L Anion Gap 3.0 (3-11) BUN 22 H (7-18) mg/dl Creatinine 1.57 H (0.6-1.4) mg/dl Est Cr Clr Drug Dosing 52.9 ml/min Est GFR ( Amer) 48.9 ml/min Est GFR (Non-Af Amer) 42.2 ml/min BUN/Creatinine Ratio 14.0 (10-20) Glucose 100 H (70-99) mg/dl Calcium 9.2 (8.5-10.1) mg/dl Total Creatine Kinase 56 (39-308) U/L Stl C. diff Tox B Gene Negative Cdiff Gene (Neg) Microbiology 03/02/21 18:17 Gram Stain - Final Knee,Right Aerobic and Anaerobic Culture - Preliminary No growth to date.
--- NOTE | 2021-03-07 10:10 | Nephrology Progress Note ---
Date of Service March 07, 2021 Assessment & Plan (1) Acute on chronic renal failure: Stage 1 nonoliguric CIRA; baseline creatinine 1.3-1.4 and no albuminuria. he was admitted 02/11 w/ MSSA bacteremia and septic R knee. >> ischemic ATN from vasoconstriction by nsaids, lasix then ARB added to mix plus from infections and abtx used to treat them. at Was dehydrated and was given some IVF; chemistries ok, no indication for dialysis. UA inflamed but no infection. - Scr has improved from 1.72--> 1.57. - Continue to hold nsaids, ARB, lasix, vanco - no fluids today, encourage oral intake -cont low dose CCB; prn hydraLazine -daily bmp (2) Septic arthritis: antibiotics per inf dzs/ primary service s/p I & D 03/03 > fluid studies still w/ marked inflammation; cx pending; fluid crystals not c/w gout and not pseudogout (3) Bacteremia due to methicillin susceptible Staphylococcus aureus (MSSA): with 6 wks IV abtx after first negative cx planned in setting of bioprosthetic valve; on nafcillin currently after issues w/ cephalosporin, dapto, vanco Admission and Anticipated Discharge Date Admission Date: February 11, 2021 Subjective Comfortable, denies complaints, states knee pain controlled at rest. Review of Systems Musculoskeletal: + joint pain (R knee w/ position changes) Physical Exam Physical Exam: Alert , oriented, Right knee with anterior abrasion,no erythema,No Eedema Results & Data ([facility]) Vital Signs (Past 12 Hours) Vital Signs Temp Pulse Pulse Resp BP Pulse Ox 03/07/21 08:14 36.9 C 101 H 16 159/80 H 95 03/06/21 22:19 37.0 C 71 18 149/82 H 93 Laboratory Results 03/05/21 05:24 03/07/21 05:13 (1) Septic arthritis Laterality: right Septic arthritis location: knee Septic arthritis organism: staphylococcal Qualified Code(s): M00.061 - Staphylococcal arthritis, right knee (2) Acute on chronic renal failure Acute renal failure type: unspecified Chronic kidney disease stage: stage 3 (moderate) Chronic kidney disease stage 3 subtype: stage 3a (GFR 45-59) Qualified Code(s): N17.9 - Acute kidney failure, unspecified; N18.31 - Chronic kidney disease, stage 3a
[2021-03-07] MEDS ORDERED: POTASSIUM CHLORIDE CRTAB 20 MEQ TABCR PO STA (11:21)
--- NOTE | 2021-03-07 15:09 | Hospitalist Progress Note ---
Date of Service March 07, 2021 Assessment & Plan (1) Acute knee pain: (2) Effusion of knee: Sepsis due to Right knee septic arthritis Acute gout --S/P right knee irrigation and debridement of septic arthritis, chondroplasty of medial femoral condyle, debridement of anterior cruciate ligament tear, partial medial meniscectomy, partial lateral meniscectomy, major synovectomy., Removal of loose bodies. by on 02/14/21 -Appreciate Orthopedics,PT/OT: Right partial-WBAT gram positive Bacteremia, Presumed endocarditis-will need [facility] IV abx H/O bioprosthetic valve -Transesophageal ECHO: No evidence of mass or vegetation. -Blood Cx Growing: MSSA -Repeat Blood Cx: 02/17/21: Negative to date - appreciate ID Input -on IV Nafcillin Needs 6 weeks of IV antibiotics from Negative culture PICC line Placed patient will need to be discharged to acute rehab Acute kidney failure Baseline Cr 1.2 -1.3 multifactorial: received indomethacin for acute gout , IV vancomycin , was on ARB appreciate input from Nephrology ordered IV fluid cr - improved from 1.72--> 1.57. - Continue to hold losartan, avoid diuretics, avoid NSAIDs Monitor renal function Avoid Nephrotoxic agents as able Gout arthritis ESR CRP elevated S/P Aspiration Could not give colchicine secondary to interaction with Amiodarone Completed Indomethacin course -possibly contributed to acute renal failure Allopurinol will be ordered as renal function has improved Acute respiratory distress resolved Possible related to Acute diastolic heart failure CTA chest showed no evidence of central pulmonary embolus in the main, lobar, or proximal segmental pulmonary arteries. CXR showed cardiomegaly with evidence of congestive failure. Received Lasix 40mg IV hold diuretics due to acute renal failure no complain of sob or orthopena stable volume status Ambulatory dysfunction Secondary to above Continue PT OT Fall precautions will need rehab Hyperkalemia Resolved Monitor B/L shoulder pain Xray L shoulder showed moderate to severe osteoarthritis of the left acromioclavicular joint. Xray R shoulder showed Severe osteoarthritis of the right acromioclavicular join Continue pain control Continue lidocaine patch Lung nodule CTA chest showed 5 mm left upper lobe pulmonary nodule is pathologically indeterminant Follow-up is recommended as per the Fleischner criteria. Afib Rate controlled Continue amiodarone Also on aspirin stable HTN Losartan held due to CIRA Continue Amlodipine Monitor BP BPH On Flomax Dyslipidemia on statin S/P AVR (Aortic Valve replacement) Stable DVT Px Heparin SQ CODE status Full code Disposition : will need rehab, possible discharge to rehab early next week on IV nafcillin. Admission and Anticipated Discharge Date Admission Date: February 11, 2021 Physical Exam Constitutional: well developed, well nourished, + obese and cooperative Eyes: EOM intact bilaterally ENMT: Ears: no external ear abnormality Nose: no external nose abnormality Mouth: + dry oral mucous membranes Neck: no nuchal rigidity Respiratory: normal respiratory effort and able to speak in complete sentences Auscultation: + diminished lung sounds Cardiovascular: RRR, no murmur, no edema Gastrointestinal (Abdomen): Inspection/Auscultation: normal bowel sounds; abdomen not distended Percussion/Palpation: abdomen soft; abdomen nontender and no guarding Musculoskeletal: Extremities: strength 5/5 throughout Skin: no rashes, warm and dry + wound (surgical R knee) Psychiatric: Orientation: alert and oriented x 3 Results & Data Results & Data ([facility]) Vital Signs (Past 12 Hours) Vital Signs Temp Pulse Resp BP Pulse Ox 03/07/21 08:14 36.9 C 101 H 16 159/80 H 95 (1) Effusion of knee Laterality: right Qualified Code(s): M25.461 - Effusion, right knee (2) Acute knee pain Laterality: right Qualified Code(s): M25.561 - Pain in right knee
[2021-03-07] MEDS: DICLOFENAC SOD 1% GEL 100 GM TUBE EXT PRN (21:30)
[2021-03-07] MEDS: ATORVASTATIN 40 MG TAB PO SCH (21:32)
[2021-03-08] MEDS: NAFCILLIN SODIUM 2,000 MG in DEXTROSE 5% 100 ML IV SCH ×6 (00:18→20:26)
[2021-03-08] MEDS: ACETAMINOPHEN 500 MG TAB PO SCH ×3 (05:42→21:13)
[2021-03-08] MEDS: HEPARIN SOD 5,000 UNIT/0.5 ML VIAL SQ SCH ×3 (05:44→21:13)
[2021-03-08 06:39] LABS: BUN Creatinine Ratio 13.1 (10-20); Calcium 9.4 mg/dl (8.5-10.1); Creatinine Clr Calc Pharmacy 54.6 ml/min; Est GFR (African American) 50.9 ml/min; Est GFR (Non-African American) 43.9 ml/min; Potassium 2.9 mmol/L (3.5-5.1)
[2021-03-08] MEDS: AMIODARONE 200 MG TAB PO SCH (08:13)
[2021-03-08] MEDS: amLODIPine BESYLATE 5 MG TAB PO SCH (08:14)
[2021-03-08] MEDS: ASPIRIN 81 MG ECTAB PO SCH (08:15)
[2021-03-08] MEDS: MULTIVITAMIN TAB PO SCH (08:16)
[2021-03-08] MEDS: TAMSULOSIN HCL 0.4 MG CAP PO SCH (08:16)
[2021-03-08] MEDS: MICONAZOLE NITRATE POWDER 43 GM EXT SCH ×2 (08:16→21:13)
[2021-03-08] MEDS: ADVANCED PROBIOTIC 1250 MG CAPSULE PO SCH (08:16)
[2021-03-08] MEDS: LIDOCAINE 5% 1 PATCH TD SCH (08:17)
[2021-03-08] MEDS ORDERED: SODIUM CHLORIDE 0.9% 1000ML 1,000 ML IV SCH (11:45)
--- NOTE | 2021-03-08 11:51 | Nephrology Progress Note ---
Date of Service March 08, 2021 Assessment & Plan (1) Acute on chronic renal failure: Stage 1 nonoliguric CIRA; baseline creatinine 1.3-1.4 and no albuminuria. he was admitted 02/11 w/ MSSA bacteremia and septic R knee. >> ischemic ATN from vasoconstriction by nsaids, lasix then ARB added to mix plus from infections and abtx used to treat them. at Was dehydrated and was given some IVF; chemistries ok, no indication for dialysis. UA inflamed but no infection. - Scr has improved from 1.72--> 1.57--1.52 - Continue to hold nsaids, ARB, lasix, vanco - oRAL intake still poor , restart on isolyte 75 mls/hr -cont low dose CCB; prn hydraLazine -daily bmp (2) Septic arthritis: antibiotics per inf dzs/ primary service s/p I & D 03/03 > fluid studies still w/ marked inflammation; cx pending; fluid crystals not c/w gout and not pseudogout (3) Bacteremia due to methicillin susceptible Staphylococcus aureus (MSSA): with 6 wks IV abtx after first negative cx planned in setting of bioprosthetic valve; on nafcillin currently after issues w/ cephalosporin, dapto, vanco Admission and Anticipated Discharge Date Admission Date: February 11, 2021 Subjective Comfortable, states knee pain controlled at rest. Review of Systems Musculoskeletal: + joint pain (R knee w/ position changes) Physical Exam Physical Exam: Alert , oriented, Right knee with anterior abrasion,no erythema,No Eedema Results & Data ([facility]) Vital Signs (Past 12 Hours) Vital Signs Temp Pulse Resp BP BP Pulse Ox 03/08/21 08:01 36.8 C 71 16 157/88 H 174/94 H 95 Laboratory Results 03/05/21 05:24 03/08/21 05:38 (1) Acute on chronic renal failure Acute renal failure type: unspecified Chronic kidney disease stage: stage 3 (moderate) Chronic kidney disease stage 3 subtype: stage 3a (GFR 45-59) Qualified Code(s): N17.9 - Acute kidney failure, unspecified; N18.31 - Chronic kidney disease, stage 3a (2) Septic arthritis Septic arthritis location: knee Septic arthritis organism: staphylococcal Laterality: right Qualified Code(s): M00.061 - Staphylococcal arthritis, right knee
[2021-03-08] MEDS ORDERED: POTASSIUM CHLORIDE CRTAB 20 MEQ TABCR PO SCH (13:00)
[2021-03-08] MEDS: NSS + 20MEQ KCL 20 MEQ/1,000 ML BAG IV SCH (13:32)
[2021-03-08] MEDS: traMADol HCL 50 MG TABLET PO PRN (13:42)
[2021-03-08] MEDS ORDERED: amLODIPine BESYLATE 5 MG TAB PO ONE (14:00)
--- NOTE | 2021-03-08 16:41 | Hospitalist Progress Note ---
Date of Service March 08, 2021 Assessment & Plan (1) Acute knee pain: (2) Effusion of knee: Sepsis due to Right knee septic arthritis Acute gout --S/P right knee irrigation and debridement of septic arthritis, chondroplasty of medial femoral condyle, debridement of anterior cruciate ligament tear, partial medial meniscectomy, partial lateral meniscectomy, major synovectomy., Removal of loose bodies. by on 02/14/21 -Appreciate Orthopedics,PT/OT: Right partial-WBAT gram positive Bacteremia, Presumed endocarditis-will need residential IV abx H/O bioprosthetic valve -Transesophageal ECHO: No evidence of mass or vegetation. -Blood Cx Growing: MSSA -Repeat Blood Cx: 02/17/21: Negative to date - appreciate ID Input -on IV Nafcillin Needs 6 weeks of IV antibiotics from Negative culture PICC line Placed patient will need to be discharged to acute rehab Acute kidney failure Baseline Cr 1.2 -1.3 multifactorial: received indomethacin for acute gout , IV vancomycin , was on ARB appreciate input from Nephrology ordered IV fluid cr -continues to improve from 1.72--> 1.57. - Continue to hold losartan, avoid diuretics, avoid NSAIDs Monitor renal function Avoid Nephrotoxic agents as able Hypokalemia: Due to ongoing diarrhea, stool C. difficile negative Stool softeners discontinued Ordered for p.o. potassium supplement As needed Imodium for diarrhea Gout arthritis ESR CRP elevated S/P Aspiration Could not give colchicine secondary to interaction with Amiodarone Completed Indomethacin course -possibly contributed to acute renal failure Allopurinol will be ordered as renal function has improved Acute respiratory distress resolved Possible related to Acute diastolic heart failure CTA chest showed no evidence of central pulmonary embolus in the main, lobar, or proximal segmental pulmonary arteries. CXR showed cardiomegaly with evidence of congestive failure. Received Lasix 40mg IV hold diuretics due to acute renal failure no complain of sob or orthopena stable volume status Ambulatory dysfunction Secondary to above Continue PT OT Fall precautions will need rehab Hyperkalemia Resolved Monitor B/L shoulder pain Xray L shoulder showed moderate to severe osteoarthritis of the left acromioclavicular joint. Xray R shoulder showed Severe osteoarthritis of the right acromioclavicular join Continue pain control Continue lidocaine patch Lung nodule CTA chest showed 5 mm left upper lobe pulmonary nodule is pathologically indeterminant Follow-up is recommended as per the Fleischner criteria. Afib Rate controlled Continue amiodarone Also on aspirin stable HTN Losartan held due to CIRA Continue Amlodipine Monitor BP BPH On Flomax Dyslipidemia on statin S/P AVR (Aortic Valve replacement) Stable DVT Px Heparin SQ CODE status Full code Disposition : will need rehab, possible discharge to rehab early next week on IV nafcillin. Admission and Anticipated Discharge Date Admission Date: February 11, 2021 Subjective Patient offers no new complaint, no cough no shortness of breath, Right knee pain continues to improve, Participated in PT No fever or chills or discomfort Review of Systems Review of Systems: All systems reviewed & are unremarkable except as noted in Subjective Physical Exam Constitutional: well developed, well nourished, + obese and cooperative Eyes: EOM intact bilaterally ENMT: Ears: no external ear abnormality Nose: no external nose abnormality Mouth: + dry oral mucous membranes Neck: no nuchal rigidity Respiratory: normal respiratory effort and able to speak in complete sentences Auscultation: + diminished lung sounds Cardiovascular: RRR, no murmur, no edema Gastrointestinal (Abdomen): Inspection/Auscultation: normal bowel sounds; abdomen not distended Percussion/Palpation: abdomen soft; abdomen nontender and no guarding Musculoskeletal: Extremities: strength 5/5 throughout Skin: no rashes, warm and dry + wound (surgical R knee) Psychiatric: Orientation: alert and oriented x 3 Results & Data Results & Data ([facility]) Vital Signs (Past 12 Hours) Vital Signs Temp Pulse Resp BP BP Pulse Ox 03/08/21 15:09 36.7 C 75 16 111/71 90 03/08/21 08:01 36.8 C 71 16 157/88 H 174/94 H 95 (1) Acute knee pain Laterality: right Qualified Code(s): M25.561 - Pain in right knee (2) Effusion of knee Laterality: right Qualified Code(s): M25.461 - Effusion, right knee
[2021-03-08] MEDS: ATORVASTATIN 40 MG TAB PO SCH (21:13)
[2021-03-09] MEDS: NAFCILLIN SODIUM 2,000 MG in DEXTROSE 5% 100 ML IV SCH ×6 (00:49→21:00)
[2021-03-09] MEDS: NSS + 20MEQ KCL 20 MEQ/1,000 ML BAG IV SCH ×2 (03:54→18:31)
[2021-03-09] MEDS: HEPARIN SOD 5,000 UNIT/0.5 ML VIAL SQ SCH ×3 (06:13→20:57)
[2021-03-09] MEDS: ACETAMINOPHEN 500 MG TAB PO SCH ×3 (06:15→21:00)
[2021-03-09] MEDS: traMADol HCL 50 MG TABLET PO PRN (06:19)
[2021-03-09 06:33] LABS: BUN Creatinine Ratio 14.1 (10-20); Calcium 9.1 mg/dl (8.5-10.1); Creatinine Clr Calc Pharmacy 58.1 ml/min; Est GFR (African American) 54.7 ml/min; Est GFR (Non-African American) 47.2 ml/min; Magnesium 1.9 mg/dl (1.8-2.4); Potassium 3.1 mmol/L (3.5-5.1)
[2021-03-09] MEDS: MULTIVITAMIN TAB PO SCH (08:27)
[2021-03-09] MEDS: AMIODARONE 200 MG TAB PO SCH (08:27)
[2021-03-09] MEDS: MICONAZOLE NITRATE POWDER 43 GM EXT SCH ×2 (08:28→20:53)
[2021-03-09] MEDS: LIDOCAINE 5% 1 PATCH TD SCH (08:29)
[2021-03-09] MEDS: ASPIRIN 81 MG ECTAB PO SCH (08:30)
[2021-03-09] MEDS: ADVANCED PROBIOTIC 1250 MG CAPSULE PO SCH (08:30)
[2021-03-09] MEDS: POTASSIUM CHLORIDE CRTAB 20 MEQ TABCR PO SCH (08:30)
[2021-03-09] MEDS: amLODIPine BESYLATE 5 MG TAB PO SCH (08:30)
[2021-03-09] MEDS: TAMSULOSIN HCL 0.4 MG CAP PO SCH (08:31)
[2021-03-09] MEDS ORDERED: amLODIPine BESYLATE 5 MG TAB PO SCH (09:00)
[2021-03-09] MEDS: HYDROmorphone INJ 0.5 MG/0.5 ML SYR IV PRN (10:40)
--- NOTE | 2021-03-09 16:41 | Hospitalist Progress Note ---
Date of Service March 09, 2021 Assessment & Plan (1) Acute knee pain: (2) Effusion of knee: Sepsis due to Right knee septic arthritis Acute gout --S/P right knee irrigation and debridement of septic arthritis, chondroplasty of medial femoral condyle, debridement of anterior cruciate ligament tear, partial medial meniscectomy, partial lateral meniscectomy, major synovectomy., Removal of loose bodies. by on 02/14/21 -Appreciate Orthopedics,PT/OT: Right partial-WBAT gram positive Bacteremia, Presumed endocarditis-will need usp IV abx H/O bioprosthetic valve -Transesophageal ECHO: No evidence of mass or vegetation. -Blood Cx Growing: MSSA -Repeat Blood Cx: 02/17/21: Negative to date - appreciate ID Input -on IV Nafcillin Needs 6 weeks of IV antibiotics from Negative culture PICC line Placed patient will need to be discharged to acute rehab Acute kidney failure Baseline Cr 1.2 -1.3 multifactorial: received indomethacin for acute gout , IV vancomycin , was on ARB appreciate input from Nephrology ordered IV fluid cr -continues to improve from 1.72--> 1.57-> 1.4 - Continue to hold losartan, avoid diuretics, avoid NSAIDs Monitor renal function Avoid Nephrotoxic agents as able Hypokalemia: corrected DIARRHEA : symptom has improved Due to ongoing diarrhea, stool C. difficile negative Stool softeners discontinued Ordered for p.o. potassium supplement As needed Imodium for diarrhea Gout arthritis ESR CRP elevated S/P Aspiration Could not give colchicine secondary to interaction with Amiodarone Completed Indomethacin course -possibly contributed to acute renal failure Allopurinol will be ordered as renal function has improved Acute respiratory distress resolved Possible related to Acute diastolic heart failure CTA chest showed no evidence of central pulmonary embolus in the main, lobar, or proximal segmental pulmonary arteries. CXR showed cardiomegaly with evidence of congestive failure. Received Lasix 40mg IV hold diuretics due to acute renal failure no complain of sob or orthopnea stable volume status Ambulatory dysfunction Secondary to above Continue PT OT Fall precautions will need rehab Hyperkalemia Resolved Monitor B/L shoulder pain Xray L shoulder showed moderate to severe osteoarthritis of the left acromioclavicular joint. Xray R shoulder showed Severe osteoarthritis of the right acromioclavicular join Continue pain control Continue lidocaine patch Lung nodule CTA chest showed 5 mm left upper lobe pulmonary nodule is pathologically indeterminant Follow-up is recommended as per the Fleischner criteria. Afib Rate controlled Continue amiodarone Also on aspirin stable HTN Losartan held due to CIRA Continue Amlodipine Monitor BP BPH On Flomax Dyslipidemia on statin S/P AVR (Aortic Valve replacement) Stable DVT Px Heparin SQ CODE status Full code Disposition : will need rehab, waiting for placement Admission and Anticipated Discharge Date Admission Date: February 11, 2021 Subjective continues to do well offers no new complain , doing well with PT/OT diarrhea has improved only one episode of loose bowel movement today no fever or chills , no SOB Review of Systems Review of Systems: All systems reviewed & are unremarkable except as noted in Subjective Physical Exam Constitutional: well developed, well nourished, + obese and cooperative Eyes: EOM intact bilaterally ENMT: Ears: no external ear abnormality Nose: no external nose abnormality Mouth: + dry oral mucous membranes Neck: no nuchal rigidity Respiratory: normal respiratory effort and able to speak in complete sentences Auscultation: + diminished lung sounds Cardiovascular: RRR, no murmur, no edema Gastrointestinal (Abdomen): Inspection/Auscultation: normal bowel sounds; abdomen not distended Percussion/Palpation: abdomen soft; abdomen nontender and no guarding Musculoskeletal: Extremities: strength 5/5 throughout Skin: no rashes, warm and dry + wound (surgical R knee) Psychiatric: Orientation: alert and oriented x 3 Results & Data Results & Data ([facility]) Vital Signs (Past 12 Hours) Vital Signs Temp Pulse Resp BP Pulse Ox 03/09/21 15:35 36.7 C 67 16 135/75 90 03/09/21 07:27 37 C 68 16 131/72 92 (1) Acute knee pain Laterality: right Qualified Code(s): M25.561 - Pain in right knee (2) Effusion of knee Laterality: right Qualified Code(s): M25.461 - Effusion, right knee
[2021-03-09] MEDS: ATORVASTATIN 40 MG TAB PO SCH (20:56)
[2021-03-10] MEDS: NAFCILLIN SODIUM 2,000 MG in DEXTROSE 5% 100 ML IV SCH ×6 (00:24→20:40)
[2021-03-10] MEDS: HEPARIN SOD 5,000 UNIT/0.5 ML VIAL SQ SCH ×3 (05:40→20:41)
[2021-03-10] MEDS: ACETAMINOPHEN 500 MG TAB PO SCH ×3 (05:40→20:40)
[2021-03-10 06:31] LABS: BUN Creatinine Ratio 12.7 (10-20); Calcium 8.9 mg/dl (8.5-10.1); Creatinine Clr Calc Pharmacy 60.6 ml/min; Est GFR (African American) 57.7 ml/min; Est GFR (Non-African American) 49.7 ml/min; Magnesium 1.8 mg/dl (1.8-2.4); Potassium 2.9 mmol/L (3.5-5.1)
[2021-03-10] MEDS: NSS + 20MEQ KCL 20 MEQ/1,000 ML BAG IV SCH (08:34)
[2021-03-10] MEDS: POTASSIUM CHLORIDE CRTAB 20 MEQ TABCR PO SCH ×3 (08:38→09:50)
[2021-03-10] MEDS: MICONAZOLE NITRATE POWDER 43 GM EXT SCH ×2 (08:39→20:40)
[2021-03-10] MEDS: LIDOCAINE 5% 1 PATCH TD SCH (08:39)
[2021-03-10] MEDS: ASPIRIN 81 MG ECTAB PO SCH (08:40)
[2021-03-10] MEDS: ADVANCED PROBIOTIC 1250 MG CAPSULE PO SCH (08:40)
[2021-03-10] MEDS: TAMSULOSIN HCL 0.4 MG CAP PO SCH (08:40)
[2021-03-10] MEDS: amLODIPine BESYLATE 5 MG TAB PO SCH (08:41)
[2021-03-10] MEDS: AMIODARONE 200 MG TAB PO SCH (08:41)
[2021-03-10] MEDS: MULTIVITAMIN TAB PO SCH (08:41)
[2021-03-10] MEDS: traMADol HCL 50 MG TABLET PO PRN (09:49)
--- NOTE | 2021-03-10 12:45 | Nephrology Progress Note ---
Date of Service March 10, 2021 Assessment & Plan (1) Acute on chronic renal failure: Stage 1 nonoliguric CIRA now resolved w/ baseline creatinine 1.3-1.4 and no albuminuria. he was admitted 02/11 w/ MSSA bacteremia and septic R knee. >> ischemic ATN from vasoconstriction by nsaids, lasix then ARB added to mix plus from infections and abtx used to treat them. chemistries ok, no indication for dialysis. UA inflamed but no infection. >>stopped IV fluids given dypsnea/ exam -daily bmp - Continue to hold nsaids, ARB, lasix, vanco -cont low dose CCB; prn hydraLazine >>>for hypokalemia, gave 40 mEq po K x 2 doses today in AM (2) Septic arthritis: antibiotics per inf dzs/ primary service s/p I & D 03/03 > fluid studies still w/ marked inflammation; cx pending; fluid crystals not c/w gout and not pseudogout (3) Bacteremia due to methicillin susceptible Staphylococcus aureus (MSSA): with 6 wks IV abtx after first negative cx planned in setting of bioprosthetic valve; on nafcillin currently after issues w/ cephalosporin, dapto, vanco Admission and Anticipated Discharge Date Admission Date: February 11, 2021 Subjective no interval events except felt dypsneic overnight, ok now; no cough; no edema; ongoing poor appetite but no n/v. Review of Systems Review of Systems: All systems reviewed & are unremarkable except as noted in Subjective Physical Exam Constitutional: well developed, well nourished, + obese and cooperative; no acute distress Eyes: EOM intact bilaterally ENMT: Ears: no external ear abnormality Nose: no external nose abnormality Mouth: + dry oral mucous membranes and + edentulous Neck: no nuchal rigidity Respiratory: normal respiratory effort and able to speak in complete sentences Auscultation: + diminished lung sounds and + crackles (posterior BL at least 1/[address] up) Cardiovascular: RRR, no murmur, no edema Gastrointestinal (Abdomen): Inspection/Auscultation: normal bowel sounds; abdomen not distended Percussion/Palpation: abdomen soft; abdomen nontender and no guarding Musculoskeletal: Extremities: strength 5/5 throughout Skin: no rashes, warm and dry + wound (surgical R knee) Neurologic: rider, fluent speech, no tremor Psychiatric: Orientation: alert and oriented x 3 Results & Data ([facility]) Vital Signs (Past 12 Hours) Vital Signs Temp Pulse Resp BP Pulse Ox 03/10/21 07:15 37.2 C 61 20 131/76 92 Laboratory Results 03/05/21 05:24 03/10/21 05:34 (1) Acute on chronic renal failure Acute renal failure type: unspecified Chronic kidney disease stage: stage 3 (moderate) Chronic kidney disease stage 3 subtype: stage 3a (GFR 45-59) Q ualified Code(s): N17.9 - Acute kidney failure, unspecified; N18.31 - Chronic kidney disease, stage 3a (2) Septic arthritis Septic arthritis location: knee Septic arthritis organism: staphylococcal Laterality: right Qualified Code(s): M00.061 - Staphylococcal arthritis, right knee
--- NOTE | 2021-03-10 13:51 | XRay Report ---
XR chest 1V portable HISTORY: shortness of breath COMPARISON: Chest 03/01/2021. FINDINGS: A right PICC terminates in the expected location of the proximal SVC. No pneumothorax. No p leural effusions. The heart remains mildly enlarged. There are poststernotomy changes. Chronic inters titial thickening persists. No new focal lung consolidations identified. No evidence for pulmonary ed louis. IMPRESSION: No change in the cardiomegaly and chronic interstitial thickening. No new focal lung consolidations t o suggest pneumonia. ACT 112: Negative or not required by law. Electronically signed by: Shaan Granados M.D. 03/10/2021 1:50 PM
--- NOTE | 2021-03-10 17:06 | Hospitalist Progress Note ---
Date of Service March 10, 2021 Assessment & Plan (1) Acute knee pain: (2) Effusion of knee: Sepsis due to Right knee septic arthritis Acute gout --S/P right knee irrigation and debridement of septic arthritis, chondroplasty of medial femoral condyle, debridement of anterior cruciate ligament tear, partial medial meniscectomy, partial lateral meniscectomy, major synovectomy., Removal of loose bodies. by on 02/14/21 -Appreciate Orthopedics,PT/OT: Right partial-WBAT gram positive Bacteremia, Presumed endocarditis-will need halfway IV abx H/O bioprosthetic valve -Transesophageal ECHO: No evidence of mass or vegetation. -Blood Cx Growing: MSSA -Repeat Blood Cx: 02/17/21: Negative to date - appreciate ID Input -on IV Nafcillin Needs 6 weeks of IV antibiotics from Negative culture PICC line Placed patient will need to be discharged to acute rehab Acute kidney failure Baseline Cr 1.2 -1.3 multifactorial: received indomethacin for acute gout , IV vancomycin , was on ARB appreciate input from Nephrology ordered IV fluid cr -continues to improve from 1.72--> 1.57-> 1.4 - Continue to hold losartan, avoid diuretics, avoid NSAIDs Monitor renal function Avoid Nephrotoxic agents as able Hypokalemia: corrected DIARRHEA : symptom has improved Due to ongoing diarrhea, stool C. difficile negative Stool softeners discontinued Ordered for p.o. potassium supplement As needed Imodium for diarrhea Gout arthritis ESR CRP elevated S/P Aspiration Could not give colchicine secondary to interaction with Amiodarone Completed Indomethacin course -possibly contributed to acute renal failure Allopurinol will be ordered as renal function has improved Acute respiratory distress resolved Possible related to Acute diastolic heart failure CTA chest showed no evidence of central pulmonary embolus in the main, lobar, or proximal segmental pulmonary arteries. CXR showed cardiomegaly with evidence of congestive failure. Received Lasix 40mg IV hold diuretics due to acute renal failure no complain of sob or orthopnea stable volume status Ambulatory dysfunction Secondary to above Continue PT OT Fall precautions will need rehab Hyperkalemia Resolved Monitor B/L shoulder pain Xray L shoulder showed moderate to severe osteoarthritis of the left acromioclavicular joint. Xray R shoulder showed Severe osteoarthritis of the right acromioclavicular join Continue pain control Continue lidocaine patch Lung nodule CTA chest showed 5 mm left upper lobe pulmonary nodule is pathologically indeterminant Follow-up is recommended as per the Fleischner criteria. Afib Rate controlled Continue amiodarone Also on aspirin stable HTN Losartan held due to CIRA Continue Amlodipine Monitor BP BPH On Flomax Dyslipidemia on statin S/P AVR (Aortic Valve replacement) Stable DVT Px Heparin SQ CODE status Full code Disposition : will need rehab, waiting for placement Admission and Anticipated Discharge Date Admission Date: February 11, 2021 Subjective continues to do well offers no new complain , doing well with PT/OT diarrhea has improved only one episode of loose bowel movement today no fever or chills , no SOB Physical Exam Constitutional: well developed, well nourished, + obese and cooperative Eyes: EOM intact bilaterally ENMT: Ears: no external ear abnormality Nose: no external nose abnormality Mouth: + dry oral mucous membranes Neck: no nuchal rigidity Respiratory: normal respiratory effort and able to speak in complete sentences Auscultation: + diminished lung sounds Cardiovascular: RRR, no murmur, no edema Gastrointestinal (Abdomen): Inspection/Auscultation: normal bowel sounds; abdomen not distended Percussion/Palpation: abdomen soft; abdomen nontender and no guarding Musculoskeletal: Extremities: strength 5/5 throughout Skin: no rashes, warm and dry + wound (surgical R knee) Psychiatric: Orientation: alert and oriented x 3 Results & Data Results & Data ([facility]) Vital Signs (Past 12 Hours) Vital Signs Temp Pulse Resp BP Pulse Ox 03/10/21 15:00 37.1 C 68 18 146/79 H 92 03/10/21 07:15 37.2 C 61 20 131/76 92 (1) Acute knee pain Laterality: right Qualified Code(s): M25.561 - Pain in right knee (2) Effusion of knee Laterality: right Qualified Code(s): M25.461 - Effusion, right knee
[2021-03-10] MEDS: ATORVASTATIN 40 MG TAB PO SCH (20:40)
[2021-03-11] MEDS: NAFCILLIN SODIUM 2,000 MG in DEXTROSE 5% 100 ML IV SCH ×4 (00:36→12:32)
[2021-03-11] MEDS: ACETAMINOPHEN 500 MG TAB PO SCH ×2 (05:39→13:32)
[2021-03-11] MEDS: HEPARIN SOD 5,000 UNIT/0.5 ML VIAL SQ SCH ×2 (05:39→13:30)
[2021-03-11 06:29] LABS: Hemoglobin 11.5 g/dL (14.0-18.0)
[2021-03-11] MEDS: LIDOCAINE 5% 1 PATCH TD SCH (08:50)
[2021-03-11] MEDS: ADVANCED PROBIOTIC 1250 MG CAPSULE PO SCH (08:51)
[2021-03-11] MEDS: ASPIRIN 81 MG ECTAB PO SCH (08:51)
[2021-03-11] MEDS: MULTIVITAMIN TAB PO SCH (08:51)
[2021-03-11] MEDS: TAMSULOSIN HCL 0.4 MG CAP PO SCH (08:51)
[2021-03-11] MEDS: AMIODARONE 200 MG TAB PO SCH (08:52)
[2021-03-11] MEDS: MICONAZOLE NITRATE POWDER 43 GM EXT SCH (08:52)
[2021-03-11] MEDS: amLODIPine BESYLATE 5 MG TAB PO SCH (08:52)
[2021-03-11] MEDS: POTASSIUM CHLORIDE CRTAB 20 MEQ TABCR PO SCH (08:52)
[2021-03-11] MEDS ORDERED: allopurinoL 100 MG TAB PO SCH (09:00)
[2021-03-11] MEDS: traMADol HCL 50 MG TABLET PO PRN (10:25)
[2021-03-11 11:12] LABS: BUN Creatinine Ratio 10.4 (10-20); Calcium 9.3 mg/dl (8.5-10.1); Creatinine Clr Calc Pharmacy 59.7 ml/min; Est GFR (African American) 56.7 ml/min; Est GFR (Non-African American) 48.9 ml/min; Potassium 3.3 mmol/L (3.5-5.1)
[2021-03-11] MEDS ORDERED: POTASSIUM CHLORIDE CRTAB 20 MEQ TABCR PO ONE (11:47)
--- NOTE | 2021-03-11 12:39 | Nephrology Progress Note ---
Date of Service March 11, 2021 Assessment & Plan (1) Acute on chronic renal failure: Stage 1 nonoliguric CIRA now resolved w/ baseline creatinine 1.3-1.4 and no albuminuria. he was admitted 02/11 w/ MSSA bacteremia and septic R knee, complicated/extended hospital course. >> ischemic ATN from vasoconstriction by nsaids, lasix then ARB added to mix plus from infections and abtx used to treat them. chemistries ok, no indication for dialysis. UA inflamed but no infection. some HTN which is high while awake -- ?pain or anxiety For d/c to rehab today: -resume losartan 25 mg daily starting tomorrow -increase potassium dose to 20 mEq TWICE daily -recheck bmp on 03/13; then weekly starting 03/17 x 4 wks >> to be followed by rehab and/or PCP and adjust potassium dose as needed -no NSAIDS apart from ASA 81 mg daily -could add hydralazine 25 mg tid starting early next week if persistently hyper tensive -no renal follow up needed unless worsening renal function (2) Septic arthritis: antibiotics per inf dzs/ primary service s/p I & D 03/02 > fluid studies still w/ marked inflammation; cx negative; fluid crystals not c/w gout and not pseudogout (3) Bacteremia due to methicillin susceptible Staphylococcus aureus (MSSA): with 6 wks IV abtx after first negative cx planned in setting of bioprosthetic valve; on nafcillin currently after issues w/ cephalosporin, dapto, vanco Admission and Anticipated Discharge Date Admission Date: February 11, 2021 Subjective having frequent bm; else some knee pain but overall feels better; for rehab d/c today Review of Systems Review of Systems: All systems reviewed & are unremarkable except as noted in Subjective Physical Exam Constitutional: well developed, well nourished, + obese and cooperative; no acute distress Eyes: EOM intact bilaterally ENMT: Ears: no external ear abnormality Nose: no external nose abnormality Mouth: + dry oral mucous membranes and + edentulous Neck: no nuchal rigidity Respiratory: normal respiratory effort and able to speak in complete sentences Auscultation: lungs clear to auscultation bilaterally (on RA) and + diminished lung sounds Cardiovascular: RRR, no murmur, no edema Gastrointestinal (Abdomen): Inspection/Auscultation: normal bowel sounds; abd omen not distended Percussion/Palpation: abdomen soft; abdomen nontender and no guarding Musculoskeletal: Extremities: strength 5/5 throughout Skin: no rashes, warm and dry + wound (surgical R knee) Psychiatric: Orientation: alert and oriented x 3 Speech: normal rate/rhythm/volume of speech Results & Data ([facility]) Vital Signs (Past 12 Hours) Vital Signs Temp Pulse Resp BP Pulse Ox 03/11/21 07:21 37 C 70 18 168/92 H 92 Laboratory Results 03/11/21 06:01 03/11/21 05:59 (1) Septic arthritis Laterality: right Septic arthritis location: knee Septic arthritis organism: staphylococcal Qualified Code(s): M00.061 - Staphylococcal arthritis, right knee (2) Acute on chronic renal failure Acute renal failure type: unspecified Chronic kidney disease stage: stage 3 (moderate) Chronic kidney disease stage 3 subtype: stage 3a (GFR 45-59) Qualified Code(s): N17.9 - Acute kidney failure, unspecified; N18.31 - Chronic kidney disease, stage 3a
--- NOTE | 2021-03-11 12:59 | Hospitalist Progress Note ---
Date of Service March 11, 2021 Assessment & Plan (1) Acute knee pain: (2) Effusion of knee: Right knee septic arthritis Acute gout Bacteremia, Presumed endocarditis Sepsis H/O bioprosthetic valve --S/P right knee irrigation and debridement of septic arthritis, chondroplasty of medial femoral condyle, debridement of anterior cruciate ligament tear, partial medial meniscectomy, partial lateral meniscectomy, major synovectomy., Removal of loose bodies. by on 02/14/21 -Transesophageal ECHO: No evidence of mass or vegetation. -Blood Cx Growing: MSSA -Repeat Blood Cx: 02/17/21: Negative to date -IV cefazolin transition to IV daptomycin given allergic reaction to Cefazolin ID, recommends Daptomycin 1000 mg IV daily (given endocarditis rec 8-10 mg /kg) -Appreciate Orthopedics, ID Input PT/OT: Right partial-WBAT Needs 6 weeks of IV antibiotics from Negative culture ---Till March 31 PICC line Placed Changed IV Daptomycin to IV vancomycin given elevation of CK levels Completed Indomethacin course Started on Allopurinol Vancomycin>>Changed to Nafcillin due to CIRA Appreciate Orthopedics Input Needs Rehab placement S/P right knee aspiration on 03/02/21--No growth on cultures Continue IV antibiotics to complete the course Need follow up with Orthopedics upon discharge Acute kidney failure Likely Ischemic ATN Baseline Cr 1.2 -1.3 Cr:1.3 Monitor renal function Received IV fluids Avoid Nephrotoxic agents as able Appreciate Nephrology Input Monitor Hypokalemia Replace as needed Diarrhea: Stool for C.Diff negative Stool softeners held Monitor Gout arthritis ESR CRP elevated S/P Aspiration Could not give colchicine secondary to interaction with Amiodarone Completed Indomethacin course Started on Allopurinol Acute respiratory distress Possible related to Acute diastolic heart failure CTA chest showed no evidence of central pulmonary embolus in the main, lobar, or proximal segmental pulmonary arteries. CXR showed cardiomegaly with evidence of congestive failure. Received Lasix 40mg IV Continue supplemental oxygen PRN Continue monitor I/O Continue Lasix PRN Monitor renal function Ambulatory dysfunction Secondary to above Continue PT OT Fall precautions Hyperkalemia Resolved Monitor B/L shoulder pain Xray L shoulder showed moderate to severe osteoarthritis of the left acromioclavicular joint. Xray R shoulder showed Severe osteoarthritis of the right acromioclavicular join Continue pain control Continue lidocaine patch Lung nodule CTA chest showed 5 mm left upper lobe pulmonary nodule is pathologically indeterminant Follow-up is recommended as per the Fleischner criteria. Afib Rate controlled Continue amiodarone Also on aspirin stable HTN Losartan held due to CIRA Continue Amlodipine Monitor BP BPH On Flomax Dyslipidemia on statin S/P AVR (Aortic Valve replacement) Stable DVT Px Heparin SQ CODE status Full code Disposition Rehab Admission and Anticipated Discharge Date Admission Date: February 11, 2021 Subjective Patient is seen and examined at bedside Right knee pain improved No new complaints Denies chest pain, shortness of breath, dizziness, nausea, abdominal pain Plan to be discharged to rehab facility today Discussed with nephrology today Review of Systems Review of Systems: All systems reviewed & are unremarkable except as noted in HPI & below Physical Exam Physical Exam: Physical Exam: Vitals signs as noted above General Appearance:Obese, no apparent distress Head: normocephalic, Atraumatic Eyes: normal inspection, EOMI Neck: supple, Trachea midline Respiratory/Chest: Decreased breath sounds, CTA Cardiovascular: S1, S2, + murmur Abdomen/GI:Soft, Non tender, Bowel sounds present Extremities/Musculoskeletal:normal inspection, B/L LE edema improved, Right Knee tender, +sutures Neurologic/Psych:AAOX3, grossly no focal neurological deficits Skin: normal color, warm Results & Data Results & Data ([facility]) Vital Signs (Past 12 Hours) Vital Signs Temp Pulse Resp BP Pulse Ox 03/11/21 07:21 37 C 70 18 168/92 H 92 Laboratory Results Short CBC 03/11/21 Range/Units 06:01 Hgb 11.5 L (14.0-18.0) g/dL Hct 35.0 L (42-52) % BMP 03/11/21 05:59 Sodium 138 Potassium 3.3 L Chloride 108 H Carbon Dioxide 26 BUN 14 Creatinine 1.39 Glucose 96 Calcium 9.3 (1) Acute knee pain Laterality: right Qualified Code(s): M25.561 - Pain in right knee (2) Effusion of knee Laterality: right Qualified Code(s): M25.461 - Effusion, right knee
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
--- NOTE | 2021-03-23 13:39 | Pharmacy Report ---
Pharmacy Vanc AUC Short Note - Date of Service February 27, 2021 - Assessment & Plan Assessment 75 year old M previously receiving daptomycin 1000 mg IV q24h for treatment of MSSA bacteremia secondary to septic joint infection is now being switched to vancomycin due to CPK elevation (493) and because of recent rash development on cefazolin. Most recent blood cultures from 02/17/21 showed no growth at 5 days. Day # 8 of antimicrobial therapy. Unclear if patient has allergy to penicillin, nafcillin would be a preferred treatment option for MSSA if patient can tolerate it. Plan Vancomycin * AUC/MIKEY is the preferred PK/PD target for vancomycin * AUC guided dosing is effective and associated with decreased risk of nephrotoxicity compared to traditional trough targets * Loading dose: 2750 mg (23 mg/kg) * Maintenance dose: 1250 mg IV (10 mg/kg) every 12 hours * Trough or random level ordered for: 03/01/21 Pharmacy will continue to follow and will adjust dose/frequency as necessary. Thank you.
== END 2021-03-11 15:26 | DRG 853 ==
LOC: ED 13:32 → SUATTDRO 20:38 → 3N 20:38 → 2N 21:57 → 3E 03-07 18:26

== ENCOUNTER 2023-02-03 05:03 | Observation (INO) ==
--- NOTE | 2023-01-24 11:53 | PAT Medication Instructions ---
Medication Instructions Date of Service January 24, 2023 Home Medications aspirin 81 mg tablet,delayed release (Amelia Low Dose Aspirin) 81 mg PO QAM atorvastatin 40 mg tablet 40 mg PO QPM tamsulosin 0.4 mg capsule 0.4 mg PO QAM ascorbic acid (vitamin C) 500 mg tablet (Vitamin C) 500 mg PO QAM diclofenac sodium 1 % topical gel 2 g topical QID PRN glucosamine-chondroitin 250 mg-200 mg tablet (Osteo Bi-Flex) 2 tab PO QAM multivitamin 1 tab PO QAM simethicone 80 mg chewable tablet 80 mg PO Q6H PRN ASK your surgeon for instructions diclofenac sodium 1 % topical gel 2 g topical QID PRN STOP taking 2 weeks before surgery (or as soon as possible if surgery is within 2 weeks) glucosamine-chondroitin 250 mg-200 mg tablet (Osteo Bi-Flex) 2 tab PO QAM DO NOT take the morning of surgery ascorbic acid (vitamin C) 500 mg tablet (Vitamin C) 500 mg PO QAM multivitamin 1 tab PO QAM simethicone 80 mg chewable tablet 80 mg PO Q6H PRN Take morning of surgery With a small sip of water, OTHERWISE NOTHING TO EAT OR DRINK AFTER MIDNIGHT: aspirin 81 mg tablet,delayed release (Amelia Low Dose Aspirin) 81 mg PO QAM (unless directed otherwise by surgeon) tamsulosin 0.4 mg capsule 0.4 mg PO QAM Take evening before surgery atorvastatin 40 mg tablet 40 mg PO QPM Other Notes If you have any questions please call us at [phone] or [phone] or [phone] or [phone]
--- NOTE | 2023-01-27 08:48 | Anesthesiology Consultation ---
Date of Service January 27, 2023 Assessment & Plan (1) Encounter for pre-operative examination: - awaiting cardiology pre-op clearance. Surgeon's office made aware, patient advised at PAT appt. - check BSG am DOS. - A1c 6.5%: PAT testing to be faxed to PCP for continuity of care. - cardiology 10/21/22 [facility]: "...s/p February 15, 2017 aortic valve replacement...postoperative course complicated by atrial flutter with a controlled ventricular rate...asymptomatic pericardial effusion...cardioversion...oral amiodarone...stable exertional dyspnea...near normal coronary arteries by pre-op cardiac catheterization in 2017...discontinue amiodarone. 14 day Zio monitoring in 3 months. Avoid LAM/ARB and NSAIDs RE: angioedema..." Pt states he missed appt for monitor today. Outpatient joint assessment: Patient is currently scheduled for inpatient pathway. If re-evaluated pending system levels during current pandemic/surgeon requests outpatient pathway, patient is not recommended candidate for outpatient joint program from anesthesia standpoint. Chart Review Chart Review: Pending: Refer to Additional Notes / Consult section and Patient seen in Pre Admission Testing Teaching & Discussion Pre-Anesthesia Teaching/Discussion Notes: Instructed NPO after midnight before surgery, except medications with 15 cc of water. Medication instructions provided according to the PAT guidelines. History Surgery Operation Date: 02/03/23 07:00 Proposed Procedures p Right Total Knee Arthroplasty - Neto Negron MD Height/Weight Height: 6 ft Weight: 122.47 kg Allergies Allergy/AdvReac Type Severity Reaction Status Date / Time cefazolin Allergy Rash Verified 01/24/23 10:54 nafcillin Allergy Intermediate rash Uncoded 01/27/23 08:56 daptomycin AdvReac Severe rhabdomyoly Uncoded 01/27/23 08:56 sis Medications Home Medications Medication Instructions Recorded Confirmed Last Taken aspirin 81 mg tablet,delayed 81 mg PO QAM 02/11/21 01/24/23 Unknown release (Amelia Low Dose Aspirin) atorvastatin 40 mg tablet 40 mg PO QPM 02/11/21 01/24/23 Unknown tamsulosin 0.4 mg capsule 0.4 mg PO QAM 02/11/21 01/24/23 Unknown ascorbic acid (vitamin C) 500 mg 500 mg PO QAM 01/24/23 01/24/23 Unknown tablet (Vitamin C) diclofenac sodium 1 % topical gel 2 g topical QID PRN Pain 01/24/23 01/24/23 Unknown glucosamine-chondroitin 250 mg-200 2 tab PO QAM 01/24/23 01/24/23 Unknown mg tablet (Osteo Bi-Flex) multivitamin 1 tab PO QAM 01/24/23 01/24/23 Unknown simethicone 80 mg chewable tablet 80 mg PO Q6H PRN Gastric Reflux 01/24/23 01/24/23 Unknown Past Medical History Medical History (Updated 01/27/23 @ 09:[address] PA-C) BPH (benign prostatic hyperplasia) CKD (chronic kidney disease) stage 3, GFR 30-59 ml/min 3A from [id number] pt unaware Hearing deficit BL GONZALEZ History of atrial fibrillation post op AVR. s/p cardioversion. follows with Javon Nguyen PA-C. History of blood transfusion during cardiac replacement per pt History of cardioversion History of gout History of skin cancer nose, removed HLD (hyperlipidemia) HTN (hypertension) controlled, stable per pt Spinal stenosis cervical Staphylococcal arthritis, right knee 2020 Patient denies h/o stroke, seizures, heart attack, heart failure, DM, or blood clots. Exercise / Class Metabolic Activity II 4-5 Yardwork/Stairs/Walk up hill (mild SOB with 1 FOS ongoing x 1 yr without change or worsening; denies chest discomfort) Past Family History Family History Brother Heart disease Father Heart disease Mother Heart disease Other No family history of adverse response to anesthesia Past Surgical History Surgical History H/O right knee surgery I&D 02/14/21 LMA#5. History of abdominal surgery as a child. History of back surgery History of cataract surgery History of colonoscopy S/P AVR (aortic valve replacement) 2016 S/P right knee arthroscopy 03/03/21 LMA#5. Past Anesthesia History No Hx of Anesthesia Complications and No Family Hx of Anesthesia Complications History of PONV No Hx of PONV and No Hx of Motion Sickness Social History Smoking Status: Former smoker Do You Dip or Chew Tobacco: No Smoking End Date: 1994 Hx Alcohol Use: Yes alcohol intake frequency: holidays/special occasions only Hx Substance Use: No substance use type: does not use Review of Systems Snoring, denies witnessed apneas. Patient denies chest pain, reflux, fever, chills, cough, wheezing, or palpitations. Physical Exam Vital Signs Vitals BP 137/90 P 63 TEMP 97.7 SP02 96% on RA RESP 17 Physical Full cervical extension range of motion without pain TMD 3.5 finger breadths Mallampati Score 3 Dentition: full upper and lower dentures Lungs: normal respiratory effort. Good air movement, clear throughout to auscultation, no adventitious breath sounds Cardiac: regular rate and rhythm, no murmurs noted Carotid arteries: negative bruit bilat Lab Results Anesthesia Preop Results Results Anesthesia Widget: WBC 6.40 K/ul (4.8-10.8) 01/10/23 Hgb 15.8 g/dl (14.0-18.0) 01/10/23 Hct 46.9 % (42.0-52.0) 01/10/23 Plt 180 K/uL (130-400) 01/10/23 Na 137 mmol/L (136-145) 01/27/23 K 4.2 mmol/L (3.5-5.1) 01/27/23 Cl 105 mmol/L (98-107) 01/27/23 CO2 25 mmol/L (21-32) 01/27/23 BUN 26 mg/dl (6-23) H 01/27/23 Creat 1.32 mg/dl (0.6-1.4) 01/27/23 Glucose Level 119 mg/dl (70-99(Fasting)) H 01/27/23 PT 11.1 Seconds (9.0-12.0) 01/27/23 PTT 29.4 Seconds (21.0-31.0) 01/27/23 INR 1.0 (0.9-1.1) 01/27/23 HA1c 6.5 % (4.5-5.6) H 01/27/23 Blood Type A Positive 01/27/23 Antibody Screen NEGATIVE 01/27/23 Testing Electrocardiogram Date: 07/14/22 Sinus bradycardia with 1st degree AV block, rate 59 bpm Nonspecific intraventricular conduction block Chest X-Ray Date: 01/27/23 Right axilla is enlarged. Prior median sternotomy. Chronic reticular interstitial opacities suggestive of fibrosis. No pneumothorax, pleural effusion, airspace consolidation or overt pulmonary edema. Hyperinflation with diaphragmatic flattening. Degenerative changes of the shoulders and spine. IMPRESSION: Chronic findings as above without acute process. Echocardiogram Date: 07/20/22 EF 60-64% Normal LV wall motion Moderate cLVH Aortic valve bioprosthetic, systolic gradients are normal Mild tricuspid regurgitation, no evidence of pulmonary hypertension Proximal ascending thoracic aorta is mildly enlarged Grade I diastolic dysfunction COVID-19 Risk Screen Screening Information COVID-19 Screen Date: 01/27/23 Exposure 21 Days Family/Household +COVID Last 21 Days: No Exposure 10 Days Any COVID Exposure Last 10 Days: No Symptoms Last 10 Days Experienced COVID Sx Last 10 Days: No + COVID 0-90 Days COVID + in Last 0-90 Days: No
[~2023-02-03 05:03] MED LIST changes: -ACETAMINOPHEN 325 MG TAB PO PRN; +ALLERGY Noted to ORDERED Medication SCH; -ASPI81CH2 PO; -ATOR-24 PO; -ATROPINE SULFATE 0.1 MG/ML 5ML SYR IV PRN; -B-CO-25 PO; -CETI10TA84 PO; -FENTANYL CITRATE INJ 50 MCG/1 ML 2 ML VIAL ONE; -GLUC1CAP28 PO; -LISI1TAB3 PO; -MIDAZOLAM HCL 1 MG/ML 2ML VIAL ONE; -MISC8TAB PO; -OMEG10007 PO; -ONDANSETRON INJ 2 MG/ML 2 ML VIAL IV PRN; -PATIENT'S ALLERGY INFO NEEDS ENTERED SCH; -PRLSR20 PO; -SODIUM CHLORIDE 0.9% 1000ML 250 ML IV PRN
[2023-02-03] MEDS ORDERED: METOCLOPRAMIDE HCL 10 MG TABLET PO SCH (06:00)
[2023-02-03] MEDS ORDERED: CeleBREX 200 MG CAP PO SCH (06:00)
[2023-02-03] MEDS ORDERED: FAMOTIDINE 20 MG TAB PO SCH (06:00)
[2023-02-03] MEDS ORDERED: TRANEXAMIC ACID 1,000 MG **IV Intra-op IV SCH (06:00)
[2023-02-03] MEDS ORDERED: LR 500ML BOLUS, THEN 15ML/HR IV SCH (06:00)
[2023-02-03] MEDS ORDERED: BUPIVACAINE LIPOSOME/PF 266 MG, BUPIVACAINE/EPINEPHRINE 50 ML, SODIUM CHLORIDE 0.9% PF ... INFIL SCH (06:00)
[2023-02-03] MEDS ORDERED: LR 60ML/HR IV SCH (06:00)
[2023-02-03] MEDS ORDERED: dexAMETHasone**PF** 10 MG/ML VIAL IV SCH (06:00)
[2023-02-03] MEDS ORDERED: ceFAZolin 2000MG 2,000 MG/15 ML SYR IV SCH (06:00)
[2023-02-03] MEDS ORDERED: ACETAMINOPHEN 500 MG TAB PO SCH (06:00)
[2023-02-03] MEDS ORDERED: MIDAZOLAM HCL 1 MG/ML 2ML VIAL ONE ×2 (06:25→06:46)
[2023-02-03] MEDS ORDERED: PROPOFOL IV EMULSION 10 MG/ML 20 ML VIAL IV ONE (06:25)
[2023-02-03] MEDS ORDERED: LIDOCAINE 2% 2 ML VIAL/AMP(20MG/ML) INFIL ONE (06:25)
[2023-02-03] MEDS ORDERED: PROPOFOL IV EMULSION 10 MG/ML 100 ML VIAL IV ONE (06:27)
[2023-02-03] MEDS ORDERED: ONDANSETRON INJ 2 MG/ML 2 ML VIAL ONE (06:31)
[2023-02-03] MEDS ORDERED: ROPIVACAINE 0.5% 5 MG/ML 30 ML VIAL ONE (06:33)
[2023-02-03] MEDS ORDERED: BUPIVACAINE 0.5 % 5 MG/1 ML PF 10ML VIAL ONE (06:34)
[2023-02-03] MEDS ORDERED: SODIUM CHLORIDE 0.9% PF 50 ML VIAL ONE (06:41)
[2023-02-03] MEDS ORDERED: BUPIVACAINE/EPINEPHRINE 0.25% 1:200,000 30 ML VIAL ONE (06:41)
[2023-02-03] MEDS ORDERED: BUPIVACAINE LIPOSOME 1.3% 266 MG/20 ML VIAL ONE (06:42)
[2023-02-03] MEDS ORDERED: ceFAZolin 2,000 MG/15 ML IV PUSH IV ONE (06:43)
[2023-02-03] MEDS ORDERED: Nursing to Pharmacy Communication SCH (06:45)
--- NOTE | 2023-02-03 06:51 | History & Physical Bridge Note ---
Date of Service February 03, 2023 History & Physical Bridge Note I have examined the patient, reviewed the History & Physical and in the interval since the performance of the History & Physical I have noted the following changes of clinical significance: no changes noted
[2023-02-03] MEDS ORDERED: HYDROmorphone INJ 1 MG/ML SYRINGE IV PRN (07:04)
[2023-02-03] MEDS ORDERED: ePHEDrine sulfate 50 MG/ML AMP IV PRN (07:04)
[2023-02-03] MEDS ORDERED: ONDANSETRON INJ 2 MG/ML 2 ML VIAL IV PRN ×2 (07:04→10:42)
[2023-02-03] MEDS ORDERED: ATROPINE SULFATE 0.1 MG/ML 10ML SYR IV PRN (07:04)
[2023-02-03] MEDS ORDERED: VANCOMYCIN HCL 1000MG/20ML VIAL ONE (07:18)
[2023-02-03] MEDS ORDERED: GLYCOPYRROLATE 0.2 MG/ML VIAL ONE (08:04)
--- NOTE | 2023-02-03 08:59 | Operative Report ---
PG Post Operative Report Pre & Post Diagnosis Operation Date: 02/03/23 07:00 Pre-Op Diagnosis: DJD Knee Right Post-Op Diagnosis: DJD Knee Right I identified the patient and participated in the time-out.: Yes Procedure Operation Date: 02/03/23 07:00 Actual Procedures p Right Total Knee Arthroplasty(Right) - Neto Negron MD Surgeon Neto Negron MD [employer]ine Tank Tender Jaylen Cuevas PA-C Estimated Blood Loss 50 Findings Consistent with Post-Op Diagnosis Operative findings were advanced right knee tricompartment DJD. Extensive grade 4 [id number] disease in all 3 compartments. There is extensive scarring t hroughout the entire knee as well. He had a chronic ACL deficiency. Specimens Right knee sent for pathology Anesthesia Type Spinal MAC Complications none Disposition Accompanied Patient To Recovery: No Indications Patient is 77-year-old gentleman who has had a long history of right knee problems. He actually developed a septic knee with septic arthritis about 2 years ago had arthroscopic irrigation debridement 6 weeks of IV antibiotics. These could continue to progressively develop increased pain discomfort in his knee. He had extensive work-up which showed no signs of residual infection. He has been off antibiotics for over a year and a half. He elected proceed with total knee arthroplasty. I did explicitly explained to him his increased risk of infection and possible adverse results to that. He was fully aware of this and we elected to proceed. Description of Procedure Operative implants consist of: 1 Biomet Vanguard size 75 right posterior stabilized femoral component. 2. Biomet size 79 tibial tray. 3. 10 mm posterior stabilized polyethylene insert. 4. 34 x 8 and half all poly patella. Patient was taken the operating, identified, and placed on the operating table supine position protectors were properly padded. IV antibiotics were provided by the anesthesia team. A Cmapbell catheter was placed in sterile fashion. Right Tetrick was then placed in the right lower extremity was then prepped and draped in usual sterile fashion. The right leg was elevated exsanguinated with use of an Esmarch in terms playset 300 mmHg. An anterior process of the right knee was then performed to longitudinal incision centered over the patella. Sharp dissection was carried through subcutaneous tissue down to the extensor mechanism. A medial parapatellar arthrotomy incision was made. Some subperiosteal dissection was carried out medially. The fat pad was resected from Neath patella tendon. Lateral patellofemoral ligament was released. Patella subluxated laterally and the knee was flexed. The osteophytes taken off distal femur. The ACL was absent chronically. The intercondylar notch was essentially overgrown with bon e. I did remove the osteophytes. The PCL was then released. The tibia subluxated anteriorly. The external tibial alignment jig was then placed in the interface the tibia and adjusted 14 mm medially. Proximal tibial cut was made remove about 3 to 4 mm of bone from the medial side. The tibia was then sized to a size 79. Attention drawn the femur. The distal femur was entered with a sharp drill. Intramedullary canal was suction. A right 5 degree valgus cutting guide was placed. Distal femoral cutting block was pinned in place. Distal femoral cut was made to take an additional 3 mm bone off distal femur. The femur was then sized to a size 75. The AP cutting block was pinned parallel to the epicondylar axis which was 3 degrees of external rotation. Anterior cut, anterior chamfer, posterior cut, posterior chamfer cuts were made. The box cutting guide was placed in just slight lateral and the box cut was made. The knee was flexed. The remnants of the medial and lateral menisci were excised. The osteophytes were taken off the posterior aspect the femur. A trial femoral component was placed. The tibial tray was pinned in maximum external rotation and the drill and stem punch were used to create defect in proximal tibia for the tibial tray. The knee was then trialed and 10 mm insert fit most appropriately. Attention drawn the patella. The patella was cleaned of all soft tissues. Patella thickness measured about 28 mm in thickness. I cut this down to about 18. It was sized to a size 34 patella. The lug holes were drilled for the 34 patella. The lateral osteophyte was removed. Patella button was placed. Knee was taken through range of motion patella tracked nicely with no thumbs test. Attention drawn to placing permanent components. All trial components were removed. I did place a gram of vancomycin powder in the intramedullary canal of the femur due to his history of infection. I did place a little distally in the tibial canal as well. Bone plug was placed in the distal femur limit blood loss. A double batch Palacos G cement was mixed. 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 80 Biomet Vanguard size 75 right posterior stabilized femoral component, size 79 tibial tray, 10 mm posterior stabilized polyethylene insert, and a 34 x 8 and half all Paller patella were then cemented in place. Knee was brought out in full extension till cement hardened. Final cement check was then performed. Pericapsular tissues were injected with total 100 cc of a combination of 20 of Exparel, 30 cc normal saline, 50 cc of quarter percent Marcaine with epinephrine. I irrigated the wound extensively. The tourniquet was let down for final tourniquet time was 65 minutes. Hemostasis assured use electrocautery. We once again irrigated the wound. I then placed an additional gram of vancomycin in the knee joint. The extensor mechanism then closed with combination 1 PDS suture #1 Vicryl suture in a [id number] fashion. Extensor mechanism checked found to be intact and the subcutaneous tissues then closed with 2 Dexon suture in buried interrupted fashion skin was closed skin tyrese. Leg was then cleaned and dried and sterile dressed with Xeroform, 4 fours, sterile cast padding, Raphael bandage were applied. Patient then transferred to the recovery room in stable condition. Patient tolerated procedure well no complications. Jaylen Cuevas, my physician registered sales assistant, was present for the entire procedure. His assistance was essential and required for appropriate patient positioning, prepping and draping, surgical exposure, performing the technical details of the operation, placement the implants, closure of the wound, and placement of the sterile bandage. I attest to the content of the Intraoperative Record and any orders documented therein. Any exceptions are noted below.
--- NOTE | 2023-02-03 10:13 | XRay Report ---
XR knee RT 1 or 2V routine CLINICAL HISTORY: Surgical Post Op TECHNIQUE: 2 views of the right knee were obtained. Comparison: Comparison is made to right knee radiograph 02/11/2021 FINDINGS: Patient is status post total knee arthroplasty with expected postsurgical changes including soft tiss ue swelling and subcutaneous emphysema. No periarticular lucency or hardware fracture is seen. IMPRESSION: Expected postoperative appearance status post placement of total knee arthroplasty. ACT 112: Negative or not required by law. Electronically signed by: Leo Wells M.D. 02/03/2023 10:11 AM
--- NOTE | 2023-02-03 10:21 | Anesthesiology Progress Note ---
Date of Service February 03, 2023 Anesthesia Post Procedure Vital Signs Vital Signs: Temp Pulse Pulse Resp BP Pulse Ox O2 Del Method 02/03/23 10:10 52 L 16 117/69 94 Nasal Cannula 02/03/23 10:00 36.4 C L 52 L 16 111/73 95 Nasal Cannula 02/03/23 09:50 50 L 14 106/65 95 Nasal Cannula 02/03/23 09:40 52 L 16 107/62 94 Nasal Cannula 02/03/23 09:30 64 16 105/65 95 Nasal Cannula 02/03/23 09:20 54 L 16 98/62 L 94 Nasal Cannula 02/03/23 09:10 58 L 16 101/59 L 95 Nasal Cannula 02/03/23 09:02 36.1 C L 71 16 92/58 L 95 Oxymask 02/03/23 05:45 36.5 C 56 L 18 192/95 H 95 Room Air O2 Flow Rate 02/03/23 10:10 3 02/03/23 10:00 3 02/03/23 09:50 3 02/03/23 09:40 3 02/03/23 09:30 3 02/03/23 09:20 3 02/03/23 09:10 3 02/03/23 09:02 6 02/03/23 05:45 Transfer of Care Handoff Completed per policy Notes Mental Status: alert / awake / arousable Patient Amnestic to Procedure: Yes Nausea / Vomiting: adequately controlled Pain: adequately controlled Airway Patency, RR, SpO2: stable & adequate BP & HR: stable & adequate Hydration State: stable & adequate Neuraxial Anesthesia: was administered and sensory block is resolving Anesthetic Complications: no major complications apparent
[2023-02-03] MEDS ORDERED: SENNA 8.6 MG TAB PO SCH ×2 (10:42→21:00)
[2023-02-03] MEDS ORDERED: NON-FORMULARY MEDICATION (Glucosamine-Chondroitin [Osteo Bi-Flex] 250-200 mg Tablet) PO SCH (10:42)
[2023-02-03] MEDS ORDERED: NALOXONE HCL 0.4 MG/1 ML VIAL/CARP IV PRN (10:42)
[2023-02-03] MEDS ORDERED: HYDROmorphone INJ 0.5 MG/0.5 ML SYR IV PRN (10:42)
[2023-02-03] MEDS ORDERED: bisacodyL 10 MG SUPP PR PRN (10:42)
[2023-02-03] MEDS ORDERED: TAMSULOSIN HCL 0.4 MG CAP PO SCH (10:42)
[2023-02-03] MEDS ORDERED: METOCLOPRAMIDE HCL INJ 5 MG/ML 2 ML VIAL IV PRN (10:42)
[2023-02-03] MEDS ORDERED: ALUMINUM/MAGNESIUM SUSP 30 ML UDC PO PRN (10:42)
[2023-02-03] MEDS ORDERED: NON-FORMULARY MEDICATION (Multivitamin Tablet) PO SCH (10:42)
[2023-02-03] MEDS ORDERED: SIMETHICONE 80 MG CHEW PO PRN (10:42)
[2023-02-03] MEDS ORDERED: MAGNESIUM HYDROXIDE SUSP 30 ML UDC PO PRN (10:42)
[2023-02-03] MEDS ORDERED: oxyCODONE HCL IR 5 MG TAB (IMMEDIATE RELEASE) PO PRN (10:42)
[2023-02-03] MEDS: SODIUM CHLORIDE 0.9% 1000ML 1,000 ML IV SCH ×2 (11:34→20:31)
[2023-02-03] MEDS: ASCORBIC ACID 500 MG TAB PO SCH (12:28)
[2023-02-03] MEDS: ASPIRIN 81 MG ECTAB PO SCH ×2 (12:28→20:14)
[2023-02-03] MEDS: TAMSULOSIN HCL 0.4 MG CAP PO SCH (12:29)
[2023-02-03] MEDS: DOCUSATE SODIUM 100 MG CAP PO SCH ×2 (12:29→20:14)
[2023-02-03] MEDS: KETOROLAC TROMETHAMINE 15 MG/ML VIAL IV SCH ×3 (12:29→23:42)
[2023-02-03] MEDS: MULTIVITAMIN TAB PO SCH (12:29)
[2023-02-03] MEDS ORDERED: TRANEXAMIC ACID / 0.7% NACL 1,000 MG/100 ML BAG IV SCH (15:00)
[2023-02-03] MEDS: ACETAMINOPHEN 500 MG TAB PO SCH ×2 (15:16→22:30)
[2023-02-03] MEDS: ceFAZolin 2000MG 2,000 MG/15 ML SYR IV SCH (15:16)
[2023-02-03] MEDS ORDERED: ATORVASTATIN 40 MG TAB PO SCH (21:00)
[2023-02-04] MEDS: ceFAZolin 2000MG 2,000 MG/15 ML SYR IV SCH (00:26)
[2023-02-04] MEDS: ACETAMINOPHEN 500 MG TAB PO SCH (06:01)
[2023-02-04] MEDS: KETOROLAC TROMETHAMINE 15 MG/ML VIAL IV SCH (06:02)
[2023-02-04 06:33] LABS: Hematocrit (blood only) 37.9 % (42.0-52.0); Mean Corpuscular Hemoglobin 29.2 pg (25.0-34.0); Mean Corpuscular Hgb Conc 34.3 g/dL (32.0-36.0); Mean Corpuscular Volume 85.2 fL (80.0-100.0); Mean Platelet Volume 10.7 fL (9.4-12.4); Platelet Count 165 K/uL (130-400); RDW Coefficient of Variation 13.2 % (11.5-14.5); RDW Standard Deviation 41.1 fL (36.4-46.3); Red Blood Count 4.45 M/uL (4.70-6.10); White Blood Count 14.12 K/ul (4.8-10.8)
[2023-02-04 06:46] LABS: Calcium 9.1 mg/dl (8.6-10.3); Creatinine Clr Calc Pharmacy 53.6 ml/min; Potassium 4.4 mmol/L (3.5-5.1)
--- NOTE | 2023-02-04 07:40 | Progress Notes ---
SUBJECTIVE: A 77-year-old gentleman, postoperative day 1 from a right knee replacement. He is doing well. Pain is controlled. No chest pain or shortness of breath. Not feeling dizzy or lightheaded. He is hoping to go home today. OBJECTIVE: VITAL SIGNS: Temperature 36.5. Vital signs are stable. GENERAL: Physical examination shows a pleasant, elderly male. He is sitting up in his bedside chair and looks comfortable this morning. LUNGS: Clear to auscultation. HEART: Has a regular rate and rhythm. ABDOMEN: Soft, nontender, nondistended. EXTREMITIES: Grossly neurovascularly intact except as follows. Examination of the right leg reveals the dressing to be clean, dry, and intact. He can dorsiflex and plantarflex his foot appropriately. He can do a straight leg raise with a little bit of a lag. NEUROLOGIC: He is neurologically intact. LABORATORY DATA: Hemoglobin 13.0. Hematocrit 37.9. Electrolytes are stable. Creatinine is just sl ightly elevated, but stable and at baseline. ASSESSMENT: A 77-year-old gentleman, postoperative day 1 from a right knee replacement, doing quite well. Pain is controlled. He is neurologically intact. He is hoping to go home today. PLAN: 1. DVT prophylaxis includes thigh-high TEDs, SCDs, and aspirin twice a day. 2. PT/OT. He can weight bear as tolerated. Right total knee protocol. 3. Pain control, doing well with current pain regimen. 4. Disposition: Plan to discharge to home later today after therapy if he does okay with home jovana [email or web address] Job ID: [id number]
[2023-02-04] MEDS: ASCORBIC ACID 500 MG TAB PO SCH (07:41)
[2023-02-04] MEDS: MULTIVITAMIN TAB PO SCH (07:41)
[2023-02-04] MEDS: ASPIRIN 81 MG ECTAB PO SCH (07:41)
[2023-02-04] MEDS: DOCUSATE SODIUM 100 MG CAP PO SCH (07:41)
[2023-02-04] MEDS: TAMSULOSIN HCL 0.4 MG CAP PO SCH (07:41)
[2023-02-04] MEDS ORDERED: dexAMETHasone 10 MG in SYRINGE 0 ML IV SCH (08:00)
== END 2023-02-04 10:55 | disposition home health service (06) ==
LOC: 3E 05:03 → ASU 05:03